=== PATIENT | male | born 1985 | race Two or more races ===

== ENCOUNTER 2016-06-24 10:13 | Inpatient (IN) | payer BC, OTHER ==
[2016-06-24 10:35] VITALS: BMI 22.3
[2016-06-24] MEDS ORDERED: MENTHOL/PHENOL 1 EACH UD MM PRN (14:29)
[2016-06-24] MEDS ORDERED: MAG HYDROX/AL HYDROX/SIMETH 30 ML UNIT-DOSE CUP PO PRN (14:29)
[2016-06-24] MEDS ORDERED: ACETAMINOPHEN 325 MG TABLET (FP) PO PRN (14:29)
[2016-06-24] MEDS ORDERED: MAGNESIUM CITRATE 300 ML BOTTLE PO PRN (14:29)
[2016-06-24] MEDS ORDERED: MAGNESIUM HYDROX 2400MG/30ML ORAL SUSPENSION 30 ML CUP PO PRN (14:29)
[2016-06-24] MEDS ORDERED: guaiFENesin/D-METHORPHAN HB 10 ML UNIT-DOSE CUPS PO PRN (14:29)
[2016-06-24] MEDS ORDERED: NICOTINE POLACRILEX 4 MG GUM BUC PRN (14:29)
[2016-06-24] MEDS ORDERED: P-EPHED 60MG/TRIPROLIDI 2.5MG TABLET PO PRN (14:29)
[2016-06-24] MEDS ORDERED: diphenhydrAMINE HCL 50 MG CAPSULE PO PRN (14:29)
[2016-06-24] MEDS ORDERED: LOPERAMIDE HCL 2 MG CAPSULE PO PRN (14:29)
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
[2016-06-24] MEDS ORDERED: METHADONE HCL 10 MG TABLET (FOR DETOX USE ONLY) PO ONE ×2 (14:36→23:00)
[2016-06-24] MEDS: diazePAM 5 MG TABLET PO PRN ×2 (14:57→22:33)
[2016-06-24 20:40] LABS: URINE APPEARANCE CLEAR; URINE BILIRUBIN NEGATIVE (NEGATIVE); URINE BLOOD NEGATIVE (NEGATIVE); URINE COLOR YELLOW; URINE GLUCOSE (UA) NEGATIVE (NEGATIVE); URINE KETONE 1+ (NEGATIVE); URINE LEUK ESTERASE NEGATIVE (NEGATIVE); URINE NITRITE NEGATIVE (NEGATIVE); URINE UROBILINOGEN NEGATIVE E.U./dl (0.2-1.0)
[2016-06-24 20:45] LABS: URINE PROTEIN 1+ (NEGATIVE)
[2016-06-24 20:47] LABS: URINE MUCUS MANY; URINE RBC 4 /hpf (0-3); URINE WBC 3 /hpf (3-5)
[2016-06-24] MEDS: THIAMINE HCL 100 MG TABLET (FP) PO SCH (22:33)
--- NOTE | 2016-06-25 08:07 | CONSULT ---
[facility] Psychiatric Consult - Data Date of interview: 06/25/16 Admission source: [facility] Identifying data: This is 30 years old micronesian speaking male with psychiatric hospitalization history intoxciated with: Cannabis, nCocaine, Heroin and Nicotine Substance Abuse History: - Smoking Cessation. Smoking history: Current every day smoker. Have you smoked in the past 12 months: Yes. Aproximately how many cigarettes per day: 10. Hx Chewing Tobacco Use: No. Initiated information on smoking cessation: Yes. 'Breaking Loose' booklet given: 06/24/16. - Substance & Tx. History. Hx Alcohol Use: No. Hx Substance Use: Yes. Substance Use Type : Cocaine, Heroin, Marijuana. Hx Substance Use Treatment: Yes. - Substances Abused. Heroin. Route: Injection. Frequency: Daily. Amount used: 10 bags. Age of first use: 16. Date of Last Use: 06/24/16. Cocaine. Route: Injection. Frequency: Daily. Amount used: $150. Age of first use: 16. Date of Last Use: 06/24/16. Marijuana. Route: Smoking. Frequency: Daily. Amount used: $5. Age of first use: 14. Date of Last Use: 06/24/16 Medical History: Hep C+, HIV+ Psychiatric History: Patient repoorts history of anxiety and depression, reports taking prior to admission: Trazodone 100mg po qhs. Seroquel 100mg po qhs. Gabapentin 300mg po tid. Reports most recent psychiatric admission on 3- 4 years ago at [facility]. Physical/Sexual Abuse/Trauma History: Denies Additional Comment: Trazodone 100mg po qhs. Seroquel 100mg po qhs. Gabapentin 300mg po tid Mental Status Exam - Mental Status Exam Alert and Oriented to: Person Cognitive Function: Fair Patient Appearance: Unkempt Mood: Apprehensive Affect: Mood Congruent Patient Behavior: Cooperative Speech Pattern: Appropriate Voice Loudness: Normal Thought Process: Goal Oriented Thought Disorder: Being Controlled Hallucinations: Denies Suicidal Ideation: Denies Homicidal Ideation: Denies Insight/Judgement: Fair Sleep: Difficulty falling asleep Appetite: Weight loss Muscle strength/Tone: Normal Gait/Station: Normal Additional Comments: Trazodone 100mg po qhs. Seroquel 100mg po qhs. Gabapentin 300mg po tid Psychiatric Findings - Problem List ([place] 1, 2,3) (1) Cocaine dependence Current Visit: Yes Status: Chronic Qualifiers: Substance use status: uncomplicated (2) Nicotine dependence Current Visit: Yes Status: Chronic (3) Opioid dependence with withdrawal Current Visit: Yes Status: Chronic (4) Drug-induced mood disorder Current Visit: Yes Status: Acute - Initial Treatment Plan Initial Treatment Plan: Trazodone 100mg po qhs. Seroquel 100mg po qhs. Gabapentin 300mg po tid
[2016-06-25] MEDS: diazePAM 5 MG TABLET PO PRN ×4 (08:27→22:19)
[2016-06-25] MEDS ORDERED: METHADONE HCL 10 MG TABLET (FOR DETOX USE ONLY) PO ONE (10:00)
[2016-06-25 10:05] LABS: MCH 29.2 pg (25.7-33.7); MCHC 33.2 g/dl (32.0-35.9); MEAN CELL VOLUME 87.8 fl (80-96); MEAN PLT VOLUME 8.8 fl (7.5-11.1); PLATELET COUNT 274 K/MM3 (134-434); RDW 14.4 % (11.9-15.9); WHITE BLOOD COUNT 7.4 K/mm3 (4.0-10.0)
[2016-06-25] MEDS: PRENATAL VITAMINS W/ FOLIC ACID TABLET (FP) PO SCH (10:34)
[2016-06-25] MEDS: NICOTINE 21 MG/24 HOURS TOPICAL PATCH TD SCH (10:35)
[2016-06-25 10:40] LABS: ALBUMIN 3.6 g/dl (3.4-5.0); ALK PHOS 69 U/L (45-117); ANION GAP 9 (8-16); BILIRUBIN,TOTAL 0.4 mg/dL (0.2-1.0); CALCIUM 9.5 mg/dL (8.5-10.1); CO2 28 mmol/L (21-32); GLUCOSE,RANDOM 88 mg/dL (74-106); SGOT/AST 52 U/L (15-37); SGPT/ALT 58 U/L (12-78); TOT PROT 7.9 g/dl (6.4-8.2)
[2016-06-25] MEDS: IBUPROFEN 400 MG TABLET (FP) PO PRN (10:43)
--- NOTE | 2016-06-25 11:48 | PN ---
S COWS - Scale Resting Pulse: 0= OR 80 or Below Sweatin=Flushed/Facial Moisture Restless Observation: 1= Difficult to Sit Still Pupil Size: 0= Normal to Room Light Bone or Joint Aches: 1= Mild Discomfort Runny Nose/ Eye Tearin= Nasal Congestion GI Upset > 30mins: 0= None Tremor Observation of Outstretched Hands: 2= Slight Tremor Visible Yawning Observation: 1= 1-2x During Session Anxiety or Irritability: 2=Irritable/Anxious Goose Flesh Skin: 3=Piloerection COWS Score: 13 [facility] Progress Note (SOAP) Subjective: Sweating, Tremors. Objective: 06/25/16 11:45 Vital Signs Temperature 97.7 F 06/25/16 09:36 Pulse Rate 65 06/25/16 09:36 Respiratory Rate 18 06/25/16 09:36 Blood Pressure 127/79 06/25/16 09:36 O2 Sat by Pulse Oximetry (%) Laboratory Last Values WBC 7.4 K/mm3 (4.0-10.0) 06/25/16 06:00 RBC 4.51 M/mm3 (4.00-5.60) 06/25/16 06:00 Hgb 13.2 GM/dL (11.7-16.9) 06/25/16 06:00 Hct 39.6 % (35.4-49) 06/25/16 06:00 MCV 87.8 fl (80-96) 06/25/16 06:00 MCHC 33.2 g/dl (32.0-35.9) 06/25/16 06:00 RDW 14.4 % (11.9-15.9) 06/25/16 06:00 Plt Count 274 K/MM3 (134-434) 06/25/16 06:00 MPV 8.8 fl (7.5-11.1) 06/25/16 06:00 Sodium 140 mmol/L (136-145) 06/25/16 06:00 Potassium 4.6 mmol/L (3.5-5.1) 06/25/16 06:00 Chloride 103 mmol/L (98-107) 06/25/16 06:00 Carbon Dioxide 28 mmol/L (21-32) 06/25/16 06:00 Anion Gap 9 (8-16) 06/25/16 06:00 BUN 9 mg/dL (7-18) D 06/25/16 06:00 Creatinine 1.0 mg/dL (0.7-1.3) 06/25/16 06:00 Creat Clearance w eGFR > 60 (>60) 06/25/16 06:00 Random Glucose 88 mg/dL (74-106) D 06/25/16 06:00 Calcium 9.5 mg/dL (8.5-10.1) 06/25/16 06:00 Total Bilirubin 0.4 mg/dL (0.2-1.0) D 06/25/16 06:00 AST 52 U/L (15-37) H 06/25/16 06:00 ALT 58 U/L (12-78) 06/25/16 06:00 Alkaline Phosphatase 69 U/L (45-117) 06/25/16 06:00 Total Protein 7.9 g/dl (6.4-8.2) 06/25/16 06:00 Albumin 3.6 g/dl (3.4-5.0) 06/25/16 06:00 Urine Color Yellow 06/24/16 14:00 Urine Appearance Clear 06/24/16 14:00 Urine pH 5.0 (5.0-8.0) D 06/24/16 14:00 Ur Specific [place] 1.023 (1.001-1.035) 06/24/16 14:00 Urine Protein 1+ (NEGATIVE) H 06/24/16 14:00 Urine Glucose (UA) Negative (NEGATIVE) 06/24/16 14:00 Urine Ketones 1+ (NEGATIVE) H 06/24/16 14:00 Urine Blood Negative (NEGATIVE) 06/24/16 14:00 Urine Nitrite Negative (NEGATIVE) 06/24/16 14:00 Urine Bilirubin Negative (NEGATIVE) 06/24/16 14:00 Urine Urobilinogen Negative E.U./dl (0.2-1.0) 06/24/16 14:00 Ur Leukocyte Esterase Negative (NEGATIVE) 06/24/16 14:00 Urine RBC 4 /hpf (0-3) 06/24/16 14:00 Urine WBC 3 /hpf (3-5) 06/24/16 14:00 Ur Epithelial Cells Rare /hpf (FEW) 06/24/16 14:00 Urine Mucus Many 06/24/16 14:00 RPR Titer Nonreactive (NONREACTIVE) 06/25/16 06:00 LABS NOTED. Assessment: 06/25/16 11:46 WITHDRAWAL SYMPTOMS. Plan: CONTINUE DETOX.
[2016-06-25] MEDS: GABAPENTIN 300 MG CAPSULE (FP) PO SCH ×2 (13:38→22:19)
--- NOTE | 2016-06-25 17:39 | EKG ---
Test Reason : Blood Pressure : / mmHG Vent. Rate : 088 BPM Atrial Rate : 088 BPM P-R Int : 126 ms QRS Dur : 110 ms QT Int : 386 ms P-R-T Axes : 062 044 052 degrees QTc Int : 467 ms NORMAL SINUS RHYTHM [id number] ABNORMAL ECG NO PREVIOUS ECGS AVAILABLE Confirmed by CHRISTINE RUBIN MD ([id number]) on 06/25/2016 5:39:08 PM Referred By: Confirmed By:CHRISTINE RUBIN MD
[2016-06-25] MEDS: THIAMINE HCL 100 MG TABLET (FP) PO SCH (22:19)
[2016-06-25] MEDS: QUEtiapine FUMARATE 100 MG TABLET (FP) PO SCH (22:19)
[2016-06-25] MEDS: traZODone HCL 100 MG TABLET (FP) PO SCH (22:19)
[2016-06-26] MEDS: GABAPENTIN 300 MG CAPSULE (FP) PO SCH ×3 (05:50→22:16)
[2016-06-26] MEDS: diazePAM 5 MG TABLET PO PRN ×4 (05:52→20:01)
[2016-06-26] MEDS ORDERED: METHADONE HCL 5 MG TABLET (FOR DETOX USE ONLY) PO ONE (10:00)
--- NOTE | 2016-06-26 10:05 | PN ---
S COWS - Scale Resting Pulse: 0= ID 80 or Below Sweatin= Chills/Flushing Restless Observation: 1= Difficult to Sit Still Pupil Size: 2= Moderately Dilated Bone or Joint Aches: 2= Severe Diffuse Aches Runny Nose/ Eye Tearin= Runny Nose/Eyes GI Upset > 30mins: 2= Nausea/Diarrhea Tremor Observation of Outstretched Hands: 2= Slight Tremor Visible Yawning Observation: 1= 1-2x During Session Anxiety or Irritability: 2=Irritable/Anxious Goose Flesh Skin: 0=Smooth Skin COWS Score: 15 [facility] Progress Note (SOAP) Objective: 06/26/16 10:04 ALERT AND ORIENTEDx 3 Laboratory Tests 06/24/16 06/25/16 06/25/16 14:00 06:00 06:00 WBC 7.4 RBC 4.51 Hgb 13.2 Hct 39.6 MCV 87.8 MCHC 33.2 RDW 14.4 Plt Count 274 MPV 8.8 Sodium 140 Potassium 4.6 Chloride 103 Carbon Dioxide 28 Anion Gap 9 BUN 9 D Creatinine 1.0 Creat Clearance w eGFR > 60 Random Glucose 88 D Calcium 9.5 Total Bilirubin 0.4 D AST 52 H ALT 58 Alkaline Phosphatase 69 Total Protein 7.9 Albumin 3.6 Urine Color Yellow Urine Appearance Clear Urine pH 5.0 D Ur Specific [place] 1.023 Urine Protein 1+ H Urine Glucose (UA) Negative Urine Ketones 1+ H Urine Blood Negative Urine Nitrite Negative Urine Bilirubin Negative Urine Urobilinogen Negative Ur Leukocyte Esterase Negative Urine RBC 4 Urine WBC 3 Ur Epithelial Cells Rare Urine Mucus Many RPR Titer 06/25/16 06:00 WBC RBC Hgb Hct MCV MCHC RDW Plt Count MPV Sodium Potassium Chloride Carbon Dioxide Anion Gap BUN Creatinine Creat Clearance w eGFR Random Glucose Calcium Total Bilirubin AST ALT Alkaline Phosphatase Total Protein Albumin Urine Color Urine Appearance Urine pH Ur Specific [place] Urine Protein Urine Glucose (UA) Urine Ketones Urine Blood Urine Nitrite Urine Bilirubin Urine Urobilinogen Ur Leukocyte Esterase Urine RBC Urine WBC Ur Epithelial Cells Urine Mucus RPR Titer Nonreactive Vital Signs - 24 hr 06/25/16 06/25/16 06/25/16 15:03 20:25 22:02 Temperature 98.2 F 98.1 F 97.1 F L Pulse Rate 75 82 74 Respiratory 18 20 18 Rate Blood Pressure 121/56 122/61 99/64 02/03/17 02/03/17 02/03/17 00:30 03:30 06:00 Temperature 98.2 F Pulse Rate 69 Respiratory 18 18 16 Rate Blood Pressure 101/60 06/26/16 10:04 Assessment: 06/26/16 10:04 ONGOING WITHDRAWAL Plan: CONTINUE DETOX PROTOCOL
[2016-06-26] MEDS: NICOTINE 21 MG/24 HOURS TOPICAL PATCH TD SCH (10:48)
[2016-06-26] MEDS: PRENATAL VITAMINS W/ FOLIC ACID TABLET (FP) PO SCH (10:48)
[2016-06-26] MEDS: hydrOXYzine PAMOATE 50 MG CAPSULE (FP) PO PRN (13:01)
[2016-06-26] MEDS: traZODone HCL 100 MG TABLET (FP) PO SCH (22:15)
[2016-06-26] MEDS: THIAMINE HCL 100 MG TABLET (FP) PO SCH (22:16)
[2016-06-26] MEDS: QUEtiapine FUMARATE 100 MG TABLET (FP) PO SCH (22:16)
[2016-06-27] MEDS: GABAPENTIN 300 MG CAPSULE (FP) PO SCH ×3 (07:14→21:51)
[2016-06-27] MEDS ORDERED: METHADONE HCL 5 MG TABLET (FOR DETOX USE ONLY) PO ONE (10:00)
[2016-06-27] MEDS: PRENATAL VITAMINS W/ FOLIC ACID TABLET (FP) PO SCH (10:16)
[2016-06-27] MEDS: NICOTINE 21 MG/24 HOURS TOPICAL PATCH TD SCH (10:16)
[2016-06-27] MEDS: diazePAM 5 MG TABLET PO PRN ×2 (10:19→14:20)
[2016-06-27] MEDS ORDERED: ALBUTEROL SO4 6.7 GM HFA INHALER IH PRN (13:19)
--- NOTE | 2016-06-27 13:19 | PN ---
S Progress Note (SOAP) Subjective: ALERT,IRRITABLE,ANXIOUS,PAIN IN THE BODY AND BACK,INTERRUPTED SLEEP Objective: 06/27/16 13:16 Vital Signs Temperature 97 F L 06/27/16 10:05 Pulse Rate 84 06/27/16 10:05 Respiratory Rate 18 06/27/16 10:05 Blood Pressure 112/65 06/27/16 10:05 O2 Sat by Pulse Oximetry (%) EKG NSR 88/MIN [place] WHITE NO CHEST PAIN,NO SOB,NO DIZZINESS Laboratory Last Values WBC 7.4 K/mm3 (4.0-10.0) 06/25/16 06:00 RBC 4.51 M/mm3 (4.00-5.60) 06/25/16 06:00 Hgb 13.2 GM/dL (11.7-16.9) 06/25/16 06:00 Hct 39.6 % (35.4-49) 06/25/16 06:00 MCV 87.8 fl (80-96) 06/25/16 06:00 MCHC 33.2 g/dl (32.0-35.9) 06/25/16 06:00 RDW 14.4 % (11.9-15.9) 06/25/16 06:00 Plt Count 274 K/MM3 (134-434) 06/25/16 06:00 MPV 8.8 fl (7.5-11.1) 06/25/16 06:00 Sodium 140 mmol/L (136-145) 06/25/16 06:00 Potassium 4.6 mmol/L (3.5-5.1) 06/25/16 06:00 Chloride 103 mmol/L (98-107) 06/25/16 06:00 Carbon Dioxide 28 mmol/L (21-32) 06/25/16 06:00 Anion Gap 9 (8-16) 06/25/16 06:00 BUN 9 mg/dL (7-18) D 06/25/16 06:00 Creatinine 1.0 mg/dL (0.7-1.3) 06/25/16 06:00 Creat Clearance w eGFR > 60 (>60) 06/25/16 06:00 Random Glucose 88 mg/dL (74-106) D 06/25/16 06:00 Calcium 9.5 mg/dL (8.5-10.1) 06/25/16 06:00 Total Bilirubin 0.4 mg/dL (0.2-1.0) D 06/25/16 06:00 AST 52 U/L (15-37) H 06/25/16 06:00 ALT 58 U/L (12-78) 06/25/16 06:00 Alkaline Phosphatase 69 U/L (45-117) 06/25/16 06:00 Total Protein 7.9 g/dl (6.4-8.2) 06/25/16 06:00 Albumin 3.6 g/dl (3.4-5.0) 06/25/16 06:00 Urine Color Yellow 06/24/16 14:00 Urine Appearance Clear 06/24/16 14:00 Urine pH 5.0 (5.0-8.0) D 06/24/16 14:00 Ur Specific [place] 1.023 (1.001-1.035) 06/24/16 14:00 Urine Protein 1+ (NEGATIVE) H 06/24/16 14:00 Urine Glucose (UA) Negative (NEGATIVE) 06/24/16 14:00 Urine Ketones 1+ (NEGATIVE) H 06/24/16 14:00 Urine Blood Negative (NEGATIVE) 06/24/16 14:00 Urine Nitrite Negative (NEGATIVE) 06/24/16 14:00 Urine Bilirubin Negative (NEGATIVE) 06/24/16 14:00 Urine Urobilinogen Negative E.U./dl (0.2-1.0) 06/24/16 14:00 Ur Leukocyte Esterase Negative (NEGATIVE) 06/24/16 14:00 Urine RBC 4 /hpf (0-3) 06/24/16 14:00 Urine WBC 3 /hpf (3-5) 06/24/16 14:00 Ur Epithelial Cells Rare /hpf (FEW) 06/24/16 14:00 Urine Mucus Many 06/24/16 14:00 RPR Titer Nonreactive (NONREACTIVE) 06/25/16 06:00 06/27/16 13:18 Assessment: 06/27/16 13:18 WITHDRAWAL SYMPTOM Plan: CONTINUE DETOX
[2016-06-27] MEDS: hydrOXYzine PAMOATE 50 MG CAPSULE (FP) PO PRN (14:19)
[2016-06-27] MEDS: THIAMINE HCL 100 MG TABLET (FP) PO SCH (21:50)
[2016-06-27] MEDS: traZODone HCL 100 MG TABLET (FP) PO SCH (21:51)
[2016-06-27] MEDS: QUEtiapine FUMARATE 100 MG TABLET (FP) PO SCH (21:51)
[2016-06-28] MEDS: GABAPENTIN 300 MG CAPSULE (FP) PO SCH ×3 (07:26→22:29)
[2016-06-28] MEDS ORDERED: METHADONE HCL 10 MG TABLET (FOR DETOX USE ONLY) PO ONE (10:00)
[2016-06-28] MEDS: PRENATAL VITAMINS W/ FOLIC ACID TABLET (FP) PO SCH (10:20)
[2016-06-28] MEDS: NICOTINE 21 MG/24 HOURS TOPICAL PATCH TD SCH (10:20)
[2016-06-28] MEDS: hydrOXYzine PAMOATE 50 MG CAPSULE (FP) PO PRN (10:22)
--- NOTE | 2016-06-28 12:20 | PN ---
S Progress Note (SOAP) Subjective: ALERT,IRRITABLE,ANXIOUS,INTERRUPTED SLEEP Objective: 06/28/16 12:13 Vital Signs Temperature 97.7 F 06/28/16 11:02 Pulse Rate 92 H 06/28/16 11:02 Respiratory Rate 18 06/28/16 11:02 Blood Pressure 114/64 06/28/16 11:02 O2 Sat by Pulse Oximetry (%) 06/28/16 12:20 Assessment: 06/28/16 12:20 WITHDRAWAL SYMPTOM Plan: CONTINUE DETOX
--- NOTE | 2016-06-28 12:24 | PN ---
[facility] Progress Note Note: TOOTHACHE TO GIVE 2% XYLOCAINE VISCOUS PRN Q 6HRS
--- NOTE | 2016-06-28 12:25 | PN ---
[facility] Progress Note Note: PLEASE DISREGARD THE NOTE ON 12.23 PM ,BELONG TO OTHER PATIENT
[2016-06-28] MEDS: IBUPROFEN 400 MG TABLET (FP) PO PRN (14:42)
[2016-06-28] MEDS: THIAMINE HCL 100 MG TABLET (FP) PO SCH (22:29)
[2016-06-28] MEDS: traZODone HCL 100 MG TABLET (FP) PO SCH (22:29)
[2016-06-28] MEDS: QUEtiapine FUMARATE 100 MG TABLET (FP) PO SCH (22:29)
[2016-06-29] MEDS ORDERED: METHADONE HCL 5 MG TABLET (FOR DETOX USE ONLY) PO ONE (06:00)
[2016-06-29] MEDS: GABAPENTIN 300 MG CAPSULE (FP) PO SCH (06:23)
[2016-06-29 06:50] VITALS: BP 105/59; PULSE 73; TEMP 97.2
--- NOTE | 2016-06-29 09:00 | DS ---
[facility] Detox Discharge Summary Admission Date: 06/24/16 Discharge Date: 06/29/16 - History Present History: Cocaine Dependence, Opioid Dependence - Physical Exam Results Vital Signs: Vital Signs Temperature 97.2 F L 06/29/16 06:00 Pulse Rate 73 06/29/16 06:00 Respiratory Rate 16 06/29/16 06:00 Blood Pressure 105/59 06/29/16 06:00 O2 Sat by Pulse Oximetry (%) - Treatment Hospital Course: Detox Protocol Followed, Detoxed Safely, Responded well, Discharged Condition Good, Rehab Referral Accepted - Medication Discharge Medications: Ambulatory Orders Gabapentin [Neurontin -] 300 mg PO TID #90 capsule 03/25/16 Quetiapine Fumarate [Seroquel] 100 tab PO HS #30 tablet 03/25/16 Trazodone HCl [Desyrel -] 100 mg PO HS #30 tablet 03/25/16 Albuterol Sulfate Inhaler - [Ventolin HFA Inhaler -] 2 inh IH Q4H PRN #1 Gabapentin [Neurontin -] 300 mg PO TID #90 capsule 06/25/16 Quetiapine Fumarate [Seroquel] 100 mg PO HS #30 tablet 06/25/16 Trazodone HCl [Desyrel -] 100 mg PO HS #30 tablet 06/25/16 - Diagnosis (1) Asthma Current Visit: Yes Status: Chronic Qualifiers: Asthma severity: mild intermittent (2) Cocaine dependence Current Visit: Yes Status: Chronic Qualifiers: Substance use status: uncomplicated (3) HIV disease Current Visit: Yes Status: Chronic (4) Hepatitis C Current Visit: Yes Status: Chronic Qualifiers: Viral hepatitis chronicity: unspecified (5) Nicotine dependence Current Visit: Yes Status: Chronic (6) Opioid dependence with withdrawal Current Visit: Yes Status: Chronic - AMA Did Patient Leave Against Medical Advice: No
[2016-06-29] MEDS: NICOTINE 21 MG/24 HOURS TOPICAL PATCH TD SCH (10:35)
[2016-06-29] MEDS: PRENATAL VITAMINS W/ FOLIC ACID TABLET (FP) PO SCH (10:36)
== END 2016-06-29 10:52 | disposition home or self-care (01) | DRG 897 ==
LOC: YASAS 10:13 → Y6N 12:57
PROVIDERS: ADMIT Internal Medicine Addiction Medicine; ATTEND Internal Medicine Addiction Medicine
PROC: HZ2ZZZZ Detoxification Services for Substance Abuse Treatment (ICD-10-PCS; principal; 2016-06-29)
DX: F11.23 Opioid dependence with withdrawal (principal); F14.20 Cocaine dependence, uncomplicated; J45.21 Mild intermittent asthma with (acute) exacerbation; F17.210 Nicotine dependence, cigarettes, uncomplicated; F19.24 Other psychoactive substance dependence with psychoactive substance-induced mood disorder; Z21 Asymptomatic human immunodeficiency virus [HIV] infection status
CPT/HCPCS: 36415; 80053; 81003; 81015; 85027; 86593; 93005; 93010

== ENCOUNTER 2016-08-17 09:45 | Inpatient (IN) | payer BC, OTHER ==
[2016-08-17 10:31] VITALS: BMI 19.2
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
[2016-08-17] MEDS ORDERED: hydrOXYzine PAMOATE 50 MG CAPSULE (FP) PO PRN (13:37)
[2016-08-17] MEDS ORDERED: MAG HYDROX/AL HYDROX/SIMETH 30 ML UNIT-DOSE CUP PO PRN (13:37)
[2016-08-17] MEDS ORDERED: NICOTINE POLACRILEX 4 MG GUM BUC PRN (13:37)
[2016-08-17] MEDS ORDERED: ACETAMINOPHEN 325 MG TABLET (FP) PO PRN (13:37)
[2016-08-17] MEDS ORDERED: guaiFENesin/D-METHORPHAN HB 10 ML UNIT-DOSE CUPS PO PRN (13:37)
[2016-08-17] MEDS ORDERED: chlordiazePOXIDE HCL 25 MG CAPSULE PO PRN (13:37)
[2016-08-17] MEDS ORDERED: IBUPROFEN 400 MG TABLET (FP) PO PRN (13:37)
[2016-08-17] MEDS ORDERED: MENTHOL/PHENOL 1 EACH UD MM PRN (13:37)
[2016-08-17] MEDS ORDERED: P-EPHED 60MG/TRIPROLIDI 2.5MG TABLET PO PRN (13:37)
[2016-08-17] MEDS ORDERED: LOPERAMIDE HCL 2 MG CAPSULE PO PRN (13:37)
[2016-08-17] MEDS ORDERED: MAGNESIUM HYDROX 2400MG/30ML ORAL SUSPENSION 30 ML CUP PO PRN (13:37)
[2016-08-17] MEDS ORDERED: MAGNESIUM CITRATE 300 ML BOTTLE PO PRN (13:37)
[2016-08-17] MEDS ORDERED: chlordiazePOXIDE HCL 25 MG CAPSULE PO ONE (14:15)
[2016-08-17] MEDS ORDERED: METHADONE HCL 10 MG TABLET (FOR DETOX USE ONLY) PO ONE ×2 (14:16→23:00)
[2016-08-17 17:14] LABS: URINE APPEARANCE CLEAR; URINE BILIRUBIN NEGATIVE (NEGATIVE); URINE BLOOD NEGATIVE (NEGATIVE); URINE COLOR LTYELLOW; URINE GLUCOSE (UA) NEGATIVE (NEGATIVE); URINE KETONE NEGATIVE (NEGATIVE); URINE LEUK ESTERASE NEGATIVE (NEGATIVE); URINE NITRITE NEGATIVE (NEGATIVE); URINE PROTEIN NEGATIVE (NEGATIVE); URINE UROBILINOGEN NEGATIVE E.U./dl (0.2-1.0)
[2016-08-17] MEDS: chlordiazePOXIDE HCL 25 MG CAPSULE PO SCH ×2 (17:21→22:42)
--- NOTE | 2016-08-17 19:17 | PN ---
[facility] Progress Note Note: RECEIVED NURSE INFORMED REQUESTS ENSURE ENSURE 120 ML BID CONTINUE DETOX
[2016-08-17] MEDS: THIAMINE HCL 100 MG TABLET (FP) PO SCH (22:42)
[2016-08-18] MEDS: chlordiazePOXIDE HCL 25 MG CAPSULE PO SCH (05:37)
[2016-08-18] MEDS ORDERED: diazePAM 5 MG TABLET PO ONE (09:43)
[2016-08-18 09:57] LABS: MCH 29.2 pg (25.7-33.7); MCHC 32.9 g/dl (32.0-35.9); MEAN CELL VOLUME 88.7 fl (80-96); MEAN PLT VOLUME 9.1 fl (7.5-11.1); PLATELET COUNT 221 K/MM3 (134-434); WHITE BLOOD COUNT 7.7 K/mm3 (4.0-10.0)
[2016-08-18 09:58] LABS: ALBUMIN 3.9 g/dl (3.4-5.0); ALK PHOS 71 U/L (45-117); ANION GAP 11 (8-16); BILIRUBIN,TOTAL 0.3 mg/dL (0.2-1.0); CALCIUM 9.4 mg/dL (8.5-10.1); CO2 28 mmol/L (21-32); CREATININE 0.8 mg/dL (0.7-1.3); GLUCOSE,RANDOM 108 mg/dL (74-106); SGOT/AST 48 U/L (15-37); SGPT/ALT 60 U/L (12-78); TOT PROT 8.1 g/dl (6.4-8.2)
[2016-08-18 10:00] LABS: HIV 1 AGp24 NEGATIVE
[2016-08-18] MEDS ORDERED: METHADONE HCL 10 MG TABLET (FOR DETOX USE ONLY) PO SCH (10:00)
[2016-08-18 10:01] LABS: HIV 1 & 2 AB PRELIMINARY POSITIVE
[2016-08-18] MEDS: PRENATAL VITAMINS W/ FOLIC ACID TABLET (FP) PO SCH (10:24)
[2016-08-18] MEDS: NICOTINE 21 MG/24 HOURS TOPICAL PATCH TD SCH (10:25)
--- NOTE | 2016-08-18 11:52 | PN ---
[facility] CIWA - CIWA Score Nausea/Vomitin Muscle Tremors: 4-Moderate,w/Arms Extend Anxiety: 4-Mod. Anxious/Guarded Agitation: 4-Moderately Restless Paroxysmal Sweats: 3 Orientation: 0-Oriented Tacttile Disturbances: 0-None Auditory Disturbances: 0-None Visual Disturbances: 0-None Headache: 0-None Present CIWA-Ar Total Score: 17 S COWS - Scale Resting Pulse: 0= [place] 80 or Below Sweatin=Flushed/Facial Moisture Restless Observation: 1= Difficult to Sit Still Pupil Size: 0= Normal to Room Light Bone or Joint Aches: 1= Mild Discomfort Runny Nose/ Eye Tearin= Runny Nose/Eyes GI Upset > 30mins: 2= Nausea/Diarrhea Tremor Observation of Outstretched Hands: 2= Slight Tremor Visible Yawning Observation: 1= 1-2x During Session Anxiety or Irritability: 2=Irritable/Anxious Goose Flesh Skin: 0=Smooth Skin COWS Score: 13 S Progress Note (SOAP) Subjective: Anxiety,sweating,interrupted sleep,restless,muscle aches. Objective: 08/18/16 11:52 Vital Signs - 8 hr 08/18/16 06:04 Temperature 97.1 F L Pulse Rate 63 Respiratory 18 Rate Blood Pressure 111/78 Laboratory Tests 08/17/16 08/17/16 08/18/16 14:00 14:00 06:00 WBC 7.7 RBC 4.49 Hgb 13.1 Hct 39.8 MCV 88.7 MCHC 32.9 RDW 14.0 Plt Count 221 MPV 9.1 Sodium Potassium Chloride Carbon Dioxide Anion Gap BUN Creatinine Creat Clearance w eGFR Random Glucose Calcium Total Bilirubin AST ALT Alkaline Phosphatase Total Protein Albumin Urine Color Ltyellow Urine Appearance Clear Urine pH 7.0 D Ur Specific [place] 1.012 Urine Protein Negative Urine Glucose (UA) Negative Urine Ketones Negative Urine Blood Negative Urine Nitrite Negative Urine Bilirubin Negative Urine Urobilinogen Negative Ur Leukocyte Esterase Negative HIV 1&2 Antibody Screen Preliminary positive HIV P24 Antigen Negative 08/18/16 06:00 WBC RBC Hgb Hct MCV MCHC RDW Plt Count MPV Sodium 140 Potassium 4.1 Chloride 101 Carbon Dioxide 28 Anion Gap 11 BUN 7 D Creatinine 0.8 Creat Clearance w eGFR > 60 Random Glucose 108 H D Calcium 9.4 Total Bilirubin 0.3 D AST 48 H ALT 60 Alkaline Phosphatase 71 Total Protein 8.1 Albumin 3.9 Urine Color Urine Appearance Urine pH Ur Specific [place] Urine Protein Urine Glucose (UA) Urine Ketones Urine Blood Urine Nitrite Urine Bilirubin Urine Urobilinogen Ur Leukocyte Esterase HIV 1&2 Antibody Screen HIV P24 Antigen labs noted,pt. is known to be HIV positive since 2011,test should not have been ordered. Assessment: 08/18/16 11:57 Withdrawal sx. Plan: Continue detox
--- NOTE | 2016-08-18 13:44 | EKG ---
Test Reason : Blood Pressure : / mmHG Vent. Rate : 067 BPM Atrial Rate : 067 BPM P-R Int : 116 ms QRS Dur : 112 ms QT Int : 410 ms P-R-T Axes : 037 043 047 degrees QTc Int : 433 ms NORMAL SINUS RHYTHM [id number] ABNORMAL ECG WHEN COMPARED WITH ECG OF 24-JUN-2016 14:52, NO SIGNIFICANT CHANGE WAS FOUND Confirmed by VARSHA SPIVEY MD ([id number]) on 08/18/2016 1:43:47 PM Referred By: Epifanio Nascimento Confirmed By:VARSHA SPIVEY MD
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
[2016-08-18] MEDS: diazePAM 5 MG TABLET PO SCH ×2 (14:35→22:35)
[2016-08-18] MEDS ORDERED: chlordiazePOXIDE HCL 25 MG CAPSULE PO SCH (17:00)
[2016-08-18] MEDS: diazePAM 5 MG TABLET PO PRN (17:39)
[2016-08-18] MEDS ORDERED: QUEtiapine FUMARATE 100 MG TABLET (FP) PO SCH (22:00)
[2016-08-18] MEDS: QUEtiapine FUMARATE 100 MG TABLET (FP) PO SCH (22:35)
[2016-08-18] MEDS: diphenhydrAMINE HCL 50 MG CAPSULE PO PRN (22:35)
[2016-08-18] MEDS: THIAMINE HCL 100 MG TABLET (FP) PO SCH (22:35)
[2016-08-18] MEDS: GABAPENTIN 300 MG CAPSULE (FP) PO SCH (22:35)
[2016-08-19] MEDS: GABAPENTIN 300 MG CAPSULE (FP) PO SCH ×3 (06:23→22:45)
[2016-08-19] MEDS: diazePAM 5 MG TABLET PO SCH ×3 (06:23→22:44)
[2016-08-19] MEDS: METHADONE HCL 5 MG TABLET (FOR DETOX USE ONLY) PO SCH (10:52)
[2016-08-19] MEDS: diazePAM 5 MG TABLET PO PRN ×2 (10:52→17:56)
[2016-08-19] MEDS: PRENATAL VITAMINS W/ FOLIC ACID TABLET (FP) PO SCH (10:52)
[2016-08-19] MEDS: NICOTINE 21 MG/24 HOURS TOPICAL PATCH TD SCH (10:52)
--- NOTE | 2016-08-19 12:22 | PN ---
[facility] CIWA - CIWA Score Nausea/Vomitin-No Nausea/No Vomiting Muscle Tremors: 4-Moderate,w/Arms Extend Anxiety: 4-Mod. Anxious/Guarded Agitation: 4-Moderately Restless Paroxysmal Sweats: 3 Orientation: 0-Oriented Tacttile Disturbances: 0-None Auditory Disturbances: 0-None Visual Disturbances: 0-None Headache: 0-None Present CIWA-Ar Total Score: 15 [facility] COWS - Scale Resting Pulse: 1= [place] 81-100 Sweatin=Flushed/Facial Moisture Restless Observation: 1= Difficult to Sit Still Pupil Size: 0= Normal to Room Light Bone or Joint Aches: 2= Severe Diffuse Aches Runny Nose/ Eye Tearin= Runny Nose/Eyes GI Upset > 30mins: 2= Nausea/Diarrhea Tremor Observation of Outstretched Hands: 2= Slight Tremor Visible Yawning Observation: 1= 1-2x During Session Anxiety or Irritability: 2=Irritable/Anxious Goose Flesh Skin: 0=Smooth Skin COWS Score: 15 [facility] Progress Note (SOAP) Subjective: Sweating,anxiety,tremors,interrupted sleep,restless,muscle aches/spasm Objective: 08/19/16 12:20 Last Vital Signs Temp Pulse Resp BP Pulse Ox 95.5 F L 88 18 118/82 08/19/16 09:19 08/19/16 09:19 08/19/16 09:19 08/19/16 09:19 Laboratory Tests 08/17/16 08/17/16 08/18/16 14:00 14:00 06:00 WBC 7.7 RBC 4.49 Hgb 13.1 Hct 39.8 MCV 88.7 MCHC 32.9 RDW 14.0 Plt Count 221 MPV 9.1 Sodium Potassium Chloride Carbon Dioxide Anion Gap BUN Creatinine Creat Clearance w eGFR Random Glucose Calcium Total Bilirubin AST ALT Alkaline Phosphatase Total Protein Albumin Urine Color Ltyellow Urine Appearance Clear Urine pH 7.0 D Ur Specific [place] 1.012 Urine Protein Negative Urine Glucose (UA) Negative Urine Ketones Negative Urine Blood Negative Urine Nitrite Negative Urine Bilirubin Negative Urine Urobilinogen Negative Ur Leukocyte Esterase Negative RPR Titer HIV 1&2 Antibody Screen Preliminary positive HIV P24 Antigen Negative 08/18/16 08/18/16 06:00 06:00 WBC RBC Hgb Hct MCV MCHC RDW Plt Count MPV Sodium 140 Potassium 4.1 Chloride 101 Carbon Dioxide 28 Anion Gap 11 BUN 7 D Creatinine 0.8 Creat Clearance w eGFR > 60 Random Glucose 108 H D Calcium 9.4 Total Bilirubin 0.3 D AST 48 H ALT 60 Alkaline Phosphatase 71 Total Protein 8.1 Albumin 3.9 Urine Color Urine Appearance Urine pH Ur Specific [place] Urine Protein Urine Glucose (UA) Urine Ketones Urine Blood Urine Nitrite Urine Bilirubin Urine Urobilinogen Ur Leukocyte Esterase RPR Titer Cancelled HIV 1&2 Antibody Screen HIV P24 Antigen Assessment: 08/19/16 12:21 Withdrawal sx. Plan: Continue detox
[2016-08-19] MEDS ORDERED: chlordiazePOXIDE 5 MG CAPSULE PO SCH (17:00)
[2016-08-19] MEDS: THIAMINE HCL 100 MG TABLET (FP) PO SCH (22:44)
[2016-08-19] MEDS: QUEtiapine FUMARATE 100 MG TABLET (FP) PO SCH (22:44)
[2016-08-19] MEDS: diphenhydrAMINE HCL 50 MG CAPSULE PO PRN (22:45)
[2016-08-20] MEDS: GABAPENTIN 300 MG CAPSULE (FP) PO SCH ×3 (05:29→23:04)
[2016-08-20] MEDS: diazePAM 5 MG TABLET PO PRN ×2 (05:29→14:31)
[2016-08-20] MEDS: NICOTINE 21 MG/24 HOURS TOPICAL PATCH TD SCH (10:36)
[2016-08-20] MEDS: METHADONE HCL 5 MG TABLET (FOR DETOX USE ONLY) PO SCH (10:36)
[2016-08-20] MEDS: diazePAM 5 MG TABLET PO SCH ×2 (10:36→23:04)
[2016-08-20] MEDS: PRENATAL VITAMINS W/ FOLIC ACID TABLET (FP) PO SCH (10:36)
--- NOTE | 2016-08-20 11:08 | PN ---
S Progress Note (SOAP) Subjective: ALERT,IRRITABLE,ANXIOUS,INTERRUPTED SLEEP,PAIN IN THE BODY AND BACK Objective: 08/20/16 11:07 Vital Signs Temperature 96.6 F L 08/20/16 09:17 Pulse Rate 88 08/20/16 09:17 Respiratory Rate 18 08/20/16 09:17 Blood Pressure 102/70 08/20/16 09:17 O2 Sat by Pulse Oximetry (%) Assessment: 08/20/16 11:08 WITHDRAWAL SYMPTOM Plan: CONTINUE DETOX
[2016-08-20] MEDS ORDERED: chlordiazePOXIDE HCL 10 MG CAPSULE PO SCH (17:00)
[2016-08-20] MEDS: THIAMINE HCL 100 MG TABLET (FP) PO SCH (23:04)
[2016-08-20] MEDS: QUEtiapine FUMARATE 100 MG TABLET (FP) PO SCH (23:04)
[2016-08-21] MEDS: GABAPENTIN 300 MG CAPSULE (FP) PO SCH ×3 (05:41→22:29)
[2016-08-21] MEDS: diazePAM 5 MG TABLET PO PRN (05:42)
[2016-08-21] MEDS ORDERED: METHADONE HCL 10 MG TABLET (FOR DETOX USE ONLY) PO SCH (10:00)
[2016-08-21] MEDS: diazePAM 5 MG TABLET PO SCH ×2 (10:51→22:29)
[2016-08-21] MEDS: PRENATAL VITAMINS W/ FOLIC ACID TABLET (FP) PO SCH (10:51)
[2016-08-21] MEDS: NICOTINE 21 MG/24 HOURS TOPICAL PATCH TD SCH (10:51)
--- NOTE | 2016-08-21 11:43 | PN ---
[facility] Progress Note (SOAP) Subjective: ANXIETY,SWEATS,DECREASED IRRITABILITY. Objective: 08/21/16 11:42 Vital Signs Temperature 96.8 F L 08/21/16 06:30 Pulse Rate 78 08/21/16 10:10 Respiratory Rate 19 08/21/16 10:10 Blood Pressure 127/87 08/21/16 10:10 O2 Sat by Pulse Oximetry (%) Assessment: 08/21/16 11:42 WITHDRAWAL SX Plan: CONTINUE DETOX
[2016-08-21 22:09] VITALS: BP 118/73; PULSE 94; TEMP 97.1
[2016-08-21] MEDS: QUEtiapine FUMARATE 100 MG TABLET (FP) PO SCH (22:29)
[2016-08-21] MEDS: THIAMINE HCL 100 MG TABLET (FP) PO SCH (22:29)
[2016-08-22] MEDS: GABAPENTIN 300 MG CAPSULE (FP) PO SCH (05:48)
[2016-08-22] MEDS ORDERED: METHADONE HCL 5 MG TABLET (FOR DETOX USE ONLY) PO SCH (06:00)
[2016-08-22] MEDS ORDERED: diazePAM 5 MG TABLET PO SCH (10:00)
--- NOTE | 2016-08-22 14:31 | DS ---
[facility] Detox Discharge Summary Admission Date: 08/17/16 Discharge Date: 08/22/16 - History Present History: Cocaine Dependence, Opioid Dependence Additional Comments: ADVISED PATIENT TO FOLLOW-UP WITH [facility] / REHAB MEDICAL PROVIDER AFTER DISCHARGER FROM DETOX FOR GENERAL MEDICAL ASSESSMENT AND FOR ABNORMAL ADMISSION LAB VALUES. Pertinent Past History: Asthma, Hep C, HIV, Depression. - Physical Exam Results Vital Signs: Vital Signs Temperature 97.1 F L 08/21/16 22:08 Pulse Rate 94 H 08/21/16 22:08 Respiratory Rate 18 08/22/16 03:30 Blood Pressure 118/73 08/21/16 22:08 O2 Sat by Pulse Oximetry (%) Pertinent Admission Physical Exam Findings: WITHDRAWAL SYMPTOMS. Laboratory Last Values WBC 7.7 K/mm3 (4.0-10.0) 08/18/16 06:00 RBC 4.49 M/mm3 (4.00-5.60) 08/18/16 06:00 Hgb 13.1 GM/dL (11.7-16.9) 08/18/16 06:00 Hct 39.8 % (35.4-49) 08/18/16 06:00 MCV 88.7 fl (80-96) 08/18/16 06:00 MCHC 32.9 g/dl (32.0-35.9) 08/18/16 06:00 RDW 14.0 % (11.9-15.9) 08/18/16 06:00 Plt Count 221 K/MM3 (134-434) 08/18/16 06:00 MPV 9.1 fl (7.5-11.1) 08/18/16 06:00 Sodium 140 mmol/L (136-145) 08/18/16 06:00 Potassium 4.1 mmol/L (3.5-5.1) 08/18/16 06:00 Chloride 101 mmol/L (98-107) 08/18/16 06:00 Carbon Dioxide 28 mmol/L (21-32) 08/18/16 06:00 Anion Gap 11 (8-16) 08/18/16 06:00 BUN 7 mg/dL (7-18) D 08/18/16 06:00 Creatinine 0.8 mg/dL (0.7-1.3) 08/18/16 06:00 Creat Clearance w eGFR > 60 (>60) 08/18/16 06:00 Random Glucose 108 mg/dL (74-106) H D 08/18/16 06:00 Calcium 9.4 mg/dL (8.5-10.1) 08/18/16 06:00 Total Bilirubin 0.3 mg/dL (0.2-1.0) D 08/18/16 06:00 AST 48 U/L (15-37) H 08/18/16 06:00 ALT 60 U/L (12-78) 08/18/16 06:00 Alkaline Phosphatase 71 U/L (45-117) 08/18/16 06:00 Total Protein 8.1 g/dl (6.4-8.2) 08/18/16 06:00 Albumin 3.9 g/dl (3.4-5.0) 08/18/16 06:00 Urine Color Ltyellow 08/17/16 14:00 Urine Appearance Clear 08/17/16 14:00 Urine pH 7.0 (5.0-8.0) D 08/17/16 14:00 Ur Specific [place] 1.012 (1.001-1.035) 08/17/16 14:00 Urine Protein Negative (NEGATIVE) 08/17/16 14:00 Urine Glucose (UA) Negative (NEGATIVE) 08/17/16 14:00 Urine Ketones Negative (NEGATIVE) 08/17/16 14:00 Urine Blood Negative (NEGATIVE) 08/17/16 14:00 Urine Nitrite Negative (NEGATIVE) 08/17/16 14:00 Urine Bilirubin Negative (NEGATIVE) 08/17/16 14:00 Urine Urobilinogen Negative E.U./dl (0.2-1.0) 08/17/16 14:00 Ur Leukocyte Esterase Negative (NEGATIVE) 08/17/16 14:00 RPR Titer Cancelled 08/18/16 06:00 HIV-1 Antibody Positive (Negative) H 08/17/16 14:00 HIV-2 Antibody Negative (Negative) 08/17/16 14:00 HIV 1&2 Ag/Ab, 4th Gen (Non Reactive) 08/17/16 14:00 HIV Note (.) 08/17/16 14:00 HIV 1&2 Antibody Screen Preliminary positive 08/17/16 14:00 HIV P24 Antigen Negative 08/17/16 14:00 LABS NOTED. - Treatment Hospital Course: Detox Protocol Followed, Detoxed Safely, Responded well, Discharged Condition Good Patient has Accepted a Rehab Referral to: NO - PT. TO GO TO [facility]. - Medication Discharge Medications: Ambulatory Orders Trazodone HCl [Desyrel -] 100 mg PO HS #30 tablet 03/25/16 Albuterol Sulfate Inhaler - [Ventolin HFA Inhaler -] 2 inh IH Q4H PRN #1 Gabapentin [Neurontin -] 300 mg PO TID #90 capsule 08/18/16 Quetiapine Fumarate [Seroquel] 100 tab PO HS #30 tablet 08/18/16 - Diagnosis (1) Asthma Status: Chronic Qualifiers: Asthma severity: mild intermittent Asthma complication type: uncomplicated Qualified Code(s): J45.20 - Mild intermittent asthma, uncomplicated (2) Cocaine dependence Status: Acute Qualifiers: Substance use status: uncomplicated (3) HIV disease Status: Chronic (4) Hepatitis C Status: Chronic Qualifiers: Viral hepatitis chronicity: unspecified Hepatic coma status: without hepatic coma Qualified Code(s): B19.20 - Unspecified viral hepatitis C without hepatic coma (5) Nicotine dependence Status: Chronic Qualifiers: Nicotine product type: cigarettes Substance use status: uncomplicated Qualified Code(s): F17.210 - Nicotine dependence, cigarettes, uncomplicated (6) Opioid dependence with withdrawal Status: Acute - AMA Did Patient Leave Against Medical Advice: No
== END 2016-08-22 09:30 | disposition home or self-care (01) | DRG 897 ==
LOC: YASAS 09:45 → Y3N 13:50
PROVIDERS: ADMIT Internal Medicine; ATTEND Internal Medicine
PROC: HZ2ZZZZ Detoxification Services for Substance Abuse Treatment (ICD-10-PCS; principal; 2016-08-22)
DX: F11.23 Opioid dependence with withdrawal (principal); F14.20 Cocaine dependence, uncomplicated; F12.20 Cannabis dependence, uncomplicated; F17.210 Nicotine dependence, cigarettes, uncomplicated; F31.9 Bipolar disorder, unspecified; Z21 Asymptomatic human immunodeficiency virus [HIV] infection status; B18.2 Chronic viral hepatitis C; J45.20 Mild intermittent asthma, uncomplicated
CPT/HCPCS: 36415; 80053; 81003; 85027; 87389; 93005; 93010

== ENCOUNTER 2016-09-23 09:40 | Inpatient (IN) | payer BC, OTHER ==
[2016-09-23 10:36] VITALS: BMI 21.7
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
[2016-09-23] MEDS ORDERED: ACETAMINOPHEN 325 MG TABLET (FP) PO PRN (12:17)
[2016-09-23] MEDS ORDERED: LOPERAMIDE HCL 2 MG CAPSULE PO PRN (12:17)
[2016-09-23] MEDS ORDERED: MAG HYDROX/AL HYDROX/SIMETH 30 ML UNIT-DOSE CUP PO PRN (12:17)
[2016-09-23] MEDS ORDERED: guaiFENesin/D-METHORPHAN HB 10 ML UNIT-DOSE CUPS PO PRN (12:17)
[2016-09-23] MEDS ORDERED: MAGNESIUM HYDROX 2400MG/30ML ORAL SUSPENSION 30 ML CUP PO PRN (12:17)
[2016-09-23] MEDS ORDERED: MENTHOL/PHENOL 1 EACH UD MM PRN (12:17)
[2016-09-23] MEDS ORDERED: MAGNESIUM CITRATE 300 ML BOTTLE PO PRN (12:17)
[2016-09-23] MEDS ORDERED: NICOTINE POLACRILEX 4 MG GUM BUC PRN (12:17)
[2016-09-23] MEDS ORDERED: IBUPROFEN 400 MG TABLET (FP) PO PRN (12:17)
[2016-09-23] MEDS ORDERED: P-EPHED 60MG/TRIPROLIDI 2.5MG TABLET PO PRN (12:17)
[2016-09-23] MEDS ORDERED: diphenhydrAMINE HCL 50 MG CAPSULE PO PRN (12:17)
[2016-09-23] MEDS ORDERED: ALBUTEROL SO4 18 GM HFA INHALER IH PRN (12:19)
[2016-09-23] MEDS ORDERED: METHADONE HCL 10 MG TABLET (FOR DETOX USE ONLY) PO ONE ×2 (12:24→23:00)
[2016-09-23] MEDS: diazePAM 5 MG TABLET PO PRN ×3 (13:08→22:20)
--- NOTE | 2016-09-23 14:11 | EKG ---
Test Reason : Blood Pressure : / mmHG Vent. Rate : 052 BPM Atrial Rate : 052 BPM P-R Int : 116 ms QRS Dur : 104 ms QT Int : 412 ms P-R-T Axes : 027 044 049 degrees QTc Int : 383 ms SINUS BRADYCARDIA OTHERWISE NORMAL ECG WHEN COMPARED WITH ECG OF 17-AUG-2016 14:04, [id number] IS NO LONGER PRESENT Confirmed by MABEL ALEXANDER, HARRY ([id number]) on 09/23/2016 2:10:46 PM Referred By: Dago Zepeda Confirmed By:HARRY MONROE MD
[2016-09-23 16:25] LABS: URINE APPEARANCE CLEAR; URINE BILIRUBIN NEGATIVE (NEGATIVE); URINE BLOOD NEGATIVE (NEGATIVE); URINE COLOR STRAW; URINE GLUCOSE (UA) NEGATIVE (NEGATIVE); URINE KETONE 1+ (NEGATIVE); URINE LEUK ESTERASE NEGATIVE (NEGATIVE); URINE NITRITE NEGATIVE (NEGATIVE); URINE PROTEIN NEGATIVE (NEGATIVE); URINE UROBILINOGEN NEGATIVE E.U./dl (0.2-1.0)
[2016-09-23] MEDS: THIAMINE HCL 100 MG TABLET (FP) PO SCH (22:21)
[2016-09-23] MEDS: BACITRACIN 0.9 GM PACKET TP SCH (22:21)
[2016-09-24] MEDS ORDERED: METHADONE HCL 10 MG TABLET (FOR DETOX USE ONLY) PO ONE (10:00)
[2016-09-24 10:11] LABS: MCH 29.3 pg (25.7-33.7); MCHC 33.2 g/dl (32.0-35.9); MEAN CELL VOLUME 88.5 fl (80-96); MEAN PLT VOLUME 9.7 fl (7.5-11.1); PLATELET COUNT 187 K/MM3 (134-434); RDW 13.8 % (11.9-15.9); WHITE BLOOD COUNT 8.3 K/mm3 (4.0-10.0)
--- NOTE | 2016-09-24 10:27 | CONSULT ---
[facility] Psychiatric Consult - Data Date of interview: 09/24/16 Admission source: [facility] Identifying data: This is 30 years old serbian speaking male with no psychiatric hospitalization history intoxicated with: Cannabis, Cocaine, Heroin and Nicotine Substance Abuse History: - Smoking Cessation. Smoking history: Current every day smoker. Have you smoked in the past 12 months: Yes. Aproximately how many cigarettes per day: 10. Cigars Per Day: 0. Hx Chewing Tobacco Use: No. Initiated information on smoking cessation: Yes. 'Breaking Loose' booklet given : 09/23/16. - Substance & Tx. History. Hx Alcohol Use: No. Hx Substance Use: Yes. Substance Use Type: Cocaine, Heroin. Hx Substance Use Treatment: No. - Substances Abused. Heroin. Route: Injection. Frequency: Daily. Amount used: 20 BAGS. Age of first use: 17. Date of Last Use: 09/22/16. Cocaine. Route: Injection. Frequency: Daily. Amount used: 10 BAGS. Age of first use : 17. Date of Last Use: 09/22/16 Medical History: Asthma, HepC+, HIV Psychiatric History: Patioent reprots history of Bipolar Disorder, reports currently taking Trazodone 100mg po qhs Physical/Sexual Abuse/Trauma History: Denies Additional Comment: Observation. Detox Unit Care [facility]. Trazodone 100mg po qhs Mental Status Exam - Mental Status Exam Alert and Oriented to: Person Cognitive Function: Fair Patient Appearance: Well Groomed Mood: Apprehensive Affect: Mood Congruent Patient Behavior: Cooperative Speech Pattern: Appropriate Voice Loudness: Normal Thought Process: Goal Oriented Thought Disorder: Being Controlled Hallucinations: Denies Suicidal Ideation: Denies Homicidal Ideation: Denies Insight/Judgement: Fair Sleep: Difficulty falling asleep Appetite: Fair Muscle strength/Tone: Normal Gait/Station: Normal Additional Comments: Observation. Detox Unit Care [facility] Psychiatric Findings - Problem List ([place] 1, 2,3) (1) Cannabis dependence Current Visit: Yes Status: Chronic (2) Cocaine dependence Current Visit: Yes Status: Chronic Qualifiers: Substance use status: uncomplicated Qualified Code(s): F14.20 - Cocaine dependence, uncomplicated (3) Nicotine dependence Current Visit: Yes Status: Chronic Qualifiers: Nicotine product type: cigarettes Substance use status: uncomplicated Qualified Code(s): F17.210 - Nicotine dependence, cigarettes, uncomplicated (4) Opioid dependence with withdrawal Current Visit: Yes Status: Chronic (5) Alcohol dependence Current Visit: No Status: Acute (6) Bipolar disorder Current Visit: No Status: Acute (7) Drug-induced mood disorder Current Visit: Yes Status: Acute - Initial Treatment Plan Initial Treatment Plan: Observation. Detox Unit Care [facility]. Trazodone 100mg po qhs
[2016-09-24 11:11] LABS: ALBUMIN 3.7 g/dl (3.4-5.0); ALK PHOS 68 U/L (45-117); ANION GAP 9 (8-16); BILIRUBIN,TOTAL 0.3 mg/dL (0.2-1.0); CALCIUM 8.8 mg/dL (8.5-10.1); CO2 28 mmol/L (21-32); COCKROFT - GAULT 125.02; CREATININE 0.8 mg/dL (0.7-1.3); GLUCOSE,RANDOM 106 mg/dL (74-106); SGOT/AST 63 U/L (15-37); SGPT/ALT 59 U/L (12-78); TOT PROT 7.7 g/dl (6.4-8.2)
[2016-09-24] MEDS: BACITRACIN 0.9 GM PACKET TP SCH ×2 (11:23→22:17)
[2016-09-24] MEDS: PRENATAL VITAMINS W/ FOLIC ACID TABLET (FP) PO SCH (11:23)
[2016-09-24] MEDS: diazePAM 5 MG TABLET PO PRN ×3 (11:23→22:16)
[2016-09-24] MEDS: NICOTINE 21 MG/24 HOURS TOPICAL PATCH TD SCH (11:24)
[2016-09-24] MEDS: hydrOXYzine PAMOATE 25 MG CAPSULE (FP) PO PRN (11:25)
--- NOTE | 2016-09-24 11:53 | PN ---
BHS COWS - Scale Resting Pulse: 0= [place] 80 or Below Sweatin=Flushed/Facial Moisture Restless Observation: 1= Difficult to Sit Still Pupil Size: 0= Normal to Room Light Bone or Joint Aches: 2= Severe Diffuse Aches Runny Nose/ Eye Tearin= Nasal Congestion GI Upset > 30mins: 1= Stomach Cramp Tremor Observation of Outstretched Hands: 2= Slight Tremor Visible Yawning Observation: 2= >3x During Session Anxiety or Irritability: 2=Irritable/Anxious Goose Flesh Skin: 0=Smooth Skin COWS Score: 13 BHS Progress Note (SOAP) Subjective: sweats shakes interrupted sleep body aches agitation Objective: 09/24/16 11:50 Vital Signs Temperature 97.3 F L 09/24/16 09:33 Pulse Rate 62 09/24/16 09:33 Respiratory Rate 18 09/24/16 09:33 Blood Pressure 121/85 09/24/16 09:33 O2 Sat by Pulse Oximetry (%) Laboratory Tests 09/23/16 09/24/16 13:40 06:00 WBC 8.3 RBC 4.48 Hgb 13.1 Hct 39.6 MCV 88.5 MCHC 33.2 RDW 13.8 Plt Count 187 MPV 9.7 Urine Color Straw Urine Appearance Clear Urine pH 6.0 Ur Specific [place] 1.015 Urine Protein Negative Urine Glucose (UA) Negative Urine Ketones 1+ H Urine Blood Negative Urine Nitrite Negative Urine Bilirubin Negative Urine Urobilinogen Negative Ur Leukocyte Esterase Negative rest of labs pending awake/alert ambulating no acute distress Assessment: 09/24/16 11:52 withdrawal sx Plan: continue detox increase fluids labs pending
[2016-09-24] MEDS: THIAMINE HCL 100 MG TABLET (FP) PO SCH (22:16)
[2016-09-24] MEDS: traZODone HCL 100 MG TABLET (FP) PO SCH (22:16)
[2016-09-25] MEDS ORDERED: METHADONE HCL 5 MG TABLET (FOR DETOX USE ONLY) PO ONE (10:00)
--- NOTE | 2016-09-25 10:54 | PN ---
S COWS - Scale Resting Pulse: 0= [place] 80 or Below Sweatin= Chills/Flushing Restless Observation: 3= Extraneous Movement Pupil Size: 1= Pupils >than Normal Bone or Joint Aches: 2= Severe Diffuse Aches Runny Nose/ Eye Tearin= Runny Nose/Eyes GI Upset > 30mins: 2= Nausea/Diarrhea Tremor Observation of Outstretched Hands: 2= Slight Tremor Visible Yawning Observation: 1= 1-2x During Session Anxiety or Irritability: 2=Irritable/Anxious Goose Flesh Skin: 0=Smooth Skin COWS Score: 16 S Progress Note (SOAP) Subjective: ALERT,IRRITABLE,ANXIOUS,INTERRUPTED SLEEP,TREMOR,PAIN IN THE BODY AND BACK Objective: 09/25/16 10:52 Vital Signs Temperature 98.1 F 09/25/16 10:42 Pulse Rate 71 09/25/16 10:42 Respiratory Rate 20 09/25/16 10:42 Blood Pressure 129/79 09/25/16 10:42 O2 Sat by Pulse Oximetry (%) Laboratory Last Values WBC 8.3 K/mm3 (4.0-10.0) 09/24/16 06:00 RBC 4.48 M/mm3 (4.00-5.60) 09/24/16 06:00 Hgb 13.1 GM/dL (11.7-16.9) 09/24/16 06:00 Hct 39.6 % (35.4-49) 09/24/16 06:00 MCV 88.5 fl (80-96) 09/24/16 06:00 MCHC 33.2 g/dl (32.0-35.9) 09/24/16 06:00 RDW 13.8 % (11.9-15.9) 09/24/16 06:00 Plt Count 187 K/MM3 (134-434) 09/24/16 06:00 MPV 9.7 fl (7.5-11.1) 09/24/16 06:00 Sodium 139 mmol/L (136-145) 09/24/16 06:00 Potassium 4.1 mmol/L (3.5-5.1) 09/24/16 06:00 Chloride 102 mmol/L (98-107) 09/24/16 06:00 Carbon Dioxide 28 mmol/L (21-32) 09/24/16 06:00 Anion Gap 9 (8-16) 09/24/16 06:00 BUN 8 mg/dL (7-18) 09/24/16 06:00 Creatinine 0.8 mg/dL (0.7-1.3) 09/24/16 06:00 Creat Clearance w eGFR > 60 (>60) 09/24/16 06:00 Random Glucose 106 mg/dL (74-106) 09/24/16 06:00 Calcium 8.8 mg/dL (8.5-10.1) 09/24/16 06:00 Total Bilirubin 0.3 mg/dL (0.2-1.0) 09/24/16 06:00 AST 63 U/L (15-37) H D 09/24/16 06:00 ALT 59 U/L (12-78) 09/24/16 06:00 Alkaline Phosphatase 68 U/L (45-117) 09/24/16 06:00 Total Protein 7.7 g/dl (6.4-8.2) 09/24/16 06:00 Albumin 3.7 g/dl (3.4-5.0) 09/24/16 06:00 Urine Color Straw 09/23/16 13:40 Urine Appearance Clear 09/23/16 13:40 Urine pH 6.0 (5.0-8.0) 09/23/16 13:40 Ur Specific [place] 1.015 (1.001-1.035) 09/23/16 13:40 Urine Protein Negative (NEGATIVE) 09/23/16 13:40 Urine Glucose (UA) Negative (NEGATIVE) 09/23/16 13:40 Urine Ketones 1+ (NEGATIVE) H 09/23/16 13:40 Urine Blood Negative (NEGATIVE) 09/23/16 13:40 Urine Nitrite Negative (NEGATIVE) 09/23/16 13:40 Urine Bilirubin Negative (NEGATIVE) 09/23/16 13:40 Urine Urobilinogen Negative E.U./dl (0.2-1.0) 09/23/16 13:40 Ur Leukocyte Esterase Negative (NEGATIVE) 09/23/16 13:40 RPR Titer Nonreactive (NONREACTIVE) 09/24/16 06:00 Assessment: 09/25/16 10:53 WITHDRAWAL SYMPTOM Plan: CONTINUE DETOX
[2016-09-25] MEDS: BACITRACIN 0.9 GM PACKET TP SCH ×2 (10:59→22:18)
[2016-09-25] MEDS: PRENATAL VITAMINS W/ FOLIC ACID TABLET (FP) PO SCH (10:59)
[2016-09-25] MEDS: diazePAM 5 MG TABLET PO PRN ×3 (11:00→22:18)
[2016-09-25] MEDS: hydrOXYzine PAMOATE 25 MG CAPSULE (FP) PO PRN (11:00)
[2016-09-25] MEDS: NICOTINE 21 MG/24 HOURS TOPICAL PATCH TD SCH (11:00)
[2016-09-25] MEDS: CYCLOBENZAPRINE HCL 10 MG TABLET (FP) PO PRN ×2 (12:19→22:18)
[2016-09-25] MEDS: traZODone HCL 100 MG TABLET (FP) PO SCH (22:18)
[2016-09-25] MEDS: THIAMINE HCL 100 MG TABLET (FP) PO SCH (22:18)
[2016-09-25] MEDS: cloNIDine HCL 0.1 MG TABLET PO SCH (22:18)
[2016-09-26] MEDS ORDERED: METHADONE HCL 5 MG TABLET (FOR DETOX USE ONLY) PO ONE (10:00)
[2016-09-26] MEDS: cloNIDine HCL 0.1 MG TABLET PO SCH ×2 (11:03→22:31)
[2016-09-26] MEDS: NICOTINE 21 MG/24 HOURS TOPICAL PATCH TD SCH (11:03)
[2016-09-26] MEDS: BACITRACIN 0.9 GM PACKET TP SCH ×2 (11:03→22:57)
[2016-09-26] MEDS: PRENATAL VITAMINS W/ FOLIC ACID TABLET (FP) PO SCH (11:03)
[2016-09-26] MEDS: diazePAM 5 MG TABLET PO PRN (11:06)
--- NOTE | 2016-09-26 12:57 | PN ---
BHS Progress Note (SOAP) Subjective: Sweats, shakes and interrupted sleep Objective: 09/26/16 12:56 Vital Signs - 8 hr 09/26/16 10:44 Temperature 97.5 F L Pulse Rate 87 Respiratory 20 Rate Blood Pressure 120/70 Laboratory Last Values WBC 8.3 K/mm3 (4.0-10.0) 09/24/16 06:00 RBC 4.48 M/mm3 (4.00-5.60) 09/24/16 06:00 Hgb 13.1 GM/dL (11.7-16.9) 09/24/16 06:00 Hct 39.6 % (35.4-49) 09/24/16 06:00 MCV 88.5 fl (80-96) 09/24/16 06:00 MCHC 33.2 g/dl (32.0-35.9) 09/24/16 06:00 RDW 13.8 % (11.9-15.9) 09/24/16 06:00 Plt Count 187 K/MM3 (134-434) 09/24/16 06:00 MPV 9.7 fl (7.5-11.1) 09/24/16 06:00 Sodium 139 mmol/L (136-145) 09/24/16 06:00 Potassium 4.1 mmol/L (3.5-5.1) 09/24/16 06:00 Chloride 102 mmol/L (98-107) 09/24/16 06:00 Carbon Dioxide 28 mmol/L (21-32) 09/24/16 06:00 Anion Gap 9 (8-16) 09/24/16 06:00 BUN 8 mg/dL (7-18) 09/24/16 06:00 Creatinine 0.8 mg/dL (0.7-1.3) 09/24/16 06:00 Creat Clearance w eGFR > 60 (>60) 09/24/16 06:00 Random Glucose 106 mg/dL (74-106) 09/24/16 06:00 Calcium 8.8 mg/dL (8.5-10.1) 09/24/16 06:00 Total Bilirubin 0.3 mg/dL (0.2-1.0) 09/24/16 06:00 AST 63 U/L (15-37) H D 09/24/16 06:00 ALT 59 U/L (12-78) 09/24/16 06:00 Alkaline Phosphatase 68 U/L (45-117) 09/24/16 06:00 Total Protein 7.7 g/dl (6.4-8.2) 09/24/16 06:00 Albumin 3.7 g/dl (3.4-5.0) 09/24/16 06:00 Urine Color Straw 09/23/16 13:40 Urine Appearance Clear 09/23/16 13:40 Urine pH 6.0 (5.0-8.0) 09/23/16 13:40 Ur Specific [place] 1.015 (1.001-1.035) 09/23/16 13:40 Urine Protein Negative (NEGATIVE) 09/23/16 13:40 Urine Glucose (UA) Negative (NEGATIVE) 09/23/16 13:40 Urine Ketones 1+ (NEGATIVE) H 09/23/16 13:40 Urine Blood Negative (NEGATIVE) 09/23/16 13:40 Urine Nitrite Negative (NEGATIVE) 09/23/16 13:40 Urine Bilirubin Negative (NEGATIVE) 09/23/16 13:40 Urine Urobilinogen Negative E.U./dl (0.2-1.0) 09/23/16 13:40 Ur Leukocyte Esterase Negative (NEGATIVE) 09/23/16 13:40 RPR Titer Nonreactive (NONREACTIVE) 09/24/16 06:00 Labs noted Assessment: 09/26/16 12:57 withdrawal sx Plan: continue detox
[2016-09-26] MEDS: hydrOXYzine PAMOATE 25 MG CAPSULE (FP) PO PRN (15:26)
[2016-09-26] MEDS: THIAMINE HCL 100 MG TABLET (FP) PO SCH (22:31)
[2016-09-26] MEDS: traZODone HCL 100 MG TABLET (FP) PO SCH (22:31)
[2016-09-27] MEDS ORDERED: METHADONE HCL 10 MG TABLET (FOR DETOX USE ONLY) PO ONE (10:00)
[2016-09-27] MEDS: cloNIDine HCL 0.1 MG TABLET PO SCH ×2 (10:50→22:32)
[2016-09-27] MEDS: NICOTINE 21 MG/24 HOURS TOPICAL PATCH TD SCH (10:50)
[2016-09-27] MEDS: PRENATAL VITAMINS W/ FOLIC ACID TABLET (FP) PO SCH (10:50)
[2016-09-27] MEDS: BACITRACIN 0.9 GM PACKET TP SCH ×2 (10:50→22:32)
--- NOTE | 2016-09-27 11:42 | PN ---
BHS Progress Note (SOAP) Subjective: Sweating,interrupted sleep,restless Objective: 09/27/16 11:41 Vital Signs - 8 hr 09/27/16 09/27/16 06:00 09:43 Temperature 97.5 F L 98.1 F Pulse Rate 61 90 Respiratory 18 18 Rate Blood Pressure 103/58 99/70 Laboratory Last Values WBC 8.3 K/mm3 (4.0-10.0) 09/24/16 06:00 RBC 4.48 M/mm3 (4.00-5.60) 09/24/16 06:00 Hgb 13.1 GM/dL (11.7-16.9) 09/24/16 06:00 Hct 39.6 % (35.4-49) 09/24/16 06:00 MCV 88.5 fl (80-96) 09/24/16 06:00 MCHC 33.2 g/dl (32.0-35.9) 09/24/16 06:00 RDW 13.8 % (11.9-15.9) 09/24/16 06:00 Plt Count 187 K/MM3 (134-434) 09/24/16 06:00 MPV 9.7 fl (7.5-11.1) 09/24/16 06:00 Sodium 139 mmol/L (136-145) 09/24/16 06:00 Potassium 4.1 mmol/L (3.5-5.1) 09/24/16 06:00 Chloride 102 mmol/L (98-107) 09/24/16 06:00 Carbon Dioxide 28 mmol/L (21-32) 09/24/16 06:00 Anion Gap 9 (8-16) 09/24/16 06:00 BUN 8 mg/dL (7-18) 09/24/16 06:00 Creatinine 0.8 mg/dL (0.7-1.3) 09/24/16 06:00 Creat Clearance w eGFR > 60 (>60) 09/24/16 06:00 Random Glucose 106 mg/dL (74-106) 09/24/16 06:00 Calcium 8.8 mg/dL (8.5-10.1) 09/24/16 06:00 Total Bilirubin 0.3 mg/dL (0.2-1.0) 09/24/16 06:00 AST 63 U/L (15-37) H D 09/24/16 06:00 ALT 59 U/L (12-78) 09/24/16 06:00 Alkaline Phosphatase 68 U/L (45-117) 09/24/16 06:00 Total Protein 7.7 g/dl (6.4-8.2) 09/24/16 06:00 Albumin 3.7 g/dl (3.4-5.0) 09/24/16 06:00 Urine Color Straw 09/23/16 13:40 Urine Appearance Clear 09/23/16 13:40 Urine pH 6.0 (5.0-8.0) 09/23/16 13:40 Ur Specific [place] 1.015 (1.001-1.035) 09/23/16 13:40 Urine Protein Negative (NEGATIVE) 09/23/16 13:40 Urine Glucose (UA) Negative (NEGATIVE) 09/23/16 13:40 Urine Ketones 1+ (NEGATIVE) H 09/23/16 13:40 Urine Blood Negative (NEGATIVE) 09/23/16 13:40 Urine Nitrite Negative (NEGATIVE) 09/23/16 13:40 Urine Bilirubin Negative (NEGATIVE) 09/23/16 13:40 Urine Urobilinogen Negative E.U./dl (0.2-1.0) 09/23/16 13:40 Ur Leukocyte Esterase Negative (NEGATIVE) 09/23/16 13:40 RPR Titer Nonreactive (NONREACTIVE) 09/24/16 06:00 labs noted Assessment: 09/27/16 11:42 Withdrawal sx. Plan: Continue detox
[2016-09-27] MEDS: THIAMINE HCL 100 MG TABLET (FP) PO SCH (22:32)
[2016-09-27] MEDS: traZODone HCL 100 MG TABLET (FP) PO SCH (22:32)
[2016-09-28] MEDS ORDERED: METHADONE HCL 5 MG TABLET (FOR DETOX USE ONLY) PO ONE (06:00)
[2016-09-28 06:30] VITALS: TEMP 97.7
--- NOTE | 2016-09-28 09:38 | DS ---
[facility] Detox Discharge Summary Admission Date: 09/23/16 Discharge Date: 09/28/16 - History Present History: Alcohol Dependence, Cannabis Dependence, Opioid Dependence - Physical Exam Results Vital Signs: Vital Signs Temperature 97.7 F 09/28/16 06:30 Pulse Rate 86 09/28/16 06:30 Respiratory Rate 18 09/28/16 06:30 Blood Pressure 89/63 09/28/16 06:30 O2 Sat by Pulse Oximetry (%) - Treatment Hospital Course: Detox Protocol Followed, Detoxed Safely, Responded well, Discharged Condition Good - Medication Discharge Medications: Ambulatory Orders Albuterol Sulfate Inhaler - [Ventolin HFA Inhaler -] 2 inh IH Q4H PRN #1 Trazodone HCl [Desyrel -] 100 mg PO HS #30 tablet 09/24/16 - Diagnosis (1) Cannabis dependence Current Visit: Yes Status: Chronic (2) Cocaine dependence Current Visit: Yes Status: Chronic Qualifiers: Substance use status: uncomplicated Qualified Code(s): F14.20 - Cocaine dependence, uncomplicated (3) Opioid dependence with withdrawal Current Visit: Yes Status: Chronic (4) Asthma Current Visit: Yes Status: Chronic Qualifiers: Asthma severity: mild intermittent Asthma complication type: uncomplicated Qualified Code(s): J45.20 - Mild intermittent asthma, uncomplicated (5) HIV disease Current Visit: Yes Status: Chronic (6) Hepatitis C Current Visit: Yes Status: Chronic Qualifiers: Viral hepatitis chronicity: unspecified Hepatic coma status: without hepatic coma Qualified Code(s): B19.20 - Unspecified viral hepatitis C without hepatic coma (7) Nicotine dependence Current Visit: Yes Status: Chronic Qualifiers: Nicotine product type: cigarettes Substance use status: uncomplicated Qualified Code(s): F17.210 - Nicotine dependence, cigarettes, uncomplicated - AMA Did Patient Leave Against Medical Advice: No
[2016-09-28] MEDS: hydrOXYzine PAMOATE 25 MG CAPSULE (FP) PO PRN (09:40)
[2016-09-28] MEDS: CYCLOBENZAPRINE HCL 10 MG TABLET (FP) PO PRN (09:40)
[2016-09-28 09:58] VITALS: BP 108/60; PULSE 106
== END 2016-09-28 09:42 | disposition home or self-care (01) | DRG 897 ==
LOC: YASAS 09:40 → Y6N 11:46
PROVIDERS: ADMIT Internal Medicine Addiction Medicine; ATTEND Internal Medicine Addiction Medicine
PROC: HZ2ZZZZ Detoxification Services for Substance Abuse Treatment (ICD-10-PCS; principal; 2016-09-28)
DX: F11.23 Opioid dependence with withdrawal (principal); F14.20 Cocaine dependence, uncomplicated; F19.20 Other psychoactive substance dependence, uncomplicated; F12.20 Cannabis dependence, uncomplicated; F17.210 Nicotine dependence, cigarettes, uncomplicated; J45.20 Mild intermittent asthma, uncomplicated; Z21 Asymptomatic human immunodeficiency virus [HIV] infection status; F19.24 Other psychoactive substance dependence with psychoactive substance-induced mood disorder; F31.9 Bipolar disorder, unspecified
CPT/HCPCS: 36415; 80053; 81003; 85027; 86593; 93005; 93010

== ENCOUNTER 2017-02-22 17:41 | Inpatient (IN) | payer BC, OTHER ==
[2017-02-22] MEDS ORDERED: SODIUM CHLORIDE 0.9% 1000 ML INFUS.BAG IV PRN (18:23)
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
[2017-02-22] MEDS ORDERED: SODIUM CHLORIDE 1,000 ML IV STA ×2 (18:45→21:25)
[2017-02-22 19:07] LABS: INR 1.39 (0.82-1.09); PROTHROMBIN TIME (PATIENT) 15.4 SEC (9.98-11.88)
[2017-02-22 19:09] LABS: VENOUS BLOOD GAS HCO3 29.5 meq/L (19-25); VENOUS PH 7.42 (7.32-7.42)
[2017-02-22 19:10] LABS: ACTIVATED PTT 38.3 SECONDS (26.9-34.4)
[2017-02-22 19:13] LABS: BASOPHIL 0.1 % (0-2.0); EOSINOPHIL 0.1 % (0-4.5); MCH 29.8 pg (25.7-33.7); MEAN CELL VOLUME 87.7 fl (80-96); MEAN PLT VOLUME 8.2 fl (7.5-11.1); NEUTROPHILS 89.9 % (42.8-82.8); PLATELET COUNT 68 K/MM3 (134-434); RDW 13.9 % (11.9-15.9); WHITE BLOOD COUNT 12.5 K/mm3 (4.0-10.0)
[2017-02-22 19:31] LABS: URINE APPEARANCE CLEAR; URINE BILIRUBIN NEGATIVE (NEGATIVE); URINE BLOOD 2+ (NEGATIVE); URINE COLOR AMBER; URINE GLUCOSE (UA) 2+ (NEGATIVE); URINE KETONE NEGATIVE (NEGATIVE); URINE LEUK ESTERASE NEGATIVE (NEGATIVE); URINE NITRITE NEGATIVE (NEGATIVE); URINE UROBILINOGEN 4.0 E.U/dl mg/dL (0.2-1.0)
[2017-02-22 19:36] LABS: URINE PROTEIN 2+ (NEGATIVE)
[2017-02-22] MEDS ORDERED: ACETAMINOPHEN INJECTION 100 ML IVPB ONE (19:36)
[2017-02-22 19:38] LABS: URINE RBC 2 /hpf (0-3); URINE WBC 8 /hpf (3-5)
[2017-02-22 19:49] LABS: ANION GAP 8 (8-16); CALCIUM 8.2 mg/dL (8.5-10.1); CO2 29 mmol/L (21-32); CREATININE 1.4 mg/dL (0.7-1.3); GLUCOSE,RANDOM 104 mg/dL (74-106); SGOT/AST 125 U/L (15-37); SGPT/ALT 109 U/L (12-78)
[2017-02-22] MEDS ORDERED: ACETAMINOPHEN 1000 MG/100 ML VIAL (NON FORMULARY) IVPB ONE (19:50)
[2017-02-22 20:02] LABS: ALK PHOS 132 U/L (45-117); BILIRUBIN,TOTAL 4.8 mg/dL (0.2-1.0); CPK 1105 IU/L (39-308); TOT PROT 7.9 g/dl (6.4-8.2); TROPONIN I < 0.02 ng/ml (0.00-0.05)
[2017-02-22] MEDS ORDERED: PIPERACILLIN/TAZOB 3.375 GM 3.375 GM in DEXTROSE 5%-WATER - 50 ML IVPB ONE (20:24)
[2017-02-22] MEDS ORDERED: PIPERACILLIN/TAZOB 3.375 GM 50 ML IVPB ONE (20:34)
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
--- NOTE | 2017-02-22 23:44 | HP ---
Admitting History and Physical - Admission History of Present Illness: 31M with PMH polysubstance abuse, Hep C, HIV who presented to ED from [facility]. Pt went to [facility] for detox from heroine and was sent to ED for clearance as he was febrile. Pt is a poor historian; States he was recently in care home and was on HAART on Triumeq. He keeps asking for methadone. Last heroine use was yesterday. Endorses some non bloody diarrea and abdominal cramps which he attributes to withdrawals. In the ED he was found to have multiple lab abnormalities including elevated LFTS elevated bilirubin hyponatremia and FAHAD. - Past Medical History Additional Past Medical History: as above - Smoking History Smoking history: Current every day smoker Have you smoked in the past 12 months: Yes Aproximately how many cigarettes per day: 10 - Alcohol/Substance Use Hx Alcohol Use: No Home Medications - Allergies Allergies/Adverse Reactions: Allergies Allergy/AdvReac Type Severity Reaction Status Date / Time No Known Allergies Allergy Verified 02/22/17 17:56 - Home Medications Home Medications: Ambulatory Orders Abacavir/Dolutegravir/Lamivudi [Triumeq Tablet] 1 each PO DAILY 02/23/17 Family Disease History - Family Disease History Family Disease History: Diabetes: Father Review of Systems Findings/Remarks: nausea vomiting diarrhea abdominal pain Physical Examination Vital Signs: Vital Signs Temperature 101.4 F H 02/22/17 20:25 Pulse Rate 90 02/22/17 20:25 Respiratory Rate 24 02/22/17 20:25 Blood Pressure 100/53 02/22/17 20:25 O2 Sat by Pulse Oximetry (%) 96 02/22/17 20:25 Constitutional: Yes: No Distress, Calm Eyes: Yes: Conjunctiva Clear HENT: Yes: Atraumatic Neck: Yes: Supple, Trachea Midline Cardiovascular: Yes: Regular Rate and Rhythm, S1, S2 Respiratory: Yes: CTA Bilaterally Gastrointestinal: Yes: Soft, Hyperactive Bowel Sounds, Tenderness (RUQ and epigastrium) Extremities: Yes: WNL Edema: No Neurological: Yes: Alert, Oriented Psychiatric: Yes: Alert Labs: CBC, BMP 02/22/17 18:45 02/22/17 18:45 Imaging - Results Chest X-ray: Image Reviewed Cat Scan: Image Reviewed Ultrasound: Report Reviewed Assessment/Plan 31M with h/o HIV Hepc and polysubstance abuse found to be septic from likely biliary source Problems list: Severe sepsis possible ascending cholangitis FAHAD HIV Transaminititis hyperbilirubinemia thrombocytopenia polysubstance abuse hyponatremic hypovolemia volume depletion hypokalemia history of asthma lactic acidosis Plan: Admit to non cardiac telemetry Lactic acid trending down continue IVF Tylenol PRN Hold Heparin sub Q 2/2 thrombocytopenia which could be due to sepsis GI consult Surgery consult repeat CBC repeat labs Detox consult methadone taper Trend Creatinine replete lytes ID consult f/u CTAP f/u B12/folate banana bag thaiamine/folate viral load trend hepatic enzymes f/u cultures Full H&P to follow Case discussed with attending and admitting it intern Visit type - Emergency Visit Emergency Visit: Yes ED Registration Date: 02/22/17 Care time: The patient presented to the Emergency Department on the above date and was hospitalized for further evaluation of their emergent condition. - New Patient This patient is new to me today: Yes Date on this admission: 02/23/17 - Critical Care Critical Care patient: No
[2017-02-23] MEDS ORDERED: METHADONE HCL 10 MG TABLET (FOR DETOX USE ONLY) PO ONE (01:12)
[2017-02-23] MEDS ORDERED: SODIUM CHLORIDE 1,000 ML IV STA ×2 (01:21→06:55)
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
[2017-02-23] MEDS ORDERED: POTASSIUM CHLORIDE TABS 10 MEQ TABLET.ER (FP) PO ONE ×3 (01:45→11:45)
[2017-02-23] MEDS ORDERED: METHADONE HCL 10 MG TABLET ONE (01:51)
[2017-02-23] MEDS ORDERED: SODIUM CHLORIDE 1,000 ML IV SCH ×2 (03:00→06:48)
[2017-02-23] MEDS ORDERED: FOLIC ACID INJECTION - 1 MG, THIAMINE HCL 100 MG, MULTIVIT INJECTION ADULT 10 ML in SOD... IVPB ONE (03:30)
[2017-02-23] MEDS ORDERED: PIPERACILLIN/TAZOB 3.375 GM/50 ML PRE-DOCKED IVPB ONE (05:00)
[2017-02-23] MEDS ORDERED: PIPERACILLIN/TAZOB 3.375 GM 3.375 GM in DEXTROSE 5%-WATER - 50 ML IVPB ONE (05:15)
[2017-02-23 05:37] VITALS: BMI 22.8
[2017-02-23] MEDS ORDERED: PIPERACILLIN/TAZOBACTAM 3.375 GM VIAL IVPB ONE ×3 (05:43→18:12)
[2017-02-23] MEDS ORDERED: DEXTROSE 5%-WATER - 50 ML IVPB ONE ×3 (05:43→18:12)
[2017-02-23 07:31] LABS: MAGNESIUM 1.7 mg/dL (1.8-2.4); PHOSPHOROUS 2.6 mg/dL (2.5-4.9)
--- NOTE | 2017-02-23 08:33 | CONSULT ---
Consult Consult Specialty:: GI Reason for Consultation:: Elevated liver enzymes, lipase, hx of HCV, abnormal RUQ US - History of Present Illness History of Present Illness: 3 days of profuse watery diarrhea and epigastric/RUQ pain. No melena, hematochezia, hematemesis, dysphagia, odynophagia or acid reflux symptoms. No ill contacts, household members. No recent travel, or abx use. The symptoms aggravated by eating and associated with chills, nausea and vomiting. Uses IVD daily. Denies ETOH. Has underlying history of HIV, and untreated HCV. In ED noted to have fever, leukocytosis, thromobocytopenia, mild hepatitis with cholestasis, elevated total bilirubin and lipase. RUQ US showed a contracted, thickened GB, normal CBD. CT A/P done, report pending. - History Source History Provided By: Patient, Medical Record Limitations to Obtaining History: Poor Historian (and language barrier) - Past Medical History Additional Medical History: IVDU, ETOH, HCV, - Past Surgical History Additional Surgical History: chest tube 2003 - Alcohol/Substance Use Hx Alcohol Use: Yes History of Substance Use: reports: Cocaine - Smoking History Smoking history: Current every day smoker Have you smoked in the past 12 months: Yes Aproximately how many cigarettes per day: 10 Home Medications - Allergies Allergies/Adverse Reactions: Allergies Allergy/AdvReac Type Severity Reaction Status Date / Time No Known Allergies Allergy Verified 02/22/17 17:56 - Home Medications Home Medications: Ambulatory Orders Abacavir/Dolutegravir/Lamivudi [Triumeq Tablet] 1 each PO DAILY 02/23/17 Family Disease History - Family Disease History Family History: Unremarkable Family Disease History: Diabetes: Father Review of Systems Findings/Remarks: HP reviewed. ROS noted and as documented per HP - Review of Systems Constitutional: reports: Chills, Fever, Lethargy, Loss of Appetite, Malaise Eyes: denies: Blurred Vision, Double Vision HENT: denies: Difficult Swallowing Neck: denies: Pain on Movement, Stiffness Cardiovascular: denies: Chest Pain, Shortness of Breath Respiratory: denies: Cough, Hemoptysis Gastrointestinal: reports: Abdominal Pain, Bloating, Diarrhea, Nausea, Vomiting. denies: Dysphagia, Indigestion, Melena, Rectal Bleeding, Vomiting Blood Musculoskeletal: denies: Back Pain, Joint Pain, Joint Swelling Integumentary: denies: Rash Hematology/Lymphatic: denies: Easily Bruised, Excessive Bleeding Psychiatric: reports: Anxiety Physical Exam Vital Signs: Vital Signs Temperature 98.6 F 02/23/17 07:00 Pulse Rate 77 02/23/17 07:00 Respiratory Rate 16 02/23/17 07:00 Blood Pressure 111/55 02/23/17 07:00 O2 Sat by Pulse Oximetry (%) 94 L 02/23/17 03:06 Current Medications Generic Name Dose Route Start Last Admin Trade Name Freq PRN Reason Stop Dose Admin Folic Acid 1 mg/ Thiamine HCl 1,000 mls @ 125 mls/hr 02/23/17 03:30 02/23/17 04 :06 100 mg/ Multivitamins/Minerals IVPB 02/23/17 11:29 125 mls/hr 10 ml/ Sodium Chloride ONCE ONE Administration Sodium Chloride 1,000 mls @ 175 mls/hr 02/23/17 07:00 Normal Saline - IV ASDIR ASHOK Methadone HCl 10 mg 02/23/17 10:00 Dolophine - PO 02/23/17 10:01 ONCE@1000 ONE Methadone HCl 20 mg 02/24/17 10:00 Dolophine - PO 02/24/17 10:01 DAILY ASHOK Methadone HCl 10 mg 02/27/17 10:00 Dolophine - PO 02/27/17 10:01 DAILY ASHOK Methadone HCl 15 mg 02/25/17 10:00 Dolophine - PO 02/26/17 10:01 DAILY ASHOK Methadone HCl 5 mg 02/28/17 06:00 Dolophine - PO 02/28/17 06:01 DAILY@0600 ASHOK Sodium Chloride 500 ml 02/22/17 18:23 Normal Saline - IV Q20M PRN MAP<65mm Hg OR SBP <90 Constitutional: Yes: No Distress, Anxious Eyes: Yes: Conjunctiva Clear HENT: Yes: Atraumatic, Normocephalic. No: Thrush Neck: Yes: Supple Cardiovascular: Yes: Regular Rate and Rhythm Respiratory: Yes: CTA Bilaterally Gastrointestinal: Yes: Normal Bowel Sounds, Soft, Tenderness, Tenderness, Epigastrium, Vomiting, Other (RUQ tenderness with voluntary guarding. Positive Garcia's). No: Distention, Hepatomegaly, Melena, Palpable Mass, Pulsatile Mass , Tenderness, Rebound Musculoskeletal: No: Joint Swelling Integumentary: Yes: Tattoos, Other (niddle tracks and old scars on upper extremeties). No: Jaundice Neurological: Yes: Alert, Oriented ...Motor Strength: WNL Psychiatric: No: Agitated Labs: Laboratory Tests 02/22/17 02/22/17 02/22/17 18:45 18:45 18:45 WBC 12.5 H D RBC 4.48 Hgb 13.3 Hct 39.3 MCV 87.7 MCH 29.8 MCHC 34.0 RDW 13.9 Plt Count 68 L D MPV 8.2 D Neutrophils % 89.9 H Lymphocytes % 4.1 L Monocytes % 5.8 Eosinophils % 0.1 Basophils % 0.1 PT with INR 15.40 H INR 1.39 H PTT (Actin FS) 38.3 H VBG pH POC VBG pCO2 POC VBG pO2 Mixed VBG HCO3 Sodium 128 L Potassium 3.3 L Chloride 91 L D Carbon Dioxide 29 Anion Gap 8 BUN 16 D Creatinine 1.4 H D Creat Clearance w eGFR 58.37 Random Glucose 104 Lactic Acid Calcium 8.2 L Phosphorus Magnesium Total Bilirubin 4.8 H D AST 125 H D ALT 109 H D Alkaline Phosphatase 132 H D Creatine Kinase 1105 H Creatine Kinase Index 0.9 CK-MB (CK-2) 10.504 H Troponin I < 0.02 Total Protein 7.9 Albumin 3.0 L Lipase Vitamin B12 Serum Folate Urine Color Urine Appearance Urine pH Ur Specific Gardiner Urine Protein Urine Glucose (UA) Urine Ketones Urine Blood Urine Nitrite Urine Bilirubin Urine Urobilinogen Urine RBC Urine WBC Ur Epithelial Cells Blood Type Antibody Screen 02/22/17 02/22/17 02/22/17 18:45 18:45 19:02 WBC RBC Hgb Hct MCV MCH MCHC RDW Plt Count MPV Neutrophils % Lymphocytes % Monocytes % Eosinophils % Basophils % PT with INR INR PTT (Actin FS) VBG pH 7.42 POC VBG pCO2 46.1 POC VBG pO2 26.4 L Mixed VBG HCO3 29.5 H Sodium Potassium Chloride Carbon Dioxide Anion Gap BUN Creatinine Creat Clearance w eGFR Random Glucose Lactic Acid 2.1 H* Calcium Phosphorus Magnesium Total Bilirubin AST ALT Alkaline Phosphatase Creatine Kinase Creatine Kinase Index CK-MB (CK-2) Troponin I Total Protein Albumin Lipase Vitamin B12 Serum Folate Urine Color Urine Appearance Urine pH Ur Specific Gardiner Urine Protein Urine Glucose (UA) Urine Ketones Urine Blood Urine Nitrite Urine Bilirubin Urine Urobilinogen Urine RBC Urine WBC Ur Epithelial Cells Blood Type O POSITIVE Antibody Screen Negative 02/22/17 02/22/17 02/22/17 19:20 20:30 22:54 WBC RBC Hgb Hct MCV MCH MCHC RDW Plt Count MPV Neutrophils % Lymphocytes % Monocytes % Eosinophils % Basophils % PT with INR INR PTT (Actin FS) VBG pH POC VBG pCO2 POC VBG pO2 Mixed VBG HCO3 Sodium Potassium Chloride Carbon Dioxide Anion Gap BUN Creatinine Creat Clearance w eGFR Random Glucose Lactic Acid 1.3 Calcium Phosphorus Magnesium Total Bilirubin AST ALT Alkaline Phosphatase Creatine Kinase Creatine Kinase Index CK-MB (CK-2) Troponin I Total Protein Albumin Lipase 533 H Vitamin B12 Serum Folate Urine Color Nati Urine Appearance Clear Urine pH 7.0 Ur Specific Gardiner 1.015 Urine Protein 2+ H Urine Glucose (UA) 2+ H Urine Ketones Negative Urine Blood 2+ H Urine Nitrite Negative Urine Bilirubin Negative Urine Urobilinogen 4.0 e.u/dl Urine RBC 2 Urine WBC 8 Ur Epithelial Cells Rare Blood Type Antibody Screen 02/23/17 05:30 WBC RBC Hgb Hct MCV MCH MCHC RDW Plt Count MPV Neutrophils % Lymphocytes % Monocytes % Eosinophils % Basophils % PT with INR INR PTT (Actin FS) VBG pH POC VBG pCO2 POC VBG pO2 Mixed VBG HCO3 Sodium Potassium Chloride Carbon Dioxide Anion Gap BUN Creatinine Creat Clearance w eGFR Random Glucose Lactic Acid Calcium Phosphorus 2.6 Magnesium 1.7 L Total Bilirubin AST ALT Alkaline Phosphatase Creatine Kinase Creatine Kinase Index CK-MB (CK-2) Troponin I Total Protein Albumin Lipase Vitamin B12 772 Serum Folate 20 H Urine Color Urine Appearance Urine pH Ur Specific Gardiner Urine Protein Urine Glucose (UA) Urine Ketones Urine Blood Urine Nitrite Urine Bilirubin Urine Urobilinogen Urine RBC Urine WBC Ur Epithelial Cells Blood Type Antibody Screen Imaging - Results Cat Scan: Report Reviewed Ultrasound: Report Reviewed Problem List - Problems (1) Pancreatitis Code(s): K85.90 - ACUTE PANCREATITIS WITHOUT NECROSIS OR INFECTION, UNSP (2) Cholecystitis Code(s): K81.9 - CHOLECYSTITIS, UNSPECIFIED (3) Hepatitis Code(s): K75.9 - INFLAMMATORY LIVER DISEASE, UNSPECIFIED (4) Hepatitis C Code(s): B19.20 - UNSPECIFIED VIRAL HEPATITIS C WITHOUT HEPATIC COMA Qualifiers: Viral hepatitis chronicity: unspecified Hepatic coma status: without hepatic coma Qualified Code(s): B19.20 - Unspecified viral hepatitis C without hepatic coma; B19.20 - Unspecified viral hepatitis C without hepatic coma (5) Diarrhea Code(s): R19.7 - DIARRHEA, UNSPECIFIED (6) Illicit drug use Code(s): F19.90 - OTHER PSYCHOACTIVE SUBSTANCE USE, UNSPECIFIED, UNCOMPLICATED (7) HIV disease Code(s): B20 - HUMAN IMMUNODEFICIENCY VIRUS [HIV] DISEASE Assessment/Plan Possible cholecystitis Pancreatitis Diarrhea, likely related to the above, r/o infectious ethnologies Mild hepatitis with cholestasis and thrombocytopenia Ongoing IVDU Underlying HIV and HCV Agree with Antibiotics Surgical & ID (HIV) evaluation Consider HIDA Adequate IV hydration, NPO for now Monitor and correct electrolytes as needed. Stool for c. diff, cultures, OP Will follow CT results Visit type - Emergency Visit Emergency Visit: No - New Patient This patient is new to me today: No - Critical Care Critical Care patient: No
--- NOTE | 2017-02-23 08:54 | CONSULT ---
Consult Detox [facility] Reason for Current Admission/Consult: polysubstance use - h/o heroin and cocaine IDU Referred by:: Matthew Alexandre - History History of Present Illness: 31 yo m with multiple admissions to [facility] detox for heroin and cocaine IDU, also give h/o cannabis/K2 use but denies current alcohol use transferred from [facility] where he was seeking care with a fever, nausea, vomiting, abdo pain and admitted with sepsis, acute pancreatitis. PMHX HIV+, Hep c+, asthma, s/p surger left lung, currently c/o herion withdrawal sx, reports daily IDU heroin and cocaine in large quantities but denies all other illicit substance use. started on methadone detox protocoal, NPO except meds. - History Source History Provided By: Patient Limitations to Obtaining History: No Limitations - Alcohol/Substance Use Hx Alcohol Use: No Hx Substance Use: Yes (heorin and cocaine IDU) Hx Substance Use Treatment: Yes ([facility] multiple admissions to inpatient detox this year) - Current Drug/Alcohol Use Heroin Route: Injection Frequency: Daily Amount used: 2 bundles Age of first use: 17 Date of Last Use: 02/21/17 Cocaine Route: Injection Frequency: Daily Date of Last Use: 02/21/17 - Past Medical History Pulmonary: Yes: Asthma Hepatobiliary: Yes: Hepatitis C Infectious Disease: Yes: AIDS, HIV Psych: Yes: Anxiety Additional Medical History: IVDU, ETOH, HCV, - Past Surgical History Additional Surgical History: chest tube 2003 - Significant Medical Findings: acute pancreatitis, asthma, HIV+/AIDS, Hep c not on yamilet medication, IDU heroin and cocaine dependence now with moderate opioid withdrawal sx, anxiety, agitation, insomnia, diarrhea, abdo pain, hyperactive bowel sounds A and ox3 labs reviewed, imaging reviewed hypokalemia - supplemented cont methdaone detox, consider adding valium for anxiety, ambien for sleep, imdoium for diarrhea, zofran for nausea prn, motrin or tylenol prn for pain. Patient refusing mmtp at this time, counseled. Should be referred on discharge to Intensive outpatient, [facility] or [facility]. Call Dr. Yinka Gomez [phone] if any questions, thank you for this consult. COWS - Scale Resting Pulse: 0= HI 80 or Below Sweatin= Chills/Flushing Restless Observation: 1= Difficult to Sit Still Pupil Size: 1= Pupils >than Normal Bone or Joint Aches: 1= Mild Discomfort Runny Nose/ Eye Tearin= Nasal Congestion GI Upset > 30mins: 2= Nausea/Diarrhea Tremor Observation: 0= None Yawning Observation: 0= None Anxiety or Irritability: 2=Irritable/Anxious Goose Flesh Skin: 3=Piloerection COWS Score: 12 Assessment Plan - Diagnosis (1) Opioid dependence with withdrawal Status: Acute (2) Cocaine dependence Status: Chronic Qualifiers: Substance use status: uncomplicated Qualified Code(s): F14.20 - Cocaine dependence, uncomplicated; F14.20 - Cocaine dependence, uncomplicated; F14.20 - Cocaine dependence, uncomplicated (3) HIV disease Status: Chronic Comment: pt does not take any medication- f/up at [facility] , CD4 > 1000. (4) Pancreatitis Status: Acute Qualifiers: Chronicity: acute Acute pancreatitis complication: no infection or necrosis (5) Hepatitis C Status: Chronic Qualifiers: Viral hepatitis chronicity: chronic Hepatic coma status: without hepatic coma Qualified Code(s): B18.2 - Chronic viral hepatitis C; B18.2 - Chronic viral hepatitis C; B18.2 - Chronic viral hepatitis C; B18.2 - Chronic viral hepatitis C (6) Asthma Status: Chronic Qualifiers: Asthma severity: mild intermittent Asthma complication type: uncomplicated Qualified Code(s): J45.20 - Mild intermittent asthma, uncomplicated; J45.20 - Mild intermittent asthma, uncomplicated; J45.20 - Mild intermittent asthma, uncomplicated - Plan Plan: methadone detox, symptomatic relief of withdrawal ordered, refer to [facility] or inpatient rehab when medically cleared. Thank you for this consult! will follow. - Medication Detox Regimen/Protocol: Methadone (patient started on methadone detox, would benefit from symptomatic treatment of withdrawal sx, valium for anxiety and ambien for sleep)
--- NOTE | 2017-02-23 09:25 | PN ---
Progress Note (short form) - Note Progress Note: CT abdomen w/o contrast is suggestive of pancreatitis. GB "Clear", no other significant, acute pathology reported. Problem List - Problems (1) Pancreatitis Code(s): K85.90 - ACUTE PANCREATITIS WITHOUT NECROSIS OR INFECTION, UNSP (2) Cholecystitis Code(s): K81.9 - CHOLECYSTITIS, UNSPECIFIED (3) Hepatitis Code(s): K75.9 - INFLAMMATORY LIVER DISEASE, UNSPECIFIED (4) Hepatitis C Code(s): B19.20 - UNSPECIFIED VIRAL HEPATITIS C WITHOUT HEPATIC COMA Qualifiers: Qualified Code(s): B19.20 - Unspecified viral hepatitis C without hepatic coma; B19.20 - Unspecified viral hepatitis C without hepatic coma (5) Diarrhea Code(s): R19.7 - DIARRHEA, UNSPECIFIED (6) Illicit drug use Code(s): F19.90 - OTHER PSYCHOACTIVE SUBSTANCE USE, UNSPECIFIED, UNCOMPLICATED (7) HIV disease Code(s): B20 - HUMAN IMMUNODEFICIENCY VIRUS [HIV] DISEASE Visit type - Emergency Visit Emergency Visit: No - New Patient This patient is new to me today: No - Critical Care Critical Care patient: No
[2017-02-23] MEDS ORDERED: ONDANSETRON *ODT* 4 MG TABLET SL PRN (09:27)
[2017-02-23] MEDS ORDERED: ZOLPIDEM TARTRATE 5 MG TABLET PO PRN (09:27)
[2017-02-23] MEDS ORDERED: hydrOXYzine PAMOATE 50 MG CAPSULE (FP) PO PRN (09:28)
[2017-02-23] MEDS ORDERED: LOPERAMIDE HCL 2 MG CAPSULE PO PRN (09:29)
--- NOTE | 2017-02-23 09:35 | EKG ---
Test Reason : Blood Pressure : / mmHG Vent. Rate : 069 BPM Atrial Rate : 069 BPM P-R Int : 116 ms QRS Dur : 112 ms QT Int : 428 ms P-R-T Axes : 068 044 075 degrees QTc Int : 458 ms NORMAL SINUS RHYTHM MINIMAL VOLTAGE CRITERIA FOR LVH, MAY BE NORMAL VARIANT BORDERLINE ECG WHEN COMPARED WITH ECG OF 23-SEP-2016 12:12, T WAVE VARIATION Confirmed by VARSHA SPIVEY MD ([id number]) on 02/23/2017 9:35:36 AM Referred By: Confirmed By:VARSHA SPIVEY MD
[2017-02-23] MEDS: SODIUM CHLORIDE 1,000 ML IV SCH ×2 (09:49→19:18)
[2017-02-23] MEDS: diazePAM 5 MG TABLET PO PRN ×3 (09:52→21:44)
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
[2017-02-23] MEDS ORDERED: METHADONE HCL 10 MG TABLET PO ONE (10:00)
[2017-02-23] MEDS ORDERED: MAGNESIUM OXIDE 400 MG TABLET (FP) PO ONE (11:45)
--- NOTE | 2017-02-23 12:17 | PN ---
Progress Note (short form) - Note Progress Note: ID consult dictated imp/reccd 31 year old man with pmh of IVDU, HIV, Hep C recently d/[facility] after [facility] stay [facility] he was released about two to three weeks ago and started using cocaine and heroine uses clean needles does not share was on Triumeq in [facility], stopped taking it after his release denies ETOH was sent from detox yesterday with fever has midepigastric pain has nonbloody diarrhea track ross left forearm, multiple skin cuts both forearms--healed, +icterus on labs he has elevated lipase sepsis- ?biliary sepsis, ?endocarditis pancreatitis active IVDU abnl LFTS hepatitis C rhabdomyolysis HIV zosyn/vancomycin f/u cultures f/u with GI and surgery tcells hold ART (patient noncompliant) Problem List - Problems (1) Sepsis Code(s): A41.9 - SEPSIS, UNSPECIFIED ORGANISM (2) IVDU (intravenous drug user) Code(s): F19.90 - OTHER PSYCHOACTIVE SUBSTANCE USE, UNSPECIFIED, UNCOMPLICATED (3) HIV disease Code(s): B20 - HUMAN IMMUNODEFICIENCY VIRUS [HIV] DISEASE (4) Pancreatitis Code(s): K85.90 - ACUTE PANCREATITIS WITHOUT NECROSIS OR INFECTION, UNSP (5) Cholecystitis Code(s): K81.9 - CHOLECYSTITIS, UNSPECIFIED (6) Hepatitis C Code(s): B19.20 - UNSPECIFIED VIRAL HEPATITIS C WITHOUT HEPATIC COMA Qualifiers: Viral hepatitis chronicity: unspecified Hepatic coma status: without hepatic coma Qualified Code(s): B19.20 - Unspecified viral hepatitis C without hepatic coma; B19.20 - Unspecified viral hepatitis C without hepatic coma
[2017-02-23 12:27] LABS: ALBUMIN 2.1 g/dl (3.4-5.0); ANION GAP 9 (8-16); BILIRUBIN,TOTAL 4.9 mg/dL (0.2-1.0); CALCIUM 7.4 mg/dL (8.5-10.1); CO2 25 mmol/L (21-32); CREATININE 1.4 mg/dL (0.7-1.3); GLUCOSE,RANDOM 100 mg/dL (74-106); SGOT/AST 75 U/L (15-37); SGPT/ALT 76 U/L (12-78)
[2017-02-23 12:28] LABS: ALK PHOS 91 U/L (45-117); CPK 384 IU/L (39-308)
[2017-02-23] MEDS ORDERED: PIPERACILLIN/TAZOB 3.375 GM/50 ML PRE-DOCKED IVPB SCH (12:30)
[2017-02-23] MEDS: PIPERACILLIN/TAZOB 3.375 GM 3.375 GM in DEXTROSE 5%-WATER - 50 ML IVPB SCH ×2 (12:56→18:15)
--- NOTE | 2017-02-23 13:16 | PN ---
Physical Exam: SUBJECTIVE: Patient seen and examined at bedside. Patient could not sleep much last night. Complaining of abdominal pain and wanting methadone. OBJECTIVE: Vital Signs Period Temp Pulse Resp BP Sys/Arceo Pulse Ox Last 24 Hr 98.4 F-99 F 68-79 16-18 91-115/49-72 94-94 GENERAL: The patient is awake, alert, and fully oriented, in no acute distress. HEAD: Normal with no signs of trauma. EYES: extraocular movements intact, sclera anicteric, conjunctiva clear. No ptosis. NECK: Trachea midline, full range of motion, supple. LUNGS: Breath sounds equal, clear to auscultation bilaterally, no wheezes, no crackles, no accessory muscle use. HEART: Regular rate and rhythm, S1, S2 without murmur, rub or gallop. ABDOMEN: Soft, nontender, nondistended, normoactive bowel sounds, no guarding, no rebound, no hepatosplenomegaly, no masses. EXTREMITIES: 2+ pulses, warm, well-perfused, no edema. NEUROLOGICAL: Cranial nerves II through X grossly intact. Normal speech, gait not observed. PSYCH: Normal mood, normal affect. SKIN: Warm, dry, normal turgor, no rashes or lesions noted Laboratory Results - last 24 hr 02/23/17 05:30 Sodium 131 L Potassium 3.0 L Chloride 97 L Carbon Dioxide 25 Anion Gap 9 BUN 16 Creatinine 1.4 H Creat Clearance w eGFR 58.37 Random Glucose 100 Calcium 7.4 L Phosphorus 2.6 Magnesium 1.7 L Total Bilirubin 4.9 H AST 75 H D ALT 76 D Alkaline Phosphatase 91 D Creatine Kinase 384 H Total Protein 6.0 L D Albumin 2.1 L D Vitamin B12 772 Serum Folate 20 H Active Medications Generic Name Dose Route Start Last Admin Trade Name Freq PRN Reason Stop Dose Admin Diazepam 10 mg 02/23/17 09:25 02/23/17 09:52 Valium - PO 02/26/17 09:26 10 mg Q4H PRN Administration WITHDRAWAL(CONT SUBST) Hydroxyzine Pamoate 50 mg 02/23/17 09:28 Vistaril - PO Q4H PRN ANXIETY Sodium Chloride 1,000 mls @ 175 mls/hr 02/23/17 07:00 02/23/17 09:49 Normal Saline - IV 175 mls/hr ASDIR ASHOK Administration Loperamide HCl 4 mg 02/23/17 09:29 Imodium - PO Q6H PRN DIARRHEA Methadone HCl 20 mg 02/24/17 10:00 Dolophine - PO 02/24/17 10:01 DAILY ASHOK Methadone HCl 10 mg 02/27/17 10:00 Dolophine - PO 02/27/17 10:01 DAILY ASHOK Methadone HCl 15 mg 02/25/17 10:00 Dolophine - PO 02/26/17 10:01 DAILY ASHOK Methadone HCl 5 mg 02/28/17 06:00 Dolophine - PO 02/28/17 06:01 DAILY@0600 ASHOK Ondansetron HCl 8 mg 02/23/17 09:27 Zofran Odt - SL Q6H PRN NAUSEA AND/OR VOMITING Piperacillin Sod/Tazobactam Sod 3.375 gm 02/23/17 12:30 Zosyn 3.375gm Ivpb (Pre-Docked) IVPB Q8H-IV ASHOK Protocol Sodium Chloride 500 ml 02/22/17 18:23 Normal Saline - IV Q20M PRN MAP<65mm Hg OR SBP <90 Zolpidem Tartrate 10 mg 02/23/17 09:27 Ambien - PO HS PRN INSOMNIA ASSESSMENT/PLAN: Pt is a 31 y/o M w/ PMH polysubstance abuse (Cocaine, Heroin, EtOH, cigarettes) , Asthma (on MDI), Hep C (Dx in 2003, not on meds), HIV (Dx in 2011, not on meds ) who was sent to ED from [facility] for evaluation. Pt is being admitted for SIRS r/o possible ascending cholangitis. #Severe sepsis likely secondary to acute pancreatitis r/o ascending cholangitis -leukocytosis 12.5, febrile 102.6 -Trend LFTs, bili in AM -GI, surg consult appreciated -no surgical intervention indicated -CT suggestive of pancreatitis -Zosyn 3.375g Q8; adding vanco as per ID -IVF #Thrombocytopenia likely 2/2 SIRS vs EtOH abuse -Holding Heparin -daily cbc -Consider heme consult if persists/worsens #Polysubstance abuse -Cocaine, Heroin -Detox consult -Methadone protocol -ambien PRN sleep #FAHAD likely 2/2 dehydration and poor PO intake -UA pos for bood, glucose, protein -[employer] Level [employer] 1.4, baseline 0.9 -IVF -willl trend cr #Hyponatremic hypovolemia likely 2/2 poor PO intake -128 -> 130 -> 133 this PM -IVF -will trend lytes #Hypokalemia w/ hypomagnesemia -K 3.0 trending down to 2.9 -K-dur x2PO -10meq KCL IV x3 -40meq KCL PO -will f/u rpt labs this PM -2g Mag IV #HIV -Dx in 2011 -Triumeq -ID onboard -cd4, viral load pending #Hep C -Dx in 2003 -monitor for improvement in LFTs #FEN -NS @ 100 -see above; monitor lytes -NPO #Dispo -admitted to noncardiac tele for severe sepsis and electrolyte disturbances Problem List - Problems (1) Diarrhea Code(s): R19.7 - DIARRHEA, UNSPECIFIED (2) Hepatitis Code(s): K75.9 - INFLAMMATORY LIVER DISEASE, UNSPECIFIED (3) IVDU (intravenous drug user) Code(s): F19.90 - OTHER PSYCHOACTIVE SUBSTANCE USE, UNSPECIFIED, UNCOMPLICATED (4) Pancreatitis Code(s): K85.90 - ACUTE PANCREATITIS WITHOUT NECROSIS OR INFECTION, UNSP (5) Sepsis Code(s): A41.9 - SEPSIS, UNSPECIFIED ORGANISM (6) Alcohol dependence Code(s): F10.20 - ALCOHOL DEPENDENCE, UNCOMPLICATED (7) HIV disease Code(s): B20 - HUMAN IMMUNODEFICIENCY VIRUS [HIV] DISEASE (8) Hepatitis C Code(s): B19.20 - UNSPECIFIED VIRAL HEPATITIS C WITHOUT HEPATIC COMA Qualifiers: Viral hepatitis chronicity: unspecified Hepatic coma status: without hepatic coma Qualified Code(s): B19.20 - Unspecified viral hepatitis C without hepatic coma; B19.20 - Unspecified viral hepatitis C without hepatic coma (9) Opioid dependence with withdrawal Code(s): F11.23 - OPIOID DEPENDENCE WITH WITHDRAWAL Visit type - Emergency Visit Emergency Visit: Yes ED Registration Date: 02/22/17 Care time: The patient presented to the Emergency Department on the above date and was hospitalized for further evaluation of their emergent condition. - New Patient This patient is new to me today: Yes Date on this admission: 02/23/17 - Critical Care Critical Care patient: No
[2017-02-23] MEDS ORDERED: VANCOMYCIN 1 GRAM (PRE-DOCKED) 1,000 MG/250 ML BAG IVPB SCH (13:30)
[2017-02-23 14:06] LABS: ANION GAP 12 (8-16); CALCIUM 7.2 mg/dL (8.5-10.1); CO2 24 mmol/L (21-32); CREATININE 1.1 mg/dL (0.7-1.3); GLUCOSE,RANDOM 90 mg/dL (74-106); MAGNESIUM 1.8 mg/dL (1.8-2.4); PHOSPHOROUS 2.6 mg/dL (2.5-4.9)
[2017-02-23] MEDS ORDERED: MAGNESIUM SULF 50% (8.12 MEQ/2 ML-1 GM VIAL) IVPB ONE ×2 (14:21→17:15)
--- NOTE | 2017-02-23 14:45 | PN ---
Teaching Attending Note Name of Resident: Yovany Weiss ATTENDING PHYSICIAN STATEMENT I saw and evaluated the patient. I reviewed the resident's note and discussed the case with the resident. I agree with the resident's findings and plan as documented. SUBJECTIVE: Patient complains of epigastric pain. OBJECTIVE: Vital Signs Period Temp Pulse Resp BP Sys/Arceo Pulse Ox Last 24 Hr 98.4 F-102.6 F 67-90 16-24 91-137/49-75 94-100 HEART: S1S2, RRR LUNGS: Clear ABDOMEN: Soft, non-tender, non-distended, normal BS EXTREMITIES: No edema Current Medications Generic Name Dose Route Start Last Admin Trade Name Freq PRN Reason Stop Dose Admin Diazepam 10 mg 02/23/17 09:25 02/23/17 09:52 Valium - PO 02/26/17 09:26 10 mg Q4H PRN Administration WITHDRAWAL(CONT SUBST) Hydroxyzine Pamoate 50 mg 02/23/17 09:28 Vistaril - PO Q4H PRN ANXIETY Sodium Chloride 1,000 mls @ 175 mls/hr 02/23/17 07:00 02/23/17 09:49 Normal Saline - IV 175 mls/hr ASDIR ASHOK Administration Piperacillin Sod/Tazobactam 50 mls @ 100 mls/hr 02/23/17 13:00 02/23/17 12:56 Sod 3.375 gm/ Dextrose IVPB Not Given Q8H-IV ASHOK Vancomycin HCl 1,000 mg/ 250 mls @ 166.667 mls/hr 02/23/17 14:00 Dextrose IVPB BID@0200,1400 ASHOK Loperamide HCl 4 mg 02/23/17 09:29 Imodium - PO Q6H PRN DIARRHEA Methadone HCl 20 mg 02/24/17 10:00 Dolophine - PO 02/24/17 10:01 DAILY ASHOK Methadone HCl 10 mg 02/27/17 10:00 Dolophine - PO 02/27/17 10:01 DAILY ASHOK Methadone HCl 15 mg 02/25/17 10:00 Dolophine - PO 02/26/17 10:01 DAILY ASHOK Methadone HCl 5 mg 02/28/17 06:00 Dolophine - PO 02/28/17 06:01 DAILY@0600 ASHOK Ondansetron HCl 8 mg 02/23/17 09:27 Zofran Odt - SL Q6H PRN NAUSEA AND/OR VOMITING Sodium Chloride 500 ml 02/22/17 18:23 Normal Saline - IV Q20M PRN MAP<65mm Hg OR SBP <90 Zolpidem Tartrate 10 mg 02/23/17 09:27 Ambien - PO HS PRN INSOMNIA ASSESSMENT AND PLAN: This is a 31 year old man with a history of asthma, HIV, HCV, polysubstance abuse who was sent to the ER from [facility] because of fever and chills. 1. Severe sepsis secondary to acute pancreatitis, possible acute cholecystitis - Afebrile - Lactic acid, LFTs improved - Continue Zosyn, Vancomycin - GI, surgery, ID consults appreciated 2. Hyponatremia - Improving with IV fluid 3. Hypokalemia - Replete potassium 4. Hypomagnesemia - Supplement magnesium 5. Acute kidney injury - Improving - Continue IV fluid 6. HIV - Not compliant with treatment - CD4 count pending - ID consult appreciated 7. Polysubstance abuse - Continue Methadone detox for heroin/cocaine - Detox consult appreciated - On Valium as needed for anxiety, Imodium as needed for diarrhea, Zofran as needed for nausea, Ambien as needed for sleep 8. Asthma - Stable 9. Thrombocytopenia - Possibly secondary to sepsis, liver disease 10. HCV
[2017-02-23] MEDS: KCL 10 MEQ IVPB 100 ML IVPB SCH ×3 (14:49→20:06)
[2017-02-23] MEDS: VANCOMYCIN 1,000 MG in DEXTROSE 5%-WATER - 250 ML IVPB SCH (15:54)
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
[2017-02-23] MEDS ORDERED: POTASSIUM CHLORIDE TABS 20 MEQ TABLET.ER (FP) PO ONE ×2 (16:33→21:15)
[2017-02-23] MEDS ORDERED: KCL 10 MEQ IVPB 100 ML IVPB SCH (20:15)
[2017-02-24] MEDS ORDERED: PIPERACILLIN/TAZOBACTAM 3.375 GM VIAL IVPB ONE ×3 (01:20→17:52)
[2017-02-24] MEDS: VANCOMYCIN 1,000 MG in DEXTROSE 5%-WATER - 250 ML IVPB SCH ×2 (01:37→14:13)
[2017-02-24] MEDS: SODIUM CHLORIDE 1,000 ML IV SCH ×2 (01:37→07:00)
[2017-02-24] MEDS: PIPERACILLIN/TAZOB 3.375 GM 3.375 GM in DEXTROSE 5%-WATER - 50 ML IVPB SCH ×3 (02:06→17:54)
[2017-02-24 07:01] LABS: BASOPHIL 0.4 % (0-2.0); EOSINOPHIL 1.1 % (0-4.5); MCH 28.6 pg (25.7-33.7); MCHC 32.8 g/dl (32.0-35.9); MEAN CELL VOLUME 87.1 fl (80-96); MEAN PLT VOLUME 8.4 fl (7.5-11.1); NEUTROPHILS 69.8 % (42.8-82.8); PLATELET COUNT 44 K/MM3 (134-434); RDW 13.9 % (11.9-15.9); WHITE BLOOD COUNT 7.5 K/mm3 (4.0-10.0)
[2017-02-24] MEDS: diazePAM 5 MG TABLET PO PRN ×3 (07:15→17:54)
[2017-02-24 07:32] LABS: ALBUMIN 1.9 g/dl (3.4-5.0); ANION GAP 9 (8-16); BILIRUBIN,DIRECT 4.1 mg/dL (0.0-0.2); BILIRUBIN,TOTAL 5.1 mg/dL (0.2-1.0); CALCIUM 7.6 mg/dL (8.5-10.1); CO2 25 mmol/L (21-32); CREATININE 0.9 mg/dL (0.7-1.3); GLUCOSE,RANDOM 96 mg/dL (74-106); SGPT/ALT 61 U/L (12-78); TOT PROT 5.9 g/dl (6.4-8.2)
[2017-02-24 07:35] LABS: ALK PHOS 81 U/L (45-117)
[2017-02-24] MEDS ORDERED: hydrOXYzine PAMOATE 25 MG CAPSULE (FP) PO PRN (07:37)
[2017-02-24 07:38] LABS: MAGNESIUM 1.7 mg/dL (1.8-2.4); SGOT/AST 55 U/L (15-37)
[2017-02-24] MEDS ORDERED: MAGNESIUM SULF 50% (8.12 MEQ/2 ML-1 GM VIAL) IVPB ONE (08:00)
[2017-02-24] MEDS ORDERED: POTASSIUM CHLORIDE TABS 20 MEQ TABLET.ER (FP) PO ONE (08:00)
--- NOTE | 2017-02-24 08:11 | PN ---
Progress Note, Physician History of Present Illness: No significant events overnight. No diarrhea. Asks for Methadon. - Current Medication List Current Medications: Active Medications Diazepam (Valium -) 10 mg PO Q4H PRN PRN Reason: WITHDRAWAL(CONT SUBST) Stop: 02/26/17 09:26 Last Admin: 02/24/17 07:15 Dose: 10 mg Hydroxyzine Pamoate (Vistaril -) 50 mg PO Q4H PRN PRN Reason: ANXIETY Sodium Chloride (Normal Saline -) 1,000 mls @ 175 mls/hr IV ASDIR COUNTS INCLUDE 234 BEDS AT THE [facility] Last Admin: 02/24/17 01:37 Dose: 175 mls/hr Piperacillin Sod/Tazobactam (Sod 3.375 gm/ Dextrose) 50 mls @ 100 mls/hr IVPB Q8H-IV COUNTS INCLUDE 234 BEDS AT THE [facility] Last Admin: 02/24/17 02:06 Dose: 100 mls/hr Vancomycin HCl 1,000 mg/ (Dextrose) 250 mls @ 166.667 mls/hr IVPB BID@0200, 1400 COUNTS INCLUDE 234 BEDS AT THE [facility] Last Admin: 02/24/17 01:37 Dose: 166.667 mls/hr Loperamide HCl (Imodium -) 4 mg PO Q6H PRN PRN Reason: DIARRHEA Methadone HCl (Dolophine -) 20 mg PO DAILY COUNTS INCLUDE 234 BEDS AT THE [facility] Stop: 02/24/17 10:01 Methadone HCl (Dolophine -) 10 mg PO DAILY COUNTS INCLUDE 234 BEDS AT THE [facility] Stop: 02/27/17 10:01 Methadone HCl (Dolophine -) 15 mg PO DAILY COUNTS INCLUDE 234 BEDS AT THE [facility] Stop: 02/26/17 10:01 Methadone HCl (Dolophine -) 5 mg PO DAILY@0600 COUNTS INCLUDE 234 BEDS AT THE [facility] Stop: 02/28/17 06:01 Ondansetron HCl (Zofran Odt -) 8 mg SL Q6H PRN PRN Reason: NAUSEA AND/OR VOMITING Sodium Chloride (Normal Saline -) 500 ml IV Q20M PRN PRN Reason: MAP<65mm Hg OR SBP <90 Zolpidem Tartrate (Ambien -) 10 mg PO HS PRN PRN Reason: INSOMNIA - Objective Vital Signs: Vital Signs Temperature 98.3 F 02/24/17 05:00 Pulse Rate 67 02/24/17 05:00 Respiratory Rate 16 02/24/17 05:00 Blood Pressure 125/68 02/24/17 05:00 O2 Sat by Pulse Oximetry (%) 96 02/23/17 21:00 Constitutional: Yes: No Distress, Anxious Eyes: Yes: Conjunctiva Clear Neck: Yes: Supple Cardiovascular: No: JVD Respiratory: Yes: Regular. No: Accessory Muscle Use Gastrointestinal: Yes: Soft, Distention, Tenderness, Epigastrium, Other. No: Tenderness, Rebound, Vomiting Neurological: Yes: Alert Labs: INR, PTT INR 1.39 (0.82-1.09) H 02/22/17 18:45 Microbiology 02/22/17 19:20 Blood - Peripheral Venous Blood Culture - Preliminary NO GROWTH OBTAINED AFTER 24 HOURS, INCUBATION TO CONTINUE FOR 4 DAYS. 02/22/17 19:20 Blood - Peripheral Venous Blood Culture - Preliminary NO GROWTH OBTAINED AFTER 24 HOURS, INCUBATION TO CONTINUE FOR 4 DAYS. Abnormal Lab Results 02/23/17 02/23/17 02/24/17 05:30 13:40 05:35 Plt Count 44 L D Monocytes % 13.4 H D Sodium 131 L 133 L Potassium 3.0 L 2.8 L* Chloride 97 L 97 L Creatinine 1.4 H Calcium 7.4 L 7.2 L Magnesium 1.7 L Total Bilirubin 4.9 H Direct Bilirubin AST 75 H D Creatine Kinase 384 H Total Protein 6.0 L D Albumin 2.1 L D Serum Folate 20 H 02/24/17 05:35 Plt Count Monocytes % Sodium 132 L Potassium 3.0 L Chloride Creatinine Calcium 7.6 L Magnesium 1.7 L Total Bilirubin 5.1 H Direct Bilirubin 4.1 H AST 55 H D Creatine Kinase Total Protein 5.9 L Albumin 1.9 L Serum Folate Vital Signs Temperature 98.3 F 02/24/17 05:00 Pulse Rate 67 02/24/17 05:00 Respiratory Rate 16 02/24/17 05:00 Blood Pressure 125/68 02/24/17 05:00 O2 Sat by Pulse Oximetry (%) 96 02/23/17 21:00 Problem List - Problems (1) Pancreatitis Assessment/Plan: Consider clear liquid diet. Monitor/correct electrolytes Code(s): K85.90 - ACUTE PANCREATITIS WITHOUT NECROSIS OR INFECTION, UNSP Qualifiers: Chronicity: acute Pancreatitis type: drug induced Acute pancreatitis complication: no infection or necrosis Qualified Code(s): K85.30 - Drug induced acute pancreatitis without necrosis or infection; K85.30 - Drug induced acute pancreatitis without necrosis or infection (2) Cholecystitis Code(s): K81.9 - CHOLECYSTITIS, UNSPECIFIED (3) Hepatitis Code(s): K75.9 - INFLAMMATORY LIVER DISEASE, UNSPECIFIED (4) Hepatitis C Code(s): B19.20 - UNSPECIFIED VIRAL HEPATITIS C WITHOUT HEPATIC COMA Qualifiers: Viral hepatitis chronicity: chronic Hepatic coma status: without hepatic coma Qualified Code(s): B18.2 - Chronic viral hepatitis C; B18.2 - Chronic viral hepatitis C; B18.2 - Chronic viral hepatitis C; B18.2 - Chronic viral hepatitis C (5) Diarrhea Assessment/Plan: resolved as per RN Code(s): R19.7 - DIARRHEA, UNSPECIFIED Qualifiers: Diarrhea type: unspecified type Qualified Code(s): R19.7 - Diarrhea , unspecified; R19.7 - Diarrhea, unspecified (6) Illicit drug use Code(s): F19.90 - OTHER PSYCHOACTIVE SUBSTANCE USE, UNSPECIFIED, UNCOMPLICATED (7) HIV disease Code(s): B20 - HUMAN IMMUNODEFICIENCY VIRUS [HIV] DISEASE Visit type - Emergency Visit Emergency Visit: No - New Patient This patient is new to me today: No - Critical Care Critical Care patient: No
[2017-02-24] MEDS ORDERED: PT OWN MED DRAWER 7, Y5N ONE ×3 (09:09→17:51)
[2017-02-24] MEDS ORDERED: METHADONE HCL 10 MG TABLET PO SCH (10:00)
[2017-02-24] MEDS ORDERED: DEXTROSE 5%-WATER - 50 ML IVPB ONE ×2 (10:27→17:52)
--- NOTE | 2017-02-24 11:38 | PN ---
Progress Note (short form) - Note Progress Note: reports less abdominal pain he never filled his prescription for triumeq or trazadone- he lost it after leaving [facility] Vital Signs Period Temp Pulse Resp BP Sys/Arceo Pulse Ox Last 24 Hr 98.1 F-100.4 F 51-75 16-20 114-134/58-83 96 cor-rrr lungs clear abd soft,mild midepigastric tenderness to palpation ext no edema CBC, BMP 02/24/17 05:35 02/24/17 05:35 Microbiology 02/22/17 19:20 Urine - Urine Clean Catch Urine Culture - Final Contaminated: Please Repeat 02/22/17 19:20 Blood - Peripheral Venous Blood Culture - Preliminary NO GROWTH OBTAINED AFTER 24 HOURS, INCUBATION TO CONTINUE FOR 4 DAYS. 02/22/17 19:20 Blood - Peripheral Venous Blood Culture - Preliminary NO GROWTH OBTAINED AFTER 24 HOURS, INCUBATION TO CONTINUE FOR 4 DAYS. a/p sepsis- ?biliary sepsis, ?endocarditis pancreatitis-?etiology active IVDU abnl LFTS hepatitis C rhabdomyolysis HIV d/w hospitalist service- cannot implicate ART as cause of pancreatitis- was not taking it! if blood cultures are negative today, can d/c vancomycin continue zosyn for now, ?need for MRCP -to d/w GI Problem List - Problems (1) Sepsis Code(s): A41.9 - SEPSIS, UNSPECIFIED ORGANISM (2) IVDU (intravenous drug user) Code(s): F19.90 - OTHER PSYCHOACTIVE SUBSTANCE USE, UNSPECIFIED, UNCOMPLICATED (3) HIV disease Code(s): B20 - HUMAN IMMUNODEFICIENCY VIRUS [HIV] DISEASE (4) Pancreatitis Code(s): K85.90 - ACUTE PANCREATITIS WITHOUT NECROSIS OR INFECTION, UNSP Qualifiers: Chronicity: acute Pancreatitis type: drug induced Acute pancreatitis complication: no infection or necrosis Qualified Code(s): K85.30 - Drug induced acute pancreatitis without necrosis or infection; K85.30 - Drug induced acute pancreatitis without necrosis or infection (5) Cholecystitis Code(s): K81.9 - CHOLECYSTITIS, UNSPECIFIED (6) Hepatitis C Code(s): B19.20 - UNSPECIFIED VIRAL HEPATITIS C WITHOUT HEPATIC COMA Qualifiers: Viral hepatitis chronicity: chronic Hepatic coma status: without hepatic coma Qualified Code(s): B18.2 - Chronic viral hepatitis C; B18.2 - Chronic viral hepatitis C; B18.2 - Chronic viral hepatitis C; B18.2 - Chronic viral hepatitis C
[2017-02-24] MEDS ORDERED: MAGNESIUM OXIDE 400 MG TABLET (FP) PO ONE (11:57)
[2017-02-24] MEDS ORDERED: SODIUM CHLORIDE 1,000 ML with POTASSIUM CHLORIDE 20 MEQ IVPB SCH (13:20)
--- NOTE | 2017-02-24 15:25 | PN ---
Teaching Attending Note Name of Resident: Yovany Weiss ATTENDING PHYSICIAN STATEMENT I saw and evaluated the patient. I reviewed the resident's note and discussed the case with the resident. I agree with the resident's findings and plan as documented. SUBJECTIVE:states pain is improving but continues to have intermittent epigastric pain. also c/o loose BM, unable to control. persisting for 6 days. last heroin use was 2 days ago. denies CP, SOB, fever, chills, N/V OBJECTIVE: Last Vital Signs Temp Pulse Resp BP Pulse Ox 98.4 F 60 18 122/67 96 02/24/17 13:47 02/24/17 13:47 02/24/17 13:47 02/24/17 13:47 02/24/17 09:00 General NAD CV S1 S2 RRR no murmur/rub/gallop Lungs CTA B/L no wheezing/rales/rhonchi Abdomen +epigastric tenderness no rebound or guarding +BS Extremities multiple old healed horizontal scars on B/L forearms ASSESSMENT AND PLAN: 31 year old man with a history of asthma, HIV, HCV, polysubstance abuse who was sent to the ER from [facility] because of fever and chills. 1. Severe sepsis secondary to acute pancreatitis- Tm 100.4. clinically improve. requesting to eat. advance to clear liquid diet. cont IVF until tolerating diet. will slowly advance. on Vanco/zosyn. will obtain MRCP to evaluate for microlithasis to evaluate for cause of pancreatitis (pt adamantly denies drinking ETOH, has not been on HARRT therapy for several months and no other evident cause). will d/w GI about autoimmune workup if needed. ID and GI on board. no signs of acute cholecystitis seen on CT scan. 2. Hyponatremia- severe dehydration. improved. cont IVF 3. Hypokalemia- Replete potassium 4. Hypomagnesemia- Supplement magnesium 5. Acute kidney injury-sepsis vs dehydration. resolved. 6. HIV- Not compliant with treatment. viral load, CD4 count pending. will hold therapy at this time. 7. Continuous Polysubstance abuse- COWS 0. on methadone detox. valium prn. evaluated by detox specialist. will return to [facility] to complete detox and possible inpatient rehab once medically optimized. counseled on need for drug abstinence. 8. Asthma- Stable 9. Thrombocytopenia- Possibly secondary to sepsis, liver disease. no signs of active bleeding. no indication for txn' 10. Transaminits- improved. possible recently passed stone. no CBD dilation. imaging shows normal liver echotexture 11. Gallbladder polyp- needs routine surveillance 12. LIver hemangioma- require routine surveillance 13. HCV 14. DVT ppx- SCD. hold heparin as platelet count <50
--- NOTE | 2017-02-24 16:08 | PN ---
Physical Exam: SUBJECTIVE: Patient seen and examined at bedside. Continues to complain of diarrhea and abdominal pain overnight. He states his mouth is dry and he wants to drink something. OBJECTIVE: Vital Signs Period Temp Pulse Resp BP Sys/Arceo Pulse Ox Last 24 Hr 98.1 F-98.9 F 51-67 16-20 117-134/58-71 96-96 GENERAL: The patient is awake, alert, and fully oriented, in mild distress. HEAD: Normal with no signs of trauma. EYES: extraocular movements intact, sclera anicteric, conjunctiva clear. No ptosis. NECK: Trachea midline, full range of motion, supple. LUNGS: Breath sounds equal, clear to auscultation bilaterally, no wheezes, no crackles, no accessory muscle use. HEART: Regular rate and rhythm, S1, S2 without murmur, rub or gallop. ABDOMEN: Soft, nontender, nondistended, normoactive bowel sounds, no guarding, no rebound, no hepatosplenomegaly, no masses. EXTREMITIES: 2+ pulses, warm, well-perfused, no edema. NEUROLOGICAL: Cranial nerves II through X grossly intact. Normal speech, gait not observed. SKIN: Warm, dry, normal turgor, no rashes or lesions noted Laboratory Results - last 24 hr 02/24/17 02/24/17 05:35 05:35 WBC 7.5 D RBC 4.43 Hgb 12.7 Hct 38.6 MCV 87.1 MCH 28.6 MCHC 32.8 RDW 13.9 Plt Count 44 L D MPV 8.4 Neutrophils % 69.8 D Lymphocytes % 15.3 D Monocytes % 13.4 H D Eosinophils % 1.1 D Basophils % 0.4 D Sodium 132 L Potassium 3.0 L Chloride 98 Carbon Dioxide 25 Anion Gap 9 BUN 13 Creatinine 0.9 Random Glucose 96 Calcium 7.6 L Magnesium 1.7 L Total Bilirubin 5.1 H Direct Bilirubin 4.1 H AST 55 H D ALT 61 Alkaline Phosphatase 81 Total Protein 5.9 L Albumin 1.9 L Active Medications Generic Name Dose Route Start Last Admin Trade Name Freq PRN Reason Stop Dose Admin Diazepam 10 mg 02/23/17 09:25 02/24/17 11:40 Valium - PO 02/26/17 09:26 10 mg Q4H PRN Administration WITHDRAWAL(CONT SUBST) Hydroxyzine Pamoate 50 mg 02/24/17 07:37 02/24/17 09:09 Vistaril - PO 50 mg Q4H PRN Administration ANXIETY Piperacillin Sod/Tazobactam 50 mls @ 100 mls/hr 02/23/17 13:00 02/24/17 09:02 Sod 3.375 gm/ Dextrose IVPB 100 mls/hr Q8H-IV ASHOK Administration Vancomycin HCl 1,000 mg/ 250 mls @ 166.667 mls/hr 02/23/17 14:00 02/24/17 14:13 Dextrose IVPB 166.667 mls/hr BID@0200,1400 ASHOK Administration Potassium Chloride 20 meq/ 1,010 mls @ 175 mls/hr 02/24/17 13:20 02/24/17 14:13 Sodium Chloride IVPB 175 mls/hr ASDIR ASHOK Administration Loperamide HCl 4 mg 02/23/17 09:29 02/24/17 12:35 Imodium - PO 4 mg Q6H PRN Administration DIARRHEA Methadone HCl 10 mg 02/27/17 10:00 Dolophine - PO 02/27/17 10:01 DAILY ASHOK Methadone HCl 15 mg 02/25/17 10:00 Dolophine - PO 02/26/17 10:01 DAILY ASHOK Methadone HCl 5 mg 02/28/17 06:00 Dolophine - PO 02/28/17 06:01 DAILY@0600 ASHOK Ondansetron HCl 8 mg 02/23/17 09:27 Zofran Odt - SL Q6H PRN NAUSEA AND/OR VOMITING Sodium Chloride 500 ml 02/22/17 18:23 Normal Saline - IV Q20M PRN MAP<65mm Hg OR SBP <90 Zolpidem Tartrate 10 mg 02/23/17 09:27 Ambien - PO HS PRN INSOMNIA ASSESSMENT/PLAN: Pt is a 31 y/o M w/ PMH polysubstance abuse (Cocaine, Heroin, EtOH, cigarettes) , Asthma (on MDI), Hep C (Dx in 2003, not on meds), HIV (Dx in 2011, not on meds ) who was sent to ED from [facility] for evaluation. Pt admitted for Severe sepsis. #Severe sepsis likely secondary to acute pancreatitis -LFTs trending down -t. bili remains elevated at 5.1 -GI, surg consult appreciated -no surgical intervention indicated -CT suggestive of pancreatitis -Zosyn 3.375g Q8, vanco 1g BID -IVF -triumeq unlikely to be source of pancreatitis as pt not medication compliant #Thrombocytopenia likely 2/2 SIRS vs possible EtOH abuse -Holding Heparin -daily cbc -Consider heme consult if persists/worsens #diarrhea likely 2/2 withdrawal r/o infectious cause -Stool for C. Diff #Polysubstance abuse -Cocaine, Heroin -Detox consult -Methadone protocol -ambien PRN sleep #Hyponatremic hypovolemia likely 2/2 poor PO intake -stable at 132 today -IVF -will trend lytes #Hypokalemia w/ hypomagnesemia -K 3.0 today after several repletions -40meq KCL PO today -1g Mag IV today -800mg magox PO today -monitor #FAHAD likely 2/2 dehydration and poor PO intake- resolved -UA pos for blood, glucose, protein -Marketing And Promotions Manager 1.4, baseline 0.9 -cr .9 today -IVF #HIV -Dx in 2011 -Triumeq -ID onboard -cd4, viral load pending #Hep C -Dx in 2003 -monitor for improvement in LFTs #FEN -NS @ 100 -see above; monitor lytes -NPO #Dispo -admitted to tele for severe sepsis and electrolyte disturbances Problem List - Problems (1) Diarrhea Code(s): R19.7 - DIARRHEA, UNSPECIFIED Qualifiers: Diarrhea type: unspecified type Qualified Code(s): R19.7 - Diarrhea , unspecified; R19.7 - Diarrhea, unspecified (2) Hepatitis Code(s): K75.9 - INFLAMMATORY LIVER DISEASE, UNSPECIFIED (3) IVDU (intravenous drug user) Code(s): F19.90 - OTHER PSYCHOACTIVE SUBSTANCE USE, UNSPECIFIED, UNCOMPLICATED (4) Pancreatitis Code(s): K85.90 - ACUTE PANCREATITIS WITHOUT NECROSIS OR INFECTION, UNSP Qualifiers: Chronicity: acute Pancreatitis type: drug induced Acute pancreatitis complication: no infection or necrosis Qualified Code(s): K85.30 - Drug induced acute pancreatitis without necrosis or infection; K85.30 - Drug induced acute pancreatitis without necrosis or infection (5) Sepsis Code(s): A41.9 - SEPSIS, UNSPECIFIED ORGANISM (6) Alcohol dependence Code(s): F10.20 - ALCOHOL DEPENDENCE, UNCOMPLICATED (7) HIV disease Code(s): B20 - HUMAN IMMUNODEFICIENCY VIRUS [HIV] DISEASE (8) Hepatitis C Code(s): B19.20 - UNSPECIFIED VIRAL HEPATITIS C WITHOUT HEPATIC COMA Qualifiers: Viral hepatitis chronicity: chronic Hepatic coma status: without hepatic coma Qualified Code(s): B18.2 - Chronic viral hepatitis C; B18.2 - Chronic viral hepatitis C; B18.2 - Chronic viral hepatitis C; B18.2 - Chronic viral hepatitis C (9) Opioid dependence with withdrawal Code(s): F11.23 - OPIOID DEPENDENCE WITH WITHDRAWAL Visit type - Emergency Visit Emergency Visit: Yes ED Registration Date: 02/22/17 Care time: The patient presented to the Emergency Department on the above date and was hospitalized for further evaluation of their emergent condition. - New Patient This patient is new to me today: No - Critical Care Critical Care patient: No
--- NOTE | 2017-02-24 17:29 | PN ---
[facility] COWS - Scale Resting Pulse: 0= [place] 80 or Below Sweatin= No chills or Flushing Restless Observation: 0= Sits Still Pupil Size: 0= Normal to Room Light Bone or Joint Aches: 1= Mild Discomfort Runny Nose/ Eye Tearin= Nasal Congestion GI Upset > 30mins: 2= Nausea/Diarrhea Tremor Observation of Outstretched Hands: 1= Tremor [place], Not Seen Yawning Observation: 1= 1-2x During Session Anxiety or Irritability: 2=Irritable/Anxious Goose Flesh Skin: 0=Smooth Skin COWS Score: 8 B[facility] Progress Note (SOAP) Subjective: still c/o insomnia, anxiety, diarrhea, but symptoms imporved, would like symptomatic medications for treatment of withdrawal Objective: 02/24/17 17:24 Vital Signs - 24 hr 02/23/17 02/23/17 02/23/17 18:42 21:00 21:52 Temperature 98.9 F 98.3 F Pulse Rate 67 63 Respiratory 18 16 16 Rate Blood Pressure 117/59 118/58 O2 Sat by Pulse 96 Oximetry (%) 02/24/17 02/24/17 02/24/17 01:00 05:00 09:00 Temperature 98.1 F 98.3 F Pulse Rate 63 67 Respiratory 16 16 Rate Blood Pressure 130/71 125/68 O2 Sat by Pulse 96 Oximetry (%) 02/24/17 02/24/17 09:30 13:47 Temperature 98.6 F 98.4 F Pulse Rate 51 L 60 Respiratory 20 18 Rate Blood Pressure 134/70 122/67 O2 Sat by Pulse Oximetry (%) Laboratory Tests 02/22/17 02/22/17 02/22/17 18:45 18:45 18:45 WBC 12.5 H D RBC 4.48 Hgb 13.3 Hct 39.3 MCV 87.7 MCH 29.8 MCHC 34.0 RDW 13.9 Plt Count 68 L D MPV 8.2 D Neutrophils % 89.9 H Lymphocytes % 4.1 L Monocytes % 5.8 Eosinophils % 0.1 Basophils % 0.1 PT with INR 15.40 H INR 1.39 H PTT (Actin FS) 38.3 H VBG pH POC VBG pCO2 POC VBG pO2 Mixed VBG HCO3 Sodium 128 L Potassium 3.3 L Chloride 91 L D Carbon Dioxide 29 Anion Gap 8 BUN 16 D Creatinine 1.4 H D Creat Clearance w eGFR 58.37 Random Glucose 104 Lactic Acid Calcium 8.2 L Phosphorus Magnesium Total Bilirubin 4.8 H D Direct Bilirubin AST 125 H D ALT 109 H D Alkaline Phosphatase 132 H D Creatine Kinase 1105 H Creatine Kinase Index 0.9 CK-MB (CK-2) 10.504 H Troponin I < 0.02 Total Protein 7.9 Albumin 3.0 L Lipase Vitamin B12 Serum Folate Urine Color Urine Appearance Urine pH Ur Specific Radnor Urine Protein Urine Glucose (UA) Urine Ketones Urine Blood Urine Nitrite Urine Bilirubin Urine Urobilinogen Urine RBC Urine WBC Ur Epithelial Cells Blood Type Antibody Screen 02/22/17 02/22/17 02/22/17 18:45 18:45 19:02 WBC RBC Hgb Hct MCV MCH MCHC RDW Plt Count MPV Neutrophils % Lymphocytes % Monocytes % Eosinophils % Basophils % PT with INR INR PTT (Actin FS) VBG pH 7.42 POC VBG pCO2 46.1 POC VBG pO2 26.4 L Mixed VBG HCO3 29.5 H Sodium Potassium Chloride Carbon Dioxide Anion Gap BUN Creatinine Creat Clearance w eGFR Random Glucose Lactic Acid 2.1 H* Calcium Phosphorus Magnesium Total Bilirubin Direct Bilirubin AST ALT Alkaline Phosphatase Creatine Kinase Creatine Kinase Index CK-MB (CK-2) Troponin I Total Protein Albumin Lipase Vitamin B12 Serum Folate Urine Color Urine Appearance Urine pH Ur Specific Radnor Urine Protein Urine Glucose (UA) Urine Ketones Urine Blood Urine Nitrite Urine Bilirubin Urine Urobilinogen Urine RBC Urine WBC Ur Epithelial Cells Blood Type O POSITIVE Antibody Screen Negative 02/22/17 02/22/17 02/22/17 19:20 20:30 22:54 WBC RBC Hgb Hct MCV MCH MCHC RDW Plt Count MPV Neutrophils % Lymphocytes % Monocytes % Eosinophils % Basophils % PT with INR INR PTT (Actin FS) VBG pH POC VBG pCO2 POC VBG pO2 Mixed VBG HCO3 Sodium Potassium Chloride Carbon Dioxide Anion Gap BUN Creatinine Creat Clearance w eGFR Random Glucose Lactic Acid 1.3 Calcium Phosphorus Magnesium Total Bilirubin Direct Bilirubin AST ALT Alkaline Phosphatase Creatine Kinase Creatine Kinase Index CK-MB (CK-2) Troponin I Total Protein Albumin Lipase 533 H Vitamin B12 Serum Folate Urine Color Nati Urine Appearance Clear Urine pH 7.0 Ur Specific Radnor 1.015 Urine Protein 2+ H Urine Glucose (UA) 2+ H Urine Ketones Negative Urine Blood 2+ H Urine Nitrite Negative Urine Bilirubin Negative Urine Urobilinogen 4.0 e.u/dl Urine RBC 2 Urine WBC 8 Ur Epithelial Cells Rare Blood Type Antibody Screen 02/23/17 02/23/17 02/24/17 05:30 13:40 05:35 WBC 7.5 D RBC 4.43 Hgb 12.7 Hct 38.6 MCV 87.1 MCH 28.6 MCHC 32.8 RDW 13.9 Plt Count 44 L D MPV 8.4 Neutrophils % 69.8 D Lymphocytes % 15.3 D Monocytes % 13.4 H D Eosinophils % 1.1 D Basophils % 0.4 D PT with INR INR PTT (Actin FS) VBG pH POC VBG pCO2 POC VBG pO2 Mixed VBG HCO3 Sodium 131 L 133 L Potassium 3.0 L 2.8 L* Chloride 97 L 97 L Carbon Dioxide 25 24 Anion Gap 9 12 BUN 16 15 Creatinine 1.4 H 1.1 D Creat Clearance w eGFR 58.37 Random Glucose 100 90 Lactic Acid Calcium 7.4 L 7.2 L Phosphorus 2.6 2.6 Magnesium 1.7 L 1.8 Total Bilirubin 4.9 H Direct Bilirubin AST 75 H D ALT 76 D Alkaline Phosphatase 91 D Creatine Kinase 384 H Creatine Kinase Index 0.9 CK-MB (CK-2) 3.553 Troponin I Total Protein 6.0 L D Albumin 2.1 L D Lipase Vitamin B12 772 Serum Folate 20 H Urine Color Urine Appearance Urine pH Ur Specific Radnor Urine Protein Urine Glucose (UA) Urine Ketones Urine Blood Urine Nitrite Urine Bilirubin Urine Urobilinogen Urine RBC Urine WBC Ur Epithelial Cells Blood Type Antibody Screen 02/24/17 05:35 WBC RBC Hgb Hct MCV MCH MCHC RDW Plt Count MPV Neutrophils % Lymphocytes % Monocytes % Eosinophils % Basophils % PT with INR INR PTT (Actin FS) VBG pH POC VBG pCO2 POC VBG pO2 Mixed VBG HCO3 Sodium 132 L Potassium 3.0 L Chloride 98 Carbon Dioxide 25 Anion Gap 9 BUN 13 Creatinine 0.9 Creat Clearance w eGFR Random Glucose 96 Lactic Acid Calcium 7.6 L Phosphorus Magnesium 1.7 L Total Bilirubin 5.1 H Direct Bilirubin 4.1 H AST 55 H D ALT 61 Alkaline Phosphatase 81 Creatine Kinase Creatine Kinase Index CK-MB (CK-2) Troponin I Total Protein 5.9 L Albumin 1.9 L Lipase Vitamin B12 Serum Folate Urine Color Urine Appearance Urine pH Ur Specific Radnor Urine Protein Urine Glucose (UA) Urine Ketones Urine Blood Urine Nitrite Urine Bilirubin Urine Urobilinogen Urine RBC Urine WBC Ur Epithelial Cells Blood Type Antibody Screen 02/24/17 17:25 Laboratory Results - last 24 hr 02/24/17 02/24/17 05:35 05:35 WBC 7.5 D RBC 4.43 Hgb 12.7 Hct 38.6 MCV 87.1 MCH 28.6 MCHC 32.8 RDW 13.9 Plt Count 44 L D MPV 8.4 Neutrophils % 69.8 D Lymphocytes % 15.3 D Monocytes % 13.4 H D Eosinophils % 1.1 D Basophils % 0.4 D Sodium 132 L Potassium 3.0 L Chloride 98 Carbon Dioxide 25 Anion Gap 9 BUN 13 Creatinine 0.9 Random Glucose 96 Calcium 7.6 L Magnesium 1.7 L Total Bilirubin 5.1 H Direct Bilirubin 4.1 H AST 55 H D ALT 61 Alkaline Phosphatase 81 Total Protein 5.9 L Albumin 1.9 L hypokalemia Assessment: 02/24/17 17:26 withdrawal sx, hypokalemia,, diarrhea, insomnia, body aches, sweats, anxiety, irritability Plan: Opioid withdrawal with medical complications - acute pancreatitis and wsepsis - cont detox, tolerating it well, supplement k, symptomatic relief of withdrawal sx - medications scheduled , p-atient may refuse, hold for sedation, encourage fluids, treat diarrhea with imodium as ordered. when medicalloy stable transfer to [facility] for rehab if patient is in agreement
[2017-02-24] MEDS ORDERED: cloNIDine HCL 0.1 MG TABLET PO SCH (22:00)
[2017-02-24] MEDS ORDERED: CYCLOBENZAPRINE HCL 5 MG TABLET PO SCH (22:00)
[2017-02-24] MEDS: GABAPENTIN 100 MG CAPSULE (FP) PO SCH (22:36)
[2017-02-24] MEDS: CYCLOBENZAPRINE HCL 10 MG TABLET (FP) PO SCH (22:36)
[2017-02-24] MEDS: POTASSIUM CHLORIDE ORAL LIQUID 20 MEQ/15 ML PO SCH (22:36)
[2017-02-24] MEDS: NAPROXEN 500 MG TABLET (FP) PO SCH (23:17)
[2017-02-24] MEDS: SODIUM CHLORIDE 1,000 ML with POTASSIUM CHLORIDE 20 MEQ IVPB SCH (23:28)
[2017-02-25] MEDS ORDERED: PIPERACILLIN/TAZOBACTAM 3.375 GM VIAL IVPB ONE ×2 (01:05→09:14)
[2017-02-25] MEDS ORDERED: DEXTROSE 5%-WATER - 50 ML IVPB ONE ×2 (01:06→09:14)
[2017-02-25] MEDS: PIPERACILLIN/TAZOB 3.375 GM 3.375 GM in DEXTROSE 5%-WATER - 50 ML IVPB SCH ×2 (01:08→09:18)
[2017-02-25] MEDS ORDERED: PT OWN MED DRAWER 7, Y5N ONE ×3 (01:14→21:26)
[2017-02-25] MEDS: VANCOMYCIN 1,000 MG in DEXTROSE 5%-WATER - 250 ML IVPB SCH (02:52)
[2017-02-25] MEDS: GABAPENTIN 100 MG CAPSULE (FP) PO SCH ×3 (06:16→21:42)
[2017-02-25] MEDS: CYCLOBENZAPRINE HCL 10 MG TABLET (FP) PO SCH ×2 (06:16→13:42)
--- NOTE | 2017-02-25 06:28 | PN ---
Physical Exam: SUBJECTIVE: Patient seen and examined at bedside. feeling better today, asking for food. OBJECTIVE: Vital Signs Period Temp Pulse Resp BP Sys/Arceo Pulse Ox Last 24 Hr 97.8 F-98.6 F 49-60 16-20 99-134/59-70 96-97 GENERAL: The patient is awake, alert, and fully oriented, in no acute distress. HEAD: Normal with no signs of trauma. EYES: extraocular movements intact, sclera anicteric, conjunctiva clear. No ptosis. NECK: Trachea midline, full range of motion, supple. LUNGS: Breath sounds equal, clear to auscultation bilaterally, no wheezes, no crackles, no accessory muscle use. HEART: Regular rate and rhythm, S1, S2 without murmur, rub or gallop. ABDOMEN: Soft, nontender, nondistended, normoactive bowel sounds, no guarding, no rebound, no hepatosplenomegaly, no masses. EXTREMITIES: 2+ pulses, warm, well-perfused, no edema. NEUROLOGICAL: Cranial nerves II through X grossly intact. Normal speech, gait not observed. PSYCH: Normal mood, normal affect. SKIN: Warm, dry, normal turgor, no rashes or lesions noted Laboratory Results - last 24 hr 02/24/17 02/24/17 05:35 05:35 WBC 7.5 D RBC 4.43 Hgb 12.7 Hct 38.6 MCV 87.1 MCH 28.6 MCHC 32.8 RDW 13.9 Plt Count 44 L D MPV 8.4 Neutrophils % 69.8 D Lymphocytes % 15.3 D Monocytes % 13.4 H D Eosinophils % 1.1 D Basophils % 0.4 D Sodium 132 L Potassium 3.0 L Chloride 98 Carbon Dioxide 25 Anion Gap 9 BUN 13 Creatinine 0.9 Random Glucose 96 Calcium 7.6 L Magnesium 1.7 L Total Bilirubin 5.1 H Direct Bilirubin 4.1 H AST 55 H D ALT 61 Alkaline Phosphatase 81 Total Protein 5.9 L Albumin 1.9 L Active Medications Generic Name Dose Route Start Last Admin Trade Name Freq PRN Reason Stop Dose Admin Clonidine 0.1 mg 02/24/17 22:00 02/24/17 22:36 Catapres - PO 0.1 mg BID ASHOK Administration Cyclobenzaprine HCl 5 mg 02/24/17 22:00 02/25/17 06:16 Flexeril - PO 5 mg TID ASHOK Administration Diazepam 10 mg 02/23/17 09:25 02/24/17 17:54 Valium - PO 02/26/17 09:26 10 mg Q4H PRN Administration WITHDRAWAL(CONT SUBST) Gabapentin 100 mg 02/24/17 22:00 02/25/17 06:16 Neurontin - PO 100 mg TID ASHOK Administration Hydroxyzine Pamoate 50 mg 02/24/17 07:37 02/24/17 09:09 Vistaril - PO 50 mg Q4H PRN Administration ANXIETY Piperacillin Sod/Tazobactam 50 mls @ 100 mls/hr 02/23/17 13:00 02/25/17 01:08 Sod 3.375 gm/ Dextrose IVPB 100 mls/hr Q8H-IV ASHOK Administration Vancomycin HCl 1,000 mg/ 250 mls @ 166.667 mls/hr 02/23/17 14:00 02/25/17 02:52 Dextrose IVPB 166.667 mls/hr BID@0200,1400 ASHOK Administration Potassium Chloride 20 meq/ 1,010 mls @ 175 mls/hr 02/24/17 23:30 02/24/17 23:28 Sodium Chloride IVPB 175 mls/hr ASDIR ASHOK Administration Loperamide HCl 4 mg 02/23/17 09:29 02/24/17 12:35 Imodium - PO 4 mg Q6H PRN Administration DIARRHEA Methadone HCl 10 mg 02/27/17 10:00 Dolophine - PO 02/27/17 10:01 DAILY ASHOK Methadone HCl 15 mg 02/25/17 10:00 Dolophine - PO 02/26/17 10:01 DAILY ASHOK Methadone HCl 5 mg 02/28/17 06:00 Dolophine - PO 02/28/17 06:01 DAILY@0600 ASHOK Naproxen 500 mg 02/24/17 22:00 02/24/17 23:17 Naprosyn - PO 500 mg BID ASHOK Administration Ondansetron HCl 8 mg 02/23/17 09:27 Zofran Odt - SL Q6H PRN NAUSEA AND/OR VOMITING Pantoprazole Sodium 40 mg 02/25/17 10:00 Protonix - PO DAILY ASHOK Potassium Chloride 20 meq 02/24/17 22:00 02/24/17 22:36 Potassium Chloride Oral Liquid PO 20 meq BID ASHOK Administration Sodium Chloride 500 ml 02/22/17 18:23 Normal Saline - IV Q20M PRN MAP<65mm Hg OR SBP <90 Zolpidem Tartrate 10 mg 02/23/17 09:27 Ambien - PO HS PRN INSOMNIA ASSESSMENT/PLAN: Pt is a 31 y/o M w/ PMH polysubstance abuse (Cocaine, Heroin, EtOH, cigarettes) , Asthma (on MDI), Hep C (Dx in 2003, not on meds), HIV (Dx in 2011, not on meds ) who was sent to ED from [facility] for evaluation. Pt admitted for Severe sepsis. #Severe sepsis likely secondary to acute pancreatitis -t. bili remains elevated at 5.5; will trend until it starts to trend down -GI, surg consult appreciated -no surgical intervention indicated -CT suggestive of pancreatitis -dre Sampson d/c -IVF -triumeq unlikely to be source of pancreatitis as pt not medication compliant -advanced diet #Thrombocytopenia likely 2/2 SIRS vs possible EtOH abuse -Holding Heparin -daily cbc -Consider heme consult if persists/worsens #diarrhea likely 2/2 withdrawal r/o infectious cause -Stool for C. Diff positive for antigen but negative for toxin; will treat w / PO flagyl #Polysubstance abuse -Cocaine, Heroin -Detox consult -Methadone protocol -ambien PRN sleep` -d/c to [facility] when stable #Hypokalemia w/ hypomagnesemia -K 3.9 today -mag 1.5 today -800mg magox PO today -monitor #Hyponatremic hypovolemia likely 2/2 poor PO intake- resolved -140 today -IVF -will trend lytes #FAHAD likely 2/2 dehydration and poor PO intake- resolved -Metalsmith Apprentice 1.4, baseline 0.9 -cr .9 today -IVF #HIV -Dx in 2011 -Triumeq -ID onboard -cd4, viral load pending #Hep C -Dx in 2003 -monitor for improvement in LFTs #FEN -NS @ 100 -see above; monitor lytes -regular diet #Dispo -admitted to tele for severe sepsis and electrolyte disturbances Problem List - Problems (1) Diarrhea Code(s): R19.7 - DIARRHEA, UNSPECIFIED Qualifiers: Diarrhea type: unspecified type Qualified Code(s): R19.7 - Diarrhea , unspecified; R19.7 - Diarrhea, unspecified (2) Hepatitis Code(s): K75.9 - INFLAMMATORY LIVER DISEASE, UNSPECIFIED (3) IVDU (intravenous drug user) Code(s): F19.90 - OTHER PSYCHOACTIVE SUBSTANCE USE, UNSPECIFIED, UNCOMPLICATED (4) Pancreatitis Code(s): K85.90 - ACUTE PANCREATITIS WITHOUT NECROSIS OR INFECTION, UNSP Qualifiers: Chronicity: acute Acute pancreatitis complication: no infection or necrosis (5) Sepsis Code(s): A41.9 - SEPSIS, UNSPECIFIED ORGANISM (6) Alcohol dependence Code(s): F10.20 - ALCOHOL DEPENDENCE, UNCOMPLICATED (7) HIV disease Code(s): B20 - HUMAN IMMUNODEFICIENCY VIRUS [HIV] DISEASE (8) Hepatitis C Code(s): B19.20 - UNSPECIFIED VIRAL HEPATITIS C WITHOUT HEPATIC COMA Qualifiers: Viral hepatitis chronicity: chronic Hepatic coma status: without hepatic coma Qualified Code(s): B18.2 - Chronic viral hepatitis C; B18.2 - Chronic viral hepatitis C; B18.2 - Chronic viral hepatitis C; B18.2 - Chronic viral hepatitis C (9) Opioid dependence with withdrawal Code(s): F11.23 - OPIOID DEPENDENCE WITH WITHDRAWAL Visit type - Emergency Visit Emergency Visit: Yes ED Registration Date: 02/22/17 Care time: The patient presented to the Emergency Department on the above date and was hospitalized for further evaluation of their emergent condition. - New Patient This patient is new to me today: No - Critical Care Critical Care patient: No
[2017-02-25 07:33] LABS: MCH 28.9 pg (25.7-33.7); MCHC 33.1 g/dl (32.0-35.9); MEAN CELL VOLUME 87.3 fl (80-96); MEAN PLT VOLUME 8.5 fl (7.5-11.1); PLATELET COUNT 54 K/MM3 (134-434); RDW 14.3 % (11.9-15.9); WHITE BLOOD COUNT 6.6 K/mm3 (4.0-10.0)
[2017-02-25 08:17] LABS: ALK PHOS 78 U/L (45-117); ANION GAP 9 (8-16); BILIRUBIN,TOTAL 5.5 mg/dL (0.2-1.0); CALCIUM 7.5 mg/dL (8.5-10.1); CO2 28 mmol/L (21-32); CREATININE 0.9 mg/dL (0.7-1.3); GLUCOSE,RANDOM 82 mg/dL (74-106); MAGNESIUM 1.5 mg/dL (1.8-2.4); PHOSPHOROUS 2.3 mg/dL (2.5-4.9); SGOT/AST 44 U/L (15-37); SGPT/ALT 63 U/L (12-78)
--- NOTE | 2017-02-25 08:18 | PN ---
Progress Note, Physician History of Present Illness: No events overnight. Pt has no complaint this am, specifically, denies abdominal pain. - Current Medication List Current Medications: Active Medications Clonidine (Catapres -) 0.1 mg PO BID [facility] Last Admin: 02/24/17 22:36 Dose: 0.1 mg Cyclobenzaprine HCl (Flexeril -) 5 mg PO TID [facility] Last Admin: 02/25/17 06:16 Dose: 5 mg Diazepam (Valium -) 10 mg PO Q4H PRN PRN Reason: WITHDRAWAL(CONT SUBST) Stop: 02/26/17 09:26 Last Admin: 02/24/17 17:54 Dose: 10 mg Gabapentin (Neurontin -) 100 mg PO TID [facility] Last Admin: 02/25/17 06:16 Dose: 100 mg Hydroxyzine Pamoate (Vistaril -) 50 mg PO Q4H PRN PRN Reason: ANXIETY Last Admin: 02/24/17 09:09 Dose: 50 mg Piperacillin Sod/Tazobactam (Sod 3.375 gm/ Dextrose) 50 mls @ 100 mls/hr IVPB Q8H-IV [facility] Last Admin: 02/25/17 01:08 Dose: 100 mls/hr Vancomycin HCl 1,000 mg/ (Dextrose) 250 mls @ 166.667 mls/hr IVPB BID@0200, 1400 [facility] Last Admin: 02/25/17 02:52 Dose: 166.667 mls/hr Potassium Chloride 20 meq/ (Sodium Chloride) 1,010 mls @ 175 mls/hr IVPB ASDIR [facility] Last Admin: 02/24/17 23:28 Dose: 175 mls/hr Loperamide HCl (Imodium -) 4 mg PO Q6H PRN PRN Reason: DIARRHEA Last Admin: 02/24/17 12:35 Dose: 4 mg Methadone HCl (Dolophine -) 10 mg PO DAILY [facility] Stop: 02/27/17 10:01 Methadone HCl (Dolophine -) 15 mg PO DAILY [facility] Stop: 02/26/17 10:01 Methadone HCl (Dolophine -) 5 mg PO DAILY@0600 [facility] Stop: 02/28/17 06:01 Naproxen (Naprosyn -) 500 mg PO BID [facility] Last Admin: 02/24/17 23:17 Dose: 500 mg Ondansetron HCl (Zofran Odt -) 8 mg SL Q6H PRN PRN Reason: NAUSEA AND/OR VOMITING Pantoprazole Sodium (Protonix -) 40 mg PO DAILY [facility] Potassium Chloride (Potassium Chloride Oral Liquid) 20 meq PO BID [facility] Last Admin: 02/24/17 22:36 Dose: 20 meq Sodium Chloride (Normal Saline -) 500 ml IV Q20M PRN PRN Reason: MAP<65mm Hg OR SBP <90 Zolpidem Tartrate (Ambien -) 10 mg PO HS PRN PRN Reason: INSOMNIA - Objective Vital Signs: Vital Signs Temperature 98.1 F 02/25/17 06:00 Pulse Rate 49 L 02/25/17 06:00 Respiratory Rate 16 02/25/17 06:00 Blood Pressure 112/65 02/25/17 06:00 O2 Sat by Pulse Oximetry (%) 97 02/24/17 20:33 Constitutional: Yes: No Distress, Calm Eyes: Yes: Conjunctiva Clear Cardiovascular: Yes: Regular Rate and Rhythm Respiratory: Yes: Regular Gastrointestinal: Yes: Normal Bowel Sounds, Soft. No: Distention, Melena, Palpable Mass, Pulsatile Mass, Rectal Bleeding, Tenderness, Rebound, Vomiting Neurological: Yes: Alert Labs: CBC, BMP 02/25/17 05:35 INR, PTT INR 1.39 (0.82-1.09) H 02/22/17 18:45 Abnormal Lab Results 02/25/17 05:35 Plt Count 54 L D Laboratory Last Values WBC 6.6 K/mm3 (4.0-10.0) 02/25/17 05:35 RBC 4.33 M/mm3 (4.00-5.60) 02/25/17 05:35 Hgb 12.5 GM/dL (11.7-16.9) 02/25/17 05:35 Hct 37.8 % (35.4-49) 02/25/17 05:35 MCV 87.3 fl (80-96) 02/25/17 05:35 MCH 28.9 pg (25.7-33.7) 02/25/17 05:35 MCHC 33.1 g/dl (32.0-35.9) 02/25/17 05:35 RDW 14.3 % (11.9-15.9) 02/25/17 05:35 Plt Count 54 K/MM3 (134-434) L D 02/25/17 05:35 MPV 8.5 fl (7.5-11.1) 02/25/17 05:35 Neutrophils % 69.8 % (42.8-82.8) D 02/24/17 05:35 Lymphocytes % 15.3 % (8-40) D 02/24/17 05:35 Monocytes % 13.4 % (3.8-10.2) H D 02/24/17 05:35 Eosinophils % 1.1 % (0-4.5) D 02/24/17 05:35 Basophils % 0.4 % (0-2.0) D 02/24/17 05:35 PT with INR 15.40 SEC (9.98-11.88) H 02/22/17 18:45 INR 1.39 (0.82-1.09) H 02/22/17 18:45 PTT (Actin FS) 38.3 SECONDS (26.9-34.4) H 02/22/17 18:45 VBG pH 7.42 (7.32-7.42) 02/22/17 19:02 POC VBG pCO2 46.1 mmHg (38-52) 02/22/17 19:02 POC VBG pO2 26.4 mmHg (28-48) L 02/22/17 19:02 Mixed VBG HCO3 29.5 meq/L (19-25) H 02/22/17 19:02 Sodium 132 mmol/L (136-145) L 02/24/17 05:35 Potassium 3.0 mmol/L (3.5-5.1) L 02/24/17 05:35 Chloride 98 mmol/L (98-107) 02/24/17 05:35 Carbon Dioxide 25 mmol/L (21-32) 02/24/17 05:35 Anion Gap 9 (8-16) 02/24/17 05:35 BUN 13 mg/dL (7-18) 02/24/17 05:35 Creatinine 0.9 mg/dL (0.7-1.3) 02/24/17 05:35 Creat Clearance w eGFR 58.37 (>60) 02/23/17 05:30 Random Glucose 96 mg/dL (74-106) 02/24/17 05:35 Lactic Acid 1.3 mmol/L (0.4-2.0) 02/22/17 22:54 Calcium 7.6 mg/dL (8.5-10.1) L 02/24/17 05:35 Phosphorus 2.6 mg/dL (2.5-4.9) 02/23/17 13:40 Magnesium 1.7 mg/dL (1.8-2.4) L 02/24/17 05:35 Total Bilirubin 5.1 mg/dL (0.2-1.0) H 02/24/17 05:35 Direct Bilirubin 4.1 mg/dL (0.0-0.2) H 02/24/17 05:35 AST 55 U/L (15-37) H D 02/24/17 05:35 ALT 61 U/L (12-78) 02/24/17 05:35 Alkaline Phosphatase 81 U/L (45-117) 02/24/17 05:35 Creatine Kinase 384 IU/L (39-308) H 02/23/17 05:30 Creatine Kinase Index 0.9 % (0.0-5.0) 02/23/17 05:30 CK-MB (CK-2) 3.553 ng/mL (0.5-3.6) 02/23/17 05:30 Troponin I < 0.02 ng/ml (0.00-0.05) 02/22/17 18:45 Total Protein 5.9 g/dl (6.4-8.2) L 02/24/17 05:35 Albumin 1.9 g/dl (3.4-5.0) L 02/24/17 05:35 Lipase 533 U/L (73-393) H 02/22/17 20:30 Vitamin B12 772 pg/ml (180-914) 02/23/17 05:30 Serum Folate 20 ng/ml (3.1-17.5) H 02/23/17 05:30 Urine Color Nati 02/22/17 19:20 Urine Appearance Clear 02/22/17 19:20 Urine pH 7.0 (5.0-8.0) 02/22/17 19:20 Ur Specific [place] 1.015 (1.005-1.025) 02/22/17 19:20 Urine Protein 2+ (NEGATIVE) H 02/22/17 19:20 Urine Glucose (UA) 2+ (NEGATIVE) H 02/22/17 19:20 Urine Ketones Negative (NEGATIVE) 02/22/17 19:20 Urine Blood 2+ (NEGATIVE) H 02/22/17 19:20 Urine Nitrite Negative (NEGATIVE) 02/22/17 19:20 Urine Bilirubin Negative (NEGATIVE) 02/22/17 19:20 Urine Urobilinogen 4.0 e.u/dl mg/dL (0.2-1.0) 02/22/17 19:20 Urine RBC 2 /hpf (0-3) 02/22/17 19:20 Urine WBC 8 /hpf (3-5) 02/22/17 19:20 Ur Epithelial Cells Rare /hpf (FEW) 02/22/17 19:20 Blood Type O POSITIVE 02/22/17 18:45 Antibody Screen Negative 02/22/17 18:45 Vital Signs Temperature 98.1 F 02/25/17 06:00 Pulse Rate 49 L 02/25/17 06:00 Respiratory Rate 16 02/25/17 06:00 Blood Pressure 112/65 02/25/17 06:00 O2 Sat by Pulse Oximetry (%) 97 02/24/17 20:33 Problem List - Problems (1) Pancreatitis Assessment/Plan: Clinically doing well. Advance diet. Code(s): K85.90 - ACUTE PANCREATITIS WITHOUT NECROSIS OR INFECTION, UNSP Qualifiers: Chronicity: acute Acute pancreatitis complication: no infection or necrosis Qualified Code(s): - (2) Hepatitis C Assessment/Plan: The patient will need a follow up as OP for HCV treatment. Please schedule at the time of discharge Code(s): B19.20 - UNSPECIFIED VIRAL HEPATITIS C WITHOUT HEPATIC COMA Qualifiers: Viral hepatitis chronicity: chronic Hepatic coma status: without hepatic coma Qualified Code(s): B18.2 - Chronic viral hepatitis C; B18.2 - Chronic viral hepatitis C; B18.2 - Chronic viral hepatitis C; B18.2 - Chronic viral hepatitis C (3) Diarrhea Assessment/Plan: infectious etiology labs pending Code(s): R19.7 - DIARRHEA, UNSPECIFIED Qualifiers: Diarrhea type: unspecified type Qualified Code(s): R19.7 - Diarrhea , unspecified; R19.7 - Diarrhea, unspecified (4) Illicit drug use Code(s): F19.90 - OTHER PSYCHOACTIVE SUBSTANCE USE, UNSPECIFIED, UNCOMPLICATED (5) HIV disease Code(s): B20 - HUMAN IMMUNODEFICIENCY VIRUS [HIV] DISEASE Visit type - Emergency Visit Emergency Visit: No - New Patient This patient is new to me today: No - Critical Care Critical Care patient: No
--- NOTE | 2017-02-25 09:10 | PN ---
[facility] Progress Note (SOAP) Subjective: patient tolerating detox well - some nausea, sweats, interrupted sleep and anxiety Objective: 02/25/17 16:59 Vital Signs - 8 hr 02/25/17 02/25/17 02/25/17 09:00 10:00 13:45 Temperature 98.0 F 98.1 F Pulse Rate 72 59 L Respiratory 18 18 Rate Blood Pressure 121/51 113/63 O2 Sat by Pulse 98 Oximetry (%) Laboratory Last Values WBC 6.6 K/mm3 (4.0-10.0) 02/25/17 05:35 RBC 4.33 M/mm3 (4.00-5.60) 02/25/17 05:35 Hgb 12.5 GM/dL (11.7-16.9) 02/25/17 05:35 Hct 37.8 % (35.4-49) 02/25/17 05:35 MCV 87.3 fl (80-96) 02/25/17 05:35 MCH 28.9 pg (25.7-33.7) 02/25/17 05:35 MCHC 33.1 g/dl (32.0-35.9) 02/25/17 05:35 RDW 14.3 % (11.9-15.9) 02/25/17 05:35 Plt Count 54 K/MM3 (134-434) L D 02/25/17 05:35 MPV 8.5 fl (7.5-11.1) 02/25/17 05:35 Neutrophils % 69.8 % (42.8-82.8) D 02/24/17 05:35 Lymphocytes % 15.3 % (8-40) D 02/24/17 05:35 Monocytes % 13.4 % (3.8-10.2) H D 02/24/17 05:35 Eosinophils % 1.1 % (0-4.5) D 02/24/17 05:35 Basophils % 0.4 % (0-2.0) D 02/24/17 05:35 PT with INR 15.40 SEC (9.98-11.88) H 02/22/17 18:45 INR 1.39 (0.82-1.09) H 02/22/17 18:45 PTT (Actin FS) 38.3 SECONDS (26.9-34.4) H 02/22/17 18:45 VBG pH 7.42 (7.32-7.42) 02/22/17 19:02 POC VBG pCO2 46.1 mmHg (38-52) 02/22/17 19:02 POC VBG pO2 26.4 mmHg (28-48) L 02/22/17 19:02 Mixed VBG HCO3 29.5 meq/L (19-25) H 02/22/17 19:02 Sodium 140 mmol/L (136-145) 02/25/17 05:35 Potassium 3.9 mmol/L (3.5-5.1) D 02/25/17 05:35 Chloride 103 mmol/L (98-107) 02/25/17 05:35 Carbon Dioxide 28 mmol/L (21-32) 02/25/17 05:35 Anion Gap 9 (8-16) 02/25/17 05:35 BUN 8 mg/dL (7-18) D 02/25/17 05:35 Creatinine 0.9 mg/dL (0.7-1.3) 02/25/17 05:35 Creat Clearance w eGFR > 60 (>60) 02/25/17 05:35 Random Glucose 82 mg/dL (74-106) 02/25/17 05:35 Lactic Acid 1.3 mmol/L (0.4-2.0) 02/22/17 22:54 Calcium 7.5 mg/dL (8.5-10.1) L 02/25/17 05:35 Phosphorus 2.3 mg/dL (2.5-4.9) L 02/25/17 05:35 Magnesium 1.5 mg/dL (1.8-2.4) L 02/25/17 05:35 Total Bilirubin 5.5 mg/dL (0.2-1.0) H 02/25/17 05:35 Direct Bilirubin 4.1 mg/dL (0.0-0.2) H 02/24/17 05:35 AST 44 U/L (15-37) H 02/25/17 05:35 ALT 63 U/L (12-78) 02/25/17 05:35 Alkaline Phosphatase 78 U/L (45-117) 02/25/17 05:35 Creatine Kinase 384 IU/L (39-308) H 02/23/17 05:30 Creatine Kinase Index 0.9 % (0.0-5.0) 02/23/17 05:30 CK-MB (CK-2) 3.553 ng/mL (0.5-3.6) 02/23/17 05:30 Troponin I < 0.02 ng/ml (0.00-0.05) 02/22/17 18:45 Total Protein 6.0 g/dl (6.4-8.2) L 02/25/17 05:35 Albumin 2.0 g/dl (3.4-5.0) L 02/25/17 05:35 Lipase 533 U/L (73-393) H 02/22/17 20:30 Vitamin B12 772 pg/ml (180-914) 02/23/17 05:30 Serum Folate 20 ng/ml (3.1-17.5) H 02/23/17 05:30 Urine Color Nati 02/22/17 19:20 Urine Appearance Clear 02/22/17 19:20 Urine pH 7.0 (5.0-8.0) 02/22/17 19:20 Ur Specific [place] 1.015 (1.005-1.025) 02/22/17 19:20 Urine Protein 2+ (NEGATIVE) H 02/22/17 19:20 Urine Glucose (UA) 2+ (NEGATIVE) H 02/22/17 19:20 Urine Ketones Negative (NEGATIVE) 02/22/17 19:20 Urine Blood 2+ (NEGATIVE) H 02/22/17 19:20 Urine Nitrite Negative (NEGATIVE) 02/22/17 19:20 Urine Bilirubin Negative (NEGATIVE) 02/22/17 19:20 Urine Urobilinogen 4.0 e.u/dl mg/dL (0.2-1.0) 02/22/17 19:20 Urine RBC 2 /hpf (0-3) 02/22/17 19:20 Urine WBC 8 /hpf (3-5) 02/22/17 19:20 Ur Epithelial Cells Rare /hpf (FEW) 02/22/17 19:20 Blood Type O POSITIVE 02/22/17 18:45 Antibody Screen Negative 02/22/17 18:45 Assessment: 02/25/17 17:00 withdrawal sx, pancreatitis resolving Plan: cont detox, encourage ambulation, fluids, Please [facility] rehab at [facility] to arrange for admission to rehab bed if medically stable, patient does not need inpatient detoxification at [facility] he has completed detox at [facility]. symptomatic relief of withdrawal prn call Yinka Gomez MD [phone] if any questions..
[2017-02-25] MEDS: POTASSIUM CHLORIDE ORAL LIQUID 20 MEQ/15 ML PO SCH ×2 (09:19→21:43)
[2017-02-25] MEDS: METHADONE HCL 5 MG TABLET PO SCH (09:19)
[2017-02-25] MEDS: NAPROXEN 500 MG TABLET (FP) PO SCH ×2 (09:25→21:42)
[2017-02-25] MEDS ORDERED: PANTOPRAZOLE 40 MG TABLET (FP) PO SCH (10:00)
--- NOTE | 2017-02-25 12:33 | PN ---
Progress Note (short form) - Note Progress Note: Microbiology c. diff Ag pos, tox negative. will treat with flagyl since he has diarrhea Problem List - Problems (1) Pancreatitis Code(s): K85.90 - ACUTE PANCREATITIS WITHOUT NECROSIS OR INFECTION, UNSP Qualifiers: Chronicity: acute Acute pancreatitis complication: no infection or necrosis (2) Hepatitis C Code(s): B19.20 - UNSPECIFIED VIRAL HEPATITIS C WITHOUT HEPATIC COMA Qualifiers: Viral hepatitis chronicity: chronic Hepatic coma status: without hepatic coma Qualified Code(s): B18.2 - Chronic viral hepatitis C; B18.2 - Chronic viral hepatitis C; B18.2 - Chronic viral hepatitis C; B18.2 - Chronic viral hepatitis C (3) Diarrhea Code(s): R19.7 - DIARRHEA, UNSPECIFIED Qualifiers: Diarrhea type: unspecified type Qualified Code(s): R19.7 - Diarrhea , unspecified; R19.7 - Diarrhea, unspecified (4) Illicit drug use Code(s): F19.90 - OTHER PSYCHOACTIVE SUBSTANCE USE, UNSPECIFIED, UNCOMPLICATED (5) HIV disease Code(s): B20 - HUMAN IMMUNODEFICIENCY VIRUS [HIV] DISEASE
[2017-02-25] MEDS ORDERED: MAGNESIUM OXIDE 400 MG TABLET (FP) PO ONE (13:30)
[2017-02-25] MEDS: NAPH,MB-DB/K PH,MBDB POWDER PACKET PO SCH ×2 (13:42→21:43)
[2017-02-25] MEDS: metroNIDAZOLE 250 MG TABLET PO SCH ×2 (13:42→21:42)
[2017-02-25] MEDS: SODIUM CHLORIDE 1,000 ML with POTASSIUM CHLORIDE 20 MEQ IVPB SCH (13:44)
--- NOTE | 2017-02-25 15:17 | PN ---
Progress Note (short form) - Note Progress Note: reports less abdominal pain reports 5 episodes of diarrhea today! he never filled his prescription for triumeq or trazadone- he lost it after leaving care home Vital Signs Period Temp Pulse Resp BP Sys/Arceo Pulse Ox Last 24 Hr 97.8 F-98.2 F 49-72 16-18 99-121/51-69 97-98 cor-rrr lungs clear abd midepigastric tenderness to palpation ext no edema CBC, BMP 02/25/17 05:35 02/25/17 05:35 Microbiology 02/24/17 11:00 Urine - Urine Clean Catch Urine Culture - Final NO GROWTH OBTAINED 02/24/17 18:35 Stool Clostridium difficile Antigen (BRAVO) - Final 02/24/17 18:35 Stool Clostridium difficile Toxin Assay - Final 02/22/17 19:20 Blood - Peripheral Venous Blood Culture - Preliminary NO GROWTH OBTAINED AFTER 48 HOURS, INCUBATION TO CONTINUE FOR 3 DAYS. 02/22/17 19:20 Blood - Peripheral Venous Blood Culture - Preliminary NO GROWTH OBTAINED AFTER 48 HOURS, INCUBATION TO CONTINUE FOR 3 DAYS. 02/22/17 19:20 Urine - Urine Clean Catch Urine Culture - Final Contaminated: Please Repeat cdiff antigen +, toxin - a/p fevers resolved pancreatitis-?etiology active IVDU abnl LFTS hepatitis C rhabdomyolysis HIV agree with d/c antibiotics started on po flagyl for positive cdiff antigen in the setting of diarrhea f/u cd4 count if diarrhea persists, send stool for cryptosporidium, giardia, microsporidium and cyclospora antigens Problem List - Problems (1) Sepsis Code(s): A41.9 - SEPSIS, UNSPECIFIED ORGANISM (2) IVDU (intravenous drug user) Code(s): F19.90 - OTHER PSYCHOACTIVE SUBSTANCE USE, UNSPECIFIED, UNCOMPLICATED (3) HIV disease Code(s): B20 - HUMAN IMMUNODEFICIENCY VIRUS [HIV] DISEASE (4) Pancreatitis Code(s): K85.90 - ACUTE PANCREATITIS WITHOUT NECROSIS OR INFECTION, UNSP Qualifiers: Chronicity: acute Acute pancreatitis complication: no infection or necrosis (5) Cholecystitis Code(s): K81.9 - CHOLECYSTITIS, UNSPECIFIED (6) Hepatitis C Code(s): B19.20 - UNSPECIFIED VIRAL HEPATITIS C WITHOUT HEPATIC COMA Qualifiers: Viral hepatitis chronicity: chronic Hepatic coma status: without hepatic coma Qualified Code(s): B18.2 - Chronic viral hepatitis C; B18.2 - Chronic viral hepatitis C; B18.2 - Chronic viral hepatitis C; B18.2 - Chronic viral hepatitis C
--- NOTE | 2017-02-25 15:58 | PN ---
Teaching Attending Note Name of Resident: Yovany Weiss ATTENDING PHYSICIAN STATEMENT I saw and evaluated the patient. I reviewed the resident's note and discussed the case with the resident. I agree with the resident's findings and plan as documented. SUBJECTIVE:continues to have perfuse diarrhea. Unable to control BM. requesting to eat more food. states abdominal pain has improved. denies CP, SOB, fever, chills, N/V/C/D OBJECTIVE: Last Vital Signs Temp Pulse Resp BP Pulse Ox 98.1 F 59 L 18 113/63 98 02/25/17 13:45 02/25/17 13:45 02/25/17 13:45 02/25/17 13:45 02/25/17 09:00 General NAD, +icteric Abdomen soft NT/ND no rebound or guarding +BS ASSESSMENT AND PLAN: 31 year old man with a history of asthma, HIV, HCV, polysubstance abuse who was sent to the ER from [facility] because of fever and chills. 1. Severe sepsis secondary to acute pancreatitis- afebrile. clinically improved. advance to regular diet. spoke with GI. believes cause of pancreatitis to be viral in nature. that he will f/u in office. will do workup if develops recurrent pancreatitis. will d/c all abx. 2. Diarrhea- Cdiff ag + and toxin negative. in setting of active diarrhea would treat. do not believe this to be part of withdrawals as he states it started prior to stopping the heroin. stool cx pending. 3. Hyponatremia- severe dehydration. improved. will d/c IVF once tolerating diet 4. Hypokalemia- resolved 5. Hypomagnesemia- Supplement magnesium 6. Acute kidney injury-sepsis vs dehydration. resolved. 7. HIV- Not compliant with treatment. viral load, CD4 count pending. will hold therapy at this time. 8. Continuous Polysubstance abuse- COWS 0. on methadone detox. valium prn. evaluated by detox specialist. will return to [facility] to complete detox and possible inpatient rehab once medically optimized. counseled on need for drug abstinence. 9. Asthma- Stable 10. Thrombocytopenia- Possibly secondary to sepsis, liver disease. no signs of active bleeding. no indication for txn' 11. Transaminits- improved with elevated bilirubin. will trend. 12. Gallbladder polyp- needs routine surveillance 13. LIver hemangioma- require routine surveillance 14. HCV 15. DVT ppx- SCD. hold heparin as platelet count <50
[2017-02-25] MEDS ORDERED: diazePAM 5 MG TABLET PO SCH (22:00)
[2017-02-26] MEDS: SODIUM CHLORIDE 1,000 ML with POTASSIUM CHLORIDE 20 MEQ IVPB SCH ×2 (01:55→07:10)
[2017-02-26] MEDS: NAPH,MB-DB/K PH,MBDB POWDER PACKET PO SCH (05:59)
[2017-02-26] MEDS: GABAPENTIN 100 MG CAPSULE (FP) PO SCH (05:59)
[2017-02-26] MEDS: metroNIDAZOLE 250 MG TABLET PO SCH (05:59)
--- NOTE | 2017-02-26 06:34 | PN ---
Physical Exam: SUBJECTIVE: Patient seen and examined OBJECTIVE: Vital Signs Period Temp Pulse Resp BP Sys/Arceo Pulse Ox Last 24 Hr 97.6 F-98.4 F 59-72 16-20 108-121/51-71 98-99 GENERAL: The patient is awake, alert, and fully oriented, in no acute distress. HEAD: Normal with no signs of trauma. EYES: PERRL, extraocular movements intact, sclera anicteric, conjunctiva clear. No ptosis. ENT: Ears normal, nares patent, oropharynx clear without exudates, moist mucous membranes. NECK: Trachea midline, full range of motion, supple. LUNGS: Breath sounds equal, clear to auscultation bilaterally, no wheezes, no crackles, no accessory muscle use. HEART: Regular rate and rhythm, S1, S2 without murmur, rub or gallop. ABDOMEN: Soft, nontender, nondistended, normoactive bowel sounds, no guarding, no rebound, no hepatosplenomegaly, no masses. EXTREMITIES: 2+ pulses, warm, well-perfused, no edema. NEUROLOGICAL: Cranial nerves II through XII grossly intact. Normal speech, gait not observed. PSYCH: Normal mood, normal affect. SKIN: Warm, dry, normal turgor, no rashes or lesions noted Laboratory Results - last 24 hr 02/25/17 02/25/17 05:35 05:35 WBC 6.6 RBC 4.33 Hgb 12.5 Hct 37.8 MCV 87.3 MCH 28.9 MCHC 33.1 RDW 14.3 Plt Count 54 L D MPV 8.5 Sodium 140 Potassium 3.9 D Chloride 103 Carbon Dioxide 28 Anion Gap 9 BUN 8 D Creatinine 0.9 Creat Clearance w eGFR > 60 Random Glucose 82 Calcium 7.5 L Phosphorus 2.3 L Magnesium 1.5 L Total Bilirubin 5.5 H AST 44 H ALT 63 Alkaline Phosphatase 78 Total Protein 6.0 L Albumin 2.0 L Active Medications Generic Name Dose Route Start Last Admin Trade Name Freq PRN Reason Stop Dose Admin Diazepam 10 mg 02/25/17 22:00 02/25/17 21:43 Valium - PO 10 mg HS ASHOK Administration Gabapentin 100 mg 02/24/17 22:00 02/26/17 05:59 Neurontin - PO 100 mg TID ASHOK Administration Hydroxyzine Pamoate 50 mg 02/24/17 07:37 02/24/17 09:09 Vistaril - PO 50 mg Q4H PRN Administration ANXIETY Potassium Chloride 20 meq/ 1,010 mls @ 175 mls/hr 02/24/17 23:30 02/26/17 01:55 Sodium Chloride IVPB 175 mls/hr ASDIR ASHOK Administration Methadone HCl 15 mg 02/25/17 10:00 02/25/17 09:19 Dolophine - PO 02/26/17 10:01 15 mg DAILY ASHOK Administration Methadone HCl 5 mg 02/28/17 06:00 Dolophine - PO 02/28/17 06:01 DAILY@0600 ASHOK Methadone HCl 10 mg 02/27/17 10:00 Dolophine - PO 02/27/17 10:01 DAILY ASHOK Metronidazole 500 mg 02/25/17 14:00 02/26/17 05:59 Flagyl - PO 03/11/17 23:59 500 mg TID ASHOK Administration Naproxen 500 mg 02/24/17 22:00 02/25/17 21:42 Naprosyn - PO 500 mg BID ASHOK Administration Ondansetron HCl 8 mg 02/23/17 09:27 Zofran Odt - SL Q6H PRN NAUSEA AND/OR VOMITING Pantoprazole Sodium 40 mg 02/25/17 10:00 02/25/17 09:19 Protonix - PO 40 mg DAILY ASHOK Administration Potassium Chloride 20 meq 02/24/17 22:00 02/25/17 21:43 Potassium Chloride Oral Liquid PO 20 meq BID ASHOK Administration Potassium Phos/Sodium Phos 1 packet 02/25/17 14:00 02/26/17 05:59 Phos-Nak Packet - PO 1 packet TID ASHOK Administration Sodium Chloride 500 ml 02/22/17 18:23 Normal Saline - IV Q20M PRN MAP<65mm Hg OR SBP <90 Zolpidem Tartrate 10 mg 02/23/17 09:27 Ambien - PO HS PRN INSOMNIA ASSESSMENT/PLAN: Pt is a 31 y/o M w/ PMH polysubstance abuse (Cocaine, Heroin, EtOH, cigarettes) , Asthma (on MDI), Hep C (Dx in 2003, not on meds), HIV (Dx in 2011, not on meds ) who was sent to ED from [facility] for evaluation. Pt admitted for Severe sepsis. #Severe sepsis likely secondary to acute pancreatitis -t. bili remains elevated at 5.5; will trend until it starts to trend down -GI, surg consult appreciated -no surgical intervention indicated -CT suggestive of pancreatitis -Zosycory vanco d/c -IVF -triumeq unlikely to be source of pancreatitis as pt not medication compliant -advanced diet #Thrombocytopenia likely 2/2 SIRS vs possible EtOH abuse -Holding Heparin -daily cbc -Consider heme consult if persists/worsens #diarrhea likely 2/2 withdrawal r/o infectious cause -Stool for C. Diff positive for antigen but negative for toxin; will treat w / PO flagyl #Polysubstance abuse -Cocaine, Heroin -Detox consult -Methadone protocol -ambien PRN sleep` -d/c to [facility] when stable #Hypokalemia w/ hypomagnesemia -K 3.9 today -mag 1.5 today -800mg magox PO today -monitor #Hyponatremic hypovolemia likely 2/2 poor PO intake- resolved -140 today -IVF -will trend lytes #FAHAD likely 2/2 dehydration and poor PO intake- resolved -[place] 1.4, baseline 0.9 -cr .9 today -IVF #HIV -Dx in 2011 -Triumeq -ID onboard -cd4, viral load pending #Hep C -Dx in 2003 -monitor for improvement in LFTs #FEN -NS @ 100 -see above; monitor lytes -regular diet #Dispo -admitted to tele for severe sepsis and electrolyte disturbances Problem List - Problems (1) Diarrhea Code(s): R19.7 - DIARRHEA, UNSPECIFIED Qualifiers: Diarrhea type: unspecified type Qualified Code(s): R19.7 - Diarrhea , unspecified; R19.7 - Diarrhea, unspecified (2) Hepatitis Code(s): K75.9 - INFLAMMATORY LIVER DISEASE, UNSPECIFIED (3) IVDU (intravenous drug user) Code(s): F19.90 - OTHER PSYCHOACTIVE SUBSTANCE USE, UNSPECIFIED, UNCOMPLICATED (4) Pancreatitis Code(s): K85.90 - ACUTE PANCREATITIS WITHOUT NECROSIS OR INFECTION, UNSP Qualifiers: Chronicity: acute Acute pancreatitis complication: no infection or necrosis (5) Sepsis Code(s): A41.9 - SEPSIS, UNSPECIFIED ORGANISM (6) Alcohol dependence Code(s): F10.20 - ALCOHOL DEPENDENCE, UNCOMPLICATED (7) HIV disease Code(s): B20 - HUMAN IMMUNODEFICIENCY VIRUS [HIV] DISEASE (8) Hepatitis C Code(s): B19.20 - UNSPECIFIED VIRAL HEPATITIS C WITHOUT HEPATIC COMA Qualifiers: Viral hepatitis chronicity: chronic Hepatic coma status: without hepatic coma Qualified Code(s): B18.2 - Chronic viral hepatitis C; B18.2 - Chronic viral hepatitis C; B18.2 - Chronic viral hepatitis C; B18.2 - Chronic viral hepatitis C (9) Opioid dependence with withdrawal Code(s): F11.23 - OPIOID DEPENDENCE WITH WITHDRAWAL
[2017-02-26 06:40] LABS: MCH 28.8 pg (25.7-33.7); MCHC 32.5 g/dl (32.0-35.9); MEAN CELL VOLUME 88.8 fl (80-96); MEAN PLT VOLUME 8.3 fl (7.5-11.1); PLATELET COUNT 70 K/MM3 (134-434); RDW 14.5 % (11.9-15.9); WHITE BLOOD COUNT 6.3 K/mm3 (4.0-10.0)
[2017-02-26 07:48] LABS: ALBUMIN 2.3 g/dl (3.4-5.0); ALK PHOS 89 U/L (45-117); ANION GAP 11 (8-16); BILIRUBIN,TOTAL 5.2 mg/dL (0.2-1.0); CALCIUM 7.3 mg/dL (8.5-10.1); CO2 23 mmol/L (21-32); CREATININE 0.8 mg/dL (0.7-1.3); GLUCOSE,RANDOM 90 mg/dL (74-106); MAGNESIUM 1.2 mg/dL (1.8-2.4); PHOSPHOROUS 1.8 mg/dL (2.5-4.9); SGOT/AST 45 U/L (15-37); SGPT/ALT 71 U/L (12-78); TOT PROT 6.8 g/dl (6.4-8.2)
--- NOTE | 2017-02-26 07:56 | PN ---
Progress Note, Physician Chief Complaint: No events. No diarrhea, abdominal pain, nausea, or vomiting. Tolerating PO well. - Current Medication List Current Medications: Active Medications Diazepam (Valium -) 10 mg PO HS [facility] Last Admin: 02/25/17 21:43 Dose: 10 mg Gabapentin (Neurontin -) 100 mg PO TID [facility] Last Admin: 02/26/17 05:59 Dose: 100 mg Hydroxyzine Pamoate (Vistaril -) 50 mg PO Q4H PRN PRN Reason: ANXIETY Last Admin: 02/24/17 09:09 Dose: 50 mg Potassium Chloride 20 meq/ (Sodium Chloride) 1,010 mls @ 175 mls/hr IVPB ASDIR [facility] Last Admin: 02/26/17 07:10 Dose: 175 mls/hr Methadone HCl (Dolophine -) 15 mg PO DAILY [facility] Stop: 02/26/17 10:01 Last Admin: 02/25/17 09:19 Dose: 15 mg Methadone HCl (Dolophine -) 5 mg PO DAILY@0600 [facility] Stop: 02/28/17 06:01 Methadone HCl (Dolophine -) 10 mg PO DAILY [facility] Stop: 02/27/17 10:01 Metronidazole (Flagyl -) 500 mg PO TID [facility] Stop: 03/11/17 23:59 Last Admin: 02/26/17 05:59 Dose: 500 mg Naproxen (Naprosyn -) 500 mg PO BID [facility] Last Admin: 02/25/17 21:42 Dose: 500 mg Ondansetron HCl (Zofran Odt -) 8 mg SL Q6H PRN PRN Reason: NAUSEA AND/OR VOMITING Pantoprazole Sodium (Protonix -) 40 mg PO DAILY [facility] Last Admin: 02/25/17 09:19 Dose: 40 mg Potassium Chloride (Potassium Chloride Oral Liquid) 20 meq PO BID [facility] Last Admin: 02/25/17 21:43 Dose: 20 meq Potassium Phos/Sodium Phos (Phos-Nak Packet -) 1 packet PO TID [facility] Last Admin: 02/26/17 05:59 Dose: 1 packet Sodium Chloride (Normal Saline -) 500 ml IV Q20M PRN PRN Reason: MAP<65mm Hg OR SBP <90 Zolpidem Tartrate (Ambien -) 10 mg PO HS PRN PRN Reason: INSOMNIA - Objective Vital Signs: Vital Signs Temperature 98.4 F 10/06/17 05:38 Pulse Rate 59 L 02/26/17 05:38 Respiratory Rate 18 02/26/17 05:38 Blood Pressure 114/70 02/26/17 05:38 O2 Sat by Pulse Oximetry (%) 99 02/25/17 21:00 Constitutional: Yes: No Distress, Calm Eyes: Yes: Conjunctiva Clear Cardiovascular: Yes: Regular Rate and Rhythm Respiratory: Yes: Regular Gastrointestinal: Yes: Normal Bowel Sounds, Soft. No: Tenderness Integumentary: No: Jaundice Neurological: Yes: Alert, Oriented Labs: CBC, BMP 02/26/17 05:30 INR, PTT INR 1.39 (0.82-1.09) H 02/22/17 18:45 Laboratory Results - last 24 hr 02/25/17 02/26/17 05:35 05:30 WBC 6.3 RBC 4.92 Hgb 14.2 D Hct 43.7 D MCV 88.8 MCH 28.8 MCHC 32.5 RDW 14.5 Plt Count 70 L D MPV 8.3 Sodium 140 Potassium 3.9 D Chloride 103 Carbon Dioxide 28 Anion Gap 9 BUN 8 D Creatinine 0.9 Creat Clearance w eGFR > 60 Random Glucose 82 Calcium 7.5 L Phosphorus 2.3 L Magnesium 1.5 L Total Bilirubin 5.5 H AST 44 H ALT 63 Alkaline Phosphatase 78 Total Protein 6.0 L Albumin 2.0 L Microbiology 02/22/17 19:20 Blood - Peripheral Venous Blood Culture - Preliminary NO GROWTH OBTAINED AFTER 72 HOURS, INCUBATION TO CONTINUE FOR 2 DAYS. 02/22/17 19:20 Blood - Peripheral Venous Blood Culture - Preliminary NO GROWTH OBTAINED AFTER 72 HOURS, INCUBATION TO CONTINUE FOR 2 DAYS. 02/24/17 11:00 Urine - Urine Clean Catch Urine Culture - Final NO GROWTH OBTAINED 02/24/17 18:35 Stool Clostridium difficile Antigen (BRAVO) - Final, pos Ag 02/24/17 18:35 Stool Clostridium difficile Toxin Assay - Final, pos Ag 02/22/17 19:20 Urine - Urine Clean Catch Urine Culture - Final Contaminated: Please Repeat Problem List - Problems (1) Diarrhea Assessment/Plan: Improved. Complete 14 day course of Flagyl as OP Code(s): R19.7 - DIARRHEA, UNSPECIFIED Qualifiers: Diarrhea type: infectious Qualified Code(s): A09 - Infectious gastroenteritis and colitis, unspecified; A09 - Infectious gastroenteritis and colitis, unspecified (2) Pancreatitis Assessment/Plan: Clinically resolved. No need for additional imaging at this time. Code(s): K85.90 - ACUTE PANCREATITIS WITHOUT NECROSIS OR INFECTION, UNSP Qualifiers: Chronicity: acute Acute pancreatitis complication: no infection or necrosis (3) Hepatitis C Assessment/Plan: Follow up with us as OP Code(s): B19.20 - UNSPECIFIED VIRAL HEPATITIS C WITHOUT HEPATIC COMA Qualifiers: Viral hepatitis chronicity: chronic Hepatic coma status: without hepatic coma Qualified Code(s): B18.2 - Chronic viral hepatitis C; B18.2 - Chronic viral hepatitis C; B18.2 - Chronic viral hepatitis C; B18.2 - Chronic viral hepatitis C (4) Illicit drug use Assessment/Plan: Rehab as per notes Code(s): F19.90 - OTHER PSYCHOACTIVE SUBSTANCE USE, UNSPECIFIED, UNCOMPLICATED (5) HIV disease Code(s): B20 - HUMAN IMMUNODEFICIENCY VIRUS [HIV] DISEASE
[2017-02-26] MEDS ORDERED: SODIUM CHLORIDE 1,000 ML IV SCH (08:53)
[2017-02-26] MEDS ORDERED: MAGNESIUM SULF 50% (8.12 MEQ/2 ML-1 GM VIAL) IVPB ONE (08:53)
[2017-02-26] MEDS: METHADONE HCL 5 MG TABLET PO SCH (09:07)
[2017-02-26] MEDS: NAPROXEN 500 MG TABLET (FP) PO SCH (09:07)
[2017-02-26] MEDS: POTASSIUM CHLORIDE ORAL LIQUID 20 MEQ/15 ML PO SCH (09:08)
[2017-02-26 09:17] VITALS: BP 128/72; PULSE 114; TEMP 97.8
--- NOTE | 2017-02-26 11:35 | PN ---
Teaching Attending Note Name of Resident: Yovany Weiss ATTENDING PHYSICIAN STATEMENT I saw and evaluated the patient. I reviewed the resident's note and discussed the case with the resident. I agree with the resident's findings and plan as documented. notified pt signed out AMA this morning. IV site was removed prior to leaving
--- NOTE | 2017-02-26 21:10 | DS ---
Physical Exam: LABS Laboratory Results - last 24 hr 02/26/17 02/26/17 05:30 05:30 WBC 6.3 RBC 4.92 Hgb 14.2 D Hct 43.7 D MCV 88.8 MCH 28.8 MCHC 32.5 RDW 14.5 Plt Count 70 L D MPV 8.3 Sodium 138 Potassium 5.0 D Chloride 104 Carbon Dioxide 23 Anion Gap 11 BUN 6 L D Creatinine 0.8 Creat Clearance w eGFR > 60 Random Glucose 90 Calcium 7.3 L Phosphorus 1.8 L D Magnesium 1.2 L Total Bilirubin 5.2 H AST 45 H ALT 71 Alkaline Phosphatase 89 Total Protein 6.8 Albumin 2.3 L HOSPITAL COURSE: Date of Admission:02/22/17 The patient is a 31 yo m w/ H polysubstance abuse, Hep c, HIV who presented from [facility] because the staff there decided he needed evaluation. He complained of abdominal pain, n/v and diarrhea. In the ED, He was found to have a leukocytosis, a potassium of 3.3. a creatinine fo 1.4, a lipase of 533 a lactic acidosis to 2.1 as well as elevated LFTs and tbili. He was admitted for the treatment of severe sepsis. Gastroenterology, infectious disease and detox specialists were consulted. A RUQ ultrasound showed a probable hepatic hemangioma, a contracted gallbladder and gallbladder polyps without stones. A CT abdomen/pelvis was indicative for pancreatitis. A stool sample was positive for C. Diff antigen but negative for the toxin. The patient was treated with IVF , Vancomycin, Zosyn, flagyl, supplemental potassium, phosphorus and magnesium. He improved clinically and his diet was advanced. The patient signed out of the hospital against medical advice after being made aware of the possible complications of doing so including permanent disability and . Date of Discharge: 02/26/17 Minutes to complete discharge: 20 Discharge Summary Reason For Visit: CHOLECYSTITIS/HUMAN IMMUNODEFICIENCY VIRUS DISEASE Condition: Improved - Instructions Diet, Activity, Other Instructions: You were admitted for the treatment of acute pancreatitis and for heroin detox. You have elected to sign out of the hospital against medical advice after being informed of the potential risks of doing so. Please follow up with your primary care physician within one week. We encourage you to go to [facility] to seek inpatient detox and rehabilitation. If you experience fever, chills or if your symptoms worsen, please call your doctor or return to the ED. Referrals: Yinka Alfred MD [Staff Physician] - Disposition: AGAINST MEDICAL ADVICE - Home Medications Comprehensive Discharge Medication List: Ambulatory Orders Abacavir/Dolutegravir/Lamivudi [Triumeq Tablet] 1 each PO DAILY 02/23/17 Problem List - Problems (1) Diarrhea Code(s): R19.7 - DIARRHEA, UNSPECIFIED Qualifiers: Diarrhea type: infectious Qualified Code(s): A09 - Infectious gastroenteritis and colitis, unspecified; A09 - Infectious gastroenteritis and colitis, unspecified (2) Hepatitis Code(s): K75.9 - INFLAMMATORY LIVER DISEASE, UNSPECIFIED (3) IVDU (intravenous drug user) Code(s): F19.90 - OTHER PSYCHOACTIVE SUBSTANCE USE, UNSPECIFIED, UNCOMPLICATED (4) Pancreatitis Code(s): K85.90 - ACUTE PANCREATITIS WITHOUT NECROSIS OR INFECTION, UNSP Qualifiers: Chronicity: acute Acute pancreatitis complication: no infection or necrosis (5) Sepsis Code(s): A41.9 - SEPSIS, UNSPECIFIED ORGANISM (6) Alcohol dependence Code(s): F10.20 - ALCOHOL DEPENDENCE, UNCOMPLICATED (7) HIV disease Code(s): B20 - HUMAN IMMUNODEFICIENCY VIRUS [HIV] DISEASE (8) Hepatitis C Code(s): B19.20 - UNSPECIFIED VIRAL HEPATITIS C WITHOUT HEPATIC COMA Qualifiers: Viral hepatitis chronicity: chronic Hepatic coma status: without hepatic coma Qualified Code(s): B18.2 - Chronic viral hepatitis C; B18.2 - Chronic viral hepatitis C; B18.2 - Chronic viral hepatitis C; B18.2 - Chronic viral hepatitis C (9) Opioid dependence with withdrawal Code(s): F11.23 - OPIOID DEPENDENCE WITH WITHDRAWAL This patient is new to me today: No Emergency Visit: Yes ED Registration Date: 02/22/17 Care time: The patient presented to the Emergency Department on the above date and was hospitalized for further evaluation of their emergent condition. Critical Care patient: No - Discharge Referral Referred to [facility] Med P.C.: No
--- NOTE | 2017-02-26 21:35 | DS ---
Physical Exam: SUBJECTIVE: Patient seen and examined OBJECTIVE: Vital Signs Period Temp Pulse Resp BP Sys/Arceo Pulse Ox Last 24 Hr 97.6 F-98.4 F 59-114 18-20 108-128/70-72 PHYSICAL EXAM GENERAL: The patient is awake, alert, and fully oriented, in no acute distress. HEAD: Normal with no signs of trauma. EYES: PERRL, extraocular movements intact, sclera anicteric, conjunctiva clear. ENT: Ears normal, nares patent, oropharynx clear without exudates, moist mucous membranes. NECK: Trachea midline, full range of motion, supple. LUNGS: Breath sounds equal, clear to auscultation bilaterally, no wheezes, no crackles, no accessory muscle use. HEART: Regular rate and rhythm, S1, S2 without murmur, rub or gallop. ABDOMEN: Soft, nontender, nondistended, normoactive bowel sounds, no guarding, no rebound, no hepatosplenomegaly, no masses. EXTREMITIES: 2+ pulses, warm, well-perfused, no edema. NEUROLOGICAL: Cranial nerves II through XII grossly intact. Normal speech, gait not observed. PSYCH: Normal mood, normal affect. SKIN: Warm, dry, normal turgor, no rashes or lesions noted. LABS Laboratory Results - last 24 hr 02/26/17 02/26/17 05:30 05:30 WBC 6.3 RBC 4.92 Hgb 14.2 D Hct 43.7 D MCV 88.8 MCH 28.8 MCHC 32.5 RDW 14.5 Plt Count 70 L D MPV 8.3 Sodium 138 Potassium 5.0 D Chloride 104 Carbon Dioxide 23 Anion Gap 11 BUN 6 L D Creatinine 0.8 Creat Clearance w eGFR > 60 Random Glucose 90 Calcium 7.3 L Phosphorus 1.8 L D Magnesium 1.2 L Total Bilirubin 5.2 H AST 45 H ALT 71 Alkaline Phosphatase 89 Total Protein 6.8 Albumin 2.3 L HOSPITAL COURSE: Date of Admission:02/22/17 Date of Discharge: 02/26/17 Discharge Summary Reason For Visit: CHOLECYSTITIS/HUMAN IMMUNODEFICIENCY VIRUS DISEASE Condition: Improved - Instructions Diet, Activity, Other Instructions: You were admitted for the treatment of acute pancreatitis and for heroin detox. You have elected to sign out of the hospital against medical advice after being informed of the potential risks of doing so. Please follow up with your primary care physician within one week. We encourage you to go to [facility] to seek inpatient detox and rehabilitation. If you experience fever, chills or if your symptoms worsen, please call your doctor or return to the ED. Referrals: Yinka Alfred MD [Staff Physician] - Disposition: AGAINST MEDICAL ADVICE - Home Medications Comprehensive Discharge Medication List: Ambulatory Orders Abacavir/Dolutegravir/Lamivudi [Triumeq Tablet] 1 each PO DAILY 02/23/17 Problem List - Problems (1) Diarrhea Code(s): R19.7 - DIARRHEA, UNSPECIFIED Qualifiers: Diarrhea type: infectious Qualified Code(s): A09 - Infectious gastroenteritis and colitis, unspecified; A09 - Infectious gastroenteritis and colitis, unspecified (2) Hepatitis Code(s): K75.9 - INFLAMMATORY LIVER DISEASE, UNSPECIFIED (3) IVDU (intravenous drug user) Code(s): F19.90 - OTHER PSYCHOACTIVE SUBSTANCE USE, UNSPECIFIED, UNCOMPLICATED (4) Pancreatitis Code(s): K85.90 - ACUTE PANCREATITIS WITHOUT NECROSIS OR INFECTION, UNSP Qualifiers: Chronicity: acute Acute pancreatitis complication: no infection or necrosis (5) Sepsis Code(s): A41.9 - SEPSIS, UNSPECIFIED ORGANISM (6) Alcohol dependence Code(s): F10.20 - ALCOHOL DEPENDENCE, UNCOMPLICATED (7) HIV disease Code(s): B20 - HUMAN IMMUNODEFICIENCY VIRUS [HIV] DISEASE (8) Hepatitis C Code(s): B19.20 - UNSPECIFIED VIRAL HEPATITIS C WITHOUT HEPATIC COMA Qualifiers: Viral hepatitis chronicity: chronic Hepatic coma status: without hepatic coma Qualified Code(s): B18.2 - Chronic viral hepatitis C; B18.2 - Chronic viral hepatitis C; B18.2 - Chronic viral hepatitis C; B18.2 - Chronic viral hepatitis C (9) Opioid dependence with withdrawal Code(s): F11.23 - OPIOID DEPENDENCE WITH WITHDRAWAL
[2017-02-27] MEDS ORDERED: METHADONE HCL 10 MG TABLET PO SCH ×3 (10:00)
[2017-02-28] MEDS ORDERED: METHADONE HCL 5 MG TABLET PO SCH (06:00)
[2017-03-04 15:57] LABS: % CD 3 POS. LYMPH. 35.1; % CD 4 POS LYM 23.1; ABSO. CD 3 176; CD4/CD8 1.99
[2017-03-04 15:58] LABS: ABSOLUTE CD 4 HELPER 116; WHITE BLOOD COUNT 14.1
== END 2017-02-26 09:24 | disposition left against medical advice (07) | DRG 871 ==
LOC: JER 17:41 → JERBED 23:44 → J4S 02-23 03:05
PROVIDERS: ADMIT Internal Medicine; ATTEND Internal Medicine
PROC: HZ91ZZZ Pharmacotherapy for Substance Abuse Treatment, Methadone Maintenance (ICD-10-PCS; principal; 2017-02-22)
PROC: HZ2ZZZZ Detoxification Services for Substance Abuse Treatment (ICD-10-PCS; 2017-02-24)
PROC: HZ81ZZZ Medication Management for Substance Abuse Treatment, Methadone Maintenance (ICD-10-PCS; 2017-02-24)
DX: A41.9 Sepsis, unspecified organism (principal); K85.90 Acute pancreatitis without necrosis or infection, unspecified; K83.0 Cholangitis; N17.9 Acute kidney failure, unspecified; E87.1 Hypo-osmolality and hyponatremia; E87.2 Acidosis; F11.23 Opioid dependence with withdrawal; F14.20 Cocaine dependence, uncomplicated; M62.82 Rhabdomyolysis; A04.72 Enterocolitis due to Clostridium difficile, not specified as recurrent; R65.20 Severe sepsis without septic shock; Z21 Asymptomatic human immunodeficiency virus [HIV] infection status; J45.909 Unspecified asthma, uncomplicated; B19.20 Unspecified viral hepatitis C without hepatic coma; E83.42 Hypomagnesemia; E87.6 Hypokalemia; D18.03 Hemangioma of intra-abdominal structures; E80.6 Other disorders of bilirubin metabolism; F10.20 Alcohol dependence, uncomplicated; R74.0 Nonspecific elevation of levels of transaminase and lactic acid dehydrogenase [LDH]; R07.89 Other chest pain; E86.9 Volume depletion, unspecified; D69.59 Other secondary thrombocytopenia; G47.00 Insomnia, unspecified; K82.4 Cholesterolosis of gallbladder
CPT/HCPCS: 36415; 71010-TC; 74176-TC; 76705-TC; 80048; 80053; 80076; 81003; 81015; 82553; 82607; 82746; 82803; 83605; 83690; 83735; 84100; 84484; 85025; 85027; 85610; 85730; 86359; 86360; 86850; 86900; 86901; 87040; 87045; 87046; 87086; 87177; 87209; 87324; 87449; 93005; 93010; 99285-25

== ENCOUNTER 2018-07-24 09:03 | Inpatient (IN) | payer BC, OTHER ==
[2018-07-24 09:17] VITALS: BMI 21.4
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
[2018-07-24] MEDS ORDERED: MAGNESIUM HYDROX 2400MG/30ML ORAL SUSPENSION 30 ML CUP PO PRN (09:35)
[2018-07-24] MEDS ORDERED: NICOTINE POLACRILEX 2 MG GUM BC PRN (09:35)
[2018-07-24] MEDS ORDERED: MENTHOL/PHENOL 1 EACH UD MM PRN (09:35)
[2018-07-24] MEDS ORDERED: P-EPHED 60MG/TRIPROLIDI 2.5MG TABLET PO PRN (09:35)
[2018-07-24] MEDS ORDERED: guaiFENesin/D-METHORPHAN HB 10 ML UNIT-DOSE CUPS PO PRN (09:35)
[2018-07-24] MEDS ORDERED: IBUPROFEN 400 MG TABLET (FP) PO PRN (09:35)
[2018-07-24] MEDS ORDERED: hydrOXYzine PAMOATE 25 MG CAPSULE (FP) PO PRN (09:35)
[2018-07-24] MEDS ORDERED: MAGNESIUM CITRATE 300 ML BOTTLE PO PRN (09:35)
[2018-07-24] MEDS ORDERED: METHADONE HCL 10 MG TABLET (FOR DETOX USE ONLY) PO ONE ×2 (09:35→23:00)
[2018-07-24] MEDS ORDERED: LOPERAMIDE HCL 2 MG CAPSULE PO PRN (09:35)
[2018-07-24] MEDS ORDERED: ACETAMINOPHEN 325 MG TABLET (FP) PO PRN (09:35)
[2018-07-24] MEDS: diazePAM 5 MG TABLET PO PRN ×2 (11:20→20:23)
[2018-07-24] MEDS: cloNIDine HCL 0.1 MG TABLET PO SCH ×2 (11:20→22:30)
[2018-07-24] MEDS: PRENATAL VITAMINS W/ FOLIC ACID TABLET (FP) PO SCH (11:21)
[2018-07-24] MEDS: NICOTINE 21 MG/24 HOURS TOPICAL PATCH TD SCH (11:21)
[2018-07-24] MEDS ORDERED: MELATONIN 5 MG TABLETS PO PRN (22:00)
[2018-07-24] MEDS: THIAMINE HCL 100 MG TABLET (FP) PO SCH (22:30)
[2018-07-24] MEDS: traZODone HCL 100 MG TABLET (FP) PO SCH (22:30)
[2018-07-25] MEDS ORDERED: METHADONE HCL 10 MG TABLET (FOR DETOX USE ONLY) PO ONE (10:00)
[2018-07-25 10:16] LABS: ALBUMIN 2.9 g/dl (3.4-5.0); ALK PHOS 61 U/L (45-117); ANION GAP 6 MMOL/L (8-16); BILIRUBIN,TOTAL 0.3 mg/dL (0.2-1); BLOOD UREA NITROGEN 8 mg/dL (7-18); CALCIUM 8.4 mg/dL (8.5-10.1); CHLORIDE 103 mmol/L (98-107); CO2 28 mmol/L (21-32); CREATININE 0.8 mg/dL (0.55-1.3); GLUCOSE,RANDOM 85 mg/dL (74-106); POTASSIUM 4.2 mmol/L (3.5-5.1); SGOT/AST 29 U/L (15-37); SGPT/ALT 28 U/L (13-61); SODIUM 137 mmol/L (136-145); TOT PROT 6.1 g/dl (6.4-8.2)
[2018-07-25] MEDS: diazePAM 5 MG TABLET PO PRN ×3 (10:23→22:20)
[2018-07-25] MEDS: PRENATAL VITAMINS W/ FOLIC ACID TABLET (FP) PO SCH (10:24)
[2018-07-25] MEDS: NICOTINE 21 MG/24 HOURS TOPICAL PATCH TD SCH (10:24)
[2018-07-25] MEDS: cloNIDine HCL 0.1 MG TABLET PO SCH ×2 (10:24→22:18)
[2018-07-25 10:27] LABS: HEMATOCRIT 38.9 % (35.4-49); HEMOGLOBIN 13.2 GM/dL (11.7-16.9); MCH 30.9 pg (25.7-33.7); MCHC 33.9 g/dl (32.0-35.9); MEAN CELL VOLUME 91.4 fl (80-96); MEAN PLT VOLUME 8.9 fl (7.5-11.1); PLATELET COUNT 236 K/MM3 (134-434); RBC 4.26 M/mm3 (4.00-5.60); WHITE BLOOD COUNT 4.8 K/mm3 (4.0-10.0)
[2018-07-25] MEDS: CYCLOBENZAPRINE HCL 10 MG TABLET (FP) PO PRN ×2 (12:07→22:16)
--- NOTE | 2018-07-25 15:45 | PN ---
S COWS - Scale Resting Pulse: 1= [place] 81-100 Sweatin= Chills/Flushing Restless Observation: 1= Difficult to Sit Still Pupil Size: 1= Pupils >than Normal Bone or Joint Aches: 2= Severe Diffuse Aches Runny Nose/ Eye Tearin= Nasal Congestion GI Upset > 30mins: 1= Stomach Cramp Tremor Observation of Outstretched Hands: 2= Slight Tremor Visible Yawning Observation: 2= >3x During Session Anxiety or Irritability: 2=Irritable/Anxious Goose Flesh Skin: 0=Smooth Skin COWS Score: 14 [facility] Progress Note (SOAP) Subjective: diarrhea tremor sweating body aches joints pain muscle cramp Objective: 07/25/18 15:44 Vital Signs Temperature 98.4 F 07/25/18 13:55 Pulse Rate 95 H 07/25/18 13:55 Respiratory Rate 16 07/25/18 13:55 Blood Pressure 88/59 L 07/25/18 13:55 O2 Sat by Pulse Oximetry (%) Laboratory Last Values WBC 4.8 K/mm3 (4.0-10.0) 07/25/18 07:00 RBC 4.26 M/mm3 (4.00-5.60) 07/25/18 07:00 Hgb 13.2 GM/dL (11.7-16.9) 07/25/18 07:00 Hct 38.9 % (35.4-49) 07/25/18 07:00 MCV 91.4 fl (80-96) 07/25/18 07:00 MCH 30.9 pg (25.7-33.7) D 07/25/18 07:00 MCHC 33.9 g/dl (32.0-35.9) 07/25/18 07:00 RDW 13.0 % (11.9-15.9) D 07/25/18 07:00 Plt Count 236 K/MM3 (134-434) 07/25/18 07:00 MPV 8.9 fl (7.5-11.1) 07/25/18 07:00 Sodium 137 mmol/L (136-145) 07/25/18 07:00 Potassium 4.2 mmol/L (3.5-5.1) 07/25/18 07:00 Chloride 103 mmol/L (98-107) 07/25/18 07:00 Carbon Dioxide 28 mmol/L (21-32) 07/25/18 07:00 Anion Gap 6 MMOL/L (8-16) L 07/25/18 07:00 BUN 8 mg/dL (7-18) 07/25/18 07:00 Creatinine 0.8 mg/dL (0.55-1.3) 07/25/18 07:00 Creat Clearance w eGFR > 60 (>60) 07/25/18 07:00 Random Glucose 85 mg/dL (74-106) 07/25/18 07:00 Calcium 8.4 mg/dL (8.5-10.1) L 07/25/18 07:00 Total Bilirubin 0.3 mg/dL (0.2-1) 07/25/18 07:00 AST 29 U/L (15-37) 07/25/18 07:00 ALT 28 U/L (13-61) 07/25/18 07:00 Alkaline Phosphatase 61 U/L (45-117) 07/25/18 07:00 Total Protein 6.1 g/dl (6.4-8.2) L 07/25/18 07:00 Albumin 2.9 g/dl (3.4-5.0) L 07/25/18 07:00 RPR Titer Nonreactive (NONREACTIVE) 07/25/18 07:00 lab noted Assessment: 07/25/18 15:45 withdrawal sx Plan: conitnue detox
[2018-07-25] MEDS: THIAMINE HCL 100 MG TABLET (FP) PO SCH (22:16)
[2018-07-25] MEDS: traZODone HCL 100 MG TABLET (FP) PO SCH (22:18)
[2018-07-26] MEDS ORDERED: METHADONE HCL 5 MG TABLET (FOR DETOX USE ONLY) PO ONE (10:00)
[2018-07-26] MEDS: NICOTINE 21 MG/24 HOURS TOPICAL PATCH TD SCH (10:15)
[2018-07-26] MEDS: cloNIDine HCL 0.1 MG TABLET PO SCH ×2 (10:15→22:32)
[2018-07-26] MEDS: CYCLOBENZAPRINE HCL 10 MG TABLET (FP) PO PRN ×2 (10:15→22:32)
[2018-07-26] MEDS: PRENATAL VITAMINS W/ FOLIC ACID TABLET (FP) PO SCH (10:16)
[2018-07-26] MEDS: diazePAM 5 MG TABLET PO PRN ×3 (12:35→22:32)
--- NOTE | 2018-07-26 13:08 | PN ---
BHS COWS - Scale Resting Pulse: 0= [place] 80 or Below Sweatin= Chills/Flushing Restless Observation: 1= Difficult to Sit Still Pupil Size: 1= Pupils >than Normal Bone or Joint Aches: 1= Mild Discomfort Runny Nose/ Eye Tearin= Nasal Congestion GI Upset > 30mins: 1= Stomach Cramp Tremor Observation of Outstretched Hands: 2= Slight Tremor Visible Yawning Observation: 1= 1-2x During Session Anxiety or Irritability: 1=Feels Anxious/Irritable Goose Flesh Skin: 0=Smooth Skin COWS Score: 10 BHS Progress Note (SOAP) Subjective: body aches muscle cramping tremor sweating Objective: 07/26/18 13:09 Vital Signs Temperature 97.0 F L 07/26/18 09:24 Pulse Rate 89 07/26/18 09:24 Respiratory Rate 18 07/26/18 09:24 Blood Pressure 98/60 07/26/18 09:24 O2 Sat by Pulse Oximetry (%) Laboratory Last Values WBC 4.8 K/mm3 (4.0-10.0) 07/25/18 07:00 RBC 4.26 M/mm3 (4.00-5.60) 07/25/18 07:00 Hgb 13.2 GM/dL (11.7-16.9) 07/25/18 07:00 Hct 38.9 % (35.4-49) 07/25/18 07:00 MCV 91.4 fl (80-96) 07/25/18 07:00 MCH 30.9 pg (25.7-33.7) D 07/25/18 07:00 MCHC 33.9 g/dl (32.0-35.9) 07/25/18 07:00 RDW 13.0 % (11.9-15.9) D 07/25/18 07:00 Plt Count 236 K/MM3 (134-434) 07/25/18 07:00 MPV 8.9 fl (7.5-11.1) 07/25/18 07:00 Sodium 137 mmol/L (136-145) 07/25/18 07:00 Potassium 4.2 mmol/L (3.5-5.1) 07/25/18 07:00 Chloride 103 mmol/L (98-107) 07/25/18 07:00 Carbon Dioxide 28 mmol/L (21-32) 07/25/18 07:00 Anion Gap 6 MMOL/L (8-16) L 07/25/18 07:00 BUN 8 mg/dL (7-18) 07/25/18 07:00 Creatinine 0.8 mg/dL (0.55-1.3) 07/25/18 07:00 Creat Clearance w eGFR > 60 (>60) 07/25/18 07:00 Random Glucose 85 mg/dL (74-106) 07/25/18 07:00 Calcium 8.4 mg/dL (8.5-10.1) L 07/25/18 07:00 Total Bilirubin 0.3 mg/dL (0.2-1) 07/25/18 07:00 AST 29 U/L (15-37) 07/25/18 07:00 ALT 28 U/L (13-61) 07/25/18 07:00 Alkaline Phosphatase 61 U/L (45-117) 07/25/18 07:00 Total Protein 6.1 g/dl (6.4-8.2) L 07/25/18 07:00 Albumin 2.9 g/dl (3.4-5.0) L 07/25/18 07:00 RPR Titer Nonreactive (NONREACTIVE) 07/25/18 07:00 lab noted Assessment: 07/26/18 13:09 withdrawal sx Plan: continue detox
[2018-07-26] MEDS: MAG HYDROX/AL HYDROX/SIMETH 30 ML UNIT-DOSE CUP PO PRN (14:12)
[2018-07-26] MEDS: THIAMINE HCL 100 MG TABLET (FP) PO SCH (22:32)
[2018-07-26] MEDS: traZODone HCL 100 MG TABLET (FP) PO SCH (22:35)
[2018-07-27] MEDS ORDERED: METHADONE HCL 5 MG TABLET (FOR DETOX USE ONLY) PO ONE (10:00)
[2018-07-27] MEDS: PRENATAL VITAMINS W/ FOLIC ACID TABLET (FP) PO SCH (10:25)
[2018-07-27] MEDS: cloNIDine HCL 0.1 MG TABLET PO SCH ×2 (10:25→22:08)
[2018-07-27] MEDS: NICOTINE 21 MG/24 HOURS TOPICAL PATCH TD SCH (10:25)
--- NOTE | 2018-07-27 13:41 | PN ---
BHS COWS - Scale Resting Pulse: 0= [place] 80 or Below Sweatin= Chills/Flushing Restless Observation: 0= Sits Still Pupil Size: 1= Pupils >than Normal Bone or Joint Aches: 1= Mild Discomfort Runny Nose/ Eye Tearin= Nasal Congestion GI Upset > 30mins: 1= Stomach Cramp Tremor Observation of Outstretched Hands: 1= Tremor [place], Not Seen Yawning Observation: 1= 1-2x During Session Anxiety or Irritability: 1=Feels Anxious/Irritable Goose Flesh Skin: 0=Smooth Skin COWS Score: 8 BHS Progress Note (SOAP) Subjective: body aches back pain muscle sore tremor sweating Objective: 07/27/18 13:41 Vital Signs Temperature 97.5 F L 07/27/18 09:40 Pulse Rate 90 07/27/18 09:40 Respiratory Rate 20 07/27/18 09:40 Blood Pressure 100/62 07/27/18 09:40 O2 Sat by Pulse Oximetry (%) Laboratory Last Values WBC 4.8 K/mm3 (4.0-10.0) 07/25/18 07:00 RBC 4.26 M/mm3 (4.00-5.60) 07/25/18 07:00 Hgb 13.2 GM/dL (11.7-16.9) 07/25/18 07:00 Hct 38.9 % (35.4-49) 07/25/18 07:00 MCV 91.4 fl (80-96) 07/25/18 07:00 MCH 30.9 pg (25.7-33.7) D 07/25/18 07:00 MCHC 33.9 g/dl (32.0-35.9) 07/25/18 07:00 RDW 13.0 % (11.9-15.9) D 07/25/18 07:00 Plt Count 236 K/MM3 (134-434) 07/25/18 07:00 MPV 8.9 fl (7.5-11.1) 07/25/18 07:00 Sodium 137 mmol/L (136-145) 07/25/18 07:00 Potassium 4.2 mmol/L (3.5-5.1) 07/25/18 07:00 Chloride 103 mmol/L (98-107) 07/25/18 07:00 Carbon Dioxide 28 mmol/L (21-32) 07/25/18 07:00 Anion Gap 6 MMOL/L (8-16) L 07/25/18 07:00 BUN 8 mg/dL (7-18) 07/25/18 07:00 Creatinine 0.8 mg/dL (0.55-1.3) 07/25/18 07:00 Creat Clearance w eGFR > 60 (>60) 07/25/18 07:00 Random Glucose 85 mg/dL (74-106) 07/25/18 07:00 Calcium 8.4 mg/dL (8.5-10.1) L 07/25/18 07:00 Total Bilirubin 0.3 mg/dL (0.2-1) 07/25/18 07:00 AST 29 U/L (15-37) 07/25/18 07:00 ALT 28 U/L (13-61) 07/25/18 07:00 Alkaline Phosphatase 61 U/L (45-117) 07/25/18 07:00 Total Protein 6.1 g/dl (6.4-8.2) L 07/25/18 07:00 Albumin 2.9 g/dl (3.4-5.0) L 07/25/18 07:00 RPR Titer Nonreactive (NONREACTIVE) 07/25/18 07:00 lab noted Assessment: 07/27/18 13:41 opiate withdrawal sx 07/27/18 13:41 Plan: continue detox
[2018-07-27] MEDS: traZODone HCL 100 MG TABLET (FP) PO SCH (22:08)
[2018-07-27] MEDS: MAG HYDROX/AL HYDROX/SIMETH 30 ML UNIT-DOSE CUP PO PRN (22:09)
[2018-07-27] MEDS: THIAMINE HCL 100 MG TABLET (FP) PO SCH (22:10)
[2018-07-28] MEDS ORDERED: METHADONE HCL 10 MG TABLET (FOR DETOX USE ONLY) PO ONE (10:00)
[2018-07-28] MEDS: NICOTINE 21 MG/24 HOURS TOPICAL PATCH TD SCH (10:17)
[2018-07-28] MEDS: cloNIDine HCL 0.1 MG TABLET PO SCH ×2 (10:18→22:39)
[2018-07-28] MEDS: CYCLOBENZAPRINE HCL 10 MG TABLET (FP) PO PRN (10:18)
[2018-07-28] MEDS: PRENATAL VITAMINS W/ FOLIC ACID TABLET (FP) PO SCH (10:18)
[2018-07-28] MEDS: traZODone HCL 100 MG TABLET (FP) PO SCH (22:39)
[2018-07-28] MEDS: THIAMINE HCL 100 MG TABLET (FP) PO SCH (22:40)
[2018-07-29] MEDS ORDERED: METHADONE HCL 5 MG TABLET (FOR DETOX USE ONLY) PO ONE (06:00)
[2018-07-29 09:54] VITALS: BP 104/66; PULSE 118; TEMP 97
[2018-07-29] MEDS: PRENATAL VITAMINS W/ FOLIC ACID TABLET (FP) PO SCH (10:43)
[2018-07-29] MEDS: NICOTINE 21 MG/24 HOURS TOPICAL PATCH TD SCH (10:43)
[2018-07-29] MEDS: cloNIDine HCL 0.1 MG TABLET PO SCH (10:43)
--- NOTE | 2018-07-31 21:40 | DS ---
[facility] Detox Discharge Summary Admission Date: 07/24/18 Discharge Date: 07/29/18 - History Present History: Alcohol Dependence, Cannabis Dependence, Cocaine Dependence Additional Comments: PATIENT REFERRED TO [facility] ([place], [place]) FOR AFTERCARE. PATIENT DECLINED OFFER OF NARCAN KIT DISCHARGE PRESCRIPTION AT TIME OF DISCHARGE. PATIENT WAS DISCHARGED FROM DETOX UNIT IN STABLE MEDICAL CONDITION. Pertinent Past History: Asthma, H.I.V., Hep C, History of Bipolar Disorder, Intravenous Drug User (IVDU) , Dehydration, History of Right-Sided Pneumothorax. - Physical Exam Results Vital Signs: Vital Signs Temperature 97 F L 07/29/18 09:53 Pulse Rate 118 H 07/29/18 09:53 Respiratory Rate 18 07/29/18 09:53 Blood Pressure 104/66 07/29/18 09:53 O2 Sat by Pulse Oximetry (%) Pertinent Admission Physical Exam Findings: WITHDRAWAL SYMPTOMS. Laboratory Tests 07/25/18 07/25/18 07/25/18 07:00 07:00 07:00 WBC 4.8 RBC 4.26 Hgb 13.2 Hct 38.9 MCV 91.4 MCH 30.9 D MCHC 33.9 RDW 13.0 D Plt Count 236 MPV 8.9 Sodium 137 Potassium 4.2 Chloride 103 Carbon Dioxide 28 Anion Gap 6 L BUN 8 Creatinine 0.8 Creat Clearance w eGFR > 60 Random Glucose 85 Calcium 8.4 L Total Bilirubin 0.3 AST 29 ALT 28 Alkaline Phosphatase 61 Total Protein 6.1 L Albumin 2.9 L RPR Titer Nonreactive LABS NOTED. - Treatment Hospital Course: Detox Protocol Followed, Detoxed Safely, Responded well, Discharged Condition Good Patient has Accepted a Rehab Referral to: PT. REFERRED TO [facility] ([place], [place]). - Medication Discharge Medications: Ambulatory Orders traZODone HCL [Trazodone HCl] 100 mg PO HS 11/26/17 Naloxone HCl [Narcan] 4 mg NS ASDIR PRN #1 spray 07/28/18 - Diagnosis (1) Cannabis dependence Status: Acute (2) Cocaine dependence Status: Acute Qualifiers: Substance use status: uncomplicated Qualified Code(s): F14.20 - Cocaine dependence, uncomplicated (3) HIV (human immunodeficiency virus infection) Status: Acute Qualifiers: HIV symptom status: unspecified Qualified Code(s): B20 - Human immunodeficiency virus [HIV] disease (4) IVDU (intravenous drug user) Status: Chronic (5) Nicotine dependence Status: Acute Qualifiers: Nicotine product type: cigarettes Substance use status: other nicotine- induced disorder Qualified Code(s): F17.218 - Nicotine dependence, cigarettes , with other nicotine-induced disorders (6) Opioid dependence with withdrawal Status: Acute (7) Pneumothorax, left Status: Acute (8) Weight loss Status: Acute (9) Asthma Status: Chronic Qualifiers: Asthma severity: mild Asthma persistence: intermittent Asthma complication type: uncomplicated Qualified Code(s): J45.20 - Mild intermittent asthma, uncomplicated (10) Dehydration Status: Acute (11) Hepatitis C Status: Chronic Qualifiers: Viral hepatitis chronicity: chronic Hepatic coma status: without hepatic coma Qualified Code(s): B18.2 - Chronic viral hepatitis C - AMA Did Patient Leave Against Medical Advice: No
== END 2018-07-29 11:05 | disposition home or self-care (01) | DRG 897 ==
LOC: YASAS 09:03 → Y3N 09:59
PROVIDERS: ADMIT Surgery; ATTEND Surgery
PROC: HZ2ZZZZ Detoxification Services for Substance Abuse Treatment (ICD-10-PCS; principal; 2018-07-24)
DX: F10.230 Alcohol dependence with withdrawal, uncomplicated (principal); F14.20 Cocaine dependence, uncomplicated; F12.20 Cannabis dependence, uncomplicated; F17.218 Nicotine dependence, cigarettes, with other nicotine-induced disorders; F31.9 Bipolar disorder, unspecified; Z21 Asymptomatic human immunodeficiency virus [HIV] infection status; J45.20 Mild intermittent asthma, uncomplicated; E86.0 Dehydration; B18.2 Chronic viral hepatitis C; Z87.09 Personal history of other diseases of the respiratory system
CPT/HCPCS: 36415; 80053; 85027; 86593; J0735

== ENCOUNTER 2018-11-05 10:21 | Inpatient (IN) | payer BC ==
[2018-11-05 10:48] VITALS: BMI 22.0
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
[2018-11-05] MEDS ORDERED: ONDANSETRON *ODT* 4 MG TABLET SL PRN (11:29)
[2018-11-05] MEDS ORDERED: cloNIDine HCL 0.1 MG TABLET PO PRN (11:29)
[2018-11-05] MEDS ORDERED: MAG HYDROX/AL HYDROX/SIMETH 30 ML UNIT-DOSE CUP PO PRN (11:29)
[2018-11-05] MEDS ORDERED: MAGNESIUM HYDROX 2400MG/30ML ORAL SUSPENSION 30 ML CUP PO PRN (11:29)
[2018-11-05] MEDS ORDERED: METHOCARBAMOL 500 MG TABLET PO PRN (11:29)
[2018-11-05] MEDS ORDERED: P-EPHED 60MG/TRIPROLIDI 2.5MG TABLET PO PRN (11:29)
[2018-11-05] MEDS ORDERED: hydrOXYzine PAMOATE 50 MG CAPSULE (FP) PO PRN (11:29)
[2018-11-05] MEDS ORDERED: BISMUTH SUBSALICYLATE 524 MG/30 ML UD PO PRN (11:29)
[2018-11-05] MEDS ORDERED: MELATONIN 5 MG TABLETS PO PRN (11:29)
[2018-11-05] MEDS ORDERED: METHADONE HCL 10 MG TABLET (FOR DETOX USE ONLY) PO ONE ×2 (11:29→23:00)
[2018-11-05] MEDS ORDERED: NICOTINE POLACRILEX 2 MG GUM BUC PRN (11:29)
[2018-11-05] MEDS ORDERED: MENTHOL/PHENOL 1 EACH UD MM PRN (11:29)
[2018-11-05] MEDS ORDERED: NALOXONE HCL 0.4 MG/ML VIAL IVPUSH PRN (11:29)
[2018-11-05] MEDS ORDERED: ACETAMINOPHEN 325 MG TABLET (FP) PO PRN ×2 (11:29)
[2018-11-05] MEDS ORDERED: MAGNESIUM CITRATE 300 ML BOTTLE PO PRN (11:29)
[2018-11-05] MEDS ORDERED: IBUPROFEN 400 MG TABLET (FP) PO PRN (11:29)
[2018-11-05] MEDS: NICOTINE 14 MG/24 HOURS TOPICAL PATCH TD SCH (14:24)
[2018-11-05] MEDS: clonazePAM 0.5 MG TABLET PO PRN ×2 (14:33→22:50)
[2018-11-05] MEDS: THIAMINE HCL 100 MG TABLET (FP) PO SCH (22:49)
[2018-11-06] MEDS ORDERED: METHADONE HCL 5 MG TABLET (FOR DETOX USE ONLY) PO ONE ×2 (10:00→11:41)
[2018-11-06] MEDS: PRENATAL VITAMINS W/ FOLIC ACID TABLET (FP) PO SCH (10:30)
[2018-11-06] MEDS: NICOTINE 14 MG/24 HOURS TOPICAL PATCH TD SCH (10:30)
[2018-11-06] MEDS: clonazePAM 0.5 MG TABLET PO PRN (10:35)
[2018-11-06] MEDS ORDERED: LOPERAMIDE HCL 2 MG CAPSULE PO PRN (12:06)
--- NOTE | 2018-11-06 13:44 | PN ---
BHS COWS - Scale Resting Pulse: 0= [place] 80 or Below Sweatin=Flushed/Facial Moisture Restless Observation: 1= Difficult to Sit Still Pupil Size: 0= Normal to Room Light Bone or Joint Aches: 2= Severe Diffuse Aches Runny Nose/ Eye Tearin= Runny Nose/Eyes GI Upset > 30mins: 1= Stomach Cramp Tremor Observation of Outstretched Hands: 2= Slight Tremor Visible Yawning Observation: 2= >3x During Session Anxiety or Irritability: 2=Irritable/Anxious Goose Flesh Skin: 3=Piloerection COWS Score: 17 S Progress Note (SOAP) Subjective: shakes sweats interrupted sleep body aches anxiety why is my methadone so low with my use of heroin is so large. Objective: 11/06/18 13:40 Vital Signs Temperature 97.5 F L 11/06/18 09:25 Pulse Rate 77 11/06/18 09:25 Respiratory Rate 16 11/06/18 09:25 Blood Pressure 119/63 11/06/18 09:25 O2 Sat by Pulse Oximetry (%) labs pending aaox3 ambulating no acute distress Assessment: 11/06/18 13:40 withdrawal sx Plan: continue detox increase fluids methadone regimen changed and appropriate dose ordered.
[2018-11-06] MEDS: diazePAM 5 MG TABLET PO PRN ×2 (15:24→22:27)
--- NOTE | 2018-11-06 16:53 | EKG ---
Test Reason : Blood Pressure : / mmHG Vent. Rate : 061 BPM Atrial Rate : 061 BPM P-R Int : 108 ms QRS Dur : 108 ms QT Int : 472 ms P-R-T Axes : 036 042 065 degrees QTc Int : 475 ms SINUS RHYTHM WITH SHORT IA MODERATE VOLTAGE CRITERIA FOR LVH, MAY BE NORMAL VARIANT Delta waves noted. BORDERLINE ECG WHEN COMPARED WITH ECG OF 26-NOV-2017 18:28, NO SIGNIFICANT CHANGE WAS FOUND Confirmed by MD MATY, YINA ([id number]) on 11/06/2018 4:53:23 PM Referred By: Confirmed By:YINA RUTLEDGE MD
[2018-11-06] MEDS: THIAMINE HCL 100 MG TABLET (FP) PO SCH (22:25)
[2018-11-07] MEDS ORDERED: METHADONE HCL 10 MG TABLET (FOR DETOX USE ONLY) PO ONE ×2 (10:00)
[2018-11-07] MEDS: NICOTINE 14 MG/24 HOURS TOPICAL PATCH TD SCH (10:35)
[2018-11-07] MEDS: PRENATAL VITAMINS W/ FOLIC ACID TABLET (FP) PO SCH (10:35)
[2018-11-07] MEDS: diazePAM 5 MG TABLET PO PRN ×3 (10:35→22:18)
--- NOTE | 2018-11-07 12:22 | PN ---
BHS COWS - Scale Resting Pulse: 0= [place] 80 or Below Sweatin=Flushed/Facial Moisture Restless Observation: 1= Difficult to Sit Still Pupil Size: 0= Normal to Room Light Bone or Joint Aches: 1= Mild Discomfort Runny Nose/ Eye Tearin= Nasal Congestion GI Upset > 30mins: 2= Nausea/Diarrhea Tremor Observation of Outstretched Hands: 2= Slight Tremor Visible Yawning Observation: 1= 1-2x During Session Anxiety or Irritability: 1=Feels Anxious/Irritable Goose Flesh Skin: 0=Smooth Skin COWS Score: 11 S Progress Note (SOAP) Subjective: diarrhea sweats depression poor appetite interrupted sleep Objective: 11/07/18 12:22 Vital Signs Temperature 98.1 F 11/07/18 09:13 Pulse Rate 67 11/07/18 09:13 Respiratory Rate 17 11/07/18 09:13 Blood Pressure 120/69 11/07/18 09:13 O2 Sat by Pulse Oximetry (%) labs ordered; results pending aaox3 ambulating no acute distress Assessment: 11/07/18 12:28 withdrawal sx Plan: continue detox increase fluids pending labs
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
[2018-11-07] MEDS: CYPROHEPTADINE HCL 4 MG TABLET PO SCH (17:38)
[2018-11-07] MEDS: traZODone HCL 100 MG TABLET (FP) PO SCH (22:16)
[2018-11-07] MEDS: THIAMINE HCL 100 MG TABLET (FP) PO SCH (22:16)
[2018-11-08] MEDS ORDERED: METHADONE HCL 5 MG TABLET (FOR DETOX USE ONLY) PO ONE (06:00)
[2018-11-08] MEDS: CYPROHEPTADINE HCL 4 MG TABLET PO SCH ×3 (07:12→17:30)
[2018-11-08] MEDS ORDERED: METHADONE HCL 10 MG TABLET (FOR DETOX USE ONLY) PO ONE (10:00)
--- NOTE | 2018-11-08 10:16 | PN ---
[facility] CIWA - CIWA Score Nausea/Vomitin-Mild Nausea/No Vomiting Muscle Tremors: 2 Anxiety: 2 Agitation: 2 Paroxysmal Sweats: No Perspiration Orientation: 0-Oriented Tacttile Disturbances: 1-Very Mild Itch/Numbness Auditory Disturbances: 1-Very Mild Visual Disturbances: 0-None Headache: 1-Very Mild CIWA-Ar Total Score: 10 BHS COWS - Scale Resting Pulse: 0= [place] 80 or Below Sweatin= No chills or Flushing Restless Observation: 1= Difficult to Sit Still Pupil Size: 1= Pupils >than Normal Bone or Joint Aches: 1= Mild Discomfort Runny Nose/ Eye Tearin= Nasal Congestion GI Upset > 30mins: 1= Stomach Cramp Tremor Observation of Outstretched Hands: 1= Tremor [place], Not Seen Yawning Observation: 0= None Anxiety or Irritability: 1=Feels Anxious/Irritable Goose Flesh Skin: 0=Smooth Skin COWS Score: 7 [facility] Progress Note (SOAP) Subjective: alert,irritable,anxious,interrupted sleep Objective: 11/08/18 10:15 Vital Signs Temperature 97.3 F L 11/08/18 10:07 Pulse Rate 69 11/08/18 10:07 Respiratory Rate 17 11/08/18 10:07 Blood Pressure 118/79 11/08/18 10:07 O2 Sat by Pulse Oximetry (%) Assessment: 11/08/18 10:15 withdrawal symptom Plan: continue detox,discharge in am
[2018-11-08] MEDS: PRENATAL VITAMINS W/ FOLIC ACID TABLET (FP) PO SCH (10:26)
[2018-11-08] MEDS: NICOTINE 14 MG/24 HOURS TOPICAL PATCH TD SCH (10:26)
[2018-11-08] MEDS: diazePAM 5 MG TABLET PO PRN ×3 (10:29→22:25)
[2018-11-08 21:46] VITALS: BP 119/82; PULSE 79; TEMP 97.5
[2018-11-08] MEDS: THIAMINE HCL 100 MG TABLET (FP) PO SCH (22:21)
[2018-11-08] MEDS: traZODone HCL 100 MG TABLET (FP) PO SCH (22:21)
[2018-11-09] MEDS ORDERED: METHADONE HCL 5 MG TABLET (FOR DETOX USE ONLY) PO ONE (06:00)
[2018-11-09] MEDS: CYPROHEPTADINE HCL 4 MG TABLET PO SCH (06:33)
--- NOTE | 2018-11-09 09:24 | DS ---
[facility] Detox Discharge Summary Admission Date: 11/05/18 Discharge Date: 11/09/18 - History Present History: Alcohol Dependence, Cannabis Dependence, Cocaine Dependence - Physical Exam Results Vital Signs: Vital Signs Temperature 97.5 F L 11/08/18 21:45 Pulse Rate 79 11/08/18 21:45 Respiratory Rate 18 11/09/18 03:30 Blood Pressure 119/82 11/08/18 21:45 O2 Sat by Pulse Oximetry (%) - Treatment Hospital Course: Detox Protocol Followed, Detoxed Safely, Responded well, Discharged Condition Good, Rehab Referral Accepted - Medication Discharge Medications: Ambulatory Orders NK [No Known Home Medication] 11/05/18 - Diagnosis (1) Cannabis dependence Status: Chronic (2) Cocaine dependence Status: Chronic Qualifiers: Substance use status: uncomplicated Qualified Code(s): F14.20 - Cocaine dependence, uncomplicated (3) Dehydration Status: Acute (4) Diarrhea Status: Acute Qualifiers: Diarrhea type: unspecified type Qualified Code(s): R19.7 - Diarrhea, unspecified (5) Drug-induced mood disorder Status: Acute (6) Hepatitis Status: Acute (7) Insomnia Status: Acute (8) Opioid dependence with withdrawal Status: Chronic (9) Pneumothorax, left Status: Acute (10) Substance induced mood disorder Status: Acute (11) Substance-induced sleep disorder Status: Acute (12) Weight loss Status: Acute (13) Asthma Status: Chronic Qualifiers: Asthma severity: mild Asthma persistence: intermittent Asthma complication type: uncomplicated Qualified Code(s): J45.20 - Mild intermittent asthma, uncomplicated (14) Bipolar disorder Status: Chronic (15) Bipolar disorder Status: Chronic (16) HIV (human immunodeficiency virus infection) Status: Chronic Qualifiers: HIV symptom status: asymptomatic Qualified Code(s): Z21 - Asymptomatic human immunodeficiency virus [HIV] infection status (17) Hepatitis C Status: Chronic Qualifiers: Viral hepatitis chronicity: chronic Hepatic coma status: without hepatic coma Qualified Code(s): B18.2 - Chronic viral hepatitis C (18) Nicotine dependence Status: Chronic Qualifiers: Nicotine product type: cigarettes Substance use status: uncomplicated Qualified Code(s): F17.210 - Nicotine dependence, cigarettes, uncomplicated - AMA Did Patient Leave Against Medical Advice: No (pt declined; going home)
== END 2018-11-09 08:55 | disposition home or self-care (01) | DRG 897 ==
LOC: YASAS 10:21 → Y6N 11:23
PROVIDERS: ADMIT Surgery; ATTEND Surgery
PROC: HZ2ZZZZ Detoxification Services for Substance Abuse Treatment (ICD-10-PCS; principal; 2018-11-05)
DX: F11.23 Opioid dependence with withdrawal (principal); F14.20 Cocaine dependence, uncomplicated; F19.282 Other psychoactive substance dependence with psychoactive substance-induced sleep disorder; F12.20 Cannabis dependence, uncomplicated; F17.210 Nicotine dependence, cigarettes, uncomplicated; F19.24 Other psychoactive substance dependence with psychoactive substance-induced mood disorder; F31.9 Bipolar disorder, unspecified; E86.0 Dehydration; R19.7 Diarrhea, unspecified; G47.00 Insomnia, unspecified; R63.4 Abnormal weight loss; J45.909 Unspecified asthma, uncomplicated; Z21 Asymptomatic human immunodeficiency virus [HIV] infection status; B18.2 Chronic viral hepatitis C
CPT/HCPCS: 93005; 93010

== ENCOUNTER 2018-12-08 08:54 | Inpatient (IN) | payer BC, OTHER ==
[2018-12-08 10:22] VITALS: BMI 22.1
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
[2018-12-08] MEDS ORDERED: cloNIDine HCL 0.1 MG TABLET PO PRN (13:44)
[2018-12-08] MEDS ORDERED: ACETAMINOPHEN 325 MG TABLET (FP) PO PRN (13:45)
[2018-12-08] MEDS ORDERED: MAG HYDROX/AL HYDROX/SIMETH 30 ML UNIT-DOSE CUP PO PRN (13:45)
[2018-12-08] MEDS ORDERED: IBUPROFEN 400 MG TABLET (FP) PO PRN (13:45)
[2018-12-08] MEDS ORDERED: hydrOXYzine PAMOATE 25 MG CAPSULE (FP) PO PRN (13:45)
[2018-12-08] MEDS ORDERED: MAGNESIUM HYDROX 2400MG/30ML ORAL SUSPENSION 30 ML CUP PO PRN (13:45)
[2018-12-08] MEDS ORDERED: MELATONIN 5 MG TABLETS PO PRN (13:45)
[2018-12-08] MEDS ORDERED: BISMUTH SUBSALICYLATE 262 MG/15 ML BTL PO PRN (13:45)
[2018-12-08] MEDS ORDERED: MENTHOL/PHENOL 1 EACH UD MM PRN (13:45)
[2018-12-08] MEDS ORDERED: ALBUTEROL SO4 0.083% IH SOL 2.5 MG/3 ML VIAL.NEB. NEB PRN (13:50)
--- NOTE | 2018-12-08 13:53 | PN ---
Teaching Attending Note Name of Resident: Sara Haro ATTENDING PHYSICIAN STATEMENT I saw and evaluated the patient. I reviewed the resident's note and discussed the case with the resident. I agree with the resident's findings and plan as documented. SUBJECTIVE:pt here requesting detox from opiate use reports 12 bundle ivdu in left UE , latest use yesterday , current symptoms as above . PMH asthma, bipolar, HIV (unknown recent cd4 and VL. last cd4 116 in 2017), hep c (no tx), pancreatitis, cocaine : 1 bag/daily via IVDA. K2: $10 bags/daily. tobacco 1/2 ppd OBJECTIVE: wnwd , mild distress ASSESSMENT AND PLAN: Opiate dependence - Methadone detox protocol . pt agreeable w/ POC .
[2018-12-08] MEDS ORDERED: METHADONE HCL 10 MG TABLET (FOR DETOX USE ONLY) PO ONE (14:15)
[2018-12-08] MEDS: NICOTINE 7 MG/24 HOURS TOPICAL PATCH TD SCH (15:53)
[2018-12-08] MEDS: THIAMINE HCL 100 MG TABLET (FP) PO SCH (22:09)
[2018-12-09] MEDS ORDERED: METHADONE HCL 5 MG TABLET (FOR DETOX USE ONLY) ONE (08:25)
[2018-12-09] MEDS ORDERED: METHADONE HCL 10 MG TABLET (FOR DETOX USE ONLY) ONE (08:25)
[2018-12-09] MEDS ORDERED: METHADONE (DETOX) 20 MG, METHADONE (DETOX) 5 MG PO ONE (10:00)
[2018-12-09] MEDS: PRENATAL VITAMINS W/ FOLIC ACID TABLET (FP) PO SCH (10:08)
[2018-12-09] MEDS: NICOTINE 7 MG/24 HOURS TOPICAL PATCH TD SCH (10:09)
[2018-12-09] MEDS ORDERED: PNEUMOC 13-VAL CONJ-DIP CRM/PF 0.5 ML DISP.SYRIN IM ONE (12:00)
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
--- NOTE | 2018-12-09 14:14 | PN ---
[facility] COWS - Scale Resting Pulse: 0= [place] 80 or Below Sweatin= Chills/Flushing Restless Observation: 1= Difficult to Sit Still Pupil Size: 1= Pupils >than Normal Bone or Joint Aches: 1= Mild Discomfort Runny Nose/ Eye Tearin= Nasal Congestion GI Upset > 30mins: 1= Stomach Cramp Tremor Observation of Outstretched Hands: 1= Tremor [place], Not Seen Yawning Observation: 0= None Anxiety or Irritability: 2=Irritable/Anxious Goose Flesh Skin: 0=Smooth Skin COWS Score: 9 S Progress Note (SOAP) Subjective: interrupted sleep, sweats, would like valium with his opioid detox as on previous admissions -feeling anxious Objective: 12/09/18 14:12 Vital Signs Temperature 97.1 F L 12/09/18 13:33 Pulse Rate 61 12/09/18 13:33 Respiratory Rate 18 12/09/18 13:33 Blood Pressure 123/88 12/09/18 13:33 O2 Sat by Pulse Oximetry (%) pending labs pt aox3 in nad ambulating Assessment: 12/09/18 14:13 withdrawal sx's Plan: cont. detox increase fluids start valium protocol with methadone . f/up pending labs
[2018-12-09] MEDS: diazePAM 5 MG TABLET PO SCH ×2 (15:03→22:33)
[2018-12-09] MEDS: THIAMINE HCL 100 MG TABLET (FP) PO SCH (22:33)
[2018-12-09] MEDS: traZODone HCL 100 MG TABLET (FP) PO SCH (22:33)
[2018-12-10] MEDS: diazePAM 5 MG TABLET PO SCH ×3 (05:13→22:30)
[2018-12-10] MEDS ORDERED: METHADONE HCL 10 MG TABLET (FOR DETOX USE ONLY) PO ONE (10:00)
[2018-12-10] MEDS: PRENATAL VITAMINS W/ FOLIC ACID TABLET (FP) PO SCH (10:35)
[2018-12-10] MEDS: NICOTINE 7 MG/24 HOURS TOPICAL PATCH TD SCH (10:35)
[2018-12-10] MEDS: diazePAM 5 MG TABLET PO PRN ×2 (10:38→18:10)
[2018-12-10] MEDS ORDERED: TRIMETHOBENZAMIDE HCL 200MG/2ML INJ IM PRN (12:55)
--- NOTE | 2018-12-10 15:10 | PN ---
[facility] COWS - Scale Resting Pulse: 0= [place] 80 or Below Sweatin= Chills/Flushing Restless Observation: 1= Difficult to Sit Still Pupil Size: 0= Normal to Room Light Bone or Joint Aches: 0= None Runny Nose/ Eye Tearin= Nasal Congestion GI Upset > 30mins: 2= Nausea/Diarrhea Tremor Observation of Outstretched Hands: 0= None Yawning Observation: 1= 1-2x During Session Anxiety or Irritability: 4=Extreme Anxiety Goose Flesh Skin: 0=Smooth Skin COWS Score: 10 BHS Progress Note (SOAP) Subjective: Anxious, Restless, Nausea, Poor Appetite. Objective: PATIENT A & O X 3, OBSERVED AMBULATING ON UNIT UNASSISTED. IN NO ACUTE DISTRESS. 12/10/18 15:09 Vital Signs Temperature 98.4 F 12/10/18 13:57 Pulse Rate 77 12/10/18 13:57 Respiratory Rate 18 12/10/18 13:57 Blood Pressure 117/80 12/10/18 13:57 O2 Sat by Pulse Oximetry (%) ADMISSION LAB RESULTS PENDING. 12/10/18 15:11 Assessment: 12/10/18 15:11 WITHDRAWAL SYMPTOMS. Plan: CONTINUE DETOX. ENSURE PO FOR CALORIC SUPPLEMENTATION.
[2018-12-10] MEDS: traZODone HCL 100 MG TABLET (FP) PO SCH (22:30)
[2018-12-10] MEDS: THIAMINE HCL 100 MG TABLET (FP) PO SCH (22:30)
[2018-12-11] MEDS: diazePAM 5 MG TABLET PO SCH ×2 (05:11→17:24)
[2018-12-11] MEDS ORDERED: METHADONE HCL 10 MG TABLET (FOR DETOX USE ONLY) ONE (08:52)
[2018-12-11] MEDS ORDERED: METHADONE HCL 5 MG TABLET (FOR DETOX USE ONLY) ONE (08:52)
--- NOTE | 2018-12-11 09:32 | PN ---
[facility] COWS - Scale Resting Pulse: 1= [place] 81-100 Sweatin= Chills/Flushing Restless Observation: 0= Sits Still Pupil Size: 0= Normal to Room Light Bone or Joint Aches: 1= Mild Discomfort Runny Nose/ Eye Tearin= Nasal Congestion GI Upset > 30mins: 1= Stomach Cramp Tremor Observation of Outstretched Hands: 1= Tremor [place], Not Seen Yawning Observation: 2= >3x During Session Anxiety or Irritability: 1=Feels Anxious/Irritable Goose Flesh Skin: 0=Smooth Skin COWS Score: 9 BHS Progress Note (SOAP) Subjective: doing well with [facility] detox regimen alert less body aches today mild tremor patient prefers aftercare at [facility] Objective: 12/11/18 09:31 Vital Signs Temperature 97 F L 12/11/18 09:07 Pulse Rate 84 12/11/18 09:07 Respiratory Rate 18 12/11/18 09:07 Blood Pressure 124/80 12/11/18 09:07 O2 Sat by Pulse Oximetry (%) 12/11/18 09:34 lab pending Assessment: 12/11/18 09:34 opiate withdrawal sx Plan: continue opiate detox
[2018-12-11] MEDS ORDERED: METHADONE (DETOX) 10 MG, METHADONE (DETOX) 5 MG PO ONE (10:00)
[2018-12-11] MEDS: PRENATAL VITAMINS W/ FOLIC ACID TABLET (FP) PO SCH (10:38)
[2018-12-11] MEDS: NICOTINE 7 MG/24 HOURS TOPICAL PATCH TD SCH (10:39)
[2018-12-11] MEDS: diazePAM 5 MG TABLET PO PRN ×3 (10:41→22:18)
[2018-12-11 10:47] LABS: BASO % 0.6 % (0-2.0); EOS % 3.4 % (0-4.5); HEMATOCRIT 43.6 % (35.4-49); MCH 27.9 pg (25.7-33.7); MCHC 32.1 g/dl (32.0-35.9); MEAN CELL VOLUME 86.9 fl (80-96); MEAN PLT VOLUME 9.1 fl (7.5-11.1); MONO % 9.8 % (3.8-10.2); NEUT % 48.2 % (42.8-82.8); PLATELET COUNT 244 K/MM3 (134-434); RBC 5.02 M/mm3 (4.00-5.60); RDW 15.4 % (11.9-15.9); WHITE BLOOD COUNT 5.1 K/mm3 (4.0-10.0)
[2018-12-11 10:52] LABS: ALBUMIN 3.3 g/dl (3.4-5.0); BILIRUBIN,TOTAL 0.5 mg/dL (0.2-1); CALCIUM 8.6 mg/dL (8.5-10.1); CREATININE 0.8 mg/dL (0.55-1.3); POTASSIUM 4.2 mmol/L (3.5-5.1); TOT PROT 7.1 g/dl (6.4-8.2)
[2018-12-11] MEDS: traZODone HCL 100 MG TABLET (FP) PO SCH (22:17)
[2018-12-11] MEDS: THIAMINE HCL 100 MG TABLET (FP) PO SCH (22:17)
[2018-12-12] MEDS ORDERED: diazePAM 5 MG TABLET PO ONE (06:00)
[2018-12-12] MEDS ORDERED: METHADONE HCL 10 MG TABLET (FOR DETOX USE ONLY) PO ONE (10:00)
[2018-12-12] MEDS: PRENATAL VITAMINS W/ FOLIC ACID TABLET (FP) PO SCH (10:11)
[2018-12-12] MEDS: diazePAM 5 MG TABLET PO PRN (10:11)
[2018-12-12] MEDS: NICOTINE 7 MG/24 HOURS TOPICAL PATCH TD SCH (10:12)
[2018-12-12] MEDS ORDERED: ONDANSETRON *ODT* 4 MG TABLET SL PRN (14:58)
--- NOTE | 2018-12-12 15:56 | PN ---
S CIWA - CIWA Score Nausea/Vomitin-No Nausea/No Vomiting Muscle Tremors: 2 Anxiety: 2 Agitation: 1-Slight > Activity Paroxysmal Sweats: 1-Minimal Palms Moist Orientation: 0-Oriented Tacttile Disturbances: 0-None Auditory Disturbances: 0-None Visual Disturbances: 0-None Headache: 0-None Present CIWA-Ar Total Score: 6 B[facility] Progress Note (SOAP) Subjective: feeling better today discuss aftercare with staff patient prefers [facility] Objective: 12/12/18 16:02 Vital Signs Temperature 96.8 F L 12/12/18 13:23 Pulse Rate 83 12/12/18 13:23 Respiratory Rate 18 12/12/18 13:23 Blood Pressure 106/71 12/12/18 13:23 O2 Sat by Pulse Oximetry (%) Laboratory Last Values WBC 5.1 K/mm3 (4.0-10.0) 12/11/18 07:50 RBC 5.02 M/mm3 (4.00-5.60) 12/11/18 07:50 Hgb 14.0 GM/dL (11.7-16.9) 12/11/18 07:50 Hct 43.6 % (35.4-49) 12/11/18 07:50 MCV 86.9 fl (80-96) 12/11/18 07:50 MCH 27.9 pg (25.7-33.7) 12/11/18 07:50 MCHC 32.1 g/dl (32.0-35.9) 12/11/18 07:50 RDW 15.4 % (11.9-15.9) D 12/11/18 07:50 Plt Count 244 K/MM3 (134-434) 12/11/18 07:50 MPV 9.1 fl (7.5-11.1) 12/11/18 07:50 Absolute Neuts (auto) 2.5 K/mm3 (1.5-8.0) 12/11/18 07:50 Neutrophils % 48.2 % (42.8-82.8) D 12/11/18 07:50 Lymphocytes % 38.0 % (8-40) D 12/11/18 07:50 Monocytes % 9.8 % (3.8-10.2) 12/11/18 07:50 Eosinophils % 3.4 % (0-4.5) D 12/11/18 07:50 Basophils % 0.6 % (0-2.0) 12/11/18 07:50 Nucleated RBC % 0 % (0-0) 12/11/18 07:50 Sodium 140 mmol/L (136-145) 12/11/18 07:50 Potassium 4.2 mmol/L (3.5-5.1) 12/11/18 07:50 Chloride 104 mmol/L (98-107) 12/11/18 07:50 Carbon Dioxide 31 mmol/L (21-32) 12/11/18 07:50 Anion Gap 5 MMOL/L (8-16) L 12/11/18 07:50 BUN 9.0 mg/dL (7-18) 12/11/18 07:50 Creatinine 0.8 mg/dL (0.55-1.3) 12/11/18 07:50 Est GFR (CKD-EPI)AfAm 135.08 12/11/18 07:50 Est GFR (CKD-EPI)NonAf 116.55 12/11/18 07:50 Random Glucose 79 mg/dL (74-106) 12/11/18 07:50 Calcium 8.6 mg/dL (8.5-10.1) 12/11/18 07:50 Total Bilirubin 0.5 mg/dL (0.2-1) 12/11/18 07:50 AST 46 U/L (15-37) H 12/11/18 07:50 ALT 59 U/L (13-61) 12/11/18 07:50 Alkaline Phosphatase 94 U/L (45-117) 12/11/18 07:50 Total Protein 7.1 g/dl (6.4-8.2) 12/11/18 07:50 Albumin 3.3 g/dl (3.4-5.0) L 12/11/18 07:50 lab noted Assessment: 12/12/18 16:02 opiate withdrawal sx Plan: continue opiate detox
[2018-12-12] MEDS: THIAMINE HCL 100 MG TABLET (FP) PO SCH (22:08)
[2018-12-12] MEDS: traZODone HCL 100 MG TABLET (FP) PO SCH (22:08)
[2018-12-13] MEDS ORDERED: METHADONE HCL 5 MG TABLET (FOR DETOX USE ONLY) PO ONE (06:00)
[2018-12-13 09:06] VITALS: BP 119/77; PULSE 99; TEMP 97.1
--- NOTE | 2018-12-13 15:18 | DS ---
[facility] Detox Discharge Summary Admission Date: 12/08/18 Discharge Date: 12/13/18 - History Present History: Opioid Dependence Additional Comments: 32 years old male admitted on 12/08/18 for acute opiate withdrawal sx management doing well with valium and methadone detox regimen no complication throughout the detox stay alert oriented x 3 denies dizziness denies shortness of breathe prefers [facility]care to [facility] - Physical Exam Results Vital Signs: Vital Signs Temperature 97.1 F L 12/13/18 09:05 Pulse Rate 99 H 12/13/18 09:05 Respiratory Rate 18 12/13/18 09:05 Blood Pressure 119/77 12/13/18 09:05 O2 Sat by Pulse Oximetry (%) Pertinent Admission Physical Exam Findings: opiate withdrawal sx Laboratory Last Values WBC 5.1 K/mm3 (4.0-10.0) 12/11/18 07:50 RBC 5.02 M/mm3 (4.00-5.60) 12/11/18 07:50 Hgb 14.0 GM/dL (11.7-16.9) 12/11/18 07:50 Hct 43.6 % (35.4-49) 12/11/18 07:50 MCV 86.9 fl (80-96) 12/11/18 07:50 MCH 27.9 pg (25.7-33.7) 12/11/18 07:50 MCHC 32.1 g/dl (32.0-35.9) 12/11/18 07:50 RDW 15.4 % (11.9-15.9) D 12/11/18 07:50 Plt Count 244 K/MM3 (134-434) 12/11/18 07:50 MPV 9.1 fl (7.5-11.1) 12/11/18 07:50 Absolute Neuts (auto) 2.5 K/mm3 (1.5-8.0) 12/11/18 07:50 Neutrophils % 48.2 % (42.8-82.8) D 12/11/18 07:50 Lymphocytes % 38.0 % (8-40) D 12/11/18 07:50 Monocytes % 9.8 % (3.8-10.2) 12/11/18 07:50 Eosinophils % 3.4 % (0-4.5) D 12/11/18 07:50 Basophils % 0.6 % (0-2.0) 12/11/18 07:50 Nucleated RBC % 0 % (0-0) 12/11/18 07:50 Sodium 140 mmol/L (136-145) 12/11/18 07:50 Potassium 4.2 mmol/L (3.5-5.1) 12/11/18 07:50 Chloride 104 mmol/L (98-107) 12/11/18 07:50 Carbon Dioxide 31 mmol/L (21-32) 12/11/18 07:50 Anion Gap 5 MMOL/L (8-16) L 12/11/18 07:50 BUN 9.0 mg/dL (7-18) 12/11/18 07:50 Creatinine 0.8 mg/dL (0.55-1.3) 12/11/18 07:50 Est GFR (CKD-EPI)AfAm 135.08 12/11/18 07:50 Est GFR (CKD-EPI)NonAf 116.55 12/11/18 07:50 Random Glucose 79 mg/dL (74-106) 12/11/18 07:50 Calcium 8.6 mg/dL (8.5-10.1) 12/11/18 07:50 Total Bilirubin 0.5 mg/dL (0.2-1) 12/11/18 07:50 AST 46 U/L (15-37) H 12/11/18 07:50 ALT 59 U/L (13-61) 12/11/18 07:50 Alkaline Phosphatase 94 U/L (45-117) 12/11/18 07:50 Total Protein 7.1 g/dl (6.4-8.2) 12/11/18 07:50 Albumin 3.3 g/dl (3.4-5.0) L 12/11/18 07:50 lab noted - Treatment Hospital Course: Detox Protocol Followed, Detoxed Safely, Responded well, Discharged Condition Good, Rehab Referral Accepted Patient has Accepted a Rehab Referral to: [facility] - Medication Discharge Medications: Ambulatory Orders NK [No Known Home Medication] 11/05/18 - Diagnosis (1) Opioid dependence with withdrawal Status: Acute (2) Substance induced mood disorder Status: Suspected (3) Weight loss Status: Acute (4) Asthma Status: Chronic Qualifiers: Asthma severity: mild Asthma persistence: intermittent Asthma complication type: uncomplicated Qualified Code(s): J45.20 - Mild intermittent asthma, uncomplicated (5) HIV (human immunodeficiency virus infection) Status: Chronic Qualifiers: HIV symptom status: asymptomatic Qualified Code(s): Z21 - Asymptomatic human immunodeficiency virus [HIV] infection status (6) Hepatitis C Status: Chronic Qualifiers: Viral hepatitis chronicity: chronic Hepatic coma status: without hepatic coma Qualified Code(s): B18.2 - Chronic viral hepatitis C (7) Nicotine dependence Status: Acute Qualifiers: Nicotine product type: cigarettes Substance use status: in withdrawal Qualified Code(s): F17.213 - Nicotine dependence, cigarettes, with withdrawal - AMA Did Patient Leave Against Medical Advice: No
== END 2018-12-13 09:16 | disposition home or self-care (01) | DRG 897 ==
LOC: YASAS 08:54 → Y3N 14:13
PROVIDERS: ADMIT Surgery; ATTEND Surgery
PROC: HZ2ZZZZ Detoxification Services for Substance Abuse Treatment (ICD-10-PCS; principal; 2018-12-08)
DX: F11.23 Opioid dependence with withdrawal (principal); F14.20 Cocaine dependence, uncomplicated; F19.282 Other psychoactive substance dependence with psychoactive substance-induced sleep disorder; F12.20 Cannabis dependence, uncomplicated; F17.210 Nicotine dependence, cigarettes, uncomplicated; F19.24 Other psychoactive substance dependence with psychoactive substance-induced mood disorder; F39 Unspecified mood [affective] disorder; Z21 Asymptomatic human immunodeficiency virus [HIV] infection status; B18.2 Chronic viral hepatitis C; R63.4 Abnormal weight loss; J45.909 Unspecified asthma, uncomplicated; R00.0 Tachycardia, unspecified
CPT/HCPCS: 36415; 80053; 85025; 90670

== ENCOUNTER 2019-01-01 08:35 | Inpatient (IN) | payer OTHER ==
[2019-01-01 09:43] VITALS: BMI 22.5
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
[2019-01-01] MEDS ORDERED: MAGNESIUM CITRATE 300 ML BOTTLE PO PRN (11:31)
[2019-01-01] MEDS ORDERED: MAG HYDROX/AL HYDROX/SIMETH 30 ML UNIT-DOSE CUP PO PRN (11:31)
[2019-01-01] MEDS ORDERED: METHADONE HCL 10 MG TABLET (FOR DETOX USE ONLY) PO ONE (11:31)
[2019-01-01] MEDS ORDERED: MENTHOL/PHENOL 1 EACH UD MM PRN (11:31)
[2019-01-01] MEDS ORDERED: cloNIDine HCL 0.1 MG TABLET PO PRN (11:31)
[2019-01-01] MEDS ORDERED: ACETAMINOPHEN 325 MG TABLET (FP) PO PRN ×2 (11:31)
[2019-01-01] MEDS ORDERED: BISMUTH SUBSALICYLATE 524 MG/30 ML UD PO PRN (11:31)
[2019-01-01] MEDS ORDERED: hydrOXYzine PAMOATE 25 MG CAPSULE (FP) PO PRN (11:31)
[2019-01-01] MEDS ORDERED: IBUPROFEN 400 MG TABLET (FP) PO PRN (11:31)
[2019-01-01] MEDS ORDERED: MAGNESIUM HYDROX 2400MG/30ML ORAL SUSPENSION 30 ML CUP PO PRN (11:31)
[2019-01-01] MEDS ORDERED: NICOTINE POLACRILEX 2 MG GUM BUC PRN (11:31)
[2019-01-01] MEDS ORDERED: METHOCARBAMOL 500 MG TABLET PO PRN (11:31)
[2019-01-01] MEDS ORDERED: ALBUTEROL SO4 8 GM HFA INHALER IH PRN (11:35)
[2019-01-01] MEDS: NICOTINE 21 MG/24 HOURS TOPICAL PATCH TD SCH (12:09)
[2019-01-01] MEDS: diazePAM 5 MG TABLET PO PRN ×3 (12:09→23:12)
--- NOTE | 2019-01-01 16:51 | CONSULT ---
[facility] Psychiatric Consult - Data Date of interview: 01/01/19 Admission source: [facility] Identifying data: This is one of multiple admissions to [facility] for this 33 y/ o [place] male self-referred for detoxification (alcohol, cocaine, heroin, marijuana/K2). Patient is , a father of three (claimed no dependents at a previous interview), domiciled and employed as a [employer]. Substance Abuse History: Confirmed by patient. Details in current [facility] report as follows : Smoking history: Current every day smoker. Have you smoked in the past 12 months: Yes. Aproximately how many cigarettes per day: 10. Cigars Per Day: 0. Hx Chewing Tobacco Use: No. Initiated information on smoking cessation : Yes. 'Breaking Loose' booklet given: 01/01/19. - Substance & Tx. History. Hx Alcohol Use: No. Hx Substance Use: Yes. Substance Use Type: Cocaine, Heroin. Hx Substance Use Treatment: Yes ([facility]18 12/13/18). - Substances abused. Heroin. Substance route: Injection. Frequency: Daily. Amount used : 200 dollars 20 BAGS. Age of first use: 17. Date of last use: 01/01/19. Cocaine. Substance route: Injection. Frequency: Daily. Amount used: 200 dollars. Age of first use: 17. Date of last use: 01/01/19. K2/Spice. Substance route: Smoking. Frequency: Daily. Amount used: 10-20 sticks. Age of first use: 5. Date of last use: 01/01/19 Medical History: Medical profile is remarkable for HIV infection since 2011 ( not on ART meds), hepatitis C and bronchial asthma. Psychiatric History: Patient endorses the diagnosis of Bipolar Disorder. Onset of psychiatric disturbances : age 15. History of multiple psychiatric hospitalizations ([facility] in [facility] + [facility]). Mr Silva reports past treatment with various psychotropic medications (seroquel, abilify, trazodone). Has no contact with OPD care providers. Patient denies history of suicide attempts (records indicate a history of one suicide attempt, age 17, via self-mutilation, as the reason for patient's first psychiatric hospitalization in [facility]). Physical/Sexual Abuse/Trauma History: Patient denies. Additional Comment: Urine drug screen results: MAILE-Cocaine, MOP-Opiates. Noted. Mental Status Exam - Mental Status Exam Alert and Oriented to: Time, Place, Person Cognitive Function: Good Patient Appearance: Unkempt, Disheveled Mood: Nervous, Withdrawn Affect: Mood Congruent, Constricted Patient Behavior: Fatigued, Appropriate, Cooperative Speech Pattern: Clear (communicates with limited czech proficiency) Voice Loudness: Normal Thought Process: Goal Oriented Thought Disorder: Not Present Hallucinations: Denies Suicidal Ideation: Denies Homicidal Ideation: Denies Insight/Judgement: Poor Sleep: Poorly, Difficulty falling asleep (prior to admission.) Appetite: Good (observed eating his meal) Muscle strength/Tone: Normal Gait/Station: Other (not observed; in bed for entirety of interview) Psychiatric Findings - Problem List ([place] 1, 2,3) (1) Opioid dependence with withdrawal Status: Acute (2) Cocaine dependence Status: Chronic (3) Cannabis dependence Status: Chronic (4) Nicotine dependence Status: Chronic Qualifiers: Nicotine product type: cigarettes Substance use status: in withdrawal Qualified Code(s): F17.213 - Nicotine dependence, cigarettes, with withdrawal (5) Substance induced mood disorder Status: Chronic (6) Bipolar disorder Status: Chronic Comment: As per self-report and existing records. Non compliant with OPD care. (7) Insomnia Status: Chronic Qualifiers: Insomnia type: unspecified Qualified Code(s): G47.00 - Insomnia, unspecified - Initial Treatment Plan Initial Treatment Plan: Psychoeducation. Sleep hygiene. Detoxification. Support. Patient decides to resume trazodone in this hospital course. Risk of priapism explained to the patient. Gave consent (verbal) to . Trazodone 50 mg po hs. NA meetings. Counseling. Observation.
[2019-01-01] MEDS: traZODone HCL 50 MG TABLET (FP) PO SCH (23:12)
[2019-01-01] MEDS: THIAMINE HCL 100 MG TABLET (FP) PO SCH (23:12)
[2019-01-01] MEDS: MELATONIN 5 MG TABLETS PO PRN (23:12)
[2019-01-02] MEDS ORDERED: METHADONE (DETOX) 20 MG, METHADONE (DETOX) 5 MG PO ONE (10:00)
[2019-01-02] MEDS ORDERED: METHADONE HCL 10 MG TABLET (FOR DETOX USE ONLY) ONE (10:35)
[2019-01-02] MEDS ORDERED: METHADONE HCL 5 MG TABLET (FOR DETOX USE ONLY) ONE (10:35)
[2019-01-02] MEDS: PRENATAL VITAMINS W/ FOLIC ACID TABLET (FP) PO SCH (10:36)
[2019-01-02] MEDS: NICOTINE 21 MG/24 HOURS TOPICAL PATCH TD SCH (10:36)
[2019-01-02] MEDS: diazePAM 5 MG TABLET PO PRN ×3 (10:36→22:22)
[2019-01-02 13:11] LABS: HEMATOCRIT 41.6 % (35.4-49); HEMOGLOBIN 13.5 GM/dL (11.7-16.9); MCH 28.5 pg (25.7-33.7); MCHC 32.4 g/dl (32.0-35.9); MEAN CELL VOLUME 87.8 fl (80-96); MEAN PLT VOLUME 9.5 fl (7.5-11.1); PLATELET COUNT 240 K/MM3 (134-434); RBC 4.73 M/mm3 (4.00-5.60); RDW 15.7 % (11.9-15.9); WHITE BLOOD COUNT 5.6 K/mm3 (4.0-10.0)
[2019-01-02 13:19] LABS: ALBUMIN 3.2 g/dl (3.4-5.0); ALK PHOS 71 U/L (45-117); ANION GAP 7 MMOL/L (8-16); BILIRUBIN,TOTAL < 0.1 mg/dL (0.2-1); BLOOD UREA NITROGEN 11.8 mg/dL (7-18); CALCIUM 8.6 mg/dL (8.5-10.1); CHLORIDE 108 mmol/L (98-107); CO2 27 mmol/L (21-32); CREATININE 0.7 mg/dL (0.55-1.3); GLUCOSE,RANDOM 79 mg/dL (74-106); POTASSIUM 4.4 mmol/L (3.5-5.1); SGOT/AST 60 U/L (15-37); SGPT/ALT 79 U/L (13-61); SODIUM 141 mmol/L (136-145); TOT PROT 6.8 g/dl (6.4-8.2)
--- NOTE | 2019-01-02 13:46 | PN ---
BHS COWS - Scale Resting Pulse: 0= [place] 80 or Below Sweatin=Flushed/Facial Moisture Restless Observation: 0= Sits Still Pupil Size: 0= Normal to Room Light Bone or Joint Aches: 2= Severe Diffuse Aches Runny Nose/ Eye Tearin= Nasal Congestion GI Upset > 30mins: 0= None Tremor Observation of Outstretched Hands: 0= None Yawning Observation: 1= 1-2x During Session Anxiety or Irritability: 2=Irritable/Anxious Goose Flesh Skin: 3=Piloerection COWS Score: 11 S Progress Note (SOAP) Subjective: Sweating, Body Aches, Anxious. Objective: PATIENT A & O X 3. IN NO ACUTE DISTRESS. 01/02/19 13:44 Vital Signs Temperature 97.2 F L 01/02/19 13:06 Pulse Rate 75 01/02/19 13:06 Respiratory Rate 16 01/02/19 13:06 Blood Pressure 100/53 L 01/02/19 13:06 O2 Sat by Pulse Oximetry (%) Laboratory Tests 01/02/19 01/02/19 08:20 08:20 WBC 5.6 RBC 4.73 Hgb 13.5 Hct 41.6 MCV 87.8 MCH 28.5 MCHC 32.4 RDW 15.7 Plt Count 240 MPV 9.5 Sodium 141 Potassium 4.4 Chloride 108 H Carbon Dioxide 27 Anion Gap 7 L BUN 11.8 Creatinine 0.7 Est GFR (CKD-EPI)AfAm 141.70 Est GFR (CKD-EPI)NonAf 122.26 Random Glucose 79 Calcium 8.6 Total Bilirubin < 0.1 L AST 60 H ALT 79 H Alkaline Phosphatase 71 Total Protein 6.8 Albumin 3.2 L LABS NOTED. PATIENT HAS HAD ELEVATED AST LEVELS ON PREVIOUS ADMISSIONS. 01/02/19 13:45 Assessment: 01/02/19 13:46 WITHDRAWAL SYMPTOMS. ELEVATED AST LEVEL. ELEVATED ALT LEVEL. Plan: CONTINUE DETOX. INCREASE DAILY PO WATER INTAKE.
[2019-01-02] MEDS: traZODone HCL 50 MG TABLET (FP) PO SCH (22:20)
[2019-01-02] MEDS: THIAMINE HCL 100 MG TABLET (FP) PO SCH (22:20)
[2019-01-03] MEDS ORDERED: METHADONE HCL 10 MG TABLET (FOR DETOX USE ONLY) PO ONE (10:00)
[2019-01-03] MEDS: diazePAM 5 MG TABLET PO PRN ×3 (10:32→22:17)
[2019-01-03] MEDS: PRENATAL VITAMINS W/ FOLIC ACID TABLET (FP) PO SCH (10:32)
[2019-01-03] MEDS: NICOTINE 21 MG/24 HOURS TOPICAL PATCH TD SCH (10:32)
--- NOTE | 2019-01-03 12:21 | PN ---
BHS COWS - Scale Resting Pulse: 0= [place] 80 or Below Sweatin= Chills/Flushing Restless Observation: 1= Difficult to Sit Still Pupil Size: 1= Pupils >than Normal Bone or Joint Aches: 2= Severe Diffuse Aches Runny Nose/ Eye Tearin= Runny Nose/Eyes GI Upset > 30mins: 2= Nausea/Diarrhea Tremor Observation of Outstretched Hands: 2= Slight Tremor Visible Yawning Observation: 1= 1-2x During Session Anxiety or Irritability: 2=Irritable/Anxious Goose Flesh Skin: 0=Smooth Skin COWS Score: 14 S Progress Note (SOAP) Subjective: alert,irritable,anxious,interrupted sleep pain in the body and back Objective: 01/03/19 12:24 Vital Signs Temperature 97.9 F 01/03/19 09:29 Pulse Rate 74 01/03/19 09:29 Respiratory Rate 17 01/03/19 09:29 Blood Pressure 99/61 01/03/19 09:29 O2 Sat by Pulse Oximetry (%) Assessment: 01/03/19 12:24 withdrawal symptom Plan: continue detox methadone regimen
[2019-01-03] MEDS: THIAMINE HCL 100 MG TABLET (FP) PO SCH (22:17)
[2019-01-03] MEDS: traZODone HCL 50 MG TABLET (FP) PO SCH (22:17)
[2019-01-04] MEDS ORDERED: METHADONE HCL 10 MG TABLET (FOR DETOX USE ONLY) ONE (09:33)
[2019-01-04] MEDS ORDERED: METHADONE HCL 5 MG TABLET (FOR DETOX USE ONLY) ONE (09:33)
[2019-01-04] MEDS: PRENATAL VITAMINS W/ FOLIC ACID TABLET (FP) PO SCH (09:49)
[2019-01-04] MEDS: diazePAM 5 MG TABLET PO PRN (09:49)
[2019-01-04] MEDS: NICOTINE 21 MG/24 HOURS TOPICAL PATCH TD SCH (09:51)
[2019-01-04] MEDS ORDERED: METHADONE (DETOX) 10 MG, METHADONE (DETOX) 5 MG PO ONE (10:00)
--- NOTE | 2019-01-04 13:40 | PN ---
BHS COWS - Scale Resting Pulse: 1= [place] 81-100 Sweatin= Chills/Flushing Restless Observation: 1= Difficult to Sit Still Pupil Size: 0= Normal to Room Light Bone or Joint Aches: 0= None Runny Nose/ Eye Tearin= None GI Upset > 30mins: 0= None Tremor Observation of Outstretched Hands: 0= None Yawning Observation: 1= 1-2x During Session Anxiety or Irritability: 2=Irritable/Anxious Goose Flesh Skin: 0=Smooth Skin COWS Score: 6 BHS Progress Note (SOAP) Subjective: Interrupted Sleep, Anxious, Restless. Objective: PATIENT A & O X 2 (UNCERTAIN ABOUT CURRENT DAY / DATE). PATIENT OBSERVED AMBULATING ON UNIT UNASSISTED. IN NO ACUTE DISTRESS. 01/04/19 13:39 Vital Signs Temperature 96.7 F L 01/04/19 09:55 Pulse Rate 100 H 01/04/19 09:55 Respiratory Rate 18 01/04/19 09:55 Blood Pressure 113/78 01/04/19 09:55 O2 Sat by Pulse Oximetry (%) Laboratory Tests 01/02/19 01/02/19 01/02/19 08:20 08:20 08:20 WBC 5.6 RBC 4.73 Hgb 13.5 Hct 41.6 MCV 87.8 MCH 28.5 MCHC 32.4 RDW 15.7 Plt Count 240 MPV 9.5 Sodium 141 Potassium 4.4 Chloride 108 H Carbon Dioxide 27 Anion Gap 7 L BUN 11.8 Creatinine 0.7 Est GFR (CKD-EPI)AfAm 141.70 Est GFR (CKD-EPI)NonAf 122.26 Random Glucose 79 Calcium 8.6 Total Bilirubin < 0.1 L AST 60 H ALT 79 H Alkaline Phosphatase 71 Total Protein 6.8 Albumin 3.2 L RPR Titer Nonreactive LABS NOTED. Assessment: 01/04/19 13:39 WITHDRAWAL SYMPTOMS. ELEVATED AST LEVEL. ELEVATED ALT LEVEL. Plan: CONTINUE DETOX. INCREASE DAILY PO WATER INTAKE.
[2019-01-04] MEDS: traZODone HCL 50 MG TABLET (FP) PO SCH (22:15)
[2019-01-04] MEDS: MELATONIN 5 MG TABLETS PO PRN (22:15)
[2019-01-04] MEDS: THIAMINE HCL 100 MG TABLET (FP) PO SCH (22:15)
[2019-01-05] MEDS ORDERED: METHADONE HCL 10 MG TABLET (FOR DETOX USE ONLY) PO ONE (10:00)
[2019-01-05] MEDS: NICOTINE 21 MG/24 HOURS TOPICAL PATCH TD SCH (10:01)
[2019-01-05] MEDS: PRENATAL VITAMINS W/ FOLIC ACID TABLET (FP) PO SCH (10:01)
--- NOTE | 2019-01-05 14:18 | PN ---
BHS COWS - Scale Resting Pulse: 1= [place] 81-100 Sweatin= No chills or Flushing Restless Observation: 1= Difficult to Sit Still Pupil Size: 0= Normal to Room Light Bone or Joint Aches: 0= None Runny Nose/ Eye Tearin= None GI Upset > 30mins: 0= None Tremor Observation of Outstretched Hands: 0= None Yawning Observation: 1= 1-2x During Session Anxiety or Irritability: 2=Irritable/Anxious Goose Flesh Skin: 0=Smooth Skin COWS Score: 5 BHS Progress Note (SOAP) Subjective: Anxious, Interrupted Sleep. Objective: PATIENT A & O X 3, OBSERVED AMBULATING ON UNIT UNASSISTED. IN NO ACUTE DISTRESS. 01/05/19 14:17 Vital Signs Temperature 96.7 F L 01/05/19 13:49 Pulse Rate 98 H 01/05/19 13:49 Respiratory Rate 18 01/05/19 13:49 Blood Pressure 109/74 01/05/19 13:49 O2 Sat by Pulse Oximetry (%) Laboratory Tests 01/02/19 01/02/19 01/02/19 08:20 08:20 08:20 WBC 5.6 RBC 4.73 Hgb 13.5 Hct 41.6 MCV 87.8 MCH 28.5 MCHC 32.4 RDW 15.7 Plt Count 240 MPV 9.5 Sodium 141 Potassium 4.4 Chloride 108 H Carbon Dioxide 27 Anion Gap 7 L BUN 11.8 Creatinine 0.7 Est GFR (CKD-EPI)AfAm 141.70 Est GFR (CKD-EPI)NonAf 122.26 Random Glucose 79 Calcium 8.6 Total Bilirubin < 0.1 L AST 60 H ALT 79 H Alkaline Phosphatase 71 Total Protein 6.8 Albumin 3.2 L RPR Titer Nonreactive LABS NOTED. Assessment: 01/05/19 14:17 WITHDRAWAL SYMPTOMS. ELEVATED AST LEVEL. ELEVATED ALT LEVEL. 01/05/19 14:18 Plan: CONTINUE DETOX. INCREASE DAILY PO WATER INTAKE. PATIENT SCHEDULED FOR DISCHARGE FROM DETOX UNIT TOMORROW.
[2019-01-05] MEDS: traZODone HCL 50 MG TABLET (FP) PO SCH (22:07)
[2019-01-05] MEDS: MELATONIN 5 MG TABLETS PO PRN (22:07)
[2019-01-05] MEDS: THIAMINE HCL 100 MG TABLET (FP) PO SCH (22:07)
[2019-01-06] MEDS ORDERED: METHADONE HCL 5 MG TABLET (FOR DETOX USE ONLY) PO ONE ×2 (06:00→08:15)
[2019-01-06 09:27] VITALS: BP 119/76; PULSE 97; TEMP 97
[2019-01-06] MEDS: NICOTINE 21 MG/24 HOURS TOPICAL PATCH TD SCH (10:21)
[2019-01-06] MEDS: PRENATAL VITAMINS W/ FOLIC ACID TABLET (FP) PO SCH (10:21)
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
--- NOTE | 2019-01-06 12:17 | PN ---
BHS COWS - Scale Resting Pulse: 1= [place] 81-100 Sweatin= No chills or Flushing Restless Observation: 1= Difficult to Sit Still Pupil Size: 0= Normal to Room Light Bone or Joint Aches: 0= None Runny Nose/ Eye Tearin= None GI Upset > 30mins: 0= None Tremor Observation of Outstretched Hands: 0= None Yawning Observation: 1= 1-2x During Session Anxiety or Irritability: 2=Irritable/Anxious Goose Flesh Skin: 0=Smooth Skin COWS Score: 5 BHS Progress Note (SOAP) Subjective: Patient Reports Mild Anxiety and Body Aches. Patient denies any other Withdrawal / Detox symptoms at this time. Objective: PATIENT A & O X 3, OBSERVED AMBULATING ON UNIT UNASSISTED. IN NO ACUTE DISTRESS. 01/06/19 12:16 Vital Signs Temperature 97.0 F L 01/06/19 09:25 Pulse Rate 97 H 01/06/19 09:25 Respiratory Rate 20 01/06/19 09:25 Blood Pressure 119/76 01/06/19 09:25 O2 Sat by Pulse Oximetry (%) Laboratory Tests 01/02/19 01/02/19 01/02/19 08:20 08:20 08:20 WBC 5.6 RBC 4.73 Hgb 13.5 Hct 41.6 MCV 87.8 MCH 28.5 MCHC 32.4 RDW 15.7 Plt Count 240 MPV 9.5 Sodium 141 Potassium 4.4 Chloride 108 H Carbon Dioxide 27 Anion Gap 7 L BUN 11.8 Creatinine 0.7 Est GFR (CKD-EPI)AfAm 141.70 Est GFR (CKD-EPI)NonAf 122.26 Random Glucose 79 Calcium 8.6 Total Bilirubin < 0.1 L AST 60 H ALT 79 H Alkaline Phosphatase 71 Total Protein 6.8 Albumin 3.2 L RPR Titer Nonreactive LABS NOTED. Assessment: 01/06/19 12:16 COMPLETION OF DETOX REGIMEN. Plan: PATIENT SCHEDULED TO GO TO [facility] ([place], [place]) TODAY FOR AFTERCARE.
== END 2019-01-06 10:35 | disposition other institution (70) | DRG 773 ==
LOC: YASAS 08:35 → Y3N 11:26
PROVIDERS: ADMIT Surgery; ATTEND Surgery
PROC: HZ2ZZZZ Detoxification Services for Substance Abuse Treatment (ICD-10-PCS; principal; 2019-01-01)
DX: F11.23 Opioid dependence with withdrawal (principal); F14.20 Cocaine dependence, uncomplicated; F12.20 Cannabis dependence, uncomplicated; F17.213 Nicotine dependence, cigarettes, with withdrawal; F31.9 Bipolar disorder, unspecified; F19.24 Other psychoactive substance dependence with psychoactive substance-induced mood disorder; J45.20 Mild intermittent asthma, uncomplicated; R74.0 Nonspecific elevation of levels of transaminase and lactic acid dehydrogenase [LDH]; R63.4 Abnormal weight loss; Z21 Asymptomatic human immunodeficiency virus [HIV] infection status; B18.2 Chronic viral hepatitis C; G47.00 Insomnia, unspecified; E86.0 Dehydration
CPT/HCPCS: 36415; 80053; 85027; 86593

== ENCOUNTER 2019-01-06 10:41 | Inpatient (IN) | payer OTHER ==
[2019-01-06] MEDS ORDERED: ALBUTEROL SO4 8 GM HFA INHALER IH PRN (12:12)
[2019-01-06] MEDS ORDERED: LOPERAMIDE HCL 2 MG CAPSULE PO PRN (12:13)
[2019-01-06] MEDS ORDERED: MENTHOL/PHENOL 1 EACH UD MM PRN (12:13)
[2019-01-06] MEDS ORDERED: MAG HYDROX/AL HYDROX/SIMETH 30 ML UNIT-DOSE CUP PO PRN (12:13)
[2019-01-06] MEDS ORDERED: MAGNESIUM CITRATE 300 ML BOTTLE PO PRN (12:13)
[2019-01-06] MEDS ORDERED: NICOTINE POLACRILEX 2 MG GUM BUC PRN (12:13)
[2019-01-06] MEDS ORDERED: P-EPHED 60MG/TRIPROLIDI 2.5MG TABLET PO PRN (12:13)
[2019-01-06] MEDS ORDERED: MAGNESIUM HYDROX 2400MG/30ML ORAL SUSPENSION 30 ML CUP PO PRN (12:13)
[2019-01-06] MEDS ORDERED: guaiFENesin 200 MG/10 ML 10 ML UNIT-DOSE CUPS PO PRN (12:13)
[2019-01-06] MEDS ORDERED: ACETAMINOPHEN 325 MG TABLET (FP) PO PRN (12:13)
--- NOTE | 2019-01-06 12:14 | HP ---
[facility] Rehab Assess/Revision - Admission History Admitted to Rehab from: [facility] Date of Admission to Rehab: 01/06/2019 - Vital signs Vital Signs: NOTED; STABLE. - Findings Detox History & Physical reviewed: Yes Concur with findings: Yes Comments/Additional Findings: PATIENT'S MEDICAL / MEDICATION HISTORY REVIEWED PRIOR TO DISCHARGE FROM DETOX UNIT. PATIENT WAS DISCHARGED FROM DETOX UNIT TO BE TAKEN OVER TO REHAB UNIT IN STABLE MEDICAL CONDITION. Inpatient Rehab Admission - Rehab Decision to Admit Inpatient rehab admission?: Yes - Initial Determination Are CD services needed?: Yes Free of communicable disease: Yes Not in need of hospitalization: Yes - Rehab Admission Criteria Previous failed treatment: Yes Poor recovery environment: Yes Comorbidities: Yes Lacks judgement: Yes Patient is meeting Inpatient Rehab admission criteria:: Yes
--- NOTE | 2019-01-06 19:48 | PN ---
[facility] Progress Note Note: Psychiatry Attending's note : Patient is now receiving care at [address] Discharged from [address] [place] [address] where he was on trazodone 50 mg po hs. No adverse effects. Resume trazodone 50 mg po hs. Ordered. Continuity of care.
[2019-01-06] MEDS: THIAMINE HCL 100 MG TABLET (FP) PO SCH (21:26)
[2019-01-06] MEDS: traZODone HCL 50 MG TABLET (FP) PO SCH (21:26)
[2019-01-07] MEDS: PRENATAL VITAMINS W/ FOLIC ACID TABLET (FP) PO SCH (10:14)
[2019-01-07] MEDS: NICOTINE 21 MG/24 HOURS TOPICAL PATCH TD SCH (10:14)
[2019-01-07] MEDS: hydrOXYzine PAMOATE 25 MG CAPSULE (FP) PO PRN (18:04)
[2019-01-07] MEDS: traZODone HCL 50 MG TABLET (FP) PO SCH (21:11)
[2019-01-07] MEDS: THIAMINE HCL 100 MG TABLET (FP) PO SCH (21:11)
[2019-01-07] MEDS: MELATONIN 5 MG TABLETS PO PRN (21:12)
[2019-01-08] MEDS: IBUPROFEN 400 MG TABLET (FP) PO PRN (00:27)
[2019-01-08] MEDS: hydrOXYzine PAMOATE 25 MG CAPSULE (FP) PO PRN ×3 (00:28→19:23)
[2019-01-08] MEDS: CYCLOBENZAPRINE HCL 10 MG TABLET (FP) PO PRN (00:28)
[2019-01-08] MEDS: NICOTINE 21 MG/24 HOURS TOPICAL PATCH TD SCH (09:59)
[2019-01-08] MEDS: PRENATAL VITAMINS W/ FOLIC ACID TABLET (FP) PO SCH (09:59)
[2019-01-08] MEDS: MELATONIN 5 MG TABLETS PO PRN (21:59)
[2019-01-08] MEDS: THIAMINE HCL 100 MG TABLET (FP) PO SCH (21:59)
[2019-01-08] MEDS: traZODone HCL 50 MG TABLET (FP) PO SCH (21:59)
[2019-01-09] MEDS: IBUPROFEN 400 MG TABLET (FP) PO PRN (00:32)
[2019-01-09] MEDS: CYCLOBENZAPRINE HCL 10 MG TABLET (FP) PO PRN (00:33)
[2019-01-09 07:29] VITALS: BP 115/77; PULSE 66; TEMP 96.8
[2019-01-09] MEDS: NICOTINE 21 MG/24 HOURS TOPICAL PATCH TD SCH (09:36)
[2019-01-09] MEDS: PRENATAL VITAMINS W/ FOLIC ACID TABLET (FP) PO SCH (09:36)
--- NOTE | 2019-01-09 10:57 | PN ---
[facility] Progress Note Note: Notified by nursing staff, patient requested to sign out AMA. Patient is admitted to rehab for opiod/cocaine dependence on 01/06/19. Patient has been admitted multiple times to [facility] and relapses soon after discharge. Patient informed staff that he wants to leave and is going to [place]. Patient encouraged to complete rehab but refused to stay in treatment. Manager Operations Research attempted to speak to patient, however, patient stated " I want to go now! " Patient aware of risk factors of relapse with signing out AMA and encouraged by counselor to attend group meetings to prevent relapse. Vital Signs (72 hours) 01/06/19 01/07/19 01/07/19 11:10 00:30 03:30 Temperature 97.8 F Pulse Rate 91 H Respiratory 18 18 18 Rate Blood Pressure 126/61 01/07/19 01/08/19 01/08/19 06:58 03:30 08:28 Temperature 97.5 F L Pulse Rate 74 86 Respiratory 18 18 18 Rate Blood Pressure 112/72 130/86 01/09/19 01/09/19 03:30 07:27 Temperature 96.8 F L Pulse Rate 66 Respiratory 18 18 Rate Blood Pressure 115/77 PE: alert and oriented x 3 in NAD ext full rom, amb ad real A/P: Opiod dependence Cocaine dependence Patient signed out AMA
== END 2019-01-09 11:07 | disposition left against medical advice (07) | DRG 770 ==
LOC: YASAS 10:41 → Y3W 10:42
PROVIDERS: ADMIT Neuromusculoskeletal Medicine & OMM; ATTEND Neuromusculoskeletal Medicine & OMM
PROC: HZ42ZZZ Group Counseling for Substance Abuse Treatment, Cognitive-Behavioral (ICD-10-PCS; principal; 2019-01-06)
DX: F11.20 Opioid dependence, uncomplicated (principal); F14.20 Cocaine dependence, uncomplicated; F17.210 Nicotine dependence, cigarettes, uncomplicated; F31.9 Bipolar disorder, unspecified; J45.909 Unspecified asthma, uncomplicated; Z21 Asymptomatic human immunodeficiency virus [HIV] infection status; B18.2 Chronic viral hepatitis C

== ENCOUNTER 2019-02-08 10:00 | Inpatient (IN) | payer OTHER ==
[2019-02-08 10:25] VITALS: BMI 22.1
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
[2019-02-08] MEDS ORDERED: BISMUTH SUBSALICYLATE 524 MG/30 ML UD PO PRN (11:01)
[2019-02-08] MEDS ORDERED: ACETAMINOPHEN 325 MG TABLET (FP) PO PRN ×2 (11:01)
[2019-02-08] MEDS ORDERED: MAG HYDROX/AL HYDROX/SIMETH 30 ML UNIT-DOSE CUP PO PRN (11:01)
[2019-02-08] MEDS ORDERED: MAGNESIUM CITRATE 300 ML BOTTLE PO PRN (11:01)
[2019-02-08] MEDS ORDERED: IBUPROFEN 400 MG TABLET (FP) PO PRN (11:01)
[2019-02-08] MEDS ORDERED: METHOCARBAMOL 500 MG TABLET PO PRN (11:01)
[2019-02-08] MEDS ORDERED: MENTHOL/PHENOL 1 EACH UD MM PRN (11:01)
[2019-02-08] MEDS ORDERED: chlordiazePOXIDE HCL 25 MG CAPSULE PO PRN (11:01)
[2019-02-08] MEDS ORDERED: MAGNESIUM HYDROX 2400MG/30ML ORAL SUSPENSION 30 ML CUP PO PRN (11:01)
[2019-02-08] MEDS ORDERED: chlordiazePOXIDE HCL 25 MG CAPSULE PO SCH (12:00)
[2019-02-08] MEDS: NICOTINE 21 MG/24 HOURS TOPICAL PATCH TD SCH (13:32)
[2019-02-08 14:30] LABS: HEMATOCRIT 37.1 % (35.4-49); HEMOGLOBIN 12.1 GM/dL (11.7-16.9); MCH 28.5 pg (25.7-33.7); MCHC 32.6 g/dl (32.0-35.9); MEAN CELL VOLUME 87.6 fl (80-96); MEAN PLT VOLUME 9.1 fl (7.5-11.1); PLATELET COUNT 255 K/MM3 (134-434); RBC 4.23 M/mm3 (4.00-5.60); RDW 14.9 % (11.9-15.9); WHITE BLOOD COUNT 5.2 K/mm3 (4.0-10.0)
[2019-02-08 14:54] LABS: ALBUMIN 3.4 g/dl (3.4-5.0); BILIRUBIN,TOTAL 0.2 mg/dL (0.2-1); BLOOD UREA NITROGEN 11.2 mg/dL (7-18); CALCIUM 8.7 mg/dL (8.5-10.1); CREATININE 0.9 mg/dL (0.55-1.3); POTASSIUM 3.7 mmol/L (3.5-5.1); TOT PROT 7.2 g/dl (6.4-8.2)
[2019-02-08] MEDS ORDERED: clonazePAM 0.5 MG TABLET PO PRN (16:38)
[2019-02-08] MEDS ORDERED: cloNIDine HCL 0.1 MG TABLET PO PRN (16:38)
[2019-02-08] MEDS ORDERED: METHADONE HCL 10 MG TABLET (FOR DETOX USE ONLY) PO ONE (16:38)
[2019-02-08] MEDS: THIAMINE HCL 100 MG TABLET (FP) PO SCH (23:41)
[2019-02-09] MEDS ORDERED: METHADONE HCL 5 MG TABLET (FOR DETOX USE ONLY) ONE (09:41)
[2019-02-09] MEDS ORDERED: METHADONE HCL 10 MG TABLET (FOR DETOX USE ONLY) ONE (09:41)
[2019-02-09] MEDS ORDERED: METHADONE (DETOX) 20 MG, METHADONE (DETOX) 5 MG PO ONE (10:00)
[2019-02-09] MEDS: PRENATAL VITAMINS W/ FOLIC ACID TABLET (FP) PO SCH (10:36)
[2019-02-09] MEDS: NICOTINE 21 MG/24 HOURS TOPICAL PATCH TD SCH (10:37)
--- NOTE | 2019-02-09 10:48 | PN ---
S COWS - Scale Resting Pulse: 0= [place] 80 or Below Sweatin= Chills/Flushing Restless Observation: 0= Sits Still Pupil Size: 1= Pupils >than Normal Bone or Joint Aches: 1= Mild Discomfort Runny Nose/ Eye Tearin= Nasal Congestion GI Upset > 30mins: 2= Nausea/Diarrhea Tremor Observation of Outstretched Hands: 2= Slight Tremor Visible Yawning Observation: 1= 1-2x During Session Anxiety or Irritability: 2=Irritable/Anxious Goose Flesh Skin: 3=[place]il[place] COWS Score: 14 BHS Progress Note (SOAP) Subjective: doing well with methadone detox regimen resting on bed comfortably feeling tired limited conversation with staff introduce medication assisted treatment program 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 pharmacy upon discharge Objective: Vital Signs Temperature 97.0 F L 02/09/19 09:25 Pulse Rate 79 02/09/19 09:25 Respiratory Rate 18 02/09/19 09:25 Blood Pressure 130/86 02/09/19 09:25 O2 Sat by Pulse Oximetry (%) Laboratory Last Values WBC 5.2 K/mm3 (4.0-10.0) 02/08/19 11:25 RBC 4.23 M/mm3 (4.00-5.60) 02/08/19 11:25 Hgb 12.1 GM/dL (11.7-16.9) 02/08/19 11:25 Hct 37.1 % (35.4-49) 02/08/19 11:25 MCV 87.6 fl (80-96) 02/08/19 11:25 MCH 28.5 pg (25.7-33.7) 02/08/19 11:25 MCHC 32.6 g/dl (32.0-35.9) 02/08/19 11:25 RDW 14.9 % (11.9-15.9) 02/08/19 11:25 Plt Count 255 K/MM3 (134-434) 02/08/19 11:25 MPV 9.1 fl (7.5-11.1) 02/08/19 11:25 Sodium 139 mmol/L (136-145) 02/08/19 11:25 Potassium 3.7 mmol/L (3.5-5.1) 02/08/19 11:25 Chloride 105 mmol/L (98-107) 02/08/19 11:25 Carbon Dioxide 28 mmol/L (21-32) 02/08/19 11:25 Anion Gap 7 MMOL/L (8-16) L 02/08/19 11:25 BUN 11.2 mg/dL (7-18) 02/08/19 11:25 Creatinine 0.9 mg/dL (0.55-1.3) 02/08/19 11:25 Est GFR (CKD-EPI)AfAm 127.80 02/08/19 11:25 Est GFR (CKD-EPI)NonAf 110.27 02/08/19 11:25 Random Glucose 111 mg/dL (74-106) H 02/08/19 11:25 Calcium 8.7 mg/dL (8.5-10.1) 02/08/19 11:25 Total Bilirubin 0.2 mg/dL (0.2-1) 02/08/19 11:25 AST 26 U/L (15-37) 02/08/19 11:25 ALT 20 U/L (13-61) 02/08/19 11:25 Alkaline Phosphatase 67 U/L (45-117) 02/08/19 11:25 Total Protein 7.2 g/dl (6.4-8.2) 02/08/19 11:25 Albumin 3.4 g/dl (3.4-5.0) 02/08/19 11:25 RPR Titer Nonreactive (NONREACTIVE) 02/08/19 11:25 lab noted 02/09/19 10:48 fasting glucose Assessment: 02/09/19 10:47 opiate withdrawal sx Plan: continue methadone detox regimen
[2019-02-09] MEDS: diazePAM 5 MG TABLET PO PRN ×3 (12:05→22:19)
[2019-02-09] MEDS: MELATONIN 5 MG TABLETS PO PRN (22:16)
[2019-02-09] MEDS: hydrOXYzine PAMOATE 25 MG CAPSULE (FP) PO PRN (22:16)
[2019-02-09] MEDS: THIAMINE HCL 100 MG TABLET (FP) PO SCH (22:16)
[2019-02-10] MEDS ORDERED: chlordiazePOXIDE HCL 25 MG CAPSULE PO SCH (05:00)
[2019-02-10] MEDS ORDERED: METHADONE HCL 10 MG TABLET (FOR DETOX USE ONLY) PO ONE (10:00)
[2019-02-10] MEDS: PRENATAL VITAMINS W/ FOLIC ACID TABLET (FP) PO SCH (10:34)
[2019-02-10] MEDS: NICOTINE 21 MG/24 HOURS TOPICAL PATCH TD SCH (10:35)
[2019-02-10] MEDS: diazePAM 5 MG TABLET PO PRN ×3 (10:36→22:20)
--- NOTE | 2019-02-10 14:15 | PN ---
S CIWA - CIWA Score Nausea/Vomitin Muscle Tremors: 2 Anxiety: 2 Agitation: 2 Paroxysmal Sweats: 1-Minimal Palms Moist Orientation: 0-Oriented Tacttile Disturbances: 1-Very Mild Itch/Numbness Auditory Disturbances: 0-None Visual Disturbances: 0-None Headache: 1-Very Mild CIWA-Ar Total Score: 11 BHS COWS - Scale Resting Pulse: 0= [place] 80 or Below Sweatin= No chills or Flushing Restless Observation: 1= Difficult to Sit Still Pupil Size: 1= Pupils >than Normal Bone or Joint Aches: 2= Severe Diffuse Aches Runny Nose/ Eye Tearin= Nasal Congestion GI Upset > 30mins: 1= Stomach Cramp Tremor Observation of Outstretched Hands: 2= Slight Tremor Visible Yawning Observation: 1= 1-2x During Session Anxiety or Irritability: 2=Irritable/Anxious Goose Flesh Skin: 0=Smooth Skin COWS Score: 11 S Progress Note (SOAP) Subjective: alert,irrtiable,anxious,interrupted sleep,pain in the body and back Objective: 02/10/19 14:13 Vital Signs Temperature 96.9 F L 02/10/19 10:43 Pulse Rate 74 02/10/19 10:43 Respiratory Rate 18 02/10/19 10:43 Blood Pressure 106/78 02/10/19 10:43 O2 Sat by Pulse Oximetry (%) Laboratory Last Values WBC 5.2 K/mm3 (4.0-10.0) 02/08/19 11:25 RBC 4.23 M/mm3 (4.00-5.60) 02/08/19 11:25 Hgb 12.1 GM/dL (11.7-16.9) 02/08/19 11:25 Hct 37.1 % (35.4-49) 02/08/19 11:25 MCV 87.6 fl (80-96) 02/08/19 11:25 MCH 28.5 pg (25.7-33.7) 02/08/19 11:25 MCHC 32.6 g/dl (32.0-35.9) 02/08/19 11:25 RDW 14.9 % (11.9-15.9) 02/08/19 11:25 Plt Count 255 K/MM3 (134-434) 02/08/19 11:25 MPV 9.1 fl (7.5-11.1) 02/08/19 11:25 Sodium 139 mmol/L (136-145) 02/08/19 11:25 Potassium 3.7 mmol/L (3.5-5.1) 02/08/19 11:25 Chloride 105 mmol/L (98-107) 02/08/19 11:25 Carbon Dioxide 28 mmol/L (21-32) 02/08/19 11:25 Anion Gap 7 MMOL/L (8-16) L 02/08/19 11:25 BUN 11.2 mg/dL (7-18) 02/08/19 11:25 Creatinine 0.9 mg/dL (0.55-1.3) 02/08/19 11:25 Est GFR (CKD-EPI)AfAm 127.80 02/08/19 11:25 Est GFR (CKD-EPI)NonAf 110.27 02/08/19 11:25 Random Glucose 111 mg/dL (74-106) H 02/08/19 11:25 Fasting Glucose 82 mg/dL (74-106) 02/10/19 07:00 Calcium 8.7 mg/dL (8.5-10.1) 02/08/19 11:25 Total Bilirubin 0.2 mg/dL (0.2-1) 02/08/19 11:25 AST 26 U/L (15-37) 02/08/19 11:25 ALT 20 U/L (13-61) 02/08/19 11:25 Alkaline Phosphatase 67 U/L (45-117) 02/08/19 11:25 Total Protein 7.2 g/dl (6.4-8.2) 02/08/19 11:25 Albumin 3.4 g/dl (3.4-5.0) 02/08/19 11:25 RPR Titer Nonreactive (NONREACTIVE) 02/08/19 11:25 02/10/19 14:15 fasting glucose 82 Assessment: 02/10/19 14:14 withdrawal symptom Plan: continue detox methadone and valium regimen
[2019-02-10] MEDS: MELATONIN 5 MG TABLETS PO PRN (22:20)
[2019-02-10] MEDS: THIAMINE HCL 100 MG TABLET (FP) PO SCH (22:20)
[2019-02-10] MEDS: hydrOXYzine PAMOATE 25 MG CAPSULE (FP) PO PRN (22:21)
[2019-02-11] MEDS ORDERED: chlordiazePOXIDE HCL 10 MG CAPSULE PO PRN
[2019-02-11] MEDS ORDERED: chlordiazePOXIDE HCL 10 MG CAPSULE PO SCH (05:00)
[2019-02-11] MEDS ORDERED: METHADONE HCL 5 MG TABLET (FOR DETOX USE ONLY) ONE (08:48)
[2019-02-11] MEDS ORDERED: METHADONE HCL 10 MG TABLET (FOR DETOX USE ONLY) ONE (08:48)
[2019-02-11] MEDS ORDERED: METHADONE (DETOX) 10 MG, METHADONE (DETOX) 5 MG PO ONE (10:00)
[2019-02-11] MEDS: PRENATAL VITAMINS W/ FOLIC ACID TABLET (FP) PO SCH (10:07)
[2019-02-11] MEDS: NICOTINE 21 MG/24 HOURS TOPICAL PATCH TD SCH (10:07)
[2019-02-11] MEDS: diazePAM 5 MG TABLET PO PRN ×3 (10:07→22:38)
--- NOTE | 2019-02-11 15:27 | PN ---
BHS COWS - Scale Resting Pulse: 1= [place] 81-100 Sweatin= Chills/Flushing Restless Observation: 1= Difficult to Sit Still Pupil Size: 0= Normal to Room Light Bone or Joint Aches: 2= Severe Diffuse Aches Runny Nose/ Eye Tearin= None GI Upset > 30mins: 0= None Tremor Observation of Outstretched Hands: 2= Slight Tremor Visible Yawning Observation: 1= 1-2x During Session Anxiety or Irritability: 2=Irritable/Anxious Goose Flesh Skin: 0=Smooth Skin COWS Score: 10 BHS Progress Note (SOAP) Subjective: Anxious, Tremors, Body Aches. Patient reports That Current withdrawal Detox Symptoms in General Are Subsiding in Severity. Objective: PATIENT A & O X 3, OBSERVED AMBULATING ON DETOX UNIT UNASSISTED. IN NO ACUTE DISTRESS. 02/11/19 15:28 Vital Signs Temperature 97.8 F 02/11/19 13:25 Pulse Rate 92 H 02/11/19 13:25 Respiratory Rate 20 02/11/19 13:25 Blood Pressure 109/76 02/11/19 13:25 O2 Sat by Pulse Oximetry (%) Laboratory Tests 02/08/19 02/08/19 02/08/19 11:25 11:25 11:25 WBC 5.2 RBC 4.23 Hgb 12.1 Hct 37.1 MCV 87.6 MCH 28.5 MCHC 32.6 RDW 14.9 Plt Count 255 MPV 9.1 Sodium 139 Potassium 3.7 Chloride 105 Carbon Dioxide 28 Anion Gap 7 L BUN 11.2 Creatinine 0.9 Est GFR (CKD-EPI)AfAm 127.80 Est GFR (CKD-EPI)NonAf 110.27 Random Glucose 111 H Fasting Glucose Calcium 8.7 Total Bilirubin 0.2 AST 26 ALT 20 Alkaline Phosphatase 67 Total Protein 7.2 Albumin 3.4 RPR Titer Nonreactive 02/10/19 07:00 WBC RBC Hgb Hct MCV MCH MCHC RDW Plt Count MPV Sodium Potassium Chloride Carbon Dioxide Anion Gap BUN Creatinine Est GFR (CKD-EPI)AfAm Est GFR (CKD-EPI)NonAf Random Glucose Fasting Glucose 82 Calcium Total Bilirubin AST ALT Alkaline Phosphatase Total Protein Albumin RPR Titer LABS NOTED. 02/11/19 15:33 Assessment: 02/11/19 15:34 WITHDRAWAL SYMPTOMS. Plan: CONTINUE DETOX. INCREASE DAILY PO WATER INTAKE.
[2019-02-11] MEDS: MELATONIN 5 MG TABLETS PO PRN (22:38)
[2019-02-11] MEDS: THIAMINE HCL 100 MG TABLET (FP) PO SCH (22:38)
[2019-02-12] MEDS ORDERED: chlordiazePOXIDE HCL 10 MG CAPSULE PO SCH (05:00)
[2019-02-12] MEDS: PRENATAL VITAMINS W/ FOLIC ACID TABLET (FP) PO SCH (09:58)
[2019-02-12] MEDS: diazePAM 5 MG TABLET PO PRN ×2 (09:59→18:29)
[2019-02-12] MEDS: NICOTINE 21 MG/24 HOURS TOPICAL PATCH TD SCH (09:59)
[2019-02-12] MEDS ORDERED: METHADONE HCL 10 MG TABLET (FOR DETOX USE ONLY) PO ONE (10:00)
--- NOTE | 2019-02-12 10:52 | PN ---
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 Objective: 02/12/19 10:53 Vital Signs Temperature 96.9 F L 02/12/19 09:23 Pulse Rate 74 02/12/19 09:23 Respiratory Rate 18 02/12/19 09:23 Blood Pressure 119/80 02/12/19 09:23 O2 Sat by Pulse Oximetry (%) Laboratory Last Values WBC 5.2 K/mm3 (4.0-10.0) 02/08/19 11:25 RBC 4.23 M/mm3 (4.00-5.60) 02/08/19 11:25 Hgb 12.1 GM/dL (11.7-16.9) 02/08/19 11:25 Hct 37.1 % (35.4-49) 02/08/19 11:25 MCV 87.6 fl (80-96) 02/08/19 11:25 MCH 28.5 pg (25.7-33.7) 02/08/19 11:25 MCHC 32.6 g/dl (32.0-35.9) 02/08/19 11:25 RDW 14.9 % (11.9-15.9) 02/08/19 11:25 Plt Count 255 K/MM3 (134-434) 02/08/19 11:25 MPV 9.1 fl (7.5-11.1) 02/08/19 11:25 Sodium 139 mmol/L (136-145) 02/08/19 11:25 Potassium 3.7 mmol/L (3.5-5.1) 02/08/19 11:25 Chloride 105 mmol/L (98-107) 02/08/19 11:25 Carbon Dioxide 28 mmol/L (21-32) 02/08/19 11:25 Anion Gap 7 MMOL/L (8-16) L 02/08/19 11:25 BUN 11.2 mg/dL (7-18) 02/08/19 11:25 Creatinine 0.9 mg/dL (0.55-1.3) 02/08/19 11:25 Est GFR (CKD-EPI)AfAm 127.80 02/08/19 11:25 Est GFR (CKD-EPI)NonAf 110.27 02/08/19 11:25 Random Glucose 111 mg/dL (74-106) H 02/08/19 11:25 Fasting Glucose 82 mg/dL (74-106) 02/10/19 07:00 Calcium 8.7 mg/dL (8.5-10.1) 02/08/19 11:25 Total Bilirubin 0.2 mg/dL (0.2-1) 02/08/19 11:25 AST 26 U/L (15-37) 02/08/19 11:25 ALT 20 U/L (13-61) 02/08/19 11:25 Alkaline Phosphatase 67 U/L (45-117) 02/08/19 11:25 Total Protein 7.2 g/dl (6.4-8.2) 02/08/19 11:25 Albumin 3.4 g/dl (3.4-5.0) 02/08/19 11:25 RPR Titer Nonreactive (NONREACTIVE) 02/08/19 11:25 lab noted Assessment: 02/12/19 10:53 opiate withdrawal sx Plan: continue methadone detox regimen
[2019-02-12 21:39] VITALS: BP 102/73; PULSE 77; TEMP 97.1
[2019-02-12] MEDS: THIAMINE HCL 100 MG TABLET (FP) PO SCH (22:29)
[2019-02-12] MEDS: MELATONIN 5 MG TABLETS PO PRN (22:29)
[2019-02-13] MEDS ORDERED: chlordiazePOXIDE HCL 10 MG CAPSULE PO ONE (05:00)
[2019-02-13] MEDS ORDERED: METHADONE HCL 5 MG TABLET (FOR DETOX USE ONLY) PO ONE (06:00)
--- NOTE | 2019-02-13 14:38 | DS ---
[facility] Detox Discharge Summary Admission Date: 02/08/19 Discharge Date: 02/13/19 - History Present History: Opioid Dependence Additional Comments: doing well with methadone detox regimen no complication through out the detox stay patient is alert oriented x 3 cardiac S1S2 regular rate rhythm respiratory clear lung bilaterally on auscultation extremities full range of motion Pertinent Past History: hepatitis c hiv - Physical Exam Results Vital Signs: Vital Signs Temperature 97.1 F L 02/12/19 21:38 Pulse Rate 77 02/12/19 21:38 Respiratory Rate 18 02/13/19 03:30 Blood Pressure 102/73 02/12/19 21:38 O2 Sat by Pulse Oximetry (%) Pertinent Admission Physical Exam Findings: opiate withdrawal sx Laboratory Last Values WBC 5.2 K/mm3 (4.0-10.0) 02/08/19 11:25 RBC 4.23 M/mm3 (4.00-5.60) 02/08/19 11:25 Hgb 12.1 GM/dL (11.7-16.9) 02/08/19 11:25 Hct 37.1 % (35.4-49) 02/08/19 11:25 MCV 87.6 fl (80-96) 02/08/19 11:25 MCH 28.5 pg (25.7-33.7) 02/08/19 11:25 MCHC 32.6 g/dl (32.0-35.9) 02/08/19 11:25 RDW 14.9 % (11.9-15.9) 02/08/19 11:25 Plt Count 255 K/MM3 (134-434) 02/08/19 11:25 MPV 9.1 fl (7.5-11.1) 02/08/19 11:25 Sodium 139 mmol/L (136-145) 02/08/19 11:25 Potassium 3.7 mmol/L (3.5-5.1) 02/08/19 11:25 Chloride 105 mmol/L (98-107) 02/08/19 11:25 Carbon Dioxide 28 mmol/L (21-32) 02/08/19 11:25 Anion Gap 7 MMOL/L (8-16) L 02/08/19 11:25 BUN 11.2 mg/dL (7-18) 02/08/19 11:25 Creatinine 0.9 mg/dL (0.55-1.3) 02/08/19 11:25 Est GFR (CKD-EPI)AfAm 127.80 02/08/19 11:25 Est GFR (CKD-EPI)NonAf 110.27 02/08/19 11:25 Random Glucose 111 mg/dL (74-106) H 02/08/19 11:25 Fasting Glucose 82 mg/dL (74-106) 02/10/19 07:00 Calcium 8.7 mg/dL (8.5-10.1) 02/08/19 11:25 Total Bilirubin 0.2 mg/dL (0.2-1) 02/08/19 11:25 AST 26 U/L (15-37) 02/08/19 11:25 ALT 20 U/L (13-61) 02/08/19 11:25 Alkaline Phosphatase 67 U/L (45-117) 02/08/19 11:25 Total Protein 7.2 g/dl (6.4-8.2) 02/08/19 11:25 Albumin 3.4 g/dl (3.4-5.0) 02/08/19 11:25 RPR Titer Nonreactive (NONREACTIVE) 02/08/19 11:25 lab noted - Treatment Hospital Course: Detox Protocol Followed, Detoxed Safely, Responded well, Discharged Condition Good, Rehab Referral Accepted Patient has Accepted a Rehab Referral to: [facility] - Medication Discharge Medications: Ambulatory Orders Naloxone HCl [Narcan] 4 mg NS ASDIR PRN #1 spray 02/09/19 - Diagnosis (1) Nicotine dependence Status: Acute Qualifiers: Nicotine product type: cigarettes Substance use status: in withdrawal Qualified Code(s): F17.213 - Nicotine dependence, cigarettes, with withdrawal (2) Hepatitis C Status: Chronic Qualifiers: Viral hepatitis chronicity: chronic Hepatic coma status: without hepatic coma Qualified Code(s): B18.2 - Chronic viral hepatitis C (3) Asthma Status: Chronic Qualifiers: Asthma severity: mild Asthma persistence: intermittent Asthma complication type: uncomplicated Qualified Code(s): J45.20 - Mild intermittent asthma, uncomplicated (4) Opioid dependence with withdrawal Status: Acute (5) Weight loss Status: Acute (6) HIV (human immunodeficiency virus infection) Status: Chronic Qualifiers: HIV symptom status: asymptomatic Qualified Code(s): Z21 - Asymptomatic human immunodeficiency virus [HIV] infection status (7) Substance induced mood disorder Status: Suspected - AMA Did Patient Leave Against Medical Advice: No COWS (PN) - Opiate Withdrawal Resting Pulse: 0= [place] 80 or Below Sweatin= Chills/Flushing Restless Observation: 0= Sits Still Pupil Size: 0= Normal to Room Light Bone or Joint Aches: 0= None Runny Nose/ Eye Tearin= None GI Upset > 30mins: 0= None Tremor Observation of Outstretched Hands: 1= Tremor [place], Not Seen Yawning Observation: 0= None Anxiety or Irritability: 1=Feels Anxious/Irritable Goose Flesh Skin: 0=Smooth Skin COWS Score: 3
== END 2019-02-13 08:51 | disposition home or self-care (01) | DRG 773 ==
LOC: YASAS 10:00 → Y3N 11:34
PROVIDERS: ADMIT Surgery; ATTEND Surgery
PROC: HZ2ZZZZ Detoxification Services for Substance Abuse Treatment (ICD-10-PCS; principal; 2019-02-08)
DX: F11.23 Opioid dependence with withdrawal (principal); F14.20 Cocaine dependence, uncomplicated; F19.20 Other psychoactive substance dependence, uncomplicated; F17.213 Nicotine dependence, cigarettes, with withdrawal; F19.24 Other psychoactive substance dependence with psychoactive substance-induced mood disorder; F31.9 Bipolar disorder, unspecified; Z21 Asymptomatic human immunodeficiency virus [HIV] infection status; J45.20 Mild intermittent asthma, uncomplicated; B18.2 Chronic viral hepatitis C; R19.7 Diarrhea, unspecified; R63.4 Abnormal weight loss; Z68.22 Body mass index [BMI] 22.0-22.9, adult
CPT/HCPCS: 36415; 80053; 82947; 85027; 86593

== ENCOUNTER 2019-04-03 08:27 | Inpatient (IN) | payer OTHER ==
[2019-04-03 09:39] VITALS: BMI 21.8
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
[2019-04-03] MEDS ORDERED: MAGNESIUM HYDROX 2400MG/30ML ORAL SUSPENSION 30 ML CUP PO PRN (10:21)
[2019-04-03] MEDS ORDERED: hydrOXYzine PAMOATE 25 MG CAPSULE (FP) PO PRN (10:21)
[2019-04-03] MEDS ORDERED: ACETAMINOPHEN 325 MG TABLET (FP) PO PRN ×2 (10:21)
[2019-04-03] MEDS ORDERED: METHOCARBAMOL 500 MG TABLET PO PRN (10:21)
[2019-04-03] MEDS ORDERED: IBUPROFEN 400 MG TABLET (FP) PO PRN (10:21)
[2019-04-03] MEDS ORDERED: MAGNESIUM CITRATE 300 ML BOTTLE PO PRN (10:21)
[2019-04-03] MEDS ORDERED: MENTHOL/PHENOL 1 EACH UD MM PRN (10:21)
[2019-04-03] MEDS ORDERED: cloNIDine HCL 0.1 MG TABLET PO PRN (10:21)
[2019-04-03] MEDS ORDERED: MAG HYDROX/AL HYDROX/SIMETH 30 ML UNIT-DOSE CUP PO PRN (10:21)
[2019-04-03] MEDS ORDERED: BISMUTH SUBSALICYLATE 262 MG/15 ML BTL PO PRN (10:21)
[2019-04-03] MEDS ORDERED: MELATONIN 5 MG TABLETS PO PRN (10:21)
[2019-04-03] MEDS ORDERED: METHADONE HCL 10 MG TABLET (FOR DETOX USE ONLY) PO ONE (11:45)
[2019-04-03 14:15] LABS: HEMATOCRIT 39.2 % (35.4-49); HEMOGLOBIN 12.9 GM/dL (11.7-16.9); MCH 28.5 pg (25.7-33.7); MEAN CELL VOLUME 86.4 fl (80-96); MEAN PLT VOLUME 9.1 fl (7.5-11.1); PLATELET COUNT 176 K/MM3 (134-434); RBC 4.54 M/mm3 (4.00-5.60); RDW 14.1 % (11.9-15.9); WHITE BLOOD COUNT 5.1 K/mm3 (4.0-10.0)
[2019-04-03 14:35] LABS: ALBUMIN 3.7 g/dl (3.4-5.0); BILIRUBIN,TOTAL 0.4 mg/dL (0.2-1); BLOOD UREA NITROGEN 15.2 mg/dL (7-18); CALCIUM 8.8 mg/dL (8.5-10.1); CREATININE 0.9 mg/dL (0.55-1.3); POTASSIUM 3.9 mmol/L (3.5-5.1); TOT PROT 7.6 g/dl (6.4-8.2)
[2019-04-03 21:05] VITALS: BP 108/67; PULSE 60; TEMP 97.2
[2019-04-03] MEDS ORDERED: THIAMINE HCL 100 MG TABLET (FP) PO SCH (22:00)
--- NOTE | 2019-04-04 08:55 | CONSULT ---
[facility] Psychiatric Consult - Data Date of interview: 04/04/19 Psychiatric History: Patient was approached by his room. Told chart writer:"I'm on my way out"
--- NOTE | 2019-04-04 09:58 | PN ---
[facility] Progress Note Note: pt states I want to leave now. Pt was spoken to by medical, nursing, counseling and counseling pattern marking supervisor regarding the reasons for him being here and receiving treatment. Disciplinary team consulted with pt regarding risk of relapse, seizures, DT, OD, loss, pt chose to sign out AMA.
[2019-04-04] MEDS ORDERED: METHADONE (DETOX) 20 MG, METHADONE (DETOX) 5 MG PO ONE (10:00)
[2019-04-04] MEDS ORDERED: PRENATAL VITAMINS W/ FOLIC ACID TABLET (FP) PO SCH (10:00)
--- NOTE | 2019-04-04 10:01 | DS ---
[facility] Detox Discharge Summary Admission Date: 04/03/19 - History Present History: Cocaine Dependence, Opioid Dependence - Physical Exam Results Vital Signs: Vital Signs Temperature 97.2 F L 04/03/19 21:03 Pulse Rate 60 04/03/19 21:03 Respiratory Rate 18 04/04/19 03:30 Blood Pressure 108/67 04/03/19 21:03 O2 Sat by Pulse Oximetry (%) Pertinent Admission Physical Exam Findings: pt arrived yesterday in withdrawals Vital Signs Temperature 97.2 F L 04/03/19 21:03 Pulse Rate 60 04/03/19 21:03 Respiratory Rate 18 04/04/19 03:30 Blood Pressure 108/67 04/03/19 21:03 O2 Sat by Pulse Oximetry (%) Laboratory Tests 04/03/19 04/03/19 10:30 10:30 WBC 5.1 RBC 4.54 Hgb 12.9 Hct 39.2 MCV 86.4 MCH 28.5 MCHC 33.0 RDW 14.1 Plt Count 176 D MPV 9.1 Sodium 135 L Potassium 3.9 Chloride 100 Carbon Dioxide 30 Anion Gap 5 L BUN 15.2 Creatinine 0.9 Est GFR (CKD-EPI)AfAm 127.80 Est GFR (CKD-EPI)NonAf 110.27 Random Glucose 93 Calcium 8.8 Total Bilirubin 0.4 AST 68 H ALT 79 H Alkaline Phosphatase 71 Total Protein 7.6 Albumin 3.7 today pt is still in withdrawals refusing to stay and chose to sign out AMA. - Treatment Hospital Course: Discharged Condition Good, Rehab Referral Accepted Patient has Accepted a Rehab Referral to: referral provided - Medication Discharge Medications: Ambulatory Orders NK [No Known Home Medication] 04/03/19 - Diagnosis (1) Diarrhea Status: Acute Qualifiers: Diarrhea type: unspecified type Qualified Code(s): R19.7 - Diarrhea, unspecified (2) Drug-induced mood disorder Status: Acute (3) Elevated alanine aminotransferase (ALT) level Status: Acute (4) Elevated aspartate aminotransferase level Status: Acute (5) Hepatitis Status: Acute (6) IVDU (intravenous drug user) Status: Acute (7) Nicotine dependence Status: Chronic Qualifiers: Nicotine product type: cigarettes Substance use status: uncomplicated Qualified Code(s): F17.210 - Nicotine dependence, cigarettes, uncomplicated (8) Opioid dependence with withdrawal Status: Chronic (9) Substance-induced sleep disorder Status: Acute (10) Asthma Status: Chronic Qualifiers: Asthma severity: mild Asthma persistence: intermittent Asthma complication type: uncomplicated Qualified Code(s): J45.20 - Mild intermittent asthma, uncomplicated (11) Bipolar disorder Status: Chronic Qualifiers: Active/Remission status: remission status unspecified Qualified Code(s): F31.9 - Bipolar disorder, unspecified (12) Cannabis dependence Status: Chronic (13) Cocaine dependence Status: Chronic Qualifiers: Substance use status: uncomplicated Qualified Code(s): F14.20 - Cocaine dependence, uncomplicated (14) HIV (human immunodeficiency virus infection) Status: Chronic Qualifiers: HIV symptom status: asymptomatic Qualified Code(s): Z21 - Asymptomatic human immunodeficiency virus [HIV] infection status (15) Hepatitis C Status: Chronic Qualifiers: Viral hepatitis chronicity: chronic Hepatic coma status: without hepatic coma Qualified Code(s): B18.2 - Chronic viral hepatitis C (16) Insomnia Status: Chronic Qualifiers: Insomnia type: unspecified Qualified Code(s): G47.00 - Insomnia, unspecified (17) Mood disorder Status: Chronic (18) Substance induced mood disorder Status: Suspected - AMA Did Patient Leave Against Medical Advice: Yes
[2019-04-05] MEDS ORDERED: METHADONE HCL 10 MG TABLET (FOR DETOX USE ONLY) PO ONE (10:00)
[2019-04-06] MEDS ORDERED: METHADONE (DETOX) 10 MG, METHADONE (DETOX) 5 MG PO ONE (10:00)
[2019-04-07] MEDS ORDERED: METHADONE HCL 10 MG TABLET (FOR DETOX USE ONLY) PO ONE (10:00)
[2019-04-08] MEDS ORDERED: METHADONE HCL 5 MG TABLET (FOR DETOX USE ONLY) PO ONE (06:00)
== END 2019-04-04 08:20 | disposition left against medical advice (07) | DRG 770 ==
LOC: YASAS 08:27 → Y6N 10:56
PROVIDERS: ADMIT Allergy & Immunology; ATTEND Allergy & Immunology
PROC: HZ2ZZZZ Detoxification Services for Substance Abuse Treatment (ICD-10-PCS; principal; 2019-04-03)
DX: F11.23 Opioid dependence with withdrawal (principal); F14.20 Cocaine dependence, uncomplicated; F12.20 Cannabis dependence, uncomplicated; F17.210 Nicotine dependence, cigarettes, uncomplicated; F19.282 Other psychoactive substance dependence with psychoactive substance-induced sleep disorder; F19.24 Other psychoactive substance dependence with psychoactive substance-induced mood disorder; F39 Unspecified mood [affective] disorder; F31.9 Bipolar disorder, unspecified; Z21 Asymptomatic human immunodeficiency virus [HIV] infection status; J45.20 Mild intermittent asthma, uncomplicated; G47.00 Insomnia, unspecified; B18.2 Chronic viral hepatitis C; R19.7 Diarrhea, unspecified; R94.5 Abnormal results of liver function studies; Z63.4 Disappearance and death of family member; Z68.21 Body mass index [BMI] 21.0-21.9, adult
CPT/HCPCS: 36415; 80053; 85027; 86593

== ENCOUNTER 2019-05-08 10:30 | Inpatient (IN) | payer OTHER ==
[2019-05-08 11:12] VITALS: BMI 20.9
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
[2019-05-08] MEDS ORDERED: MENTHOL/PHENOL 1 EACH UD MM PRN (12:11)
[2019-05-08] MEDS ORDERED: IBUPROFEN 400 MG TABLET (FP) PO PRN (12:11)
[2019-05-08] MEDS ORDERED: BISMUTH SUBSALICYLATE 524 MG/30 ML UD PO PRN (12:11)
[2019-05-08] MEDS ORDERED: cloNIDine HCL 0.1 MG TABLET PO PRN (12:11)
[2019-05-08] MEDS ORDERED: ACETAMINOPHEN 325 MG TABLET (FP) PO PRN ×2 (12:11)
[2019-05-08] MEDS ORDERED: MAG HYDROX/AL HYDROX/SIMETH 30 ML UNIT-DOSE CUP PO PRN (12:11)
[2019-05-08] MEDS ORDERED: MAGNESIUM CITRATE 300 ML BOTTLE PO PRN (12:11)
[2019-05-08] MEDS ORDERED: METHOCARBAMOL 500 MG TABLET PO PRN (12:11)
[2019-05-08] MEDS ORDERED: MELATONIN 5 MG TABLETS PO PRN (12:11)
[2019-05-08] MEDS ORDERED: MAGNESIUM HYDROX 2400MG/30ML ORAL SUSPENSION 30 ML CUP PO PRN (12:11)
[2019-05-08] MEDS ORDERED: hydrOXYzine PAMOATE 25 MG CAPSULE (FP) PO PRN (12:11)
[2019-05-08] MEDS ORDERED: METHADONE HCL 10 MG TABLET (FOR DETOX USE ONLY) PO ONE (13:45)
[2019-05-08 14:50] LABS: HEMATOCRIT 41.8 % (35.4-49); HEMOGLOBIN 13.7 GM/dL (11.7-16.9); MCHC 32.8 g/dl (32.0-35.9); MEAN CELL VOLUME 88.6 fl (80-96); MEAN PLT VOLUME 9.6 fl (7.5-11.1); PLATELET COUNT 270 K/MM3 (134-434); RBC 4.72 M/mm3 (4.00-5.60); RDW 14.9 % (11.9-15.9)
[2019-05-08 14:52] LABS: WHITE BLOOD COUNT 7.1 K/mm3 (4.0-10.0)
[2019-05-08 15:01] LABS: ALBUMIN 3.5 g/dl (3.4-5.0); BILIRUBIN,TOTAL 0.4 mg/dL (0.2-1); BLOOD UREA NITROGEN 8.1 mg/dL (7-18); CALCIUM 8.9 mg/dL (8.5-10.1); CREATININE 0.8 mg/dL (0.55-1.3); POTASSIUM 4.3 mmol/L (3.5-5.1)
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
[2019-05-08] MEDS: THIAMINE HCL 100 MG TABLET (FP) PO SCH (23:13)
[2019-05-09] MEDS: diazePAM 5 MG TABLET PO PRN ×4 (08:52→21:32)
[2019-05-09] MEDS ORDERED: METHADONE HCL 5 MG TABLET (FOR DETOX USE ONLY) ONE (08:58)
[2019-05-09] MEDS ORDERED: METHADONE HCL 10 MG TABLET (FOR DETOX USE ONLY) ONE (08:58)
--- NOTE | 2019-05-09 09:52 | PN ---
[facility]HS COWS - Scale Resting Pulse: 1= [place] 81-100 Sweatin= No chills or Flushing Restless Observation: 1= Difficult to Sit Still Pupil Size: 1= Pupils >than Normal Bone or Joint Aches: 1= Mild Discomfort Runny Nose/ Eye Tearin= Nasal Congestion GI Upset > 30mins: 1= Stomach Cramp Tremor Observation of Outstretched Hands: 2= Slight Tremor Visible Yawning Observation: 1= 1-2x During Session Anxiety or Irritability: 2=Irritable/Anxious Goose Flesh Skin: 0=Smooth Skin COWS Score: 11 BHS Progress Note (SOAP) Subjective: alert,irritable,anxious,interrupted sleep,pain in the body and back Objective: 05/09/19 09:51 Vital Signs Temperature 98 F 05/09/19 09:22 Pulse Rate 85 05/09/19 09:22 Respiratory Rate 18 05/09/19 09:22 Blood Pressure 133/85 05/09/19 09:22 O2 Sat by Pulse Oximetry (%) Laboratory Last Values WBC 7.1 K/mm3 (4.0-10.0) 05/08/19 12:00 RBC 4.72 M/mm3 (4.00-5.60) 05/08/19 12:00 Hgb 13.7 GM/dL (11.7-16.9) 05/08/19 12:00 Hct 41.8 % (35.4-49) 05/08/19 12:00 MCV 88.6 fl (80-96) 05/08/19 12:00 MCH 29.0 pg (25.7-33.7) 05/08/19 12:00 MCHC 32.8 g/dl (32.0-35.9) 05/08/19 12:00 RDW 14.9 % (11.9-15.9) 05/08/19 12:00 Plt Count 270 K/MM3 (134-434) D 05/08/19 12:00 MPV 9.6 fl (7.5-11.1) 05/08/19 12:00 Sodium 138 mmol/L (136-145) 05/08/19 12:00 Potassium 4.3 mmol/L (3.5-5.1) 05/08/19 12:00 Chloride 104 mmol/L (98-107) 05/08/19 12:00 Carbon Dioxide 26 mmol/L (21-32) 05/08/19 12:00 Anion Gap 8 MMOL/L (8-16) 05/08/19 12:00 BUN 8.1 mg/dL (7-18) 05/08/19 12:00 Creatinine 0.8 mg/dL (0.55-1.3) 05/08/19 12:00 Est GFR (CKD-EPI)AfAm 134.14 05/08/19 12:00 Est GFR (CKD-EPI)NonAf 115.74 05/08/19 12:00 Random Glucose 84 mg/dL (74-106) 05/08/19 12:00 Calcium 8.9 mg/dL (8.5-10.1) 05/08/19 12:00 Total Bilirubin 0.4 mg/dL (0.2-1) 05/08/19 12:00 AST 36 U/L (15-37) 05/08/19 12:00 ALT 49 U/L (13-61) 05/08/19 12:00 Alkaline Phosphatase 68 U/L (45-117) 05/08/19 12:00 Total Protein 8.0 g/dl (6.4-8.2) 05/08/19 12:00 Albumin 3.5 g/dl (3.4-5.0) 05/08/19 12:00 RPR Titer Nonreactive (NONREACTIVE) 05/08/19 12:00 Assessment: 05/09/19 09:51 withdrawal symptom Plan: continue detox methadone regimen
[2019-05-09] MEDS ORDERED: METHADONE (DETOX) 20 MG, METHADONE (DETOX) 5 MG PO ONE (10:00)
[2019-05-09] MEDS: PRENATAL VITAMINS W/ FOLIC ACID TABLET (FP) PO SCH (10:02)
[2019-05-09] MEDS: NICOTINE 14 MG/24 HOURS TOPICAL PATCH TD SCH (10:02)
[2019-05-09] MEDS: THIAMINE HCL 100 MG TABLET (FP) PO SCH (21:33)
[2019-05-10] MEDS: diazePAM 5 MG TABLET PO PRN ×5 (06:21→23:06)
[2019-05-10] MEDS ORDERED: METHADONE HCL 10 MG TABLET (FOR DETOX USE ONLY) PO ONE (10:00)
--- NOTE | 2019-05-10 10:03 | PN ---
BHS COWS - Scale Resting Pulse: 1= [place] 81-100 Sweatin= No chills or Flushing Restless Observation: 1= Difficult to Sit Still Pupil Size: 0= Normal to Room Light Bone or Joint Aches: 1= Mild Discomfort Runny Nose/ Eye Tearin= Nasal Congestion GI Upset > 30mins: 1= Stomach Cramp Tremor Observation of Outstretched Hands: 2= Slight Tremor Visible Yawning Observation: 1= 1-2x During Session Anxiety or Irritability: 2=Irritable/Anxious Goose Flesh Skin: 0=Smooth Skin COWS Score: 10 BHS Progress Note (SOAP) Subjective: alert,irritable,anxious,interrupted sleep,pain in the body and back, Objective: 05/10/19 10:01 Vital Signs Temperature 98.1 F 05/10/19 09:52 Pulse Rate 97 H 05/10/19 09:52 Respiratory Rate 18 05/10/19 09:52 Blood Pressure 141/75 05/10/19 09:52 O2 Sat by Pulse Oximetry (%) Laboratory Last Values WBC 7.1 K/mm3 (4.0-10.0) 05/08/19 12:00 RBC 4.72 M/mm3 (4.00-5.60) 05/08/19 12:00 Hgb 13.7 GM/dL (11.7-16.9) 05/08/19 12:00 Hct 41.8 % (35.4-49) 05/08/19 12:00 MCV 88.6 fl (80-96) 05/08/19 12:00 MCH 29.0 pg (25.7-33.7) 05/08/19 12:00 MCHC 32.8 g/dl (32.0-35.9) 05/08/19 12:00 RDW 14.9 % (11.9-15.9) 05/08/19 12:00 Plt Count 270 K/MM3 (134-434) D 05/08/19 12:00 MPV 9.6 fl (7.5-11.1) 05/08/19 12:00 Sodium 138 mmol/L (136-145) 05/08/19 12:00 Potassium 4.3 mmol/L (3.5-5.1) 05/08/19 12:00 Chloride 104 mmol/L (98-107) 05/08/19 12:00 Carbon Dioxide 26 mmol/L (21-32) 05/08/19 12:00 Anion Gap 8 MMOL/L (8-16) 05/08/19 12:00 BUN 8.1 mg/dL (7-18) 05/08/19 12:00 Creatinine 0.8 mg/dL (0.55-1.3) 05/08/19 12:00 Est GFR (CKD-EPI)AfAm 134.14 05/08/19 12:00 Est GFR (CKD-EPI)NonAf 115.74 05/08/19 12:00 Random Glucose 84 mg/dL (74-106) 05/08/19 12:00 Calcium 8.9 mg/dL (8.5-10.1) 05/08/19 12:00 Total Bilirubin 0.4 mg/dL (0.2-1) 05/08/19 12:00 AST 36 U/L (15-37) 05/08/19 12:00 ALT 49 U/L (13-61) 05/08/19 12:00 Alkaline Phosphatase 68 U/L (45-117) 05/08/19 12:00 Total Protein 8.0 g/dl (6.4-8.2) 05/08/19 12:00 Albumin 3.5 g/dl (3.4-5.0) 05/08/19 12:00 RPR Titer Nonreactive (NONREACTIVE) 05/08/19 12:00 Assessment: 05/10/19 10:02 withdrawal symptom Plan: continue detox methadone regimen,trazadone 100 mgs po hs by dr ramsey recommendation
[2019-05-10] MEDS: NICOTINE 14 MG/24 HOURS TOPICAL PATCH TD SCH (10:10)
[2019-05-10] MEDS: PRENATAL VITAMINS W/ FOLIC ACID TABLET (FP) PO SCH (10:11)
[2019-05-10] MEDS ORDERED: hydrOXYzine PAMOATE 50 MG CAPSULE (FP) PO PRN (11:07)
[2019-05-10] MEDS: LOPERAMIDE HCL 2 MG CAPSULE PO PRN (12:25)
[2019-05-10] MEDS: traZODone HCL 100 MG TABLET (FP) PO PRN (23:06)
[2019-05-10] MEDS: THIAMINE HCL 100 MG TABLET (FP) PO SCH (23:06)
[2019-05-11] MEDS ORDERED: METHADONE HCL 5 MG TABLET (FOR DETOX USE ONLY) ONE (09:32)
[2019-05-11] MEDS ORDERED: METHADONE HCL 10 MG TABLET (FOR DETOX USE ONLY) ONE (09:33)
[2019-05-11] MEDS: PRENATAL VITAMINS W/ FOLIC ACID TABLET (FP) PO SCH (10:00)
[2019-05-11] MEDS ORDERED: METHADONE (DETOX) 10 MG, METHADONE (DETOX) 5 MG PO ONE (10:00)
[2019-05-11] MEDS: NICOTINE 14 MG/24 HOURS TOPICAL PATCH TD SCH (10:02)
[2019-05-11] MEDS: diazePAM 5 MG TABLET PO PRN ×2 (10:04→14:17)
--- NOTE | 2019-05-11 10:42 | PN ---
BHS COWS - Scale Resting Pulse: 1= [place] 81-100 Sweatin= No chills or Flushing Restless Observation: 1= Difficult to Sit Still Pupil Size: 1= Pupils >than Normal Bone or Joint Aches: 1= Mild Discomfort Runny Nose/ Eye Tearin= Nasal Congestion GI Upset > 30mins: 1= Stomach Cramp Tremor Observation of Outstretched Hands: 1= Tremor [place], Not Seen Yawning Observation: 1= 1-2x During Session Anxiety or Irritability: 1=Feels Anxious/Irritable Goose Flesh Skin: 0=Smooth Skin COWS Score: 9 BHS Progress Note (SOAP) Subjective: alert,irritable,anxious,interrupted sleep,pain in the body Objective: 05/11/19 10:41 Vital Signs Temperature 97.7 F 05/11/19 09:42 Pulse Rate 98 H 05/11/19 09:42 Respiratory Rate 18 05/11/19 09:42 Blood Pressure 126/86 05/11/19 09:42 O2 Sat by Pulse Oximetry (%) Assessment: 05/11/19 10:41 withdrawal symptom Plan: continue detox,methadone regimen
[2019-05-11] MEDS: THIAMINE HCL 100 MG TABLET (FP) PO SCH (22:28)
[2019-05-11] MEDS: traZODone HCL 100 MG TABLET (FP) PO PRN (22:28)
[2019-05-12] MEDS ORDERED: diazePAM 5 MG TABLET PO PRN (09:02)
--- NOTE | 2019-05-12 09:26 | DS ---
[facility] Detox Discharge Summary Admission Date: 05/08/19 Discharge Date: 05/12/19 - History Present History: Alcohol Dependence, Cannabis Dependence, Cocaine Dependence Additional Comments: Patient tolerated detox well - Physical Exam Results Vital Signs: Vital Signs Temperature 98.0 F 05/12/19 06:59 Pulse Rate 77 05/12/19 06:59 Respiratory Rate 18 05/12/19 06:59 Blood Pressure 107/68 05/12/19 06:59 O2 Sat by Pulse Oximetry (%) - Medication Discharge Medications: Ambulatory Orders Abacavir/Dolutegravir/Lamivudi [Triumeq Tablet] 1 each PO DAILY 05/08/19 Docusate Sodium [Colace -] 100 mg PO DAILY 05/08/19 Duloxetine HCl [Cymbalta -] 60 mg PO DAILY 05/08/19 Mirtazapine 15 mg PO HS 05/08/19 Quetiapine Fumarate [Seroquel -] 300 mg PO HS 05/08/19 Sennosides [Senna] 8.6 mg PO DAILY 05/08/19 Topiramate [Topamax -] 200 mg PO DAILY 05/08/19
[2019-05-12] MEDS: PRENATAL VITAMINS W/ FOLIC ACID TABLET (FP) PO SCH (09:35)
[2019-05-12] MEDS: NICOTINE 14 MG/24 HOURS TOPICAL PATCH TD SCH (09:35)
--- NOTE | 2019-05-12 09:43 | PN ---
BHS COWS - Scale Resting Pulse: 1= [place] 81-100 Sweatin= Chills/Flushing Restless Observation: 0= Sits Still Pupil Size: 0= Normal to Room Light Bone or Joint Aches: 1= Mild Discomfort Runny Nose/ Eye Tearin= None GI Upset > 30mins: 0= None Tremor Observation of Outstretched Hands: 0= None Yawning Observation: 0= None Anxiety or Irritability: 2=Irritable/Anxious Goose Flesh Skin: 0=Smooth Skin COWS Score: 5 BHS Progress Note (SOAP) Subjective: c/o of interrupted sleep, chills, body aches Objective: 05/12/19 09:42 Vital Signs Temperature 98.9 F 05/12/19 09:30 Pulse Rate 84 05/12/19 09:30 Respiratory Rate 16 05/12/19 09:30 Blood Pressure 138/78 05/12/19 09:30 O2 Sat by Pulse Oximetry (%) Laboratory Last Values WBC 7.1 K/mm3 (4.0-10.0) 05/08/19 12:00 RBC 4.72 M/mm3 (4.00-5.60) 05/08/19 12:00 Hgb 13.7 GM/dL (11.7-16.9) 05/08/19 12:00 Hct 41.8 % (35.4-49) 05/08/19 12:00 MCV 88.6 fl (80-96) 05/08/19 12:00 MCH 29.0 pg (25.7-33.7) 05/08/19 12:00 MCHC 32.8 g/dl (32.0-35.9) 05/08/19 12:00 RDW 14.9 % (11.9-15.9) 05/08/19 12:00 Plt Count 270 K/MM3 (134-434) D 05/08/19 12:00 MPV 9.6 fl (7.5-11.1) 05/08/19 12:00 Sodium 138 mmol/L (136-145) 05/08/19 12:00 Potassium 4.3 mmol/L (3.5-5.1) 05/08/19 12:00 Chloride 104 mmol/L (98-107) 05/08/19 12:00 Carbon Dioxide 26 mmol/L (21-32) 05/08/19 12:00 Anion Gap 8 MMOL/L (8-16) 05/08/19 12:00 BUN 8.1 mg/dL (7-18) 05/08/19 12:00 Creatinine 0.8 mg/dL (0.55-1.3) 05/08/19 12:00 Est GFR (CKD-EPI)AfAm 134.14 05/08/19 12:00 Est GFR (CKD-EPI)NonAf 115.74 05/08/19 12:00 Random Glucose 84 mg/dL (74-106) 05/08/19 12:00 Calcium 8.9 mg/dL (8.5-10.1) 05/08/19 12:00 Total Bilirubin 0.4 mg/dL (0.2-1) 05/08/19 12:00 AST 36 U/L (15-37) 05/08/19 12:00 ALT 49 U/L (13-61) 05/08/19 12:00 Alkaline Phosphatase 68 U/L (45-117) 05/08/19 12:00 Total Protein 8.0 g/dl (6.4-8.2) 05/08/19 12:00 Albumin 3.5 g/dl (3.4-5.0) 05/08/19 12:00 RPR Titer Nonreactive (NONREACTIVE) 05/08/19 12:00 Assessment: 05/12/19 15:59 Aox3 no acute distress full ROM ambulating in the unit withdrawal sx Plan: d/c to Rehab in AM increase PO fluids continue detox continue to monitor
[2019-05-12] MEDS: LOPERAMIDE HCL 2 MG CAPSULE PO PRN (09:51)
[2019-05-12] MEDS ORDERED: METHADONE HCL 10 MG TABLET (FOR DETOX USE ONLY) PO ONE (10:00)
[2019-05-12 13:38] VITALS: BP 119/72; PULSE 85; TEMP 96.3
--- NOTE | 2019-05-12 14:47 | PN ---
BHS Progress Note Note: pt insisted on leaving regardless of risk of relapse, seizures, OD, DT and or loss. pt signed out AMA.
[2019-05-13] MEDS ORDERED: METHADONE HCL 5 MG TABLET (FOR DETOX USE ONLY) PO ONE (06:00)
--- NOTE | 2019-05-15 11:29 | DS ---
[facility] Detox Discharge Summary Admission Date: 05/08/19 - History Present History: Cannabis Dependence, Cocaine Dependence, Opioid Dependence - Physical Exam Results Vital Signs: Vital Signs Temperature 96.3 F L 05/12/19 12:19 Pulse Rate 85 05/12/19 12:19 Respiratory Rate 18 05/12/19 12:19 Blood Pressure 119/72 05/12/19 12:19 O2 Sat by Pulse Oximetry (%) Pertinent Admission Physical Exam Findings: Vital Signs Temperature 96.3 F L 05/12/19 12:19 Pulse Rate 85 05/12/19 12:19 Respiratory Rate 18 05/12/19 12:19 Blood Pressure 119/72 05/12/19 12:19 O2 Sat by Pulse Oximetry (%) Laboratory Tests 05/08/19 05/08/19 05/08/19 12:00 12:00 12:00 WBC 7.1 RBC 4.72 Hgb 13.7 Hct 41.8 MCV 88.6 MCH 29.0 MCHC 32.8 RDW 14.9 Plt Count 270 D MPV 9.6 Sodium 138 Potassium 4.3 Chloride 104 Carbon Dioxide 26 Anion Gap 8 BUN 8.1 Creatinine 0.8 Est GFR (CKD-EPI)AfAm 134.14 Est GFR (CKD-EPI)NonAf 115.74 Random Glucose 84 Calcium 8.9 Total Bilirubin 0.4 AST 36 ALT 49 Alkaline Phosphatase 68 Total Protein 8.0 Albumin 3.5 RPR Titer Nonreactive pt chose to sign out AMA. - Treatment Hospital Course: Rehab Referral Accepted - Medication Discharge Medications: Ambulatory Orders Abacavir/Dolutegravir/Lamivudi [Triumeq Tablet] 1 each PO DAILY 05/08/19 Docusate Sodium [Colace -] 100 mg PO DAILY 05/08/19 Duloxetine HCl [Cymbalta -] 60 mg PO DAILY 05/08/19 Mirtazapine 15 mg PO HS 05/08/19 Quetiapine Fumarate [Seroquel -] 300 mg PO HS 05/08/19 Sennosides [Senna] 8.6 mg PO DAILY 05/08/19 Topiramate [Topamax -] 200 mg PO DAILY 05/08/19 - Diagnosis (1) Diarrhea Status: Acute Qualifiers: Diarrhea type: unspecified type Qualified Code(s): R19.7 - Diarrhea, unspecified (2) Drug-induced mood disorder Status: Acute (3) Elevated alanine aminotransferase (ALT) level Status: Acute (4) Elevated aspartate aminotransferase level Status: Acute (5) Hepatitis Status: Acute (6) IVDU (intravenous drug user) Status: Acute (7) Opioid dependence with withdrawal Status: Acute (8) Substance-induced sleep disorder Status: Acute (9) Asthma Status: Chronic Qualifiers: Asthma severity: mild Asthma persistence: intermittent Asthma complication type: uncomplicated Qualified Code(s): J45.20 - Mild intermittent asthma, uncomplicated (10) Bipolar disorder Status: Chronic Qualifiers: Active/Remission status: remission status unspecified Qualified Code(s): F31.9 - Bipolar disorder, unspecified (11) Cannabis dependence Status: Chronic (12) Cocaine dependence Status: Chronic Qualifiers: Substance use status: uncomplicated Qualified Code(s): F14.20 - Cocaine dependence, uncomplicated (13) HIV (human immunodeficiency virus infection) Status: Chronic Qualifiers: HIV symptom status: asymptomatic Qualified Code(s): Z21 - Asymptomatic human immunodeficiency virus [HIV] infection status (14) Hepatitis C Status: Chronic Qualifiers: Viral hepatitis chronicity: chronic Hepatic coma status: without hepatic coma Qualified Code(s): B18.2 - Chronic viral hepatitis C (15) Insomnia Status: Chronic Qualifiers: Insomnia type: unspecified Qualified Code(s): G47.00 - Insomnia, unspecified (16) Mood disorder Status: Chronic (17) Nicotine dependence Status: Chronic Qualifiers: Nicotine product type: cigarettes Substance use status: uncomplicated Qualified Code(s): F17.210 - Nicotine dependence, cigarettes, uncomplicated (18) Non-compliance Status: Chronic (19) Substance induced mood disorder Status: Chronic - AMA Did Patient Leave Against Medical Advice: Yes
== END 2019-05-12 12:50 | disposition left against medical advice (07) | DRG 770 ==
LOC: YASAS 10:30 → Y6N 12:19
PROVIDERS: ADMIT Allergy & Immunology; ATTEND Allergy & Immunology
PROC: HZ2ZZZZ Detoxification Services for Substance Abuse Treatment (ICD-10-PCS; principal; 2019-05-08)
DX: F11.23 Opioid dependence with withdrawal (principal); F14.20 Cocaine dependence, uncomplicated; F12.20 Cannabis dependence, uncomplicated; F17.210 Nicotine dependence, cigarettes, uncomplicated; F19.24 Other psychoactive substance dependence with psychoactive substance-induced mood disorder; F19.282 Other psychoactive substance dependence with psychoactive substance-induced sleep disorder; F31.9 Bipolar disorder, unspecified; G47.00 Insomnia, unspecified; Z21 Asymptomatic human immunodeficiency virus [HIV] infection status; J45.20 Mild intermittent asthma, uncomplicated; B18.2 Chronic viral hepatitis C; Z91.19 Patient's noncompliance with other medical treatment and regimen; Z59.0 Homelessness
CPT/HCPCS: 36415; 80053; 85027; 86593

== ENCOUNTER 2019-06-12 10:00 | Inpatient (IN) | payer OTHER ==
[~2019-06-12 10:00] MED LIST: DULoxetine HCL 60 MG CAPSULE.DR PO SCH
[2019-06-12 10:53] VITALS: BMI 22.0
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
[2019-06-12] MEDS ORDERED: hydrOXYzine PAMOATE 25 MG CAPSULE (FP) PO PRN (11:34)
[2019-06-12] MEDS ORDERED: cloNIDine HCL 0.1 MG TABLET PO PRN (11:34)
[2019-06-12] MEDS ORDERED: MELATONIN 5 MG TABLETS PO PRN (11:34)
[2019-06-12] MEDS ORDERED: IBUPROFEN 400 MG TABLET (FP) PO PRN (11:34)
[2019-06-12] MEDS ORDERED: METHOCARBAMOL 500 MG TABLET PO PRN (11:34)
[2019-06-12] MEDS ORDERED: MAG HYDROX/AL HYDROX/SIMETH 30 ML UNIT-DOSE CUP PO PRN (11:34)
[2019-06-12] MEDS ORDERED: ACETAMINOPHEN 325 MG TABLET (FP) PO PRN ×2 (11:34)
[2019-06-12] MEDS ORDERED: MAGNESIUM CITRATE 300 ML BOTTLE PO PRN (11:34)
[2019-06-12] MEDS ORDERED: MAGNESIUM HYDROX 2400MG/30ML ORAL SUSPENSION 30 ML CUP PO PRN (11:34)
[2019-06-12] MEDS ORDERED: MENTHOL/PHENOL 1 EACH UD MM PRN (11:34)
[2019-06-12] MEDS ORDERED: METHADONE HCL 10 MG TABLET (FOR DETOX USE ONLY) PO ONE (12:30)
[2019-06-12] MEDS: hydrOXYzine PAMOATE 25 MG CAPSULE (FP) PO SCH ×2 (13:23→17:08)
--- NOTE | 2019-06-12 13:24 | PN ---
BHS Progress Note Note: 33 year old male admitted on 06/12/19 for opiate withdrawal sx management treating with methadone detox regimen poor appetite with low bmi ensure supplement
[2019-06-12] MEDS: ALBUTEROL SO4 HFA INHALER IH PRN ×2 (14:30→18:30)
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
[2019-06-12] MEDS: BISMUTH SUBSALICYLATE 262 MG/15 ML BTL PO PRN ×2 (15:18→17:08)
[2019-06-12] MEDS ORDERED: QUEtiapine FUMARATE 300 MG TABLET PO SCH (22:00)
[2019-06-12] MEDS ORDERED: MIRTAZAPINE 15 MG TABLET (FP) PO SCH (22:00)
[2019-06-12] MEDS: THIAMINE HCL 100 MG TABLET (FP) PO SCH (22:15)
[2019-06-12] MEDS: traZODone HCL 100 MG TABLET (FP) PO SCH (22:15)
[2019-06-13] MEDS: hydrOXYzine PAMOATE 25 MG CAPSULE (FP) PO SCH ×5 (07:05→23:56)
[2019-06-13] MEDS ORDERED: METHADONE HCL 5 MG TABLET (FOR DETOX USE ONLY) ONE (09:16)
[2019-06-13] MEDS ORDERED: METHADONE HCL 10 MG TABLET (FOR DETOX USE ONLY) ONE (09:16)
[2019-06-13 09:30] LABS: HEMATOCRIT 36.2 % (35.4-49); MCH 28.9 pg (25.7-33.7); MCHC 33.2 g/dl (32.0-35.9); MEAN CELL VOLUME 87.1 fl (80-96); MEAN PLT VOLUME 8.5 fl (7.5-11.1); PLATELET COUNT 254 K/MM3 (134-434); RBC 4.16 M/mm3 (4.00-5.60); RDW 13.9 % (11.9-15.9)
[2019-06-13] MEDS ORDERED: METHADONE (DETOX) 20 MG, METHADONE (DETOX) 5 MG PO ONE (10:00)
[2019-06-13] MEDS: PRENATAL VITAMINS W/ FOLIC ACID TABLET (FP) PO SCH (10:31)
[2019-06-13] MEDS: NICOTINE 7 MG/24 HOURS TOPICAL PATCH TD SCH (10:32)
[2019-06-13] MEDS: ABACAVIR/DOLUTEGRAVIR/LAMIVUDI (TRIUMEQ) TABLET -NF PO SCH (10:32)
[2019-06-13] MEDS: ALBUTEROL SO4 HFA INHALER IH PRN (10:38)
[2019-06-13 11:02] LABS: ALBUMIN 3.6 g/dl (3.4-5.0); BILIRUBIN,TOTAL 0.3 mg/dL (0.2-1); BLOOD UREA NITROGEN 10.8 mg/dL (7-18); CALCIUM 8.5 mg/dL (8.5-10.1); CREATININE 0.8 mg/dL (0.55-1.3); POTASSIUM 3.9 mmol/L (3.5-5.1); TOT PROT 7.7 g/dl (6.4-8.2)
--- NOTE | 2019-06-13 11:27 | PN ---
[facility] COWS - Scale Resting Pulse: 1= CT 81-100 Sweatin= Chills/Flushing Restless Observation: 0= Sits Still Pupil Size: 1= Pupils >than Normal Bone or Joint Aches: 1= Mild Discomfort Runny Nose/ Eye Tearin= Runny Nose/Eyes GI Upset > 30mins: 0= None Tremor Observation of Outstretched Hands: 1= Tremor [place], Not Seen Yawning Observation: 1= 1-2x During Session Anxiety or Irritability: 2=Irritable/Anxious Goose Flesh Skin: 3=Piloerection COWS Score: 13 BHS Progress Note (SOAP) Subjective: 33 years old male admitted on 06/12/19 for opiate withdrawal sx management treating with methadone detox regiment patient has history of asthma treated with ventolin post nasal drip claritin and mucinex Objective: 06/13/19 11:53 Vital Signs Temperature 96.7 F L 06/13/19 09:02 Pulse Rate 93 H 06/13/19 09:02 Respiratory Rate 18 06/13/19 09:02 Blood Pressure 96/60 06/13/19 09:02 O2 Sat by Pulse Oximetry (%) Laboratory Last Values WBC 5.0 K/mm3 (4.0-10.0) 06/13/19 07:45 RBC 4.16 M/mm3 (4.00-5.60) 06/13/19 07:45 Hgb 12.0 GM/dL (11.7-16.9) 06/13/19 07:45 Hct 36.2 % (35.4-49) 06/13/19 07:45 MCV 87.1 fl (80-96) 06/13/19 07:45 MCH 28.9 pg (25.7-33.7) 06/13/19 07:45 MCHC 33.2 g/dl (32.0-35.9) 06/13/19 07:45 RDW 13.9 % (11.9-15.9) 06/13/19 07:45 Plt Count 254 K/MM3 (134-434) 06/13/19 07:45 MPV 8.5 fl (7.5-11.1) D 06/13/19 07:45 Sodium 132 mmol/L (136-145) L 06/13/19 07:45 Potassium 3.9 mmol/L (3.5-5.1) 06/13/19 07:45 Chloride 98 mmol/L (98-107) 06/13/19 07:45 Carbon Dioxide 28 mmol/L (21-32) 06/13/19 07:45 Anion Gap 7 MMOL/L (8-16) L 06/13/19 07:45 BUN 10.8 mg/dL (7-18) 06/13/19 07:45 Creatinine 0.8 mg/dL (0.55-1.3) 06/13/19 07:45 Est GFR (CKD-EPI)AfAm 134.14 06/13/19 07:45 Est GFR (CKD-EPI)NonAf 115.74 06/13/19 07:45 Random Glucose 87 mg/dL (74-106) 06/13/19 07:45 Calcium 8.5 mg/dL (8.5-10.1) 06/13/19 07:45 Total Bilirubin 0.3 mg/dL (0.2-1) 06/13/19 07:45 AST 30 U/L (15-37) 06/13/19 07:45 ALT 31 U/L (13-61) 06/13/19 07:45 Alkaline Phosphatase 61 U/L (45-117) 06/13/19 07:45 Total Protein 7.7 g/dl (6.4-8.2) 06/13/19 07:45 Albumin 3.6 g/dl (3.4-5.0) 06/13/19 07:45 RPR Titer Nonreactive (NONREACTIVE) 06/13/19 07:45 lab noted Assessment: 06/13/19 11:54 opiate withdrawal 06/13/19 11:54 discussed medication assisted treatment program Plan: methadone regimen picker and packer narcan from pharmacy upon discharged
[2019-06-13] MEDS ORDERED: FLU VACCINE QUAD 60 MCG/0.5 ML (MDV 19-20) IM ONE (12:00)
[2019-06-13] MEDS ORDERED: PNEUMOC 13-VAL CONJ-DIP CRM/PF 0.5 ML DISP.SYRIN IM ONE (12:00)
[2019-06-13] MEDS: guaiFENesin 600 MG TABLET.ER (FP) PO SCH ×2 (12:51→21:58)
[2019-06-13] MEDS: LORATADINE 10 MG TABLET PO SCH (21:58)
[2019-06-13] MEDS: THIAMINE HCL 100 MG TABLET (FP) PO SCH (21:58)
[2019-06-13] MEDS: traZODone HCL 100 MG TABLET (FP) PO SCH (21:58)
[2019-06-14] MEDS: hydrOXYzine PAMOATE 25 MG CAPSULE (FP) PO SCH ×2 (06:56→11:17)
[2019-06-14] MEDS: PRENATAL VITAMINS W/ FOLIC ACID TABLET (FP) PO SCH (09:56)
[2019-06-14] MEDS: guaiFENesin 600 MG TABLET.ER (FP) PO SCH ×2 (09:57→22:30)
[2019-06-14] MEDS: NICOTINE 7 MG/24 HOURS TOPICAL PATCH TD SCH (09:58)
[2019-06-14] MEDS: ABACAVIR/DOLUTEGRAVIR/LAMIVUDI (TRIUMEQ) TABLET -NF PO SCH (10:00)
[2019-06-14] MEDS ORDERED: METHADONE HCL 10 MG TABLET (FOR DETOX USE ONLY) PO ONE (10:00)
[2019-06-14] MEDS ORDERED: ALBUTEROL SO4 0.083% IH SOL 2.5 MG/3 ML VIAL.NEB. NEB ONE (11:26)
--- NOTE | 2019-06-14 11:26 | PN ---
BHS COWS - Scale Resting Pulse: 0= ID 80 or Below Sweatin= Chills/Flushing Restless Observation: 0= Sits Still Pupil Size: 1= Pupils >than Normal Bone or Joint Aches: 1= Mild Discomfort Runny Nose/ Eye Tearin= Runny Nose/Eyes GI Upset > 30mins: 1= Stomach Cramp Tremor Observation of Outstretched Hands: 1= Tremor [place], Not Seen Yawning Observation: 2= >3x During Session Anxiety or Irritability: 1=Feels Anxious/Irritable Goose Flesh Skin: 0=Smooth Skin COWS Score: 10 BHS Progress Note (SOAP) Subjective: 33 years old male admitted on 06/12/19 for opiate withdrawal sx management treating with methadone detox regiment patient has long history of asthma and cigarette smoker reports asthmatic episode requests nebulizer nebulizer x 1 now discontinue flu vaccine at this time patient has clear lungs on auscultation rule out anxiety discontinue clonidine begin klonopine 0.5 mg po prn for anxiety Objective: 06/14/19 11:36 Vital Signs Temperature 97.8 F 06/14/19 09:32 Pulse Rate 76 06/14/19 09:32 Respiratory Rate 18 06/14/19 09:32 Blood Pressure 115/70 06/14/19 09:32 O2 Sat by Pulse Oximetry (%) Laboratory Last Values WBC 5.0 K/mm3 (4.0-10.0) 06/13/19 07:45 RBC 4.16 M/mm3 (4.00-5.60) 06/13/19 07:45 Hgb 12.0 GM/dL (11.7-16.9) 06/13/19 07:45 Hct 36.2 % (35.4-49) 06/13/19 07:45 MCV 87.1 fl (80-96) 06/13/19 07:45 MCH 28.9 pg (25.7-33.7) 06/13/19 07:45 MCHC 33.2 g/dl (32.0-35.9) 06/13/19 07:45 RDW 13.9 % (11.9-15.9) 06/13/19 07:45 Plt Count 254 K/MM3 (134-434) 06/13/19 07:45 MPV 8.5 fl (7.5-11.1) D 06/13/19 07:45 Sodium 132 mmol/L (136-145) L 06/13/19 07:45 Potassium 3.9 mmol/L (3.5-5.1) 06/13/19 07:45 Chloride 98 mmol/L (98-107) 06/13/19 07:45 Carbon Dioxide 28 mmol/L (21-32) 06/13/19 07:45 Anion Gap 7 MMOL/L (8-16) L 06/13/19 07:45 BUN 10.8 mg/dL (7-18) 06/13/19 07:45 Creatinine 0.8 mg/dL (0.55-1.3) 06/13/19 07:45 Est GFR (CKD-EPI)AfAm 134.14 06/13/19 07:45 Est GFR (CKD-EPI)NonAf 115.74 06/13/19 07:45 Random Glucose 87 mg/dL (74-106) 06/13/19 07:45 Calcium 8.5 mg/dL (8.5-10.1) 06/13/19 07:45 Total Bilirubin 0.3 mg/dL (0.2-1) 06/13/19 07:45 AST 30 U/L (15-37) 06/13/19 07:45 ALT 31 U/L (13-61) 06/13/19 07:45 Alkaline Phosphatase 61 U/L (45-117) 06/13/19 07:45 Total Protein 7.7 g/dl (6.4-8.2) 06/13/19 07:45 Albumin 3.6 g/dl (3.4-5.0) 06/13/19 07:45 RPR Titer Nonreactive (NONREACTIVE) 06/13/19 07:45 lab noted Assessment: 06/14/19 11:36 opiate withdrawal 06/14/19 11:37 asthma Plan: methadone regiment nebulizer prn
[2019-06-14] MEDS ORDERED: ALBUTEROL SO4 0.083% IH SOL 2.5 MG/3 ML VIAL.NEB. NEB PRN (11:28)
[2019-06-14] MEDS ORDERED: hydrOXYzine PAMOATE 25 MG CAPSULE (FP) PO PRN (11:31)
[2019-06-14] MEDS ORDERED: clonazePAM 0.5 MG TABLET PO PRN (11:34)
[2019-06-14] MEDS: THIAMINE HCL 100 MG TABLET (FP) PO SCH (22:21)
[2019-06-14] MEDS: LORATADINE 10 MG TABLET PO SCH (22:21)
[2019-06-14] MEDS: traZODone HCL 100 MG TABLET (FP) PO SCH (22:21)
[2019-06-15] MEDS ORDERED: ONDANSETRON *ODT* 4 MG TABLET SL PRN (09:32)
--- NOTE | 2019-06-15 09:35 | PN ---
BHS COWS - Scale Resting Pulse: 1= CT 81-100 Sweatin= Chills/Flushing Restless Observation: 1= Difficult to Sit Still Pupil Size: 0= Normal to Room Light Bone or Joint Aches: 1= Mild Discomfort Runny Nose/ Eye Tearin= Nasal Congestion GI Upset > 30mins: 1= Stomach Cramp Tremor Observation of Outstretched Hands: 1= Tremor [place], Not Seen Yawning Observation: 2= >3x During Session Anxiety or Irritability: 1=Feels Anxious/Irritable Goose Flesh Skin: 0=Smooth Skin COWS Score: 10 BHS Progress Note (SOAP) Subjective: Patient with hx of opioid dependence on methadone detox protocol c/o of abdominal cramps and dirrhea, denies melena / bloody stools or abdominal tenderness Objective: 06/15/19 09:33 Vital Signs Temperature 97.6 F 06/15/19 09:18 Pulse Rate 82 06/15/19 09:18 Respiratory Rate 18 06/15/19 09:18 Blood Pressure 112/68 06/15/19 09:18 O2 Sat by Pulse Oximetry (%) Laboratory Last Values WBC 5.0 K/mm3 (4.0-10.0) 06/13/19 07:45 RBC 4.16 M/mm3 (4.00-5.60) 06/13/19 07:45 Hgb 12.0 GM/dL (11.7-16.9) 06/13/19 07:45 Hct 36.2 % (35.4-49) 06/13/19 07:45 MCV 87.1 fl (80-96) 06/13/19 07:45 MCH 28.9 pg (25.7-33.7) 06/13/19 07:45 MCHC 33.2 g/dl (32.0-35.9) 06/13/19 07:45 RDW 13.9 % (11.9-15.9) 06/13/19 07:45 Plt Count 254 K/MM3 (134-434) 06/13/19 07:45 MPV 8.5 fl (7.5-11.1) D 06/13/19 07:45 Sodium 132 mmol/L (136-145) L 06/13/19 07:45 Potassium 3.9 mmol/L (3.5-5.1) 06/13/19 07:45 Chloride 98 mmol/L (98-107) 06/13/19 07:45 Carbon Dioxide 28 mmol/L (21-32) 06/13/19 07:45 Anion Gap 7 MMOL/L (8-16) L 06/13/19 07:45 BUN 10.8 mg/dL (7-18) 06/13/19 07:45 Creatinine 0.8 mg/dL (0.55-1.3) 06/13/19 07:45 Est GFR (CKD-EPI)AfAm 134.14 06/13/19 07:45 Est GFR (CKD-EPI)NonAf 115.74 06/13/19 07:45 Random Glucose 87 mg/dL (74-106) 06/13/19 07:45 Calcium 8.5 mg/dL (8.5-10.1) 06/13/19 07:45 Total Bilirubin 0.3 mg/dL (0.2-1) 06/13/19 07:45 AST 30 U/L (15-37) 06/13/19 07:45 ALT 31 U/L (13-61) 06/13/19 07:45 Alkaline Phosphatase 61 U/L (45-117) 06/13/19 07:45 Total Protein 7.7 g/dl (6.4-8.2) 06/13/19 07:45 Albumin 3.6 g/dl (3.4-5.0) 06/13/19 07:45 RPR Titer Nonreactive (NONREACTIVE) 06/13/19 07:45 Assessment: 06/15/19 09:34 Patient is AOx3 no acute distress EENT WNL no abdominal tenderness Full ROM withdrawal sx Plan: increase fluids continue detox zofran prn for nausea continue to monitor
[2019-06-15] MEDS ORDERED: METHADONE HCL 10 MG TABLET (FOR DETOX USE ONLY) ONE (09:46)
[2019-06-15] MEDS ORDERED: METHADONE HCL 5 MG TABLET (FOR DETOX USE ONLY) ONE (09:46)
[2019-06-15] MEDS ORDERED: METHADONE (DETOX) 10 MG, METHADONE (DETOX) 5 MG PO ONE (10:00)
[2019-06-15] MEDS: NICOTINE 7 MG/24 HOURS TOPICAL PATCH TD SCH (10:18)
[2019-06-15] MEDS: PRENATAL VITAMINS W/ FOLIC ACID TABLET (FP) PO SCH (10:18)
[2019-06-15] MEDS: ABACAVIR/DOLUTEGRAVIR/LAMIVUDI (TRIUMEQ) TABLET -NF PO SCH (10:19)
[2019-06-15] MEDS: guaiFENesin 600 MG TABLET.ER (FP) PO SCH (10:19)
[2019-06-15 13:38] VITALS: BP 117/77; PULSE 93; TEMP 96.9
--- NOTE | 2019-06-15 15:22 | DS ---
[facility] Detox Discharge Summary Admission Date: 06/12/19 Discharge Date: 06/15/19 - History Present History: Alcohol Dependence, Opioid Dependence - Physical Exam Results Vital Signs: Vital Signs Temperature 96.9 F L 06/15/19 13:37 Pulse Rate 93 H 06/15/19 13:37 Respiratory Rate 16 06/15/19 13:37 Blood Pressure 117/77 06/15/19 13:37 O2 Sat by Pulse Oximetry (%) - Treatment Hospital Course: Discharged Condition Good - Medication Discharge Medications: Ambulatory Orders Abacavir/Dolutegravir/Lamivudi [Triumeq Tablet] 1 each PO DAILY 05/08/19 Docusate Sodium [Colace -] 100 mg PO DAILY 05/08/19 Duloxetine HCl [Cymbalta -] 60 mg PO DAILY 05/08/19 Mirtazapine 15 mg PO HS 05/08/19 Quetiapine Fumarate [Seroquel -] 300 mg PO HS 05/08/19 Sennosides [Senna] 8.6 mg PO DAILY 05/08/19 Topiramate [Topamax -] 200 mg PO DAILY 05/08/19 Naloxone HCl [Narcan] 4 mg NS ASDIR PRN #1 spray 06/13/19 - Diagnosis (1) Cocaine dependence Current Visit: Yes Status: Acute Qualifiers: Substance use status: uncomplicated Qualified Code(s): F14.20 - Cocaine dependence, uncomplicated (2) Opioid dependence with withdrawal Current Visit: Yes Status: Acute (3) Asthma Current Visit: No Status: Chronic Qualifiers: Asthma severity: mild Asthma persistence: intermittent Asthma complication type: uncomplicated Qualified Code(s): J45.20 - Mild intermittent asthma, uncomplicated (4) HIV (human immunodeficiency virus infection) Current Visit: Yes Status: Chronic Qualifiers: HIV symptom status: asymptomatic Qualified Code(s): Z21 - Asymptomatic human immunodeficiency virus [HIV] infection status (5) Nicotine dependence Current Visit: Yes Status: Chronic Qualifiers: Nicotine product type: cigarettes Substance use status: uncomplicated Qualified Code(s): F17.210 - Nicotine dependence, cigarettes, uncomplicated (6) Non-compliance Current Visit: Yes Status: Chronic (7) Hepatitis C Current Visit: Yes Status: Resolved Qualifiers: Viral hepatitis chronicity: chronic Hepatic coma status: without hepatic coma Qualified Code(s): B18.2 - Chronic viral hepatitis C - AMA Did Patient Leave Against Medical Advice: No
--- NOTE | 2019-06-15 15:29 | PN ---
S Progress Note Note: Patient administratively discharged d/t behavior and failure to comply with unit rules. Patient stable. Patient was provided with referral [place]. Patient was escorted by security off the unit and was given his property.
[2019-06-16] MEDS ORDERED: METHADONE HCL 10 MG TABLET (FOR DETOX USE ONLY) PO ONE (10:00)
[2019-06-17] MEDS ORDERED: METHADONE HCL 5 MG TABLET (FOR DETOX USE ONLY) PO ONE (06:00)
== END 2019-06-15 03:20 | disposition home or self-care (01) | DRG 773 ==
LOC: YASAS 10:00 → Y3N 11:45
PROVIDERS: ADMIT Allergy & Immunology; ATTEND Allergy & Immunology
PROC: HZ2ZZZZ Detoxification Services for Substance Abuse Treatment (ICD-10-PCS; principal; 2019-06-12)
DX: F11.23 Opioid dependence with withdrawal (principal); F14.20 Cocaine dependence, uncomplicated; F17.210 Nicotine dependence, cigarettes, uncomplicated; F19.282 Other psychoactive substance dependence with psychoactive substance-induced sleep disorder; F31.9 Bipolar disorder, unspecified; Z21 Asymptomatic human immunodeficiency virus [HIV] infection status; J45.20 Mild intermittent asthma, uncomplicated; B18.2 Chronic viral hepatitis C; F91.8 Other conduct disorders; Z91.19 Patient's noncompliance with other medical treatment and regimen
CPT/HCPCS: 36415; 80053; 85027; 86593

== ENCOUNTER 2024-11-22 08:23 | Inpatient (IN) | payer BC ==
[2024-11-22 08:57] VITALS: BMI 20.7
[2024-11-22] MEDS ORDERED: MAGNESIUM HYDROX 2400MG/30ML ORAL SUSPENSION 30 ML CUP PO PRN (08:58)
[2024-11-22] MEDS ORDERED: NICOTINE POLACRILEX 2 MG GUM BUC PRN (08:58)
[2024-11-22] MEDS ORDERED: hydrOXYzine PAMOATE 25 MG CAPSULE (FP) PO PRN (08:58)
[2024-11-22] MEDS ORDERED: LOPERAMIDE HCL 2 MG CAPSULE PO PRN (08:58)
[2024-11-22] MEDS ORDERED: guaiFENesin 600 MG TABLET.ER (FP) PO PRN (08:58)
[2024-11-22] MEDS ORDERED: ACETAMINOPHEN 325 MG TABLET (FP) PO PRN (08:58)
[2024-11-22] MEDS ORDERED: IBUPROFEN 400 MG TABLET (FP) PO PRN (08:58)
[2024-11-22] MEDS ORDERED: BISMUTH SUBSALICYLATE 262 MG/15 ML BTL PO PRN (08:58)
[2024-11-22] MEDS ORDERED: POLYETHYLENE GLYCOL (HEALTHYLAX) 3350 17 GM PACKET PO PRN (08:58)
[2024-11-22] MEDS ORDERED: MAG HYDROX/AL HYDROX/SIMETH 30 ML UNIT-DOSE CUP PO PRN (08:58)
[2024-11-22] MEDS ORDERED: NALOXONE (NARCAN) HCL 4 MG/0.1 ML SPRAY NS PRN (08:58)
[2024-11-22] MEDS ORDERED: BENZOCAINE/MENTHOL (CHLORASEPTIC ) LOZENGE MM PRN (08:58)
[2024-11-22] MEDS ORDERED: BENZONATATE 200 MG CAPSULE PO PRN (08:58)
[2024-11-22] MEDS ORDERED: ONDANSETRON *ODT* 4 MG TABLET ONE (09:54)
[2024-11-22] MEDS: ONDANSETRON *ODT* 4 MG TABLET SL PRN (09:56)
[2024-11-22] MEDS: PRENATAL VITAMINS W/ FOLIC ACID TABLET (FP) PO SCH (10:00)
[2024-11-22] MEDS: NICOTINE 14 MG/24 HOURS TOPICAL PATCH TD SCH (10:00)
[2024-11-22] MEDS: ABACAVIR/DOLUTEGRAVIR/LAMIVUDI (TRIUMEQ) TABLET PO SCH (10:55)
[2024-11-22] MEDS: TRIMETHOBENZAMIDE HCL 200MG/2ML INJ IM PRN (13:22)
[2024-11-22] MEDS: IBUPROFEN 600 MG TABLET (FP) PO PRN (14:26)
[2024-11-22] MEDS: MIRTAZAPINE 15 MG TABLET (FP) PO SCH (22:22)
[2024-11-22] MEDS: THIAMINE 100 MG TABLET PO SCH (22:22)
[2024-11-22] MEDS: MELATONIN 5 MG TABLETS PO SCH (22:22)
[2024-11-23] MEDS: amLODIPine BESYLATE 10 MG TABLET (FP) PO SCH (09:43)
[2024-11-23 11:19] LABS: MCHC 29.8 g/dl (32.3-36.5); MEAN CELL VOLUME 86.0 fl (79.0-92.2); MEAN PLT VOLUME 11.2 fl (9.4-12.4); RDW 15.4 % (12.0-15.6)
[2024-11-23 11:38] LABS: ALK PHOS 109.0 U/L (45-117); CREATININE 1.0 mg/dL (0.55-1.3)
[2024-11-23 11:39] LABS: CO2 30.0 mmol/L (21-32); SGPT/ALT 37.0 U/L (13-61)
[2024-11-23 11:40] LABS: TOT PROT 8.2 g/dl (6.4-8.2)
[2024-11-23 11:41] LABS: GLUCOSE,RANDOM 54.0 mg/dL (74-106)
[2024-11-23 11:42] LABS: SGOT/AST 30.0 U/L (15-37)
[2024-11-24] MEDS: DICYCLOMINE HCL 10 MG CAPSULE PO PRN (05:10)
[2024-11-24] MEDS: METHOCARBAMOL 500 MG TABLET PO PRN (09:16)
[2024-11-28 06:20] VITALS: RESP 16
[2024-11-28 09:19] VITALS: BP 103/63; PULSE 78; TEMP 97.3
== END 2024-11-28 09:44 | disposition home or self-care (01) | DRG 773 ==
LOC: YASAS 08:23 → Y3N 09:59
PROVIDERS: ADMIT Family Medicine; ATTEND Family Medicine Addiction Medicine
PROC: HZ2ZZZZ Detoxification Services for Substance Abuse Treatment (ICD-10-PCS; principal; 2024-11-22)
DX: F11.23 Opioid dependence with withdrawal (principal); F14.23 Cocaine dependence with withdrawal; Z21 Asymptomatic human immunodeficiency virus [HIV] infection status; F31.9 Bipolar disorder, unspecified; J45.20 Mild intermittent asthma, uncomplicated; G47.00 Insomnia, unspecified; F17.210 Nicotine dependence, cigarettes, uncomplicated; B18.2 Chronic viral hepatitis C; I10 Essential (primary) hypertension; F13.20 Sedative, hypnotic or anxiolytic dependence, uncomplicated
CPT/HCPCS: 36415; 80053; 80305; 80307; 85027; 86780; 93005; 93010; Q0162

== ENCOUNTER 2024-11-23 07:42 | Emergency (ER) | payer BC ==
[2024-11-23 08:37] VITALS: BMI 19.9
[2024-11-23] MEDS: LACTATED RINGERS SOLUTION 1000 ML INFUS.BAG IV ONE (09:00)
[2024-11-23 09:27] LABS: MCHC 31.0 g/dl (32.3-36.5)
[2024-11-23 09:28] LABS: MEAN CELL VOLUME 83.9 fl (79.0-92.2); RDW 15.3 % (12.0-15.6)
[2024-11-23] MEDS ORDERED: amLODIPine BESYLATE 10 MG TABLET (FP) ONE (09:41)
[2024-11-23] MEDS: amLODIPine BESYLATE 10 MG TABLET (FP) PO ONE (09:45)
[2024-11-23 10:15] LABS: ALK PHOS 108 U/L (45-117); CO2 23 mmol/L (21-32); CREATININE 0.9 mg/dL (0.55-1.3); GLUCOSE,RANDOM 134 mg/dL (74-106); SGOT/AST 86 U/L (15-37); SGPT/ALT 40 U/L (13-61); TOT PROT 8.4 g/dl (6.4-8.2)
[2024-11-23 12:49] LABS: CO2 27.0 mmol/L (21-32); GLUCOSE,RANDOM 124.0 mg/dL (74-106)
[2024-11-23 12:53] LABS: CREATININE 0.8 mg/dL (0.55-1.3)
[2024-11-23 13:27] VITALS: BP 99/76; PULSE 65; RESP 20; TEMP 98
== END 2024-11-23 13:42 | disposition home or self-care (01) ==
LOC: JER 07:42
DX: R07.89 Other chest pain (principal); R11.2 Nausea with vomiting, unspecified; R19.7 Diarrhea, unspecified
CPT/HCPCS: 71045-TC-FY; 80048; 80053; 83735; 84484; 85025; 93005; 93010; 99285-25

== ENCOUNTER 2025-01-11 08:48 | Inpatient (IN) | payer BC ==
[2025-01-11 09:06] VITALS: BMI 20.8
[2025-01-11] MEDS ORDERED: DICYCLOMINE HCL 10 MG CAPSULE PO PRN (09:56)
[2025-01-11] MEDS ORDERED: NALOXONE (NARCAN) HCL 4 MG/0.1 ML SPRAY NS PRN (09:56)
[2025-01-11] MEDS ORDERED: LOPERAMIDE HCL 2 MG CAPSULE PO PRN (09:56)
[2025-01-11] MEDS ORDERED: ONDANSETRON *ODT* 4 MG TABLET SL PRN (09:56)
[2025-01-11] MEDS ORDERED: hydrOXYzine PAMOATE 25 MG CAPSULE (FP) PO PRN (09:56)
[2025-01-11] MEDS ORDERED: BENZOCAINE/MENTHOL (CHLORASEPTIC ) LOZENGE MM PRN (09:56)
[2025-01-11] MEDS ORDERED: MAG HYDROX/AL HYDROX/SIMETH 30 ML UNIT-DOSE CUP PO PRN (09:56)
[2025-01-11] MEDS ORDERED: BENZONATATE 200 MG CAPSULE PO PRN (09:56)
[2025-01-11] MEDS ORDERED: BISMUTH SUBSALICYLATE 524 MG/30 ML PO PRN (09:56)
[2025-01-11] MEDS ORDERED: IBUPROFEN 600 MG TABLET (FP) PO PRN (09:56)
[2025-01-11] MEDS ORDERED: NICOTINE POLACRILEX 2 MG GUM BUC PRN (09:56)
[2025-01-11] MEDS ORDERED: IBUPROFEN 400 MG TABLET (FP) PO PRN (09:56)
[2025-01-11] MEDS ORDERED: guaiFENesin 600 MG TABLET.ER (FP) PO PRN (09:56)
[2025-01-11] MEDS ORDERED: POLYETHYLENE GLYCOL (HEALTHYLAX) 3350 17 GM PACKET PO PRN (09:56)
[2025-01-11] MEDS ORDERED: MAGNESIUM HYDROX 2400MG/30ML ORAL SUSPENSION 30 ML CUP PO PRN (09:56)
[2025-01-11] MEDS ORDERED: METHOCARBAMOL 500 MG TABLET ONE (10:14)
[2025-01-11] MEDS ORDERED: ONDANSETRON *ODT* 4 MG TABLET ONE (10:15)
[2025-01-11] MEDS: PRENATAL VITAMINS W/ FOLIC ACID TABLET (FP) PO SCH (10:15)
[2025-01-11] MEDS: METHOCARBAMOL 500 MG TABLET PO PRN (10:17)
[2025-01-11] MEDS: NICOTINE 14 MG/24 HOURS TOPICAL PATCH TD SCH (10:47)
[2025-01-11] MEDS ORDERED: ALBUTEROL SO4 HFA INHALER IH PRN (11:13)
[2025-01-11] MEDS: ABACAVIR/DOLUTEGRAVIR/LAMIVUDI (TRIUMEQ) TABLET PO SCH (12:27)
[2025-01-11] MEDS: MELATONIN 5 MG TABLETS PO SCH (22:37)
[2025-01-11] MEDS: THIAMINE 100 MG TABLET PO SCH (22:37)
[2025-01-12 10:32] LABS: MCHC 29.5 g/dl (32.3-36.5); MEAN CELL VOLUME 87.9 fl (79.0-92.2); MEAN PLT VOLUME 11.8 fl (9.4-12.4); RDW 15.4 % (12.1-15.9)
[2025-01-12 11:03] LABS: GLUCOSE,RANDOM 85.0 mg/dL (74-106); TOT PROT 8.1 g/dl (6.4-8.2)
[2025-01-12 11:04] LABS: CO2 27.0 mmol/L (21-32)
[2025-01-12 11:06] LABS: ALK PHOS 84.0 U/L (40-150)
[2025-01-12 11:08] LABS: SGPT/ALT 26.0 U/L (0-55)
[2025-01-12 11:09] LABS: CREATININE 0.74 mg/dL (0.55-1.3); SGOT/AST 44.0 U/L (5-34)
[2025-01-12] MEDS: ACETAMINOPHEN 325 MG TABLET (FP) PO PRN (18:06)
[2025-01-13 17:20] VITALS: RESP 16
[2025-01-15 13:49] VITALS: BP 109/64; PULSE 75; TEMP 97.8
== END 2025-01-15 15:22 | disposition other institution (70) | DRG 773 ==
LOC: YASAS 08:48 → Y3N 10:19 → Y6N 11:04
PROVIDERS: ADMIT Allergy & Immunology; ATTEND Counselor Addiction (Substance Use Disorder)
PROC: HZ2ZZZZ Detoxification Services for Substance Abuse Treatment (ICD-10-PCS; principal; 2025-01-11)
DX: F10.230 Alcohol dependence with withdrawal, uncomplicated (principal); F13.230 Sedative, hypnotic or anxiolytic dependence with withdrawal, uncomplicated; F11.20 Opioid dependence, uncomplicated; F14.20 Cocaine dependence, uncomplicated; F17.210 Nicotine dependence, cigarettes, uncomplicated; F31.9 Bipolar disorder, unspecified; Z21 Asymptomatic human immunodeficiency virus [HIV] infection status; J45.20 Mild intermittent asthma, uncomplicated
CPT/HCPCS: 36415; 80053; 80307; 85027; 86708; 86780; 86803; 87517; 87522; 93005; 93010